=== PATIENT | male | born 1955 | race Hispanic/Latino ===

== ENCOUNTER 2017-04-10 00:25 | Inpatient (IN) | payer OTHER, MEDICARE ==
[2017-04-10 01:57] VITALS: BMI 35.9
[2017-04-10] MEDS ORDERED: Ondansetron ODT 4 MG TAB SL PRN (02:02)
[2017-04-10] MEDS ORDERED: Ondansetron HCl/PF 4 MG/2 ML Vial IVP PRN ×2 (02:02→03:01)
[2017-04-10] MEDS ORDERED: Acetaminophen 325 MG TAB PO PRN ×2 (02:02→03:01)
[2017-04-10] MEDS ORDERED: Labetalol HCl 100 MG/20 ML VIAL SLOW IVP PRN (02:42)
[2017-04-10] MEDS ORDERED: hydrALAZINE 20 MG/ML VIAL SLOW IVP PRN (02:42)
[2017-04-10] MEDS ORDERED: Carvedilol 25 MG TAB PO SCH (02:45)
[2017-04-10] MEDS ORDERED: Nitroglycerin 0.4 MG TAB (25 Tab Bottle) PO PRN (03:00)
[2017-04-10] MEDS ORDERED: Vancomycin HCl 1 GM in Premix Bag 1 BAG IVPB SCH (03:00)
[2017-04-10] MEDS ORDERED: Cefepime 2 GM in Syringe 12.5 ML IVPB SCH (03:00)
[2017-04-10] MEDS: Fentanyl 100 MCG/2 ML VIAL SLOW IVP PRN ×2 (03:01→08:44)
[2017-04-10] MEDS ORDERED: Ondansetron ODT 4 MG TAB PO PRN (03:01)
[2017-04-10] MEDS ORDERED: Calcium Carbonate 500 MG ChewTAB PO PRN (03:01)
[2017-04-10] MEDS ORDERED: Senokot 8.6 MG TAB PO PRN (03:01)
[2017-04-10] MEDS ORDERED: Diabetic Tussin 200 MG/10 ML UDCUP PO PRN (03:05)
[2017-04-10] MEDS ORDERED: Loratadine 10 MG TAB PO PRN (03:05)
[2017-04-10] MEDS ORDERED: cloNIDine 0.1 MG TAB PO PRN (03:05)
[2017-04-10] MEDS ORDERED: Vancomycin HCl 1 GM in Premix Bag 1 BAG IVPB PRN (03:27)
[2017-04-10] MEDS ORDERED: Vancomycin HCl 1.25 GM in Sodium Chloride 0.9% 250 ML 250 ML IVPB PRN (03:27)
[2017-04-10] MEDS ORDERED: Vancomycin HCl 750 MG in Sodium Chloride 0.9% 250 ML 250 ML IVPB PRN (03:28)
[2017-04-10] MEDS ORDERED: HOLD VANCOMYCIN FOR LEVEL >20 FS PRN (03:29)
[2017-04-10] MEDS ORDERED: Vancomycin HCl 500 MG in Sodium Chloride 0.9% 100 ML IVPB PRN (03:29)
[2017-04-10] MEDS ORDERED: Vancomycin Sliding Scale 1 EACH FS PRN (03:31)
--- NOTE | 2017-04-10 04:13 | HP ---
DATE OF ADMISSION: 04/10/2017 PRIMARY CARE PHYSICIAN: Kirt Quiros M.D. PRIMARY PODIATRIC ASSISTANT: Taylor Duron M.D. PRIMARY BEAUTY ADVISOR: Chan Holder M.D. CHIEF COMPLAINT: Left knee pain. HISTORY OF PRESENT ILLNESS: The patient is a 61-year-old male with ankylosing spondylitis on Enbrel, end-stage renal disease on peritoneal dialysis, presented to the emergency room at [facility] with abo ve complaints. Over the last 24 hours, the patient developed gradual worsening pain in the left knee for which he pr esented to the emergency room. His pain was 10/10 in the emergency room. He also had intermittent c hills. His left knee felt warm. He had a steroid injection in his right shoulder by Dr. Holder ye . He denies any recent fall, fever, chills, sick contacts. He has a history of left knee raquel nima in 1970s for ligament repair. He never had left knee replacement. He denies any nausea, vomiti ng, diaphoresis, fevers, chills, or night sweats. In the emergency room, initial vital signs showed temperature 99.5, respirations 22, pulse of 75, blo od pressure 224/96 with O2 saturation 97% on room air. Arthrocentesis was performed in the emergency room that was consistent with WBC of 75,000 with RBC 81,000, neutrophils 89%. His glucose was 98, t otal protein was 3.6 with LDH of 904. His CRP was 25.5 with ESR of 93. WBC count was 17.1 with hemo globin 12.6. He received vancomycin and ceftriaxone in the emergency room with IV fluids. PAST MEDICAL HISTORY: 1. End-stage renal disease on peritoneal dialysis, followed by Dr. Duron. 2. Hypertension. 3. Obstructive sleep apnea. 4. Ankylosing spondylitis, on immunosuppressants. 5. Hypertensive heart disease. PAST SURGICAL HISTORY: 1. Dialysis access. 2. Peritoneal dialysis catheter placement. 3. Total hip replacement. 4. Left knee surgery for ligament repair. ALLERGIES: No known drug allergies. CURRENT HOME MEDICATIONS: Tramadol as needed. Enbrel every 7 days, last dose was a week ago. He wa s due for Enbrel today. Carvedilol 25 mg b.i.d., calcitriol 0.25 mg daily. SOCIAL HISTORY: The patient currently lives at home with his spouse. No smoking, alcohol or drug us e. FAMILY HISTORY: Negative for premature coronary artery disease. REVIEW OF SYSTEMS: The following complete review of systems was negative, unless otherwise mentioned in the HPI or below: Constitutional: Weight loss or gain, ability to conduct usual activities. Skin: Rash, itching. Eyes: Double vision, pain. ENT/Mouth: Nose bleeding, neck stiffness, pain, tenderness. Cardiovascular: Palpitations, dyspnea on exertion, orthopnea. Respiratory: Shortness of breath, wheezing, cough, hemoptysis, fever or night sweats. Gastrointestinal: Poor appetite, abdominal pain, heartburn, nausea, vomiting, constipation, or diarr hea. Genitourinary: Urgency, frequency, dysuria, nocturia. Musculoskeletal: Pain, swelling. Neurologic/Psychiatric: Anxiety, depression. Allergy/Immunologic: Skin rash, bleeding tendency. PHYSICAL EXAMINATION: VITAL SIGNS: In the emergency room showed temperature 99.5, respirations 22, pulse rate of 75, blood pressure of 224/96 with O2 saturation 97% on room air. GENERAL: A 61-year-old male in moderate distress due to left knee pain. HEENT: Head atraumatic, normocephalic. Sclerae anicteric. Moist mucous membranes. No oral lesion. NECK: Supple, no JVD appreciated. No carotid bruit. LUNGS: Clear to auscultation bilaterally. No wheezing or rales. HEART: S1, S2 present. Regular rate and rhythm. No rubs, gallops or heaves appreciated. ABDOMEN: Soft, nontender, bowel sounds present. Peritoneal dialysis catheter present. EXTREMITIES: There is 1 to 2+ edema in the left leg. There is significant swelling of the left knee along with warmth and tenderness. No significant erythema noted. SKIN: As discussed above. LYMPH NODES: No palpable lymph nodes in the neck and groin. PERIPHERAL VASCULAR: Radial pulses palpable bilaterally. MUSCULOSKELETAL: As discussed above. NEUROLOGIC: Grossly nonfocal, moves all four extremities. PSYCHIATRY: Alert, awake, oriented x3. LABORATORY FINDINGS: As discussed above. X-ray of the knee by my review was consistent with large joint effusion with degenerative joint disea se. IMPRESSION: 1. Sepsis secondary to left knee septic arthritis. 2. Elevated inflammatory markers secondary to #1. 3. Ankylosing spondylitis on immunosuppressants. 4. Hypertension with hypertensive heart disease. 5. End-stage renal disease on peritoneal dialysis. 6. Chronic anemia, probably secondary to renal insufficiency. 7. Hyperlipidemia. 8. Obstructive sleep apnea. PLAN: The patient will be monitored on the medical floor. We will continue vancomycin and ceftriaxo ne, pending cultures. We will add crystal identification to the synovial fluid. Infectious Disease, Rheumatology, and Orthopedic will be consulted. The patient will be kept n.p.o. past midnight. Per itoneal dialysis per Nephrology. Resume carvedilol. Add p.r.n. antihypertensives. Pain controlled with IV fentanyl due to CODEINE allergy. Resume tramadol. Plan of care was discussed with the patient and the family at the bedside. They stated understanding . The patient will require 2 to 3 days for stabilization. Blood cultures have been sent.
[2017-04-10 05:21] LABS: Band 7 % (5-11); Hemoglobin 12.5 g/dL (14.0-18.0); Lymphocytes 6 % (21-51); MDiff Complete? YES; Mean Corpuscular HGB CONC 32.4 g/dL (32.0-36.0); Mean Corpuscular Volume 95.7 fl (80.0-94.0); Mean Platelet Volume 7.1 fL (7.4-10.4); Monocytes 11 % (0-10); Neutrophil 75 % (42-75); PLT Morphology Comment Appears Adequate; Platelet Count 225 thou/uL (130-400); RBC Distribution Width 12.2 % (11.5-14.5); RBC Morphology Normal; Reactive Lymphocytes 1 % (0-10); Red Blood Cell (RBC) Count 4.04 mill/uL (4.70-6.10); White Blood Cell (WBC) Count 15.9 thou/uL (4.8-10.8)
[2017-04-10] MEDS: traMADol HCl 50 MG TAB PO PRN ×2 (05:21→16:59)
[2017-04-10 05:22] LABS: ALT (SGPT) Less than 7 U/L (8-55); AST (SGOT) 6 U/L (5-34); Albumin 3.3 g/dL (3.5-5.0); Alkaline Phosphatase 100 U/L (40-150); Anion Gap 17 mmol/L (10-20); BUN (Urea Nitrogen) 67 mg/dL (8.4-25.7); Bilirubin, Total 0.6 mg/dL (0.2-1.2); Calc. Creatinine Clearance 16 mL/min (70-130); Calcium 9.8 mg/dL (7.8-10.44); Carbon Dioxide 20 mmol/L (22-29); Chloride 104 mmol/L (98-107); Estimated GFR-MDRD 8; Globulin 3.7 g/dL (2.4-3.5); Glucose 109 mg/dL (70-105); Potassium 4.7 mmol/L (3.5-5.1); Sodium 136 mmol/L (136-145)
[2017-04-10] MEDS: Folic Acid 1 MG TAB PO SCH (08:35)
[2017-04-10] MEDS: Saccharomyces boulardii 250 MG CAP PO SCH (08:35)
[2017-04-10] MEDS: Calcitriol 0.25 MCG CAP PO SCH (08:36)
[2017-04-10] MEDS: Famotidine 20 MG TAB PO SCH (08:36)
[2017-04-10] MEDS: Carvedilol 25 MG TAB PO SCH ×2 (08:37→20:45)
[2017-04-10] MEDS: Docusate 100 MG CAP PO SCH ×2 (08:38→20:45)
[2017-04-10] MEDS ORDERED: Morphine 4 MG/ML Carpuject SLOW IVP PRN (09:00)
--- NOTE | 2017-04-10 09:26 | CON ---
DATE OF CONSULTATION: 04/10/2017 CONSULTING PHYSICIAN: Dr. Morgan Flores HISTORY OF PRESENT ILLNESS: We were asked to see the patient via our [facility]. The patient pre sented to the emergency room with a complaint of increased left knee pain over the past 24 hours. Hi s is at the bedside. Per the patient and he had done nothing different, twisted or injured his knee. It just started becoming more and more warm to the touch, swollen and very painful to the point where he could not stand anymore and had to come in. He has also had some intermittent chills , but was unsure if this was a recent illness going around or from the knee. He had a steroid inject ion in the right shoulder by Dr. Holder on Wednesday. Denies any numbness and tingling down the legs, but has a lot of pain and pressure in the knee. PAST MEDICAL HISTORY: End-stage renal disease, he is on peritoneal dialysis, hypertension, obstructi ve sleep apnea, ankylosing spondylitis, hypertension/heart disease. PAST SURGICAL HISTORY: Dialysis access with peritoneal catheter placement, total hip, left knee raquel nima years ago. MEDICATIONS: Tramadol, Enbrel, carvedilol, calcitriol. ALLERGIES: None. SOCIAL HISTORY: . No alcohol or nicotine use. FAMILY HISTORY: Noncontributory. LABORATORIES: Labs in the ER, arthrocentesis showed a white blood cell count 75,000, RBC 81,000, yo trophils 89%. C-reactive protein is 25.5. ESR is 93. CBC; 17.1, 12.6, 37.4, platelets 211. X-rays showed some obvious edema effusion. He has some osteophytic formation, spurs, otherwise joint space looks fairly good. PHYSICAL EXAMINATION: GENERAL: Well-nourished male resting in bed, currently n.p.o. Speech clear. Affect pleasant. Answ ers questions appropriately, is alert and oriented x3. HEENT: Normal exam. NECK: Supple, trachea midline. EXTREMITIES: Upper extremities with normal findings. Lower extremities; noted he does have a large scar on his left knee from surgery in the 70s. He also has diminished hair from the mid to upper jose roberto f down to the feet. He has good sensations in his legs. He is able to move both legs okay, right ob viously better than left, due to the swelling and pain. Left knee is definitely much more warm than right knee. Flexing the knee, bending the knee causes traumatic pain. Any palpation to the knee is also very miserable for the patient. ASSESSMENT: Left knee effusion, rule out septic knee. PLAN: I spoke with patient and . We plan to do a washout of the knee arthroscopically. I have explained the procedure to the patient and and they are amenable to go forth with surgery. He i s currently n.p.o. We will keep him this way and add him on to surgery this morning. We will get hi m consented. He does have labs and cultures pending from [facility]. Dr. Gallo has also been co nsulted. The patient and understand the procedure and the plan is set forth currently and both are amenable to go forth with I&D washout of the knee.
[2017-04-10] MEDS ORDERED: Fentanyl 100 MCG/2 ML VIAL ONE (11:32)
[2017-04-10] MEDS ORDERED: Bupivacaine 0.25% HCL 30 ML VIAL ONE (11:43)
[2017-04-10] MEDS ORDERED: methylPREDNISolone Acetate 40 mg/ml Vial ONE (11:44)
[2017-04-10] MEDS ORDERED: Ondansetron HCl/PF 4 MG/2 ML Vial ONE (11:57)
--- NOTE | 2017-04-10 13:15 | OP ---
DATE OF SERVICE: 04/10/2017 PREOPERATIVE DIAGNOSIS: Left knee gout. POSTOPERATIVE DIAGNOSIS: Left knee gout. PROCEDURE PERFORMED: Aspiration and injection, left knee. STAFF: Morgan Flores M.D. MAGAZINE JOURNALIST: None. ANESTHESIA: Patient received 2 mL of lidocaine plain 1% subcutaneously. He also received 8 mL of Ma rcaine 0.25% plain with 80 mg of Depo-Medrol and 2 mL of lidocaine intraarticularly. ESTIMATED BLOOD LOSS: Less than 5 mL TOURNIQUET TIME: None. IMPLANTS: None. ANTIBIOTICS: None. Aspiration fluid 50 mL of murky fluid without any obvious red blood cells noted. COMPLICATIONS: None. HISTORY OF PRESENT ILLNESS: Michael is a 61-year-old male who presented to the ER last night with inc reasing pain of his left knee. The patient had an aspiration in the ER for his left knee pain showed 75,000 white blood cells, 81,000 reds, 89% neutrophils, glucose 98, protein of 3.6. The patient had elevated CRP and ESR. The patient was given vancomycin and ceftriaxone in the emergency room. The patient had cultures taken. The patient has a history of gout in the past, he is on end-stage renal disease, followed by Dr. Duron for peroneal dialysis. The patient has hypertension, sleep apnea, a nkylosing spondylitis, and hypertension. The patient's left knee is swollen and painful. The aspira te was red with positive monosodium urate crystals by Pathology today. He was planned to go to the O [facility] for washout of his knee, but given history of gout on crystal examination, I elected to hold not to take the patient for surgery. I discussed the risks and benefits of an aspiration injection, need t o include infection, pain, scar, need for further surgeries to include aspiration and injection. He understood the risks and benefits and elected to proceed. PROCEDURE NOTE: Time-out performed as the operative left lower extremity as the operative site. Aft er the left lower extremity was cleaned and prepped and draped with chlorhexidine, I injected 2 mL of lidocaine 1% subcutaneous to help with placement of my larger needle, I then placed an 18 gauge need le in the joint aspirated about 50 mL of yellow murky fluid out of the patient's knee. I then inject ed back in 8 mL of Marcaine, almost 2 mL of lidocaine and 80 mg of Depo-Medrol. The patient had been bandaged. Post-procedure, the patient's pain was improved. The patient's cultures followed to ensu re today that they are negative. Given history of gout and improvement in pain, postprocedure no jonas thema, no warmth, I feel this is likely gouty flare, likely need allopurinol and colchicine treatment , followed by Nephrology as well as Internal Medicine.
--- NOTE | 2017-04-10 14:18 | CON ---
DATE OF CONSULTATION: 04/10/2017 NEPHROLOGY CONSULT CONSULTING PHYSICIAN: Marcos Canas M.D. REASON FOR CONSULTATION: End-stage renal disease evaluation. REASON FOR ADMISSION: Left knee pain. HISTORY OF PRESENT ILLNESS: A 61-year-old male with history of end-stage renal disease, hypertension , obstructive sleep apnea and congestive heart failure, came to the hospital with left knee pain and possible septic arthritis. Nephrology was consulted for maintenance dialysis with peritoneal dialysi s at nighttime. He missed dialysis today with no nausea, vomiting, no chest pain, palpitation. No f ever or chills. He is in lot of pain and possibly having surgery later today. PAST MEDICAL HISTORY: Positive for end-stage renal disease on peritoneal dialysis, hypertension, obs tructive sleep apnea, ankylosis, and spondylitis, hypertension. PAST SURGICAL HISTORY: Dialysis access placement including peritoneal dialysis catheter, total hip r eplacement, and left knee surgery. MEDICATIONS: Tramadol, Enbrel, carvedilol, calcitriol. ALLERGIES: No known drug allergies. SOCIAL HISTORY: No smoking, alcohol or drug abuse. FAMILY HISTORY: No history of any kidney disease. REVIEW OF SYSTEMS: The following complete review of systems was negative, unless otherwise mentioned in the HPI or below: Constitutional: Weight loss or gain, ability to conduct usual activities. Sk in: Rash, itching. Eyes: Double vision, pain. ENT/Mouth: Nose bleeding, neck stiffness, pain, te nderness. Cardiovascular: Palpitations, dyspnea on exertion, orthopnea. Respiratory: Shortness of breath, wheezing, cough, hemoptysis, fever or night sweats. Gastrointestinal: Poor appetite, abdom inal pain, heartburn, nausea, vomiting, constipation, or diarrhea. Genitourinary: Urgency, frequenc y, dysuria, nocturia. Musculoskeletal: Pain, swelling. Neurologic/Psychiatric: Anxiety, depressio n. Allergy/Immunologic: Skin rash, bleeding tendency. PHYSICAL EXAMINATION: GENERAL: This is an obese male in no apparent distress. VITAL SIGNS: Temperature 98.3, pulse 86, respiratory 20, blood pressure 159/76. HEENT: Atraumatic, normocephalic. Oral mucosa is moist. NECK: Supple, no masses. CARDIOVASCULAR: S1, S2 heard. Rate and rhythm regular. RESPIRATORY: Clear. MUSCULOSKELETAL: 1+ edema. DERMATOLOGIC: No skin rash. NEUROLOGIC: Alert, awake. PSYCHIATRIC: Mood and affect normal. LABORATORY: Hemoglobin is 12.5. Potassium is 4.7, BUN 67, creatinine 7.3. ASSESSMENT AND PLAN: 1. End-stage renal disease. We will continue on peritoneal dialysis as tolerated. 2. Glaucoma. 3. Hypertension. 4. Anemia. Hemoglobin is stable. 5. Mild acidosis. Plan is to continue on peritoneal dialysis tonight and dialysis orders given to t carlos nurse. We will continue to follow. Thank you for the consultation.
[2017-04-10] MEDS ORDERED: cefTRIAXone\\ROCEPHIN 1 GM in Syringe 10 ML IVPB SCH (23:00)
[2017-04-11 04:27] LABS: ALT (SGPT) Less than 7 U/L (8-55); AST (SGOT) 5 U/L (5-34); Albumin 3.1 g/dL (3.5-5.0); Alkaline Phosphatase 81 U/L (40-150); Anion Gap 17 mmol/L (10-20); BUN (Urea Nitrogen) 78 mg/dL (8.4-25.7); Bilirubin, Total 0.4 mg/dL (0.2-1.2); Calc. Creatinine Clearance 17 mL/min (70-130); Calcium 9.8 mg/dL (7.8-10.44); Carbon Dioxide 22 mmol/L (22-29); Chloride 101 mmol/L (98-107); Estimated GFR-MDRD 8; Globulin 3.5 g/dL (2.4-3.5); Glucose 174 mg/dL (70-105); Potassium 4.8 mmol/L (3.5-5.1); Protein, Total 6.6 g/dL (6.0-8.3); Sodium 135 mmol/L (136-145)
[2017-04-11 04:42] LABS: Band 2 % (5-11); Hemoglobin 11.1 g/dL (14.0-18.0); Lymphocytes 4 % (21-51); MDiff Complete? YES; Macrocytosis SLIGHT = 6-15 cells (100X) (0-5/hpf); Mean Corpuscular HGB CONC 32.4 g/dL (32.0-36.0); Mean Corpuscular Hemoglobin 31.2 pg (27.0-31.0); Mean Corpuscular Volume 96.4 fl (80.0-94.0); Mean Platelet Volume 7.1 fL (7.4-10.4); Metamyelocyte 1 % (0-0); Monocytes 2 % (0-10); Neutrophil 91 % (42-75); PLT Morphology Comment Appears Adequate; Platelet Count 222 thou/uL (130-400); RBC Distribution Width 12.3 % (11.5-14.5); Red Blood Cell (RBC) Count 3.55 mill/uL (4.70-6.10); White Blood Cell (WBC) Count 13.1 thou/uL (4.8-10.8)
[2017-04-11 08:19] LABS: Vancomycin, Random 5.7 ug/mL (See Comment)
[2017-04-11] MEDS: Famotidine 20 MG TAB PO SCH (08:50)
[2017-04-11] MEDS: Carvedilol 25 MG TAB PO SCH (08:51)
[2017-04-11] MEDS ORDERED: Heparin 5,000 UNITS/ML VIAL SC SCH (09:00)
--- NOTE | 2017-04-11 12:15 | PRG ---
DATE OF SERVICE: 04/11/2017 SUBJECTIVE: Patient was seen and examined at bedside and overnight events noted. Patient denies any shortness of breath or chest pain or palpitation. No history of nausea or vomiting or diarrhea or f ever or chills or cramps. OBJECTIVE: GENERAL: This is a well-built male in no apparent distress. VITAL SIGNS: Temperature 97.9, pulse 66, respiratory 18, blood pressure 156/80. HEENT: Atraumatic, normocephalic, Oral mucosa is moist NECK: Supple. CARDIOVASCULAR: S1, S2 heard. Rate and rhythm regular RESPIRATORY: Clear to auscultation. GASTROINTESTINAL: Abdomen is soft. MUSCULOSKELETAL: No tenderness, no edema. DERMATOLOGIC: No skin rash. NEUROLOGIC: Alert and awake and oriented x3. No focal neurologic deficits. Moving all the extremit ies. PSYCHIATRIC: Mood and affect normal. LABORATORY DATA: Potassium is 4.9, BUN is 78, and creatinine 6.9. ASSESSMENT AND PLAN: 1. End-stage renal disease, continue on peritoneal dialysis, tolerating well. 2. Hypertension, stable. 3. Anemia. 4. Edema. 5. Mild acidosis. Overall, tolerating PD well, continue on peritoneal dialysis as tolerated.
--- NOTE | 2017-04-11 12:37 | PDOC.PN ---
- Subjective Encounter Start Date: 04/11/17 Encounter Start Time: 12:30 Subjective: f/u for L knee gouty arthritis s/p aspiration and injection 04/10/17. -: Tx with Rocephin and Vancomycin sliding scale with PD. Feels much -: better and minimal pain in knee. Some swelling but no fever. - Objective Resuscitation Status: Resuscitation Status FULL:Full Resuscitation MAR Reviewed: Yes Vital Signs & Weight: Vital Signs (12 hours) Temp Pulse Resp BP Pulse Ox 04/11/17 08:00 97.9 F 66 18 156/85 H 93 L 04/11/17 05:05 97.7 F 66 18 161/66 H Weight Weight 229 lb 5 oz Result Diagrams: 04/11/17 03:35 04/11/17 03:35 Additional Labs: Microbiology 04/09/17 23:15 Synovial fluid Gram Stain - Final 04/09/17 23:15 Synovial fluid Body Fluid Culture - Preliminary 04/09/17 23:00 Venous blood - Right Hand Blood Culture - Preliminary Specimen has been received and culture in progress. No Growth to date. 04/09/17 22:25 Venous blood - Right Arm Blood Culture - Preliminary Specimen has been received and culture in progress. No Growth to date. Laboratory Tests 04/09/17 04/10/17 23:15 04:20 WBC 15.9 H Hgb 12.5 L Fluid Crystal ID Phys Exam - Physical Examination Constitutional: NAD HEENT: PERRLA, oral pharynx no lesions Neck: no JVD, supple Respiratory: no wheezing, clear to auscultation bilateral Cardiovascular: RRR PD catheter in place Gastrointestinal: soft, non-tender, no distention, positive bowel sounds L knee with edema and effusion, mild TTP along joint line Musculoskeletal: pulses present, edema present Neurological: normal sensation, moves all 4 limbs Psychiatric: A&O x 3 Skin: normal turgor, cap refill <2 seconds Dx/Plan (1) Acute gouty arthritis Code(s): M10.9 - GOUT, UNSPECIFIED Status: Acute (2) ESRD on peritoneal dialysis Code(s): N18.6 - END STAGE RENAL DISEASE; Z99.2 - DEPENDENCE ON RENAL DIALYSIS Status: Acute (3) Anemia due to chronic kidney disease Code(s): N18.9 - CHRONIC KIDNEY DISEASE, UNSPECIFIED; D63.1 - ANEMIA IN CHRONIC KIDNEY DISEASE Status: Acute - Plan * .
[2017-04-11] MEDS ORDERED: Colchicine 0.6 MG TAB PO SCH (13:00)
[2017-04-11] MEDS: Calcitriol 0.25 MCG CAP PO SCH (14:03)
[2017-04-11] MEDS: Folic Acid 1 MG TAB PO SCH (14:03)
[2017-04-11] MEDS: Docusate 100 MG CAP PO SCH (14:04)
[2017-04-11] MEDS: Saccharomyces boulardii 250 MG CAP PO SCH (14:04)
[2017-04-11 14:31] VITALS: BP 183/89; TEMP 97.8
[2017-04-11] MEDS: traMADol HCl 50 MG TAB PO PRN (14:32)
--- NOTE | 2017-04-11 17:30 | CON ---
DATE OF CONSULTATION: 04/11/2017 HISTORY OF PRESENT ILLNESS: Mr. Rodriguez is a 61-year-old male who presented with left knee pain. The patient was diagnosed with gout on aspiration. The patient had currently injection performed yester day, now with improved pain control. The patient was kept n.p.o. waiting for cultures to be reviewed , positive. PHYSICAL EXAMINATION: VITAL SIGNS: 97.9, 66, 18, 156/85. GENERAL: Alert and oriented male in no acute distress. EXTREMITIES: Positive effusion, no erythema, no ecchymosis, no pain with axial load. Sensory intact distally. The patient has some minimal flexion and extension intact. LABORATORY VALUES: Micro, no growth at 24 hours, positive for gout. IMPRESSION: Gouty arthritis, left knee. ASSESSMENT AND PLAN: The patient's steroid injection has improved the pain control, recommend ambula tion activities. I recommend treatment with allopurinol and colchicine by primary team for his gouty arthritis. The patient will follow up with PCP or a residential fee appraiser for continued management. No foll owup required with Orthopedics unless he continues to have problems.
--- NOTE | 2017-04-11 17:43 | CON ---
DATE OF CONSULTATION: 04/11/2017 REASON FOR CONSULTATION: Left inflammatory arthropathy. HISTORY OF PRESENT ILLNESS: A 61-year-old who has a history of ankylosing spondylitis on immunosuppr essive medication and end-stage renal disease of uncertain etiology currently managed with peritoneal dialysis and prior history of gout with mostly foot involvement which had been in remission. The jose owens at this time came into the hospital because of worsening left knee inflammatory process. Arthr ocentesis showed an elevated WBC count of 75,000 with predominance of mature neutrophils. The aldo nickerson has been given ceftriaxone. The patient also was given a sliding scale of vancomycin. Cultures fr om the knee fluid thus far negative and fluid analysis showed positive for uric acid crystals. [place] sharma is currently on Colcrys in addition to the antimicrobials and he is feeling better. No headaches, visual symptoms, sore throat, odynophagia, dysphagia, no cough or sputum production or chest pain, n o abdominal pain, no genitourinary symptoms. No back pain or other joint symptoms. PAST MEDICAL HISTORY: Chronic renal insufficiency of uncertain etiology, on peritoneal dialysis. Jose owens has an AV fistula which is not being used at this time. Hypertension, RG, ankylosing spondyli tis on immunosuppressants, hypertensive heart disease and some ligament repair of left knee, total hi p replacement. ALLERGIES: CODEINE. MEDICATIONS AT HOME: Enbrel, Coreg, and calcitriol. SOCIAL HISTORY: Lives in [place] with spouse. Still working in a [employer] company. Never a smoker. FAMILY HISTORY: Noncontributory. PHYSICAL EXAMINATION: GENERAL: The patient has been afebrile through the hospital stay. Other vital signs are remarkable for slight elevation in systolic blood pressure. Awake, alert, pleasant, no distress. HEENT: Ocular movements are conjugate. LUNGS: With symmetric clear breath sounds. HEART: S1, S2, regular rate. No S3 or S4. ABDOMEN: Soft, nondistended or tender. Moderate pain in left knee on range of motion. Still with q uite a bit of pain on weightbearing. EXTREMITIES: Pulses are 1+ in dorsalis pedis. No edema. Exit site of the peritoneal dialysis vivian ter appears within normal limits. NEUROLOGIC: Examination nonfocal. LABORATORY DATA: White cell count 15.9 and 13,000, hemoglobin 11, platelets 222 with 91% neutrophils . Sodium 135, creatinine 6.97. Lactic acid 1.0, albumin 3.1. Fluid crystal ID positive for monosod ium urate crystals both intra and extracellular. Cultures negative thus far. Gram stain with no org anisms. Blood cultures negative. IMAGING STUDIES: There was a knee x-ray with joint effusion osteophyte. ASSESSMENT: 1. End-stage renal disease. 2. Peritoneal dialysis. 3. Acute gout, left knee. DISCUSSION: The evidence thus far points against an infectious process and we will go ahead and disc ontinue antimicrobial therapy. Continue management for gouty arthritis and patient will likely need to be treated for that in the outpatient setting with uric acid reducing agents and colchicine adjust ed for renal function. Intra-articular corticosteroids might be of help.
--- NOTE | 2017-04-11 18:08 | DIS ---
DATE OF ADMISSION: 04/10/2017. DATE OF DISCHARGE: 04/11/2017 DISCHARGE DIAGNOSES: 1. Acute gouty arthritis, flare of the left knee. 2. Status post aspiration injection of the left knee on 04/10/2017. 3. End-stage renal disease, on peritoneal dialysis. 4. Hypertension, stable. 5. Ankylosing spondylitis, on chronic immunosuppression therapy. 6. Chronic anemia secondary to chronic kidney disease. CONSULTATIONS: Dr. Flores with Orthopedic Surgery Service. Dr. Duron with Nephrology Service. PERTINENT LABORATORY AND X-RAY FINDINGS: Creatinine ranged between 6.97-7.35 with estimated GFR of 8 . Lactic acid level 1.0. CBC showed a white blood cell count ranging 13.1-15.9, hemoglobin ranged b etween 11.1-12.5. Left knee synovial fluid positive for monosodium urate crystals. Blood cultures x 2 from 04/09/2017 showed no growth to date. Synovial fluid evaluation 04/09/2017 showed no organisms , no growth at 12 hours. Four views of the left knee dated 04/09/2017 showed large joint effusion. HOSPITAL COURSE: Patient was admitted to the medical floor after initially presenting with severe le ft knee pain and swelling with initial concern for septic arthritis. Patient is on chronic immunosup pression therapy due to ankylosing spondylitis. The patient received IV vancomycin and Rocephin empi rically and was evaluated by the Orthopedic Surgery Service. The patient underwent general evaluatio n with aspiration of synovial fluid showing evidence of monosodium urate crystals confirming the diag nosis of gout. The patient underwent aspiration and injection of the left knee on 04/10/2017 with ov erall improvement in edema and pain. Current recommendations are for colchicine 0.6 mg x1 dose due t o end-stage renal disease and initiation of prednisone taper. Overall, patient is clinically stable and ready for discharge on 04/11/2017. DISCHARGE MEDICATIONS: 1. Calcitriol 0.25 mg p.o. daily. 2. Carvedilol 25 mg p.o. b.i.d. 3. Inderal 50 mg subcutaneously every 7 days. 4. Prednisone 10 mg 2 tabs p.o. daily x 3 days, followed by 1 tab p.o. daily x 3 days, followed by h hector a tab p.o. daily x3 days. 5. Tramadol/acetaminophen 37.5/325 mg 1-2 tabs p.o. b.i.d. p.r.n. pain. FOLLOWUP: The patient may follow up with his primary care provider, Dr. Brock within 7 days of disch arge. Patient will follow up with Dr. Duron with Nephrology Service. Patient will follow up with Dr. Morgan Flores and to call his office for appointment time and date. CONDITION ON DISCHARGE: Stable. ACTIVITY: Ad shaji. DIET: Renal. CODE STATUS: Full. DISPOSITION: Home on 04/11/2017.
[2017-04-11] MEDS ORDERED: cefTRIAXone\\ROCEPHIN 1 GM in Syringe 10 ML SLOW IVP SCH (23:00)
== END 2017-04-11 15:33 | disposition home or self-care (01) | DRG 553 ==
LOC: ERS 00:25 → T4-B 01:49
PROVIDERS: ADMIT Internal Medicine; ATTEND Internal Medicine
PROC: 0S9D3ZX Drainage of Left Knee Joint, Percutaneous Approach, Diagnostic (ICD-10-PCS; principal; 2017-04-10)
PROC: 3E0U3BZ Introduction of Anesthetic Agent into Joints, Percutaneous Approach (ICD-10-PCS; 2017-04-10)
PROC: 3E0U33Z Introduction of Anti-inflammatory into Joints, Percutaneous Approach (ICD-10-PCS; 2017-04-10)
PROC: 3E1M39Z Irrigation of Peritoneal Cavity using Dialysate, Percutaneous Approach (ICD-10-PCS; 2017-04-10)
DX: M10.062 Idiopathic gout, left knee (principal); N18.6 End stage renal disease; E87.2 Acidosis; I12.0 Hypertensive chronic kidney disease with stage 5 chronic kidney disease or end stage renal disease; Z99.2 Dependence on renal dialysis; M45.9 Ankylosing spondylitis of unspecified sites in spine; D63.1 Anemia in chronic kidney disease; G47.33 Obstructive sleep apnea (adult) (pediatric); H40.9 Unspecified glaucoma; Z79.899 Other long term (current) drug therapy; Z96.649 Presence of unspecified artificial hip joint
CPT/HCPCS: 36415; 80053; 80202; 83605; 85007; 85027; 87070; 87077; 87205; 89060; 90945; 94760; 99285; A4216; G0257; G8978-GP-CM; G8979-GP-CJ; J0360; J0692; J0696; J1030; J2270; J2405; J3010; J3370; S0020

== ENCOUNTER 2017-06-26 11:58 | Inpatient (IN) | payer OTHER, MEDICARE ==
[2017-06-26] MEDS ORDERED: HYDROcodone/Acetaminophen 5/325 mg Tablet ONE (12:44)
[2017-06-26 13:36] LABS: #Eosinphils 0.1 thou/uL (0.0-0.7); #Lymphocytes 1.1 thou/uL (1.20-3.40); #Monocytes 1.4 thou/uL (0.11-0.59); %Basophils 0.2 % (0.0-1.0); %Eosinophils 0.6 % (0.0-10.0); %Lymphocytes 7.9 % (21.0-51.0); %Monocytes 9.9 % (0.0-10.0); %Neutrophils 81.4 % (42.0-75.0); Hemoglobin 12.7 g/dL (14.0-18.0); Mean Corpuscular HGB CONC 32.8 g/dL (32.0-36.0); Mean Corpuscular Hemoglobin 31.8 pg (27.0-31.0); Mean Platelet Volume 6.9 fL (7.4-10.4); Platelet Count 245 thou/uL (130-400); RBC Distribution Width 14.3 % (11.5-14.5); Red Blood Cell (RBC) Count 3.99 mill/uL (4.70-6.10); White Blood Cell (WBC) Count 13.6 thou/uL (4.8-10.8)
[2017-06-26 14:01] LABS: CRP (Inflammatory) 29.99 mg/dL (= or < 0.5); Uric Acid 9.1 mg/dL (3.5-7.2)
[2017-06-26 14:02] LABS: ALT (SGPT) 12 U/L (8-55); AST (SGOT) 21 U/L (5-34); Albumin 3.4 g/dL (3.5-5.0); Alkaline Phosphatase 78 U/L (40-150); Anion Gap 19 mmol/L (10-20); BUN (Urea Nitrogen) 68 mg/dL (8.4-25.7); Bilirubin, Total 0.5 mg/dL (0.2-1.2); Calc. Creatinine Clearance 0 mL/min (70-130); Calcium 10.1 mg/dL (7.8-10.44); Carbon Dioxide 21 mmol/L (22-29); Chloride 102 mmol/L (98-107); Estimated GFR-MDRD 9; Glucose 103 mg/dL (70-105); Potassium 4.7 mmol/L (3.5-5.1); Protein, Total 7.4 g/dL (6.0-8.3); Sodium 137 mmol/L (136-145)
[2017-06-26] MEDS ORDERED: Colchicine 0.6 MG TAB PO SCH (15:15)
[2017-06-26] MEDS ORDERED: Zolpidem Tartrate 5 MG TAB PO PRN (16:36)
[2017-06-26] MEDS ORDERED: Morphine 4 MG/ML VIAL SLOW IVP PRN (16:36)
[2017-06-26] MEDS ORDERED: Ondansetron HCl/PF 4 MG/2 ML Vial IVP PRN (16:36)
[2017-06-26] MEDS ORDERED: Ondansetron HCl/PF 4 MG/2 ML Vial ONE (16:41)
[2017-06-26] MEDS ORDERED: Morphine 4 MG/ML VIAL ONE (16:41)
[2017-06-26] MEDS ORDERED: traMADol HCl 50 MG TAB PO PRN (16:41)
[2017-06-26] MEDS ORDERED: Acetaminophen 325 MG TAB PO PRN (16:42)
--- NOTE | 2017-06-26 17:07 | ULT ---
LEFT LOWER EXTREMITY VENOUS DOPPLER 06/26/17 HISTORY: Pain. Swelling. COMPARISON: None. TECHNIQUE: Real time holden scale, color doppler with spectral analysis of the left upper extremity venous system is performed. The internal jugular, subclavian, axillary vein as well as brachial, basilic, cephalic veins were interrogated. FINDINGS: Normal flow and augmentation and compression. The fistula is patent. IMPRESSION: No deep vein thrombosis. POS: CHARITO
--- NOTE | 2017-06-26 17:12 | RAD ---
LEFT ELBOW TWO VIEW 06/26/17 HISTORY: Pain. FINDINGS: There is erosive changes of the lateral humeral condyle. There is surgical clips along the antecubita l fossa. Osteophyte formation of the sublime tubercle. IMPRESSION: 1. No acute fracture or malalignment. 2. Mild soft tissue swelling. 3. Soft tissue density along the medial and anterior margin of the joint may reflect gout pannus . POS: CHARITO
--- NOTE | 2017-06-26 17:48 | HP ---
DATE OF CONSULTATION: 06/26/2017 CHIEF COMPLAINT: Left elbow pain. HISTORY OF PRESENT ILLNESS: This is a 62-year-old male who is presenting with left elbow pain as wel l as pain on by his thumb on the left side and swelling that occurred about 4-5 days ago and started to get progressively worse. The patient denies any trauma to the area. Denies any nausea, vomiting, diarrhea, fevers, shortness of breath or chest pain. Does admit to some chills. The patient does h ave peritoneal dialysis overnight. Patient currently states that he has not been bitten by anything. It did not hurt his elbow in anyway shape or form. Does admit to episodes of gout in the past and states that he had a similar presentation; however, his prior presentation was on his left knee. The patient otherwise denies any other associated symptoms. 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 Oth erwise, no other alleviating or aggravating factors. The patient was seen and examined in the ER and at bedside. All questions answered. ALLERGIES: CODEINE. PAST MEDICAL HISTORY: ESRD, ankylosing spondylitis, hypertension, secondary hyperparathyroidism due to renal disease, anemia secondary to renal disease, gout. PAST SURGICAL HISTORY: Bilateral titanium hips, AV fistula placement, PD catheter placement. HOME MEDICATIONS: Please see MAR. SOCIAL HISTORY: Denies any drinking or smoking. FAMILY HISTORY: Positive for renal failure in his brother. REVIEW OF SYSTEMS: Twelve point review of systems performed. Pertinent positives in the HPI, otherw ise negative. PHYSICAL EXAMINATION: VITAL SIGNS: Blood pressure 118/58, heart rate of 88, temperature 98, respirations of 12. GENERAL: The patient is sitting in chair in no acute distress. HEENT: Pupils equal, round, react to light and accommodation. Normocephalic, atraumatic. Oral cavi ty is moist and pink. NECK: Supple, mobile, nontender, palpable thyroid. CARDIOVASCULAR: Regular rate and rhythm. S1 and S2. No murmurs, rubs or gallops. PULMONARY: Clear to auscultation bilaterally, aerating well, symmetric expansion. ABDOMEN: Positive bowel sounds, soft, nontender. EXTREMITIES: 2+ peripheral pulses. Trace edema noted in bilateral lower extremities. Left elbow is swollen as well as left forearm, difficulty abducting elbow as well as crusher screen repairer in the left hand. Left distal phalangeal joint and proximal phalangeal joint appears to be swollen as well with tender to pa lpation both in elbow as well as proximal thumb. NEUROLOGIC: Cranial nerves II-XII intact. No loss of motor sensory function. LABORATORY DATA: Laboratory king, CBC; WBC count elevated at 10.6, hemoglobin 12.7, hematocrit 38.7, platelet count 245. BMP reveals normal BMP except for bicarbonate is 21, creatinine 6.32, BUN of 69 , C-reactive protein at 30, albumin 3.4. ASSESSMENT AND PLAN: 1. Left elbow effusion, left proximal interphalangeal joint pain. 2. History of osteoarthritis. 3. History of ankylosing spondylitis. 4. History of end-stage renal disease on peritoneal dialysis. 5. Secondary hyperparathyroidism due to renal disease. 6. History of secondary anemia due to renal disease. PLAN: At this point in time, patient's x-ray of the elbow is pending, we will consult Orthopedic Alonso nima for possible drainage of the effusion if deemed appropriate after evaluation. Nephrology follow ing as well for PD. Patient is given antibiotics in the ER. Follow up with blood cultures as well a s Orthopedic recommendations. Nephrology to resume peritoneal dialysis tonight. If patient's white count is falling, we will discharge the patient likely with antibiotics. If culture is positive, we will tailor therapy accordingly. At this point in time, we will place the patient in tele/ob and swi tch to inpatient if patient's symptoms and clinical status worsens. Case and plan discussed with the patient and at length. They understand and agree with this plan.
[2017-06-26 18:15] VITALS: BMI 33.5
[2017-06-26] MEDS: Carvedilol 25 MG TAB PO SCH (19:02)
[2017-06-26] MEDS ORDERED: Morphine 5 MG/ML SYRINGE SLOW IVP PRN (21:02)
[2017-06-26] MEDS: Clindamycin/D5W 300 MG in Premix Bag 1 BAG IVPB SCH (21:13)
[2017-06-26] MEDS ORDERED: Clindamycin 6 MG/ML (PEDI) IVPB SCH (22:00)
[2017-06-26] MEDS: Acetaminophen 325 MG TAB PO PRN (22:43)
[2017-06-27 05:22] LABS: #Eosinphils 0.1 thou/uL (0.0-0.7); #Lymphocytes 1.3 thou/uL (1.20-3.40); #Monocytes 1.6 thou/uL (0.11-0.59); #Neutrophils 9.5 thou/uL (1.40-6.50); %Basophils 0.1 % (0.0-1.0); %Eosinophils 1.1 % (0.0-10.0); %Monocytes 12.6 % (0.0-10.0); %Neutrophils 76.3 % (42.0-75.0); Hemoglobin 11.6 g/dL (14.0-18.0); Mean Corpuscular Hemoglobin 31.6 pg (27.0-31.0); Mean Corpuscular Volume 95.8 fl (80.0-94.0); Platelet Count 232 thou/uL (130-400); RBC Distribution Width 14.1 % (11.5-14.5); Red Blood Cell (RBC) Count 3.68 mill/uL (4.70-6.10); White Blood Cell (WBC) Count 12.5 thou/uL (4.8-10.8)
[2017-06-27 05:34] LABS: Anion Gap 15 mmol/L (10-20); BUN (Urea Nitrogen) 66 mg/dL (8.4-25.7); Calc. Creatinine Clearance 18 mL/min (70-130); Calcium 9.6 mg/dL (7.8-10.44); Carbon Dioxide 23 mmol/L (22-29); Chloride 101 mmol/L (98-107); Estimated GFR-MDRD 9; Glucose 115 mg/dL (70-105); Potassium 4.1 mmol/L (3.5-5.1); Sodium 135 mmol/L (136-145)
[2017-06-27] MEDS: Clindamycin/D5W 300 MG in Premix Bag 1 BAG IVPB SCH ×3 (06:36→21:35)
[2017-06-27] MEDS: Acetaminophen 325 MG TAB PO PRN (06:38)
[2017-06-27] MEDS: predniSONE 20 MG TAB PO SCH (08:02)
[2017-06-27] MEDS: Calcitriol 0.25 MCG CAP PO SCH (08:03)
[2017-06-27] MEDS: Carvedilol 25 MG TAB PO SCH ×2 (08:03→19:45)
--- NOTE | 2017-06-27 11:19 | PRG ---
DATE OF SERVICE: 06/27/2017 SUBJECTIVE: This is a 62-year-old gentleman being seen for end-stage renal disease. Patient tolerat ed PD well. Denies any nausea, vomiting, or chest pain. PHYSICAL EXAMINATION: GENERAL: Patient is awake, alert. VITAL SIGNS: Afebrile, pulse 66, breathing 16, blood pressure 126/62. GENERAL APPEARANCE AND MENTAL STATUS: Fair. HEAD/NECK: Normocephalic. Atraumatic. EYES: EOMI. No deformity. EARS: Clear. No ulcers. NOSE: Intact. No lesions. MOUTH: Clear. No discharge. THROAT: Clear. No exudate. LUNGS: Clear. No crackles. CARDIAC: S1, S2. No rub. ABDOMEN: Benign. BS+. GENITALIA/RECTUM: Tiwari absent. BACK/EXTREMITIES: Edema 0+ Ulcer- NEUROLOGICAL: Alert and motor intact. SKIN: Rash- Bruise- LYMPHATICS: Edema- Ulcer- LABORATORY DATA: Hemoglobin is 11.5, potassium is 4.0. ASSESSMENT AND RECOMMENDATIONS: 1. Stage 6 chronic kidney disease, stable. 2. Hypertension. 3. Anemia, stable. 4. Secondary hyperparathyroidism. Continue low phosphorus diet and low albumin. Recommend increase d protein intake.
--- NOTE | 2017-06-27 11:36 | CON ---
DATE OF CONSULTATION: 06/27/2017 HISTORY OF PRESENT ILLNESS: Mr. Rodriguez is a 62-year-old right handed male who has end-stage renal di sease. He has a history of gout, ankylosing spondylitis, hypertension and secondary hyperparathyroid ism. The patient states that he does not have any history of trauma or increased activity, but began having pain and swelling to clean the posterior aspect of the left elbow 4-5 days prior to admission . He does not report any fever, but has occasional chills. The patient does have peritoneal dialysi s overnight. He does not remember being bitten by any insect or any problems that he had with the el bow before I started causing the swelling and pain. States he has had one episode of gout in the pas t that affected his left knee. At this time, the patient cannot move the left elbow without signific ant pain in the posterior aspect of the elbow and he has some pain that radiates down to the dorsum o f the left wrist. He was admitted yesterday and was started on IV antibiotics. PHYSICAL EXAMINATION: In left arm, patient has significant swelling around the entire arm. There is erythema on the posterior aspect of the arm. He is tender posteriorly, nontender in the anterior as pect of the arm in the antecubital fossa. Any attempts of movement of the elbow causes pain. He has good range of motion of the left shoulder without pain. He is able to flex and extend his wrist wit h some pain at the elbow. He is able to flex and extend his digits, again with some pain at the elbo w. There are no open wounds. LABORATORY DATA: His admission laboratory shows white count 13.6 yesterday, it was 12.5 today, hemog lobin today 11.6. Chemistries; today sodium is 135, BUN 66, creatinine 6.08. His C-reactive protein was 30. Uric acid 9.1. IMPRESSION: 1. Cellulitis in the posterior aspect of the left elbow. 2. History of gout. This may be potentially affecting the elbow, but it certainly at this point rajan ears to be mainly the cellulitis. PLAN: The patient is receiving IV antibiotics. He should continue with that. We will see how he re sponds with the antibiotics. I will continue to follow him.
--- NOTE | 2017-06-27 12:12 | PDOC.PN ---
- Subjective Encounter Start Date: 06/27/17 Encounter Start Time: 12:11 Patient seen and examined, states his elbow pain is mildly improved, no other new issues, at bedside, all questions answered. - Objective Vital Signs & Weight: Vital Signs (12 hours) Temp Pulse Resp BP BP Pulse Ox 06/27/17 11:35 98.7 F 65 18 146/69 H 96 06/27/17 08:00 98.5 F 66 16 06/27/17 07:25 98.5 F 66 16 126/62 99 06/27/17 04:33 97.7 F 67 20 136/67 98 Weight Weight 214 lb I&O: 06/26/17 06/27/17 06/28/17 06:59 06:59 06:59 Intake Total 460 Balance 460 Result Diagrams: 06/27/17 04:06 06/27/17 04:06 Phys Exam - Physical Examination Constitutional: NAD HEENT: PERRLA, moist MMs, sclera anicteric Neck: no nodes, no JVD, supple Respiratory: no wheezing, no rales, no rhonchi Cardiovascular: RRR, no significant murmur, no rub Gastrointestinal: soft, non-tender, no distention Musculoskeletal: pulses present, edema present (LUE) elbow effusion and pain Neurological: non-focal, normal sensation Psychiatric: normal affect, A&O x 3 Dx/Plan (1) Cellulitis of left elbow Code(s): L03.114 - CELLULITIS OF LEFT UPPER LIMB Status: Acute (2) Acute gouty arthritis Code(s): M10.9 - GOUT, UNSPECIFIED Status: Acute (3) Anemia due to chronic kidney disease Code(s): N18.9 - CHRONIC KIDNEY DISEASE, UNSPECIFIED; D63.1 - ANEMIA IN CHRONIC KIDNEY DISEASE Status: Acute (4) ESRD on peritoneal dialysis Code(s): N18.6 - END STAGE RENAL DISEASE; Z99.2 - DEPENDENCE ON RENAL DIALYSIS Status: Acute - Plan * cont abx * allopurinol started * PD per renal * ortho following * labs in AM * continue current plan of care * DC plans in 24-48hrs if patient doing well and ok with subspecialists
[2017-06-27] MEDS: traMADol HCl 50 MG TAB PO PRN (14:07)
[2017-06-27] MEDS ORDERED: Allopurinol 100 MG TAB PO SCH (21:45)
[2017-06-28 05:02] LABS: #Eosinphils 0.1 thou/uL (0.0-0.7); #Lymphocytes 1.3 thou/uL (1.20-3.40); #Monocytes 1.2 thou/uL (0.11-0.59); #Neutrophils 8.9 thou/uL (1.40-6.50); %Basophils 0.4 % (0.0-1.0); %Eosinophils 0.8 % (0.0-10.0); %Lymphocytes 11.2 % (21.0-51.0); %Monocytes 10.2 % (0.0-10.0); %Neutrophils 77.3 % (42.0-75.0); Hemoglobin 11.6 g/dL (14.0-18.0); Mean Corpuscular HGB CONC 33.2 g/dL (32.0-36.0); Mean Corpuscular Hemoglobin 31.9 pg (27.0-31.0); Mean Corpuscular Volume 96.1 fl (80.0-94.0); Platelet Count 249 thou/uL (130-400); Red Blood Cell (RBC) Count 3.64 mill/uL (4.70-6.10); White Blood Cell (WBC) Count 11.6 thou/uL (4.8-10.8)
[2017-06-28 05:29] LABS: Anion Gap 16 mmol/L (10-20); BUN (Urea Nitrogen) 82 mg/dL (8.4-25.7); Calc. Creatinine Clearance 15 mL/min (70-130); Calcium 9.9 mg/dL (7.8-10.44); Carbon Dioxide 24 mmol/L (22-29); Chloride 100 mmol/L (98-107); Estimated GFR-MDRD 8; Glucose 100 mg/dL (70-105); Sodium 136 mmol/L (136-145)
[2017-06-28] MEDS: Clindamycin/D5W 300 MG in Premix Bag 1 BAG IVPB SCH ×3 (05:36→21:33)
[2017-06-28] MEDS: Carvedilol 25 MG TAB PO SCH ×2 (09:04→21:32)
[2017-06-28] MEDS: Calcitriol 0.25 MCG CAP PO SCH (09:04)
[2017-06-28] MEDS: predniSONE 20 MG TAB PO SCH (09:04)
[2017-06-28] MEDS: Allopurinol 100 MG TAB PO SCH (09:04)
--- NOTE | 2017-06-28 09:09 | CON ---
DATE OF CONSULTATION: 06/26/2017 at 8:00 p.m. NEPHROLOGY CONSULT HISTORY OF PRESENT ILLNESS: This is a very pleasant 62-year-old gentleman who presented to the [facility] with left elbow pain. The patient was admitted for cellulitis. The patient dialyzes every day a t home with peritoneal dialysis for 10 hours at night. The patient denies any fever, chills, nausea, vomiting or chest pain. The patient does dialysis without any problem or any colored fluid. PAST MEDICAL HISTORY: Significant for ESRD, ankylosing spondylitis, hypertension, secondary hyperpar athyroidism, anemia, gout, history of titanium hips, history of AV fistula, history of PD catheter. HOME MEDICATIONS: List reviewed. SOCIAL ECONOMIC HISTORY: No alcohol or drug use. FAMILY HISTORY: Positive for ESRD in brother. REVIEW OF SYSTEMS: A 12 point review of systems was performed and was negative except for positives noted above. GENERAL: Weakness-. HEAD: Headache-. NECK: No swelling or lumps. NOSE: No epistaxis or discharge. EYES: No diplopia or pain. RESPIRATORY: Dyspnea-. CARDIOVASCULAR: Chest pain-. GASTROINTESTINAL: Nausea-. /VALIDATION MANAGER: Hematuria-. MUSCULOSKELETAL: No joint pain. NEUROPSYCHIATIC SYSTEMS: No suicidal ideation. No ideation. SKIN: Denies any rash or ulcer. CONSTITUTIONAL: No fever or chills. PHYSICAL EXAMINATION: GENERAL: Patient was awake, alert, in no acute distress. VITAL SIGNS: Afebrile, pulse 75, breathing at 16, blood pressure 118/58. GENERAL APPEARANCE AND MENTAL STATUS: Fair. HEAD/NECK: Normocephalic. Atraumatic. EYES: EOMI. No deformity. EARS: Clear. No ulcers. NOSE: Intact. No lesions. MOUTH: Clear. No discharge. THROAT: Clear. No exudate. LUNGS: Clear. No crackles. CARDIAC: S1, S2. No rub. ABDOMEN: Benign. BS+. GENITALIA/RECTUM: Tiwari absent. BACK/EXTREMITIES: Edema 0+ Ulcer- NEUROLOGICAL: Alert and motor intact. SKIN: Rash- Bruise- LYMPHATICS: Edema- Ulcer- MUSCULOSKELETAL: Joint changes as noted above. LABORATORY DATA: Show hemoglobin 12.7, creatinine 6.32. ASSESSMENT AND RECOMMENDATIONS: 1. Stage 6 chronic kidney disease. We will plan peritoneal dialysis tonight. The nurse was called. 2. Anemia, stable. 3. Hypertension, stable. 4. Medication based on glomerular filtration rate are appropriate. 5. Secondary hyperparathyroidism. Continue binders. The dialysis nurse pet supplies salesperson was called.
[2017-06-28] MEDS: HYDROcodone/Acetaminophen 5/325 mg Tablet PO PRN ×2 (10:30→21:32)
--- NOTE | 2017-06-28 11:32 | PDOC.PN ---
- Subjective Encounter Start Date: 06/28/17 Encounter Start Time: 11:20 Subjective: f/u for PEDROE gouty arthropathy and cellulitis on Clindamycin, Prednisone -: Allopurinol with mild improvement. Still remains swollen and painful -: with movement. Completed HD last pm. - Objective MAR Reviewed: Yes Vital Signs & Weight: Vital Signs (12 hours) Temp Pulse Resp BP BP Pulse Ox 06/28/17 08:00 98.2 F 66 20 06/28/17 07:18 98.2 F 66 20 180/85 H 98 06/28/17 04:10 98.6 F 69 18 154/67 H 96 Weight Weight 216 lb I&O: 06/27/17 06/28/17 06/29/17 06:59 06:59 06:59 Intake Total 460 330 Balance 460 330 Result Diagrams: 06/28/17 04:04 06/28/17 04:04 Additional Labs: Microbiology 06/26/17 17:05 Venous blood - Right Hand Blood Culture - Preliminary Specimen has been received and culture in progress. No Growth to date. 06/26/17 16:30 Venous blood - Right Arm Blood Culture - Preliminary Specimen has been received and culture in progress. No Growth to date. Laboratory Tests 04/09/17 04/10/17 06/26/17 23:15 04:20 12:50 WBC 15.9 H Hgb 12.5 L ESR Westergren 47 Lactic Acid Uric Acid C-Reactive Protein Fluid Crystal ID 06/26/17 06/26/17 06/26/17 12:50 12:50 12:50 WBC 13.6 H Hgb ESR Westergren Lactic Acid 1.6 Uric Acid 9.1 H C-Reactive Protein 29.99 H Fluid Crystal ID 06/27/17 04:06 WBC 12.5 H Hgb ESR Westergren Lactic Acid Uric Acid C-Reactive Protein Fluid Crystal ID Radiology Reviewed by me: Yes (JUANA sono - no DVT) EKG Reviewed by me: Yes (Tele - SR) Phys Exam - Physical Examination Constitutional: NAD HEENT: PERRLA, oral pharynx no lesions Neck: no JVD, supple Respiratory: no wheezing, clear to auscultation bilateral Cardiovascular: RRR Gastrointestinal: soft, non-tender, no distention, positive bowel sounds LUE with marked edema of elbow, forearm and wrist, + warmth and TTP, N/V intact distally, AV fistula in place Musculoskeletal: pulses present Neurological: normal sensation, moves all 4 limbs Psychiatric: A&O x 3 Skin: normal turgor, cap refill <2 seconds Dx/Plan (1) Acute gouty arthritis Code(s): M10.9 - GOUT, UNSPECIFIED Status: Acute Comment: LUE involvement, continue Allopurinol, Prednisone and Clindamycin, pain control (2) Cellulitis of left elbow Code(s): L03.114 - CELLULITIS OF LEFT UPPER LIMB Status: Acute Comment: LUE involvement, continue Clindamycin 300mg IV q8h (3) Anemia due to chronic kidney disease Code(s): N18.9 - CHRONIC KIDNEY DISEASE, UNSPECIFIED; D63.1 - ANEMIA IN CHRONIC KIDNEY DISEASE Status: Chronic Comment: Stable, no evidence of acute blood loss, serial monitoring (4) ESRD on peritoneal dialysis Code(s): N18.6 - END STAGE RENAL DISEASE; Z99.2 - DEPENDENCE ON RENAL DIALYSIS Status: Chronic Comment: PD per Nephrology recommendations - Plan continue antibiotics, out of bed/ambulate, DVT proph w/SCDs Stable overall -: Continue Clindamycin 300mg IV q8h -: Continue Prednisone -: Continue pain control with Morphine Sulfate and Aurora -: PD per Renal service * Convert to inpt status * AM lab: BMP, CBC
--- NOTE | 2017-06-28 18:59 | PRG ---
DATE OF SERVICE: 06/28/2017 SUBJECTIVE: Patient was seen and examined at bedside and overnight events noted. Patient denies any shortness of breath or chest pain or palpitation. No history of nausea or vomiting or diarrhea or f ever or chills or cramps. OBJECTIVE: GENERAL: This is a well-built male in no apparent distress. VITAL SIGNS: Temperature 98.5, pulse 63, respiratory rate 18 and blood pressure 164/70. HEENT: Atraumatic, normocephalic. Oral mucosa is moist. NECK: Supple. CARDIOVASCULAR: S1, S2 heard. Rate and rhythm regular. RESPIRATORY: Clear to auscultation. GASTROINTESTINAL: Abdomen is soft. MUSCULOSKELETAL: No tenderness. No edema. DERMATOLOGIC: No skin rash. NEUROLOGIC: Alert, awake and oriented x3. No focal neurologic deficits. Moving all the extremities . PSYCHIATRIC: Mood and affect normal. LABORATORY DATA: Potassium is 4.0, BUN is 82 and creatinine 7.03. ASSESSMENT AND PLAN: 1. End-stage renal disease, on peritoneal dialysis. Continue on dialysis as tolerated. 2. Hypertension. 3. Anemia. 4. Secondary hyperparathyroidism. Continue low phosphorus diet. 5. We will continue on peritoneal dialysis as tolerated. 6. Abdominal pain, less likely to be peritonitis. Peritoneal fluid is clear, most likely from const ipation. We will give one dose of lactulose. 7. Chronic pain. We will give one dose of pain medication, Ultram. We will follow.
[2017-06-29 05:34] LABS: #Eosinphils 0.1 thou/uL (0.0-0.7); #Lymphocytes 1.6 thou/uL (1.20-3.40); #Monocytes 1.1 thou/uL (0.11-0.59); #Neutrophils 7.6 thou/uL (1.40-6.50); %Lymphocytes 15.1 % (21.0-51.0); %Monocytes 10.2 % (0.0-10.0); %Neutrophils 73.6 % (42.0-75.0); Mean Corpuscular HGB CONC 33.4 g/dL (32.0-36.0); Mean Corpuscular Hemoglobin 31.8 pg (27.0-31.0); Mean Corpuscular Volume 95.3 fl (80.0-94.0); Mean Platelet Volume 6.7 fL (7.4-10.4); Platelet Count 272 thou/uL (130-400); Red Blood Cell (RBC) Count 3.78 mill/uL (4.70-6.10); White Blood Cell (WBC) Count 10.4 thou/uL (4.8-10.8)
[2017-06-29 06:04] LABS: Anion Gap 17 mmol/L (10-20); BUN (Urea Nitrogen) 88 mg/dL (8.4-25.7); Calc. Creatinine Clearance 13 mL/min (70-130); Calcium 10.1 mg/dL (7.8-10.44); Carbon Dioxide 22 mmol/L (22-29); Chloride 103 mmol/L (98-107); Estimated GFR-MDRD 7; Glucose 86 mg/dL (70-105); Potassium 4.3 mmol/L (3.5-5.1); Sodium 138 mmol/L (136-145)
[2017-06-29] MEDS: Clindamycin/D5W 300 MG in Premix Bag 1 BAG IVPB SCH ×3 (06:32→21:41)
[2017-06-29] MEDS: traMADol HCl 50 MG TAB PO PRN ×2 (06:33→17:08)
[2017-06-29] MEDS: Acetaminophen 325 MG TAB PO PRN (06:33)
[2017-06-29] MEDS: predniSONE 20 MG TAB PO SCH (08:55)
[2017-06-29] MEDS: Allopurinol 100 MG TAB PO SCH (08:55)
[2017-06-29] MEDS: Calcitriol 0.25 MCG CAP PO SCH (08:55)
[2017-06-29] MEDS: Carvedilol 25 MG TAB PO SCH ×2 (08:56→20:12)
[2017-06-29] MEDS: HYDROcodone/Acetaminophen 5/325 mg Tablet PO PRN (09:00)
--- NOTE | 2017-06-29 18:19 | PDOC.PN ---
- Subjective Encounter Start Date: 06/29/17 Encounter Start Time: 18:05 Subjective: f/u acute gouty arthritis, cellulitis LUE on Clindamycin and Prednisone -: with some decrease in pain and swelling. No fever. More movement of -: elbow. - Objective MAR Reviewed: Yes Vital Signs & Weight: Vital Signs (12 hours) Temp Pulse Resp BP Pulse Ox 06/29/17 16:37 98.2 F 60 14 166/70 H 99 06/29/17 11:28 97.8 F 58 L 14 155/71 H 99 06/29/17 08:20 98.5 F 65 18 06/29/17 08:15 98.5 F 65 18 174/78 H 97 Weight Weight 216 lb I&O: 06/28/17 06/29/17 06/30/17 06:59 06:59 06:59 Intake Total 330 Balance 330 Result Diagrams: 06/29/17 05:13 06/29/17 05:13 Additional Labs: Microbiology 04/09/17 23:15 Synovial fluid Gram Stain - Final 06/26/17 17:05 Venous blood - Right Hand Blood Culture - Preliminary Specimen has been received and culture in progress. No Growth to date. 06/26/17 16:30 Venous blood - Right Arm Blood Culture - Preliminary Specimen has been received and culture in progress. No Growth to date. 04/09/17 23:15 Synovial fluid Body Fluid Culture - Preliminary 04/09/17 23:00 Venous blood - Right Hand Blood Culture - Preliminary Specimen has been received and culture in progress. No Growth to date. 04/09/17 22:25 Venous blood - Right Arm Blood Culture - Preliminary Specimen has been received and culture in progress. No Growth to date. Laboratory Tests 04/09/17 04/10/17 06/26/17 23:15 04:20 12:50 WBC 15.9 H Hgb 12.5 L ESR Westergren 47 Lactic Acid Uric Acid C-Reactive Protein Fluid Crystal ID 06/26/17 06/26/17 06/26/17 12:50 12:50 12:50 WBC 13.6 H Hgb ESR Westergren Lactic Acid 1.6 Uric Acid 9.1 H C-Reactive Protein 29.99 H Fluid Crystal ID 06/27/17 04:06 WBC 12.5 H Hgb ESR Westergren Lactic Acid Uric Acid C-Reactive Protein Fluid Crystal ID Phys Exam - Physical Examination Constitutional: NAD HEENT: PERRLA, oral pharynx no lesions Neck: no JVD, supple Respiratory: no wheezing, clear to auscultation bilateral Cardiovascular: RRR Gastrointestinal: soft, non-tender, no distention, positive bowel sounds LUE with edema of elbow, forearm, wrist and hand, mild TTP, minimal erythema, N/V intact distally Musculoskeletal: pulses present Neurological: normal sensation, moves all 4 limbs Psychiatric: A&O x 3 Skin: normal turgor, cap refill <2 seconds Dx/Plan (1) Acute gouty arthritis Code(s): M10.9 - GOUT, UNSPECIFIED Status: Acute Comment: LUE involvement, continue Allopurinol, Prednisone and Clindamycin, pain control (2) Cellulitis of left elbow Code(s): L03.114 - CELLULITIS OF LEFT UPPER LIMB Status: Acute Comment: LUE involvement, continue Clindamycin 300mg IV q8h (3) Anemia due to chronic kidney disease Code(s): N18.9 - CHRONIC KIDNEY DISEASE, UNSPECIFIED; D63.1 - ANEMIA IN CHRONIC KIDNEY DISEASE Status: Chronic Comment: Stable, no evidence of acute blood loss, serial monitoring (4) ESRD on peritoneal dialysis Code(s): N18.6 - END STAGE RENAL DISEASE; Z99.2 - DEPENDENCE ON RENAL DIALYSIS Status: Chronic Comment: PD per Nephrology recommendations - Plan plan discussed w/ family, continue antibiotics, drug abuse social worker, out of bed/ ambulate, DVT proph w/SCDs Stable overall -: Continue Allopurinol -: Continue Prednisone 40mg daily -: Continue Clindamycin 300mg IV q8h -: PD per Nephrology service * .
--- NOTE | 2017-06-29 21:04 | PRG ---
DATE OF SERVICE: 06/29/2017 SUBJECTIVE: Mr. Rodriguez is here for cellulitis in the posterior aspect of the left elbow and forearm. He also has history of gout, which may also be affecting the left elbow. He states that he is feel ing much better than he was a couple of days ago that his pain is decreased as well as his swelling. OBJECTIVE: VITAL SIGNS: Patient has been afebrile, vital signs have been stable. EXTREMITIES: Examination of the left elbow and forearm shows that patient still has swelling in the forearm and elbow, but it is much less than 2 days ago. Erythema appears to be receding as well and still over the posterior aspect of the elbow and into the proximal forearm. He is able to flex and e xtend his wrist and hand better. IMPRESSION: Cellulitis in the posterior aspect of left elbow and proximal forearm. Patient is showi ng good progress with the IV antibiotics. PLAN: Patient should continue with IV antibiotics at some point, it can probably be switched to p.o. antibiotics, but we will leave that up to the medical doctors. In the meantime, he will continue wi th IV antibiotics, which I feel as needed for him because of all of his other secondary medical probl ems such as the end-stage kidney disease and diabetes.
[2017-06-30] MEDS: Clindamycin/D5W 300 MG in Premix Bag 1 BAG IVPB SCH ×3 (06:48→21:05)
[2017-06-30] MEDS: HYDROcodone/Acetaminophen 5/325 mg Tablet PO PRN ×2 (06:48→18:44)
[2017-06-30] MEDS ORDERED: predniSONE 20 MG TAB PO SCH (08:00)
[2017-06-30] MEDS: predniSONE 20 MG TAB PO SCH (08:49)
[2017-06-30] MEDS: Carvedilol 25 MG TAB PO SCH ×2 (08:49→21:04)
[2017-06-30] MEDS: Allopurinol 100 MG TAB PO SCH (08:49)
[2017-06-30] MEDS: Calcitriol 0.25 MCG CAP PO SCH (08:49)
--- NOTE | 2017-06-30 10:13 | PRG ---
DATE OF SERVICE: 06/29/2017 SUBJECTIVE: Patient was seen and examined at bedside and overnight events noted. Patient denies any shortness of breath or chest pain or palpitation. No history of nausea or vomiting or diarrhea or f ever or chills or cramps. OBJECTIVE: GENERAL: This is a well-built male in no apparent distress. VITAL SIGNS: Temperature 97.8, pulse 58, respiratory rate 14, blood pressure 155/71. HEENT: Atraumatic, normocephalic, oral mucosa is moist. NECK: Supple. CARDIOVASCULAR: S1, S2 heard, rate and rhythm regular. RESPIRATORY: Clear to auscultation. GASTROINTESTINAL: Abdomen is soft. MUSCULOSKELETAL: No tenderness, no edema. DERMATOLOGIC: No skin rash. NEUROLOGIC: Alert and awake and oriented x3, no focal neurologic deficits. Moving all the extremiti es. PSYCHIATRIC: Mood and affect normal. LABORATORY DATA: Sodium 138, potassium is 4.3, BUN is 88, and creatinine is 8.09. ASSESSMENT AND PLAN: 1. End-stage renal disease. Continue on peritoneal dialysis as tolerated. 2. Hypertension, remove fluid. 3. Anemia. 4. Secondary hyperparathyroidism. Plan is to continue on dialysis as tolerated. Tolerating PD well. We will follow.
[2017-06-30] MEDS: traMADol HCl 50 MG TAB PO PRN (11:54)
--- NOTE | 2017-06-30 13:03 | PRG ---
DATE OF SERVICE: 06/30/2017 NEPHROLOGY PROGRESS NOTE SUBJECTIVE: Patient was seen and examined at bedside and overnight events noted. Patient denies any shortness of breath or chest pain or palpitation. No history of nausea or vomiting or diarrhea or f ever or chills or cramps. OBJECTIVE: GENERAL: This is a well-built male in no apparent distress. VITAL SIGNS: Temperature 98.2, pulse 60, respiratory rate 20, blood pressure 179/85. HEENT: Atraumatic, normocephalic. Oral mucosa is moist. NECK: Supple. CARDIOVASCULAR: S1, S2 heard. Rate and rhythm regular. RESPIRATORY: Clear to auscultation. GASTROINTESTINAL: Abdomen is soft. MUSCULOSKELETAL: No tenderness. No edema. DERMATOLOGIC: No skin rash. NEUROLOGIC: Alert and awake and oriented x3. No focal neurologic deficits. Moving all the extremiti es. PSYCHIATRIC: Mood and affect normal. LABORATORY DATA: Potassium is 4.3, BUN 88, creatinine 0.09. ASSESSMENT AND PLAN: 1. End-stage renal disease, continue on peritoneal dialysis as tolerated. 2. Hypertension. 3. Anemia. 4. Edema. 5. Overall, tolerating pretty well, will continue.
--- NOTE | 2017-06-30 19:01 | PDOC.PN ---
- Subjective Encounter Start Date: 06/30/17 Encounter Start Time: 18:40 Subjective: f/u LUE gouty arthropathy and cellulitis improving slowly. Less pain -: per pt and more mobility. Swelling decreasing. - Objective MAR Reviewed: Yes Vital Signs & Weight: Vital Signs (12 hours) Temp Pulse Resp BP Pulse Ox 06/30/17 15:39 97.4 F L 62 16 173/77 H 98 06/30/17 11:35 97.5 F L 62 14 168/79 H 98 06/30/17 08:00 97.4 F L 62 16 06/30/17 07:25 98.2 F 63 14 179/85 H 99 Weight Weight 216 lb I&O: 06/29/17 06/30/17 07/01/17 06:59 06:59 06:59 Intake Total 880 Balance 880 Result Diagrams: 06/29/17 05:13 06/29/17 05:13 Phys Exam - Physical Examination Constitutional: NAD HEENT: PERRLA, oral pharynx no lesions Neck: no JVD, supple Respiratory: no wheezing, clear to auscultation bilateral Cardiovascular: RRR PD catheter in place Gastrointestinal: soft, non-tender, no distention, positive bowel sounds LUE with decreased edema of elbow and forearm Musculoskeletal: pulses present Neurological: normal sensation, moves all 4 limbs Psychiatric: A&O x 3 Skin: normal turgor, cap refill <2 seconds Dx/Plan (1) Acute gouty arthritis Code(s): M10.9 - GOUT, UNSPECIFIED Status: Acute Comment: LUE involvement, continue Allopurinol, Prednisone and Clindamycin, pain control (2) Cellulitis of left elbow Code(s): L03.114 - CELLULITIS OF LEFT UPPER LIMB Status: Acute Comment: LUE involvement, continue Clindamycin 300mg IV q8h converting to po in am (3) Anemia due to chronic kidney disease Code(s): N18.9 - CHRONIC KIDNEY DISEASE, UNSPECIFIED; D63.1 - ANEMIA IN CHRONIC KIDNEY DISEASE Status: Chronic Comment: Stable, no evidence of acute blood loss, serial monitoring (4) ESRD on peritoneal dialysis Code(s): N18.6 - END STAGE RENAL DISEASE; Z99.2 - DEPENDENCE ON RENAL DIALYSIS Status: Chronic Comment: PD per Nephrology recommendations - Plan plan discussed w/ family, continue antibiotics, 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
[2017-07-01 05:16] LABS: Anion Gap 10 mmol/L (10-20); BUN (Urea Nitrogen) 89 mg/dL (8.4-25.7); Calc. Creatinine Clearance 15 mL/min (70-130); Calcium 10.5 mg/dL (7.8-10.44); Carbon Dioxide 29 mmol/L (22-29); Chloride 103 mmol/L (98-107); Estimated GFR-MDRD 8; Glucose 151 mg/dL (70-105); Potassium 4.4 mmol/L (3.5-5.1); Sodium 138 mmol/L (136-145)
[2017-07-01] MEDS: Clindamycin/D5W 300 MG in Premix Bag 1 BAG IVPB SCH (05:49)
[2017-07-01] MEDS: Allopurinol 100 MG TAB PO SCH (08:21)
[2017-07-01] MEDS: Calcitriol 0.25 MCG CAP PO SCH (08:21)
[2017-07-01] MEDS: predniSONE 20 MG TAB PO SCH (08:21)
[2017-07-01] MEDS: Carvedilol 25 MG TAB PO SCH (08:21)
[2017-07-01] MEDS: HYDROcodone/Acetaminophen 5/325 mg Tablet PO PRN (08:22)
--- NOTE | 2017-07-01 11:53 | PRG ---
DATE OF SERVICE: 07/01/2017 SUBJECTIVE: Patient was seen and examined at bedside and overnight events noted. Patient denies any shortness of breath or chest pain or palpitation. No history of nausea or vomitin g or diarrhea or fever or chills or cramps. OBJECTIVE: GENERAL: This is a well-built male, in no apparent distress. VITAL SIGNS: Temperature 98.4, pulse 60, respiratory rate 18, blood pressure 169/79. HEENT: Atraumatic, normocephalic. Oral mucosa is moist NECK: Supple. CARDIOVASCULAR: S1 and S2 heard. Rate and rhythm regular. RESPIRATORY: Clear to auscultation. GASTROINTESTINAL: Abdomen is soft. MUSCULOSKELETAL: No tenderness. No edema. DERMATOLOGIC: No skin rash. NEUROLOGIC: Alert and awake and oriented x3. No focal neurologic deficits. Moving all the extremit ies. PSYCHIATRIC: Mood and affect normal. LABORATORY DATA: Potassium 4.4, BUN 39, creatinine 7.1. ASSESSMENT AND PLAN: 1. End-stage renal disease. We will continue on peritoneal dialysis as tolerated. The patient is t olerating well. No complaints of abdominal pain, no nausea and vomiting. 2. Hypertension. Continue home medications. 3. Anemia. Monitor hemoglobin and ASA as tolerated. 4. Edema, controlled. Plan is to continue on dialysis as tolerated.
[2017-07-01 11:56] VITALS: BP 160/69; TEMP 98.9
--- NOTE | 2017-07-01 14:17 | DIS ---
DATE OF ADMISSION: 06/26/2017 DATE OF DISCHARGE: 07/01/2017 DISCHARGE DIAGNOSES: 1. Acute gouty arthritis of the left upper extremity, improved. 2. Cellulitis, left elbow, improved. 3. Anemia secondary to chronic kidney disease, stable. 4. End-stage renal disease, on peritoneal dialysis. CONSULTATIONS: Dr. Duron with Nephrology Service. Dr. Monroy with Orthopedic Surgery Service. PERTINENT LAB AND X-RAY FINDINGS: Creatinine ranged between 6.08-8.09. Estimated GFR ranged between 7-9. Uric acid level of 9.1. Calcium ranged between 9.6-10.5. CRP 30. CBC showed a white blood c ell count ranging between 10.4-13.6 and hemoglobin ranged between 11.6-12.7. Blood cultures x2 from 06/26/2017 showed no growth at 48 hours. Two views of the left elbow dated 06/26/2017 showed no acut e fracture or malalignment. Mild soft tissue swelling noted. Soft tissue density in the medial and anterior margin of the joint may reflect gout pannus. Left upper extremity venous Doppler study date d 06/26/2017 showed no evidence for venous thrombosis. HOSPITAL COURSE: The patient was admitted after initially presenting with left elbow pain, swelling and redness. The patient was initially admitted with a suspected left elbow effusion and cellulitis, placed on IV antibiotic therapy and evaluated by the Orthopedic Surgery Service. Recommendations we re to continue antibiotic coverage and general supportive measures without surgical intervention. Th e patient was evaluated for suspected gouty arthropathy with elevated uric acid level as stated previ ously. The patient was initiated on prednisone 40 mg daily, as well as allopurinol. The patient con tinued on IV clindamycin, prednisone and allopurinol throughout the hospital course with slow clinica l improvement. The patient was noted with decreasing edema of the left upper extremity in the elbow and forearm region and had freer range of motion by the time of discharge. The patient was noted wit h mild leukocytosis, resolving with supportive management and treatment as outlined previously. The patient continued to receive maintenance peritoneal dialysis during the hospital course without compl ication and at the direction of the Nephrology Service. Overall, the patient remained clinically sta ble throughout the hospital course. I have examined the patient at the time of discharge and discuss ed followup instructions and medication side effects. The patient verbalized understanding and agree s for discharge. DISCHARGE MEDICATIONS: 1. Allopurinol 100 mg 1 tab p.o. daily. 2. Calcitriol 0.25 mg p.o. daily. 3. Carvedilol 25 mg p.o. daily. 4. Sensipar 30 mg p.o. daily. 5. Clindamycin 150 mg p.o. q.6 hours x7 days. 6. Folic acid with vitamin B one tablet p.o. daily. 7. Prednisone 20 mg tab to take 2 tabs p.o. daily x3 days, followed by 1 tab p.o. daily x3 days, fol lowed by half a tab p.o. daily x3 days. 8. Renvela 800 mg p.o. t.i.d. 9. Tramadol 37.5/325 mg 1-2 tabs p.o. b.i.d. p.r.n. pain. FOLLOWUP: The patient is to follow up with his primary care provider, Dr. Brock within 7 days of dis charge. The patient may also follow up with his primary barbecue cook, Dr. Duron and to call his george santillan for appointment time and date. CONDITION ON DISCHARGE: Stable. ACTIVITY: Ad shaji. DIET: Heart healthy and renal. CODE STATUS: FULL. SPECIAL INSTRUCTIONS: Recommend return to work on 07/07/2017. DISPOSITION: Home on 07/01/2017. TOTAL TIME PREPARING AND COORDINATING DISCHARGE: 32 minutes.
[2017-07-03] MEDS ORDERED: predniSONE 5 MG TAB PO SCH (08:00)
== END 2017-07-01 12:59 | disposition home or self-care (01) | DRG 602 ==
LOC: ERS 11:58 → OBSVTOIN 18:05 → 2SW 18:05 → SURG A 06-28 13:38
PROVIDERS: ADMIT Internal Medicine; ATTEND Internal Medicine
PROC: 3E1M39Z Irrigation of Peritoneal Cavity using Dialysate, Percutaneous Approach (ICD-10-PCS; principal; 2017-06-26)
DX: I12.0 Hypertensive chronic kidney disease with stage 5 chronic kidney disease or end stage renal disease; M10.9 Gout, unspecified; D63.1 Anemia in chronic kidney disease; M45.9 Ankylosing spondylitis of unspecified sites in spine; N25.81 Secondary hyperparathyroidism of renal origin; L03.114 Cellulitis of left upper limb; Z99.2 Dependence on renal dialysis; N18.6 End stage renal disease
CPT/HCPCS: 36415; 80048; 80053; 83605; 84550; 85025; 85652; 86140; 87040; 90945; 96365; 96375; J2270; A4216; G0257; J2405; J3370; J3490; J7506

== ENCOUNTER 2018-10-03 15:03 | Inpatient (IN) | payer OTHER, MEDICARE ==
--- NOTE | 2018-10-03 15:27 | CT ---
CT BRAIN NONCONTRAST: DATE: 10/03/2018 HISTORY: 63-year-old male with acute stroke symptoms: Left and right lower extremity weakness. This acute level 2 stroke alert protocol report was called by Dr. Pascual to Dr. Collazo of the emergency Department at 3:24 PM on 10/03/2018 FINDINGS: There is no evidence of acute intra-axial or extra-axial hemorrhage. There is no midline shift or any other mass effect. There is no extra-axial fluid collection. There is no evidence of obstructive hydrocephalus. Calvarium is intact. IMPRESSION: No acute intracranial findings.
[2018-10-03 15:53] LABS: #Eosinphils 0.1 thou/uL (0.0-0.7); #Lymphocytes 1.1 thou/uL (1.20-3.40); #Monocytes 1.7 thou/uL (0.11-0.59); #Neutrophils 16.2 thou/uL (1.40-6.50); %Basophils 0.1 % (0.0-1.0); %Eosinophils 0.4 % (0.0-10.0); %Lymphocytes 5.5 % (21.0-51.0); %Monocytes 8.9 % (0.0-10.0); %Neutrophils 85.1 % (42.0-75.0); Hemoglobin 11.8 g/dL (14.0-18.0); Mean Corpuscular HGB CONC 32.5 g/dL (32.0-36.0); Mean Corpuscular Hemoglobin 32.1 pg (27.0-31.0); Mean Corpuscular Volume 98.8 fL (78.0-98.0); Mean Platelet Volume 7.4 fL (7.4-10.4); Platelet Count 193 thou/uL (130-400); RBC Distribution Width 12.7 % (11.5-14.5); Red Blood Cell (RBC) Count 3.67 mill/uL (4.70-6.10); White Blood Cell (WBC) Count 19.1 thou/uL (4.8-10.8)
[2018-10-03 16:01] LABS: INR-International Normal Ratio 1.2; PTT 36.9 SEC (22.9-36.1); Prothrombin Time 14.8 SEC (12.0-14.7)
[2018-10-03 16:07] LABS: ALT (SGPT) 12 U/L (8-55); AST (SGOT) 9 U/L (5-34); Alkaline Phosphatase 117 U/L (40-150); Anion Gap 22 mmol/L (10-20); BUN (Urea Nitrogen) 76 mg/dL (8.4-25.7); Bilirubin, Total 0.8 mg/dL (0.2-1.2); CK (CPK) 72 U/L (30-200); Calc. Creatinine Clearance 0 mL/min (70-130); Calcium 10.2 mg/dL (7.8-10.44); Carbon Dioxide 26 mmol/L (23-31); Chloride 93 mmol/L (98-107); Estimated GFR-MDRD 4; Globulin 3.7 g/dL (2.4-3.5); Glucose 149 mg/dL (80-115); Potassium 4.7 mmol/L (3.5-5.1); Protein, Total 6.7 g/dL (5.8-8.1); Sodium 136 mmol/L (136-145)
--- NOTE | 2018-10-03 16:32 | RAD ---
RADIOGRAPH CHEST 1 VIEW: DATE: 10/03/2018 TIME: 4:26 PM HISTORY: 63-year-old male with chest pain. COMPARISON: 07/29/2016. FINDINGS: Current study was performed with slightly lordotic patient positioning resulting in magnification of cardiac shadow. Mild pulmonary venous engorgement. New finding of diffuse mild haziness of the visualized mid and lower lung zones, new since the prior study. This could be due to the positioning and body habitus. Less likely to represent pulmonary interstitial edema. Retrocardiac portion of left lower lobe poorly visualized. No pneumothorax. No consolidation. Lateral costophrenic angles are sharp. IMPRESSION: 1) suboptimal positioning. 2) no consolidation.
[2018-10-03] MEDS ORDERED: Piperacillin/Tazobactam 4.5 GM VIAL ONE (17:52)
[2018-10-03] MEDS ORDERED: Sodium Chloride 0.9% 100 ML ONE (17:52)
[2018-10-03] MEDS ORDERED: Vancomycin HCl 1.5 GM in Sodium Chloride 0.9% 250 ML 300 ML IVPB SCH (18:15)
[2018-10-03 21:07] LABS: Bilirubin Negative (Negative); Blood, Urine Moderate (Negative); Glucose, Urine (Dipstick) Negative (Negative); Leukocyte Large (Negative); Nitrite Negative (Negative); Protein, Urine (Dipstick) > or equal to 300 mg/dL (Neg-Trace); Urobilinogen 0.2 mg/dL (Less than 2)
[2018-10-03 21:08] LABS: Clarity Hazy (Clear)
[2018-10-03 21:11] LABS: Bacteria/HPF 2+ HPF (None Seen); RBC/HPF 0-3 HPF (0-3); WBC/HPF 21-50 HPF (0-3)
[2018-10-04] MEDS ORDERED: Guaifenesin DM 100-10/5 ML UDCUP PO PRN (02:07)
[2018-10-04] MEDS ORDERED: Bisacodyl 10 MG SUPP PR PRN (02:07)
[2018-10-04] MEDS ORDERED: Dextrose 50% Abboject 50 ML SYRINGE SLOW IVP PRN (02:07)
[2018-10-04] MEDS ORDERED: Dextrose 5% in Water 1,000 ML IV PRN (02:07)
[2018-10-04] MEDS ORDERED: Ondansetron PF 4 MG/2 ML Vial IVP PRN (02:07)
--- NOTE | 2018-10-04 04:33 | HP ---
REASON FOR ADMISSION: Generalized weakness, possible pneumonia. HISTORY OF PRESENT ILLNESS: The patient gives history of developing hip pain and was unable to get up and walk on . He was also shaking his hands and legs. The patient states he developed a fever of 100.3 on Wednesday, Wednesday, and 98 degrees yesterday. There is no cough or expectoration. The patient makes very small amount of urine and does not have any frequent urination or burning sensation. He has had old left shoulder injury and has difficulty moving his left upper extremity from that. He normally walks by himself. No complaints of chest pain or palpitation. Has shortness of breath at present. The patient has history of ankylosing spondylitis and has had prior bilateral hip replacements and rigid neck from that. No neck surgery done in the past. He also has severe gout and takes prednisone for the same. He says he has not had any recent flare up of joints except for chronic left shoulder pain. PAST MEDICAL AND SURGICAL HISTORY: History of severe gout with tophi, end-stage renal disease, on peritoneal dialysis, hypertension, bilateral hip replacement with history of ankylosing spondylitis, chronic left shoulder injury, unclear if it is rotator cuff injury/tear or frozen shoulder, chronic anemia due to renal disease , he has AV fistula placement, PD catheter. PERSONAL HISTORY: Does not abuse alcohol or drugs. No history of smoking. FAMILY HISTORY: Mother at the age of 84 years, she has had history of hypertension. Father of natural causes at the age of 86 years. CODE STATUS: Full. CURRENT MEDICATIONS: The patient is on, 1. Norvasc 5 mg twice daily. 2. Coreg 25 mg twice daily. 3. Calcitriol 0.25 mcg p.o. daily. 4. Sensipar 60 mg daily. 5. Colchicine 0.6 mg p.o. once weekly. 6. Hydralazine 25 mg twice daily. 7. Prednisone 5 mg on alternate days. 8. Sevelamer 2400 mg p.o. three times daily. 9. Demadex 100 mg p.o. daily. 10. Ultram p.r.n. for pain. 11. Allopurinol 100 mg p.o. daily. ALLERGIES: TO CODEINE. REVIEW OF SYSTEMS: CONSTITUTIONAL: Negative for weight loss or gain, ability to conduct usual activities. SKIN: Negative for rash, itching. EYES: Negative for double vision, pain. ENT/MOUTH: Negative for nose bleeding, neck stiffness, pain, tenderness. CARDIOVASCULAR: Negative for palpitations, dyspnea on exertion, orthopnea. RESPIRATORY: Negative for shortness of breath, wheezing, cough, hemoptysis, fever or night sweats. GASTROINTESTINAL: Negative for poor appetite, abdominal pain, heartburn, nausea , vomiting, constipation, or diarrhea. GENITOURINARY: Negative for urgency, frequency, dysuria, nocturia. MUSCULOSKELETAL: Negative for pain, swelling. NEUROLOGIC/PSYCHIATRIC: Negative for anxiety, depression. ALLERGY/IMMUNOLOGIC: Negative for skin rash, bleeding tendency. PHYSICAL EXAMINATION: GENERAL: The patient is a 63-year-old male, who is currently not in any acute distress and is getting his peritoneal dialysis at present in room 4435. VITAL SIGNS: Blood pressure 140/68, pulse 84 per minute, respiratory rate 20 per minute, temperature 98.3 degrees Fahrenheit, saturating 95% on room air. NECK: Supple. No elevated JVD. HEENT: Eyes; extraocular muscles intact. Pupils reacting to light. Oral cavity, mucous membranes are moist. No exudates or congestion. CARDIOVASCULAR: S1 and S2 heard. Regular rhythm. RESPIRATORY: Air entry 1+ bilateral. Scattered rhonchi plus bilateral. ABDOMEN: Soft. Bowel sounds heard. Has a peritoneal dialysis catheter. No rigidity or guarding. EXTREMITIES: No peripheral edema or calf tenderness. VASCULAR: Peripheral pulses 1+ bilateral. No ischemic ulcerations or gangrene. CENTRAL NERVOUS SYSTEM: No gross focal deficits seen. The patient is unable to move his right lower extremity, likely due to issues with his right hip joint and he also has difficulty moving his left upper extremity due to a prior injury in the left shoulder. He moves his right upper extremity and left lower extremity freely. PSYCHIATRIC: No obvious hallucinations or delusions. The patient appears lethargic. LABORATORY DATA: White count of 19, H and H 11 and 36, platelet count 193, MCV is 98 with 85% neutrophils. BUN 76, creatinine 12.6, serum bicarb 26, serum glucose 149. Lactic acid 1.8. Albumin is 3.0. Troponin I less than 0.010. CT brain noncontrast done shows no acute intracranial findings. Chest x-ray shows suboptimal positioning. No consolidation. EKG done shows sinus rhythm at 87 beats per minute with poor R-wave progression. CLINICAL IMPRESSION AND PLAN: The patient will be admitted to medical floor for generalized weakness with left upper extremity and right lower extremity weakness. He also has severe gout and is only on allopurinol and p.r.n. colchicine. He is also taking prednisone. The patient sees Dr. Holder for the same. His elevated white count likely is due to prednisone that he is taking. We will obtain MRI of the left shoulder, cervical spine and brain as well with the patient's crossed findings in the left upper and right lower extremity. We will continue his peritoneal dialysis as of now. PT/OT evaluations will be requested. Blood and urine cultures have been obtained in the ER. He was given an IV antibiotic in the ER. We will hold off on that until cultures are back. We will continue Norvasc, calcitriol, Coreg, Sensipar, hydralazine, and Sevelamer as before. His prednisone will be increased to 20 mg daily. The patient might be a candidate for Rasburicase in view of his severe gout with multiple tophi present. None of them appeared to be infected at present. We will await imaging studies prior to any further workup for his gout at present. We will also obtain echo with 2D Doppler for LV function. His chest x-ray is not very clear for infiltrate and the patient does not have any cough or expectoration at present. He had a fever of 100 at home over the weekend, but none here at present. Code status: full. Please note I have seen and examined patient on 10/03/2018. Job ID: [id number] MTDD
--- NOTE | 2018-10-04 05:05 | CON ---
DATE OF CONSULTATION: 10/03/2018 CONSULTING PHYSICIAN: REASON FOR CONSULT: End-stage renal disease evaluation. REASON FOR ADMISSION: Weakness. HISTORY OF PRESENT ILLNESS: A 63-year-old male with history of end-stage renal disease, on peritoneal dialysis, hypertension, hyperlipidemia, medullary sponge kidney, spondylitis, rheumatoid arthritis, nephrolithiasis, came to the hospital with right hip pain and left shoulder pain. No nausea, vomiting, or chest pain. The patient has been very weak and not able to ambulate and family took him to the hospital. The patient gets peritoneal dialysis every night without any complications. No abdominal pain reported. The patient and family also reports low-grade fever for the last couple of days. PAST MEDICAL HISTORY: Positive for end-stage renal disease, on peritoneal dialysis, hyperlipidemia, obesity, spondylitis, medullary sponge kidney, hyperlipidemia, hypertension, rheumatoid arthritis, nephrolithiasis. PAST SURGICAL HISTORY: Peritoneal dialysis catheter placement, left knee surgery and hip replacement. HOME MEDICATIONS: 1. Tramadol. 2. Prednisone. 3. Renvela. 4. Dialyvite. 5. Sensipar. 6. Carvedilol. 7. Calcitriol. ALLERGIES: TO CODEINE. SOCIAL HISTORY: No smoking, alcohol, or drugs. FAMILY HISTORY: No history of kidney disease. REVIEW OF SYSTEMS: CONSTITUTIONAL: Negative for weight loss or gain, ability to conduct usual activities. SKIN: Negative for rash, itching. EYES: Negative for double vision, pain. ENT/MOUTH: Negative for nose bleeding, neck stiffness, pain, tenderness. CARDIOVASCULAR: Negative for palpitations, dyspnea on exertion, orthopnea. RESPIRATORY: Negative for shortness of breath, wheezing, cough, hemoptysis, fever or night sweats. GASTROINTESTINAL: Negative for poor appetite, abdominal pain, heartburn, nausea, vomiting, constipation, or diarrhea. GENITOURINARY: Negative for urgency, frequency, dysuria, nocturia. MUSCULOSKELETAL: Negative for pain, swelling. NEUROLOGIC/PSYCHIATRIC: Negative for anxiety, depression. ALLERGY/IMMUNOLOGIC: Negative for skin rash, bleeding tendency. PHYSICAL EXAMINATION: GENERAL: This is a well-built male, in no apparent distress. VITAL SIGNS: Temperature 98.3, pulse 84, respiratory rate 23, blood pressure 141/60. HEENT: Atraumatic, normocephalic. Oral mucosa moist. NECK: Supple. CARDIOVASCULAR: S1 and S2 heard. RESPIRATORY: Clear. GI: Abdomen is soft. MUSCULOSKELETAL: No evidence of edema. DERMATOLOGIC: No skin rash. NEUROLOGIC: Alert and awake. PSYCHIATRIC: Normal mood and affect. LABORATORY DATA: Hemoglobin is 11.8, potassium is 4.7, BUN is 76, creatinine is 12.6, albumin is 3.0. ASSESSMENT AND PLAN: 1. End-stage renal disease, on peritoneal dialysis. We will arrange peritoneal dialysis tonight and every night as needed. 2. Edema, controlled. 3. Hypertension, stable. 4. Anemia of chronic disease. PLAN: To continue on peritoneal dialysis as tolerated. We will follow. Thank you for the consult. Job ID: [id number]
[2018-10-04 07:10] LABS: Hemoglobin 10.8 g/dL (14.0-18.0); Mean Corpuscular HGB CONC 32.2 g/dL (32.0-36.0); Mean Corpuscular Hemoglobin 31.8 pg (27.0-31.0); Mean Corpuscular Volume 98.8 fL (78.0-98.0); Mean Platelet Volume 7.3 fL (7.4-10.4); Platelet Count 175 thou/uL (130-400); Red Blood Cell (RBC) Count 3.39 mill/uL (4.70-6.10); White Blood Cell (WBC) Count 16.9 thou/uL (4.8-10.8)
[2018-10-04 07:15] LABS: ALT (SGPT) 10 U/L (8-55); AST (SGOT) 14 U/L (5-34); Albumin 2.6 g/dL (3.4-4.8); Alkaline Phosphatase 112 U/L (40-150); Anion Gap 21 mmol/L (10-20); BUN (Urea Nitrogen) 79 mg/dL (8.4-25.7); Bilirubin, Total 0.7 mg/dL (0.2-1.2); Calc. Creatinine Clearance 9 mL/min (70-130); Calcium 9.2 mg/dL (7.8-10.44); Carbon Dioxide 21 mmol/L (23-31); Chloride 96 mmol/L (98-107); Estimated GFR-MDRD 4; Globulin 2.9 g/dL (2.4-3.5); Glucose 139 mg/dL (80-115); Potassium 4.7 mmol/L (3.5-5.1); Protein, Total 5.5 g/dL (5.8-8.1); Sodium 133 mmol/L (136-145)
[2018-10-04 07:56] LABS: Band 26 % (5-11); Eosinophils 1 % (0-10); Lymphocytes 1 % (21-51); MDiff Complete? YES; Monocytes 14 % (0-10); Neutrophil 58 % (42-75); Polychromasia SLIGHT = 2-3 cells (100X) (0-2/hpf)
[2018-10-04] MEDS: Sevelamer Carbonate 800 MG TAB PO SCH ×3 (08:31→17:33)
[2018-10-04] MEDS: Amlodipine 5 MG TAB PO SCH ×2 (08:31→21:13)
[2018-10-04] MEDS: Allopurinol 100 MG TAB PO SCH (08:31)
[2018-10-04] MEDS: predniSONE 20 MG TAB PO SCH (08:31)
[2018-10-04] MEDS: Enoxaparin Sodium 30 MG/0.3 ML SYRINGE SC SCH (08:32)
[2018-10-04] MEDS: Carvedilol 25 MG TAB PO SCH ×2 (08:32→21:13)
[2018-10-04] MEDS: Senokot S 8.6-50 MG TAB PO SCH ×2 (08:32→21:20)
[2018-10-04] MEDS: hydrALAZINE 25 MG TAB PO SCH ×2 (08:32→21:13)
[2018-10-04] MEDS: Famotidine 20 MG TAB PO SCH (08:32)
[2018-10-04] MEDS: Cinacalcet HCl 30 MG TAB PO SCH (08:32)
[2018-10-04] MEDS: Calcitriol 0.25 MCG CAP PO SCH (08:32)
[2018-10-04 12:13] LABS: BF Color Colorless; Body Fluid Source Peritoneal Fluid; Clarity Clear (Clear); Tube # EDTA
[2018-10-04 13:00] LABS: BF RBC Count - Manual 15 /cumm; BF WBC/Nonhematics Ct. - Manua 40 /cumm
[2018-10-04 13:10] LABS: BF Segmented Neutrophils 90 %; Cell Count Non Hematic 7 %; Lymphocytes 3 %
--- NOTE | 2018-10-04 14:17 | PRG ---
DATE OF SERVICE: 10/04/2018 SUBJECTIVE: Patient was seen and examined at bedside and overnight events noted. Patient denies any shortness of breath or chest pain or palpitation. No history of nausea or vomiting or diarrhea or fever or chills or cramps. OBJECTIVE: GENERAL: This is a well-built male, in no apparent distress. VITAL SIGNS: Temperature 98.2. Heart rate 81. Respiratory rate 21. Blood pressure 122/62. HEENT: Atraumatic, normocephalic. Oral mucosa is moist NECK: Supple. CARDIOVASCULAR: S1, S2 heard. Rate and rhythm regular. RESPIRATORY: Clear to auscultation. GASTROINTESTINAL: Abdomen is soft. MUSCULOSKELETAL: No tenderness. No edema. DERMATOLOGIC: No skin rash. NEUROLOGIC: Alert and awake and oriented X3. No focal neurologic deficits. Moving all the extremities. PSYCHIATRIC: Mood and affect normal. LABORATORY DATA: Potassium 4.7, BUN is 79, and creatinine is 12.02. WBC 16.9. ASSESSMENT AND PLAN: 1. End-stage renal disease. We will continue on peritoneal dialysis as tolerated. 2. Edema, controlled. 3. Hypertension, stable. 4. Anemia of chronic disease. Plan is to continue on peritoneal dialysis as tolerated. Job ID: [id number]
[2018-10-04] MEDS ORDERED: Vancomycin HCl 1.5 GM in Sodium Chloride 0.9% 250 ML 300 ML IVPB SCH (14:45)
[2018-10-04] MEDS ORDERED: Vancomycin HCl 750 MG in Sodium Chloride 0.9% 250 ML 250 ML IVPB SCH (14:45)
[2018-10-04] MEDS ORDERED: Vancomycin HCl 1.25 GM in Sodium Chloride 0.9% 250 ML 250 ML IVPB SCH (14:45)
[2018-10-04] MEDS ORDERED: HOLD VANCOMYCIN FOR LEVEL >20 FS SCH (14:45)
[2018-10-04] MEDS ORDERED: Vancomycin HCl 1 GM in Premix Bag 1 BAG IVPB SCH (14:45)
[2018-10-04] MEDS ORDERED: Vancomycin Sliding Scale 1 EACH FS ONE (14:45)
[2018-10-04] MEDS: cefTRIAXone\\ROCEPHIN 1 GM in Sodium Chloride 0.9% 100 ML IVPB SCH (14:59)
[2018-10-04] MEDS ORDERED: PERITON DIALYSIS FS SCH (15:00)
[2018-10-04] MEDS ORDERED: HEPARIN FS SCH (15:00)
--- NOTE | 2018-10-04 16:01 | PDOC.PN ---
- Subjective Encounter Start Date: 10/04/18 Encounter Start Time: 15:59 Subjective: Left shoulder pain and B/L Hip pain -: no incontinence -: care discussed w at bedside - Objective Resuscitation Status - Order Detail: 10/04/18 01:46 Resuscitation Status Routine Resuscitation Status: FULL: Full Resuscitation MAR Reviewed: Yes Vital Signs & Weight: Vital Signs (12 hours) Temp Pulse Resp BP BP Pulse Ox 10/04/18 12:57 99.1 F 84 20 118/61 94 L 10/04/18 08:33 98.2 F 81 20 132/66 95 10/04/18 08:32 81 132/66 10/04/18 08:31 81 132/66 10/04/18 04:32 98.5 F 76 16 103/62 94 L Weight Weight 223 lb 12.8 oz Result Diagrams: 10/04/18 06:36 10/04/18 06:36 Additional Labs: Microbiology 10/04/18 09:15 Peritoneal effluent Body Fluid Culture - Preliminary 10/03/18 20:52 Urine voided Urine Culture - Preliminary Beta-hemolytic Streptococcus 10/03/18 17:37 Venous blood - Right Hand Blood Culture - Preliminary Gram Positive Cocci 10/03/18 17:06 Venous blood - Right Hand Blood Culture - Preliminary Streptococcus agalactiae Gp. B Phys Exam - Physical Examination Constitutional: NAD HEENT: PERRLA, moist MMs, sclera anicteric, oral pharynx no lesions Neck: no nodes, no JVD, supple, full ROM Respiratory: no wheezing, no rales, no rhonchi, clear to auscultation bilateral Cardiovascular: RRR, no significant murmur, no rub, gallop, irregular Gastrointestinal: soft, non-tender, no distention, positive bowel sounds Musculoskeletal: no edema, pulses present b/l leg weakness and pain w movement Neurological: non-focal, normal sensation, moves all 4 limbs Psychiatric: normal affect, A&O x 3 Skin: no rash Dx/Plan (1) Bacteremia Code(s): R78.81 - BACTEREMIA Status: Acute (2) Sepsis Code(s): A41.9 - SEPSIS, UNSPECIFIED ORGANISM Status: Acute (3) Anemia due to chronic kidney disease Code(s): N18.9 - CHRONIC KIDNEY DISEASE, UNSPECIFIED; D63.1 - ANEMIA IN CHRONIC KIDNEY DISEASE Status: Chronic Comment: Stable, no evidence of acute blood loss, serial monitoring (4) ESRD on peritoneal dialysis Code(s): N18.6 - END STAGE RENAL DISEASE; Z99.2 - DEPENDENCE ON RENAL DIALYSIS Status: Chronic Comment: PD per Nephrology recommendations (5) Gout Code(s): M10.9 - GOUT, UNSPECIFIED Status: Chronic - Plan plan discussed w/ family, respiratory therapy, incentive spirometry, out of bed/ ambulate, DVT proph w/SCDs add broad spectrum IV ABx. Streptococcus in urine & blood -: check ECHO,MRI spine and brain -: Id consult -: supportive care * . Review of Systems - Review of Systems Constitutional: weakness, malaise Musculoskeletal: Leg Pain - Medications/Allergies Allergies/Adverse Reactions: Allergies Allergy/AdvReac Type Severity Reaction Status Date / Time codeine AdvReac Mild CAUSES Verified 10/04/18 00:23 CONFUSION /AMS Medications: Current Medications Acetaminophen (Tylenol) 650 mg PO Q4H PRN PRN Reason: Headache/Fever/Mild Pain (1-3) Allopurinol (Zyloprim) 100 mg PO DAILY [facility] Last Admin: 10/04/18 08:31 Dose: 100 mg Amlodipine Besylate (Norvasc) 5 mg PO BID [facility] Last Admin: 10/04/18 08:31 Dose: 5 mg Bisacodyl (Dulcolax) 10 mg AL DAILYPRN PRN PRN Reason: Constipation Calcitriol (Rocaltrol) 0.25 mcg PO DAILY [facility] Last Admin: 10/04/18 08:32 Dose: 0.25 mcg Carvedilol (Coreg) 12.5 mg PO BID [facility] Last Admin: 10/04/18 08:32 Dose: 12.5 mg Cinacalcet (Sensipar) 60 mg PO DAILY [facility] Last Admin: 10/04/18 08:32 Dose: 60 mg Dextrose/Water (Dextrose 50%) 25 gm SLOW IVP PRN PRN PRN Reason: Hypoglycemia Enoxaparin Sodium (Lovenox) 30 mg SC 0900 [facility] Last Admin: 10/04/18 08:32 Dose: 30 mg Famotidine (Pepcid) 20 mg PO DAILY [facility] Last Admin: 10/04/18 08:32 Dose: 20 mg Glucagon (Glucagon) 1 mg IM PRN PRN PRN Reason: Hypoglycemia Guaifenesin/Dextromethorphan (Robitussin Dm) 15 ml PO Q4H PRN PRN Reason: Cough Hydralazine HCl (Apresoline) 25 mg PO BID [facility] Last Admin: 10/04/18 08:32 Dose: 25 mg Dextrose/Water (D5w) 1,000 mls @ 0 mls/hr IV .Q0M PRN PRN Reason: Hypoglycemia Ceftriaxone Sodium 1 gm/ (Sodium Chloride) 100 mls @ 200 mls/hr IVPB 1500 [facility] Last Admin: 10/04/18 14:59 Dose: 100 mls Vancomycin HCl 1.5 gm/ Sodium (Chloride) 300 mls @ 200 mls/hr IVPB [facility] Vancomycin HCl 1.25 gm/ Sodium (Chloride) 250 mls @ 166.667 mls/hr [facility] Vancom[facility] 1 gm/ Device 200 mls @ 200 mls/hr IVPB [facility] Vancomycin HCl 750 mg/ Sodium (Chloride) 250 mls @ 250 mls/hr [facility] Heparin Sodium (Porcine) 3,000 units/ PERITON.DIALYSIS 7-2.5 % DEXTR 6,000.6 mls @ 0 mls/hr FS [facility] Stop: 10/04/18 23:59 Insulin Human Lispro (Humalog) 0 units SC .MILD SLIDING SCALE PRN PRN Reason: Mild Correctional Scale Miscellaneous Medication (Pharmacy To Dose) 0 each IVPB .VANCOMYCIN/PD PRN PRN Reason: LABS Hold Vancomycin For (Level >20) 0 each FS .AT DIALYSIS [facility] Ondansetron HCl (Zofran) 4 mg IVP Q6H PRN PRN Reason: Nausea/Vomiting Prednisone (Prednisone) 20 mg PO QAM-[facility] Last Admin: 10/04/18 08:31 Dose: 20 mg Senna/Docusate Sodium (Senokot S) 2 tab PO BID [facility] Last Admin: 10/04/18 08:32 Dose: 2 tab Sevelamer Carbonate (Renvela) 2,400 mg PO TID-[facility] Last Admin: 10/04/18 12:03 Dose: 2,400 mg
--- NOTE | 2018-10-04 17:41 | RAD ---
TWO VIEWS OF THE LEFT SHOULDER: 10/04/18 HISTORY: Left shoulder pain. FINDINGS: Two views of the left shoulder shows no evidence of acute fracture or dislocation. Mild degenerative changes are seen in the glenohumeral and acromioclavicular joints. IMPRESSION: Mild left shoulder osteoarthritis without acute osseous abnormality. POS: C
--- NOTE | 2018-10-04 17:43 | RAD ---
SINGLE VIEW OF THE PELVIS AND SINGLE VIEW OF BOTH HIPS: 10/04/18 COMPARISON: None. HISTORY: Hip pain. FINDINGS: Single view of the pelvis and single view of each hip shows the patient to be status post bilateral h ip arthroplasty. No perihardware lucency is seen. No fracture or dislocation are identified. IMPRESSION: Status post bilateral hip arthroplasty without evidence of complication. POS: C
[2018-10-04 19:29] LABS: HBSAg Index 0.36 S/CO (0-0.99); Hep B Surf Ag Non-Reactive S/CO (NonReactive)
--- NOTE | 2018-10-04 21:08 | CON ---
DATE OF CONSULTATION: 10/04/2018 REASON FOR CONSULTATION: Bacteremia and multiple joint areas of involvement. HISTORY OF PRESENT ILLNESS: This 63-year-old whom we had seen beginning of 2018 when he presented with an inflammatory process of left knee, synovial fluid was positive for crystals indicative of uric acid and the patient was released on anti-inflammatories. He did have group B strep retrieved in rare amounts only from broth and he has not had any problems since in the left knee. So my interpretation is that this probably represented contamination of the sample, rather than true left knee infection. This time, he was brought in with chills, fever, bilateral hip pain and limitation in range of motion and left shoulder pain with marked limitation in range of motion. No headaches, visual symptoms, sore throat, odynophagia or dysphagia. No back pain. No dyspnea or cough. No sputum production. No abdominal pain. He voids without any difficulty and no dysuria. No diarrhea. No neurological symptoms. PAST MEDICAL HISTORY: End-stage renal disease. Again, probably from chronic glomerulonephritis diagnosed in the past, currently on peritoneal dialysis. Also with gout, previous left knee involvement, bilateral hip replacements and he has a PD catheter now for dialysis. FAMILY HISTORY: Hypertension. ALLERGIES: CODEINE. CURRENT MEDICATIONS: 1. Tylenol. 2. Zyloprim. 3. Norvasc. 4. Dulcolax. 5. Rocaltrol. 6. Coreg. 7. Ceftriaxone. 8. Sensipar. 9. Heparin. 10. Ondansetron. 11. Vancomycin. PHYSICAL EXAMINATION: VITAL SIGNS: Normal temperature, blood pressure 118/61, pulse 84, respirations 20, O2 saturation 94. SKIN: No areas of skin breakdown. LYMPHATIC: No lymphadenopathy. HEENT: Ocular movements conjugate. Oral cavity moist. Few teeth in place with some decay. NECK: Supple. No jugular venous distention or carotid bruits. LUNGS: Symmetric air entry. No crackles or wheezing. HEART: S1, S2. Regular rate. No S3 or S4. ABDOMEN: Soft, not distended or tender. No bladder distention. Peritoneal dialysis catheter appears okay at the exit site. EXTREMITIES: Marked limitation of range of motion of right and left hips and left shoulder marked limitation of range of motion. The other joints do not appear to be involved. The left knee has no problems right now, no limitation of range of motion, no tenderness. The right knee likewise. Strength in upper and lower extremities is preserved. NEUROLOGIC: His cognitive function is preserved as well. LABORATORY DATA: White cell count is 19,000; hemoglobin 11.8, platelets 175 with 26% bands. INR 1.2. Sodium 136, now 133; creatinine is at 12.01; carbon dioxide is 21. Liver profile normal. Albumin 2.6. Urinalysis with 21 to 50 wbc's and peritoneal fluid with 40 WBCs, 90% neutrophils. Microbiology with beta-hemolytic strep from urine culture and from 2 sets of blood cultures. Urine culture with 50,000 to 75,000 CFUs. ASSESSMENT: 1. End-stage renal disease, probably from chronic glomerulonephritis. 2. Peritoneal dialysis. 3. Previous left knee gouty arthropathy, treated the beginning of 2018 with improvement and resolution of the symptoms. 4. Fever, chills with acute onset of functional impairment right and left hip and left shoulder, likely due to synovitis, probably from group B strep infection. 5. Group B strep bacteremia. 6. Positive urine culture for group B strep. DISCUSSION: Most likely scenario is extension from the urinary tract into the bloodstream with group B strep infection of the hips and left shoulder. We will consult Orthopedic Surgery to consider arthrocentesis and probably will need a washout. May need a removal of the implants, and after that, patient will continue on protracted IV antimicrobial therapy and then further treatment depending on the results of the surgical procedure. The left shoulder is easier to manage since it is a [place] joint. If the implants are removed, he will need a functional spacer. Job ID: [id number] [facility]
[2018-10-05] MEDS ORDERED: Lidocaine 1% (PF) 30 ML VIAL ONE (07:45)
[2018-10-05] MEDS: Carvedilol 25 MG TAB PO SCH ×2 (07:52→20:08)
[2018-10-05] MEDS: Sevelamer Carbonate 800 MG TAB PO SCH ×4 (07:52→16:59)
[2018-10-05] MEDS: predniSONE 20 MG TAB PO SCH (07:52)
[2018-10-05] MEDS: Cinacalcet HCl 30 MG TAB PO SCH (07:53)
[2018-10-05] MEDS: Allopurinol 100 MG TAB PO SCH (07:53)
[2018-10-05] MEDS: Enoxaparin Sodium 30 MG/0.3 ML SYRINGE SC SCH ×2 (07:53→08:45)
[2018-10-05] MEDS: hydrALAZINE 25 MG TAB PO SCH ×2 (07:53→20:08)
[2018-10-05] MEDS: Famotidine 20 MG TAB PO SCH (07:53)
[2018-10-05] MEDS: Calcitriol 0.25 MCG CAP PO SCH (07:53)
[2018-10-05] MEDS: Amlodipine 5 MG TAB PO SCH ×2 (07:54→20:08)
[2018-10-05 08:20] LABS: Vancomycin, Random 16.4 ug/mL (See Comment)
[2018-10-05] MEDS ORDERED: Vancomycin HCl 1 GM in Premix Bag 1 BAG IVPB SCH (09:00)
[2018-10-05] MEDS ORDERED: hydrALAZINE 25 MG TAB PO SCH ×2 (09:20→10:00)
[2018-10-05] MEDS ORDERED: predniSONE 5 MG TAB PO SCH (10:00)
[2018-10-05 10:35] LABS: Hemoglobin 10.4 g/dL (14.0-18.0); Mean Corpuscular Hemoglobin 31.4 pg (27.0-31.0); Mean Corpuscular Volume 98.3 fL (78.0-98.0); Mean Platelet Volume 7.7 fL (7.4-10.4); Platelet Count 210 thou/uL (130-400); RBC Distribution Width 13.1 % (11.5-14.5); Red Blood Cell (RBC) Count 3.32 mill/uL (4.70-6.10); White Blood Cell (WBC) Count 20.3 thou/uL (4.8-10.8)
--- NOTE | 2018-10-05 10:51 | CON ---
DATE OF CONSULTATION: REQUESTING PHYSICIAN: Chan Gallo MD CONSULTING PHYSICIAN: Leonel Wooten MD REASON FOR CONSULTATION: Possible polyarticular septic arthritis. BRIEF CLINICAL HISTORY: Jesus is a 63-year-old male, who was admitted to the Medicine Service yesterday for acute onset bilateral hip pain and left shoulder pain and inability to stand, walk, and maneuver and use the left shoulder without discomfort. Onset was insidious. No history of trauma to preceded the onset. He has had some fevers to accompany this and blood cultures have demonstrated a group B strep as well as urine culture with group B strep. Dr. Gallo consulted us for concerns over pyogenic arthritis. PHYSICAL EXAMINATION: VITAL SIGNS: Temperature of 97, pulse 74, blood pressure is 133/61, respiratory rate is 20 and unlabored, and O2 saturation 96% on room air. GENERAL: The patient appears little clammy. He is alert, oriented, responsive, and appropriate with the examiner. EXTREMITIES: Range of motion of the left shoulder demonstrates him to have stiffness, discomfort, and pain with ranging and he cannot actively move the left shoulder. Otherwise, it is uncomfortable for him to tolerate passive ranging. Active ranging is not possible. Visual inspection of both lower extremities demonstrates him to have normal external rotation. There is no shortening, but he cannot straight leg raise. He cannot actively adduct and abduct secondary to pain. Range of motion is limited and the patient tolerates passive flexion, extension, internal and external rotation, but it is provocative and concord for his pain. He is neurovascularly intact in both lower extremities. 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 PLAN: 1. The risks, benefits, options, alternative, and rationale for proceeding with left shoulder needle arthrocentesis has been explained in great detail with the patient. He is ready to proceed. All questions were answered. No guarantee of outcome stated or implied. 2. The risks, benefits, options, alternative, and rationale for proceeding with a left shoulder arthroscopic examination and washout has been explained in great detail with the patient. The patient is ready to proceed. All questions were answered. No guarantee of outcome stated or implied. 3. Bilateral hip needle arthrocentesis under fluoroscopy will be performed. Results of which will be transmitted to us directly and we may have to proceed with incision, drainage, and washout of both hips as well as bilateral explantation of prior cemented total hip arthroplasties. Job ID: [id number]
[2018-10-05 11:16] LABS: Anion Gap 22 mmol/L (10-20); BUN (Urea Nitrogen) 97 mg/dL (8.4-25.7); Calc. Creatinine Clearance 9 mL/min (70-130); Calcium 9.6 mg/dL (7.8-10.44); Carbon Dioxide 22 mmol/L (23-31); Chloride 97 mmol/L (98-107); Estimated GFR-MDRD 4; Glucose 113 mg/dL (80-115); Potassium 4.9 mmol/L (3.5-5.1); Sodium 136 mmol/L (136-145)
[2018-10-05] MEDS: Senokot S 8.6-50 MG TAB PO SCH ×2 (11:41→20:10)
--- NOTE | 2018-10-05 11:56 | RAD ---
FLUOROSCOPIC GUIDED RIGHT HIP JOINT ASPIRATION: CLINICAL HISTORY: Hematogenous infection with septic joint. PROCEDURE: Informed consent was obtained. Patient was escorted to procedural suite and placed in a edwards pine position. The femoral pulse was palpated and marked. Using standard sterile technique, uneventful access into the right hip joint, overlying the right hip prosthesis was performed with rafa ging stored for documentation. A small volume of purulent, mildly sanguinous fluid was aspirated from the right hip. This was sent to laboratory for further analysis. Needle was removed. There were no procedural complications. Radiation exposure data: 0.1 minutes intermittent fluoroscopy; 12 microgray/M2. IMPRESSION: Technically successful right hip joint aspiration yielding small volume purulent, sanguin ous tinged right hip joint fluid which was sent to laboratory for further analysis. Results are pending. Transcribed Date/Time: 10/05/2018 12:10 PM
--- NOTE | 2018-10-05 11:57 | RAD ---
FLUOROSCOPIC GUIDED LEFT HIP JOINT ASPIRATION: CLINICAL HISTORY: Left hip pain, hematogenous infection with septic joint. PROCEDURE: Informed consent was obtained and the patient was escorted to the procedural suite, and wa s placed in a supine position with left hip placed into internally rotated position. The femoral pulse was palpated and marked. Using standard sterile technique, uneventful access was acquired into the left hip joint with utilization of buffered 1% lidocaine for topical anesthesia. Utilizing 22-gauge needle, after appropriate positioning within the left hip joint atop the left hip prosthesis was completed, aspiration was performed. No significant volume of aspirate was acquired despite repeated aspirations within varying locations of left hip joint. Needle was then removed. Imaging was stored for documentation. Radiation exposure data 0.1 minute intermittent fluoroscopy; 10 microgray/M2. IMPRESSION: Technically successful fluoroscopically guided left hip joint aspiration. No fluid specim en of significance could be acquired from the left hip joint at this time. Transcribed Date/Time: 10/05/2018 12:13 PM
--- NOTE | 2018-10-05 11:57 | PRG ---
DATE OF SERVICE: 10/05/2018 SUBJECTIVE: Patient was seen and examined at bedside and overnight events noted. Patient denies any shortness of breath or chest pain or palpitation. No history of nausea or vomiting or diarrhea or fever or chills or cramps. OBJECTIVE: GENERAL: This is a well-built male, in no apparent distress. VITAL SIGNS: Temperature . Heart rate 74. Respiratory rate 18. Blood pressure 133/61. HEENT: Atraumatic, normocephalic. Oral mucosa is moist NECK: Supple. CARDIOVASCULAR: S1, S2 heard. Rate and rhythm regular. RESPIRATORY: Clear to auscultation. GASTROINTESTINAL: Abdomen is soft. MUSCULOSKELETAL: No tenderness. No edema. DERMATOLOGIC: No skin rash. NEUROLOGIC: Alert and awake and oriented X3. No focal neurologic deficits. Moving all the extremities. PSYCHIATRIC: Mood and affect normal. LABORATORY DATA: Potassium is 4.9, BUN is 97, creatinine is 12.5. ASSESSMENT AND PLAN: 1. End-stage renal disease, on peritoneal dialysis. 2. Edema, controlled. 3. Hypertension. 4. Anemia of chronic disease. PLAN: Plan is to continue on dialysis as tolerated. Job ID: [id number]
[2018-10-05] MEDS ORDERED: Morphine 4 MG/ML VIAL SLOW IVP PRN (12:15)
[2018-10-05] MEDS: traMADol HCl 50 MG TAB PO PRN ×2 (12:24→19:06)
[2018-10-05 12:36] LABS: Band 27 % (5-11); Lymphocytes 7 % (21-51); MDiff Complete? YES; Metamyelocyte 1 % (0-0); Monocytes 4 % (0-10); Neutrophil 61 % (42-75); Platelet Morphology Comment Appears Adequate; Polychromasia SLIGHT = 2-3 cells (100X) (0-2/hpf); Toxic Granulation SLIGHT
--- NOTE | 2018-10-05 13:07 | PDOC.PN ---
- Subjective Encounter Start Date: 10/05/18 Encounter Start Time: 13:05 Subjective: feels about the same - Objective Resuscitation Status - Order Detail: 10/04/18 01:46 Resuscitation Status Routine Resuscitation Status: FULL: Full Resuscitation MAR Reviewed: Yes Vital Signs & Weight: Vital Signs (12 hours) Temp Pulse Resp BP BP Pulse Ox 10/05/18 11:35 97.7 F 69 20 144/65 H 95 10/05/18 10:03 74 10/05/18 08:17 97.0 F L 74 20 133/61 96 10/05/18 07:54 74 133/61 10/05/18 07:53 74 133/61 Weight Weight 223 lb 12.8 oz I&O: 10/04/18 10/05/18 10/06/18 06:59 06:59 06:59 Intake Total 1540 Output Total 1000 Balance 540 Result Diagrams: 10/05/18 07:37 10/05/18 07:37 Additional Labs: Microbiology 10/04/18 09:15 Peritoneal effluent Body Fluid Culture - Preliminary 10/03/18 20:52 Urine voided Urine Culture - Preliminary Beta-hemolytic Streptococcus 10/03/18 17:37 Venous blood - Right Hand Blood Culture - Preliminary Beta-hemolytic Streptococcus 10/03/18 17:06 Venous blood - Right Hand Blood Culture - Preliminary Streptococcus agalactiae Gp. B Laboratory Tests 10/04/18 10/05/18 09:15 07:37 C-Reactive Protein 37.94 H Fluid WBC (Manual) 40 Fluid RBC (Manual) 15 Fluid Seg Neutrophil % 90 Phys Exam - Physical Examination Constitutional: NAD HEENT: PERRLA, moist MMs, sclera anicteric, oral pharynx no lesions Neck: no nodes, no JVD, supple, full ROM Respiratory: no wheezing, no rales, no rhonchi, clear to auscultation bilateral Cardiovascular: RRR, no significant murmur, no rub Gastrointestinal: soft, non-tender, no distention, positive bowel sounds Musculoskeletal: no edema, pulses present Neurological: non-focal, normal sensation, moves all 4 limbs Psychiatric: normal affect, A&O x 3 Skin: no rash Dx/Plan (1) Bacteremia Code(s): R78.81 - BACTEREMIA Status: Acute Comment: Group B Streptococus in urine and blood Cx (2) Sepsis Code(s): A41.9 - SEPSIS, UNSPECIFIED ORGANISM Status: Acute (3) Septic arthritis Status: Acute Qualifiers: Septic arthritis location: shoulder Comment: has Hip hardware. S/P aspiration .follow Cx (4) Anemia due to chronic kidney disease Code(s): N18.9 - CHRONIC KIDNEY DISEASE, UNSPECIFIED; D63.1 - ANEMIA IN CHRONIC KIDNEY DISEASE Status: Chronic Comment: Stable, no evidence of acute blood loss, serial monitoring (5) ESRD on peritoneal dialysis Code(s): N18.6 - END STAGE RENAL DISEASE; Z99.2 - DEPENDENCE ON RENAL DIALYSIS Status: Chronic Comment: PD per Nephrology recommendations. PD fluid sent for Cx. Neutrophil predominant (6) Gout Code(s): M10.9 - GOUT, UNSPECIFIED Status: Chronic Comment: Hold prednisone for now given sepsis - Plan plan discussed w/ family, continue antibiotics, PT/OT, out of bed/ambulate, DVT proph w/SCDs Cont empiric ABx. on Vanco and cefepime.S/P shoulder & hip joint aspiration -: Follow final Cx results -: ECHO does not show any vegetations. -: may need hardware removal from hip.Ortho following.plans for Sx tomorrow. -: am labs.PD per nephrology * . Review of Systems - Review of Systems Constitutional: weakness, malaise. negative: fever, chills, sweats, other Respiratory: negative: Cough, Dry, Shortness of Breath, Hemoptysis, SOB with Excertion, Pleuritic Pain, Sputum, Wheezing Cardiovascular: negative: chest pain, palpitations, orthopnea, paroxysmal nocturnal dyspnea, edema, light headedness, other Gastrointestinal: negative: Nausea, Vomiting, Abdominal Pain, Diarrhea, Constipation, Melena, Hematochezia, Other Genitourinary: negative: Dysuria, Frequency, Incontinence, Hematuria, Retention , Other Musculoskeletal: Shoulder Pain, Leg Pain. negative: Neck Pain, Arm Pain, Back Pain, Hand Pain, Foot Pain, Other Neurological: negative: Weakness, Numbness, Incoordination, Change in Speech, Confusion, Seizures, Other - Medications/Allergies Allergies/Adverse Reactions: Allergies Allergy/AdvReac Type Severity Reaction Status Date / Time codeine AdvReac Mild CAUSES Verified 10/04/18 00:23 CONFUSION /AMS Medications: Current Medications Acetaminophen (Tylenol) 650 mg PO Q4H PRN PRN Reason: Headache/Fever/Mild Pain (1-3) Allopurinol (Zyloprim) 100 mg PO DAILY [facility] Last Admin: 10/05/18 07:53 Dose: 100 mg Amlodipine Besylate (Norvasc) 5 mg PO BID [facility] Last Admin: 10/05/18 07:54 Dose: 5 mg Bisacodyl (Dulcolax) 10 mg NM DAILYPRN PRN PRN Reason: Constipation Calcitriol (Rocaltrol) 0.25 mcg PO DAILY [facility] Last Admin: 10/05/18 07:53 Dose: 0.25 mcg Carvedilol (Coreg) 12.5 mg PO BID [facility] Last Admin: 10/05/18 07:52 Dose: 12.5 mg Cinacalcet (Sensipar) 60 mg PO DAILY [facility] Last Admin: 10/05/18 07:53 Dose: 60 mg Dextrose/Water (Dextrose 50%) 25 gm SLOW IVP PRN PRN PRN Reason: Hypoglycemia Enoxaparin Sodium (Lovenox) 30 mg SC 0900 [facility] Last Admin: 10/05/18 08:45 Dose: Not Given Famotidine (Pepcid) 20 mg PO DAILY [facility] Last Admin: 10/05/18 07:53 Dose: 20 mg Glucagon (Glucagon) 1 mg IM PRN PRN PRN Reason: Hypoglycemia Guaifenesin/Dextromethorphan (Robitussin Dm) 15 ml PO Q4H PRN PRN Reason: Cough Hydralazine HCl (Apresoline) 25 mg PO BID [facility] Dextrose/Water (D5w) 1,000 mls @ 0 mls/hr IV .Q0M PRN PRN Reason: Hypoglycemia Ceftriaxone Sodium 1 gm/ (Sodium Chloride) 100 mls @ 200 mls/hr IVPB 1500 [facility] Last Admin: 10/04/18 14:59 Dose: 100 mls Vancomycin HCl 1.5 gm/ Sodium (Chloride) 300 mls @ 200 mls/hr IVPB [facility] Vancomycin HCl 1.25 gm/ Sodium (Chloride) 250 mls @ 166.667 mls/hr IVPB [facility] Vancomycin HCl 1 gm/ Device 200 mls @ 200 mls/hr IVPB [facility] Vancomycin HCl 750 mg/ Sodium (Chloride) 250 mls @ 250 mls/hr IVPB [facility] Last Admin: 10/05/18 11:41 Dose: 250 mls Insulin Human Lispro (Humalog) 0 units SC .MILD SLIDING SCALE PRN PRN Reason: Mild Correctional Scale Miscellaneous Medication (Pharmacy To Dose) 0 each IVPB .VANCOMYCIN/PD PRN PRN Reason: LABS Morphine Sulfate (Morphine) 2 mg SLOW IVP Q4H PRN PRN Reason: severe pain Hold Vancomycin For (Level >20) 0 each FS .AT DIALYSIS [facility] Ondansetron HCl (Zofran) 4 mg IVP Q6H PRN PRN Reason: Nausea/Vomiting Senna/Docusate Sodium (Senokot S) 2 tab PO BID [facility] Last Admin: 10/05/18 11:41 Dose: 2 tab Sevelamer Carbonate (Renvela) 2,400 mg PO TID-WM [facility] Last Admin: 10/05/18 11:44 Dose: 2,400 mg Sodium Chloride (Flush - Normal Saline) 10 ml IVF Q12HR [facility] Sodium Chloride (Flush - Normal Saline) 10 ml IVF PRN PRN PRN Reason: Saline Flush Torsemide (Demadex) 100 mg PO DAILY [facility] Tramadol HCl (Ultram) 50 mg PO Q4H PRN PRN Reason: Moderate Pain Last Admin: 10/05/18 12:24 Dose: 50 mg
[2018-10-05 13:33] LABS: BF Color Red; Body Fluid Source Synovial Fluid; Clarity Cloudy/Turbid (Clear); RBC Background Count 0.003; RBC Count-Automated 140000 /cumm; Tube # EDTA; WBC/NonHematic-Auto 153000 /cumm
[2018-10-05 14:13] LABS: BF Segmented Neutrophils 88 %; Cell Count Non Hematic 9 %; Lymphocytes 3 %
[2018-10-05] MEDS: cefTRIAXone\\ROCEPHIN 1 GM in Sodium Chloride 0.9% 100 ML IVPB SCH (14:55)
--- NOTE | 2018-10-05 15:29 | PQF ---
CLINICAL DOCUMENTATION IMPROVEMENT CLARIFICATION FORM: ICD-10 Updated PLEASE DO AN ADDENDUM TO THE PROGRESS NOTE WITH ANY DOCUMENTATION UPDATES OR ADDITIONS AND CARRY THROUGH TO DC SUMMARY. THANK YOU. DATE: 10/05/18 ATTN : DR. TELLES Please exercise your independent, professional judgment in responding to the clarification form. Clinical indicators are provided on the bottom of this form for your review Please check appropriate box(s) to clarify if the following diagnosis has been ruled in or ruled out: "PNEUMONIA" [ ] Ruled in diagnosis [ ] Continue to treat [ ] Resolved [ x ] Ruled out diagnosis [ ] Cannot rule out diagnosis [ ] Other diagnosis [ ] Unable to determine In addition, please specify: Present on Admission (POA): [ ] Yes [ X] No [ ] Unable to determine For continuity of documentation, please document condition throughout progress notes and discharge summary. Thank You. CLINICAL INDICATORS - SIGNS / SYMPTOMS / LABS ER NOTE: "PNEUMONIA" H&P: "POSSIBLE PNEUMONIA" CHEST XRAY 10/03: "NEW FINDING OF DIFFUSE MILD HAZINESS OF THE VISUALIZED MID AND LOWER LUNG ZONES..." NURSING NOTE 10/05: " SHORTNESS OF BREATH WITH EXERTION" WBC 20.3 BANDS 27 RISKS: SEPSIS INCREASED WEAKNESS AND LIGHTHEADEDNESS (ER NOTE) TREATMENT: IV LEVAQUIN (ER) IV VANCOMYCIN (ER-PRESENT) IV ZOSYN (ER) IV ROCEPHIN (10-04-PRESENT) BLOOD CULTURES SUPPLEMENTAL OXYGEN CHEST XRAY (This form is maintained as a part of the permanent medical record) 2014 [employer], [address]. All Rights Reserved JAYSHREE [email or web address] Office: [phone] [facility]
--- NOTE | 2018-10-05 18:27 | PRG ---
DATE OF SERVICE: 10/05/2018 SUBJECTIVE: The patient had bilateral hip joint aspirations. The right one was successful. Results are discussed below. The left shoulder aspirate was successful as well. Results that are also discussed below. Still with marked same limitations in range of motion of the joints is yesterday, but feels better. No respiratory symptoms. No abdominal pain. Voiding without difficulty. OBJECTIVE: VITAL SIGNS: Showed normal temperature, blood pressure 126/61, and pulse 71. GENERAL: Awake, alert, and oriented. The areas in the joints with the signs of recent aspiration. LUNGS: Clear to auscultation and percussion. HEART: S1, S2. Regular rate. ABDOMEN: Soft, not distended. No bladder distention. LABORATORY DATA: White cell count is 20.3, hemoglobin 10.4, and platelets 210, with 27% neutrophils. Sodium 136, creatinine 12. Synovial fluid I believe is from the hip with 153,000 WBCs. Protein was 3.1. Microbiology with gram-positive cocci in the hip aspirate right side. The shoulder aspirate did not show any organisms, but he did have many WBCs. ASSESSMENT AND DISCUSSION: 1. End-stage renal disease, secondary to probably chronic glomerulonephritis, on peritoneal dialysis. 2. Gout. 3. Group B strep bacteremia with urinary tract colonization. 4. Likely group B strep right hip infection, probably left hip as well, and probably left shoulder infection. The patient will have I believe a washout of the right hip, probably will have to have the implant removed and revised, the left-sided to be done at a later date. Left shoulder probably will have to have a washout as well. Continue with Jose Luis. Job ID: [id number]
[2018-10-06] MEDS: Carvedilol 25 MG TAB PO SCH ×2 (06:27→23:15)
[2018-10-06 06:33] LABS: Anion Gap 21 mmol/L (10-20); BUN (Urea Nitrogen) 113 mg/dL (8.4-25.7); Calc. Creatinine Clearance 9 mL/min (70-130); Calcium 9.5 mg/dL (7.8-10.44); Carbon Dioxide 25 mmol/L (23-31); Chloride 97 mmol/L (98-107); Estimated GFR-MDRD 4; Glucose 104 mg/dL (80-115); Potassium 5.1 mmol/L (3.5-5.1); Sodium 138 mmol/L (136-145)
[2018-10-06 06:52] LABS: Hemoglobin 10.5 g/dL (14.0-18.0); Mean Corpuscular HGB CONC 32.1 g/dL (32.0-36.0); Mean Corpuscular Hemoglobin 31.5 pg (27.0-31.0); Mean Corpuscular Volume 98.2 fL (78.0-98.0); Mean Platelet Volume 7.1 fL (7.4-10.4); Platelet Count 226 thou/uL (130-400); RBC Distribution Width 13.2 % (11.5-14.5); Red Blood Cell (RBC) Count 3.34 mill/uL (4.70-6.10); White Blood Cell (WBC) Count 16.5 thou/uL (4.8-10.8)
[2018-10-06] MEDS: Sevelamer Carbonate 800 MG TAB PO SCH ×3 (08:18→17:53)
[2018-10-06] MEDS: Allopurinol 100 MG TAB PO SCH (08:19)
[2018-10-06] MEDS: Torsemide 100 MG TAB PO SCH (08:19)
[2018-10-06] MEDS: hydrALAZINE 25 MG TAB PO SCH ×2 (08:20→21:07)
[2018-10-06] MEDS: Enoxaparin Sodium 30 MG/0.3 ML SYRINGE SC SCH (08:20)
[2018-10-06] MEDS: Senokot S 8.6-50 MG TAB PO SCH ×2 (08:20→22:17)
[2018-10-06] MEDS: Calcitriol 0.25 MCG CAP PO SCH (08:21)
[2018-10-06] MEDS: Cinacalcet HCl 30 MG TAB PO SCH (08:21)
[2018-10-06] MEDS: Famotidine 20 MG TAB PO SCH (08:21)
[2018-10-06] MEDS: Amlodipine 5 MG TAB PO SCH ×2 (08:21→23:15)
[2018-10-06] MEDS ORDERED: Fentanyl 250 MCG/5 ML VIAL ONE (08:23)
[2018-10-06] MEDS ORDERED: Tobramycin Sulfate 1.2 GM VIAL ONE (08:28)
[2018-10-06] MEDS ORDERED: Phenylephrine HCL 10 MG/ML VIAL ONE (08:29)
[2018-10-06] MEDS ORDERED: Dexmedetomidine 200 MCG/2 ML VIAL ONE (08:29)
[2018-10-06] MEDS ORDERED: Midazolam HCl 2 mg/2 ml Vial ONE ×2 (08:31→15:02)
[2018-10-06 08:47] LABS: Band 14 % (5-11); Eosinophils 2 % (0-10); Lymphocytes 12 % (21-51); MDiff Complete? YES; Metamyelocyte 1 % (0-0); Monocytes 4 % (0-10); Neutrophil 66 % (42-75); Platelet Morphology Comment Appears Adequate; Polychromasia SLIGHT = 2-3 cells (100X) (0-2/hpf)
[2018-10-06] MEDS ORDERED: Benzocaine 20% Spray 60 ML CAN ONE ×2 (08:51→08:53)
[2018-10-06] MEDS ORDERED: Tranexamic Acid 1,000 MG/10 ML VIAL ONE (09:53)
--- NOTE | 2018-10-06 12:32 | PRG ---
DATE OF SERVICE: 10/06/2018 SUBJECTIVE: Patient was seen and examined at bedside and overnight events noted. Patient denies any shortness of breath or chest pain or palpitation. No history of nausea or vomiting or diarrhea or fever or chills or cramps. OBJECTIVE: GENERAL: This is a well-built male, in no apparent distress. VITAL SIGNS: Temperature 98.1, pulse 83, respiratory rate 18. Blood pressure 126/61. HEENT: Atraumatic, normocephalic. Oral mucosa is moist NECK: Supple. CARDIOVASCULAR: S1, S2 heard. Rate and rhythm regular. RESPIRATORY: Clear to auscultation. GASTROINTESTINAL: Abdomen is soft. MUSCULOSKELETAL: No tenderness. No edema. DERMATOLOGIC: No skin rash. NEUROLOGIC: Alert and awake and oriented X3. No focal neurologic deficits. Moving all the extremities. PSYCHIATRIC: Mood and affect normal. LABORATORY DATA: Potassium is 5.1, BUN is 113, creatinine is 12.4. ASSESSMENT AND PLAN: 1. End-stage renal disease, with worsening BUN numbers. Plan is to increase his dialysis dose. We will increase and exchange. We will monitor. 2. Edema, controlled. 3. Hypertension. 4. Anemia of chronic disease. 5. We will continue on dialysis as tolerated. Job ID: [id number]
[2018-10-06] MEDS ORDERED: Rocuronium Bromide 10 MG/ML (10ML VIAL) ONE (13:05)
[2018-10-06] MEDS ORDERED: Calcium Chloride 1 GM/10 ML Abboject SYRINGE ONE (13:05)
[2018-10-06] MEDS ORDERED: PROPOFOL 200 MG/20 ML VIAL ONE (13:05)
[2018-10-06] MEDS ORDERED: Rocuronium Bromide 50 MG/5 ML VIAL ONE (13:33)
[2018-10-06] MEDS ORDERED: Sodium Bicarb 50 MEQ/50 ML VIAL ONE (14:56)
[2018-10-06 16:06] LABS: Actual Bicarbonate (HCO3a) 22.2 mEq/L (22-28); Base Excess (BEa) -3.5 mEq/L (-2.0 to +3.0); CO2 Tension 42.2 mmHg (35.0-45.0); Calcium, Ionized 1.07 mmol/L (1.12-1.30); Carboxyhemoglobin (COHb) 0.8 gm% (0.0-3.0); Hemoglobin (Hb) 10.9 g/dL (14.0-18.0); Potassium - ABG Lab 5.68 mmol/L (3.70-5.30); pH, Arterial 7.34 (7.35-7.45)
--- NOTE | 2018-10-06 16:18 | OP ---
DATE OF PROCEDURE: 10/06/2018 PREOPERATIVE DIAGNOSIS: Septic arthritis, left hip. POSTOPERATIVE DIAGNOSIS: Septic arthritis, left hip. PROCEDURE PERFORMED: Revision acetabular component, femoral head, left hip. SURGEON: Jaren Bautista MD LABORATORY PHLEBOTOMIST: Luis Patricia PA-C ANESTHESIA: General via endotracheal tube. COMPONENTS USED: [employer] Trident X3 10 degree polyethylene fixed bearing insert with 36 mm inner diameter cup, a ENAMEL SHADER Skirtless femoral head 36 mm outer diameter. As well as antibiotic impregnated cement for the acetabular cup fixation. FINDINGS: Purulent pyogenic arthritis consistent with clinical presentation. ESTIMATED BLOOD LOSS: 150. DRAINS: None. SPECIMENS: None. COMPLICATIONS: None. COUNTS: Correct. INDICATION FOR SURGERY: Jesus is a 63-year-old white male, who was admitted by the Medicine Service for bilateral hip pain. He was found to have a septic arthritis on the right hip and a strongly suspected pyogenic arthritis of the left hip as well. He also by needle arthrocentesis had a septic left shoulder and he is then prepared for all three surgeries today. We have already completed a right total revision hip and attention has now been turned to the left hip. DESCRIPTION OF PROCEDURE: After informed consent was obtained, the patient was taken to the operative suite. General anesthesia was induced. He was prepped and draped in usual sterile fashion. The right hip was revised in total and the patient was repositioned for left hip revision arthroplasty. Incision was made using the patient's old incision. Bovie electrocautery was then used to make an anterolateral approach using the abductors being reflected. Copious capsulotomy was performed and we immediately encountered gross purulence inside the acetabular cup extending also below the cup into the acetabular bone. We were able to remove the femoral head from his existing femoral implant. The herring around this particular implant was excellent, was well-fixed, did not appear loose and did not appear to be grossly infected. Therefore, we elected to leave the left hip femoral prosthesis and attention was then turned to revision of the acetabular cup. The polyethylene was removed. We again encountered pus extravasating through the acetabular cup and into the pelvis. The screws were removed and the acetabular metallic cup was then extracted with the cup removal blade. Circumferential cut was made around it. Once this was completed, we copiously irrigated the acetabulum, preparation with a reamer was carried out, and antibiotic impregnated cement was then packed into the acetabular defect and we placed a roughed up Trident 10 degree 36 mm liner into the cement bed. The cement was allowed to cure. We trialed two 36 mm heads and found that the neutral offset was best fit with good shuck and stable internal-external rotation. Therefore, we then malleted a ENAMEL SHADER 36 mm metallic head neutral offset into place on the Juárez taper. Relocation maneuver was carried out. Copious irrigation was then performed in the depth of the wound to include 3 L pulsatile lavage. Primary closure of the IT band and lateralis was carried out, and then abductors were re-sewn. The subcutaneous layer was then closed using a running 0 Quill stitch and the skin was reapproximated with 2-0 running Prolene stitch. Sterile dressing was applied. Procedure terminated without complication. The patient was then prepped and made ready for the third sequential procedure which was an arthroscopic left shoulder washout. Please see operative note for that. Dictated by Luis Patricia PA-C, for Jaren Bautista MD. Job ID: [id number]
[2018-10-06 16:21] LABS: Puncture Site ALINE
[2018-10-06] MEDS: cefTRIAXone\\ROCEPHIN 1 GM in Sodium Chloride 0.9% 100 ML IVPB SCH (16:23)
[2018-10-06] MEDS ORDERED: Propofol BOLUS 1,000 MG/100 ML VIAL IV PRN (16:40)
[2018-10-06] MEDS ORDERED: Morphine 2 MG/ML SYRINGE SLOW IVP PRN (16:40)
[2018-10-06] MEDS ORDERED: Fentanyl BOLUS 250 ML IVPB PRN (16:40)
[2018-10-06] MEDS ORDERED: Propofol 1,000 MG/100 ML VIAL IV PRN (16:40)
[2018-10-06] MEDS ORDERED: DISCONTINUE PREVIOUS NARCOTIC PAIN MEDICATIONS AND BENZODIAZEPINES FS SCH (16:40)
[2018-10-06] MEDS ORDERED: Lorazepam 2 MG/ML VIAL SLOW IVP PRN (16:40)
[2018-10-06] MEDS ORDERED: fentaNYL Citrate/PF 2,000 MCG in Sodium Chloride 0.9% 60 ML IV SCH (16:40)
--- NOTE | 2018-10-06 17:00 | RAD ---
Left hip 2 views HISTORY: Replacement revision. Arthritis. FINDINGS: Left hip prosthesis is in place. No perihardware lucency. Radiopaque cement at the acetabul um. Soft tissue gas consistent with surgery. IMPRESSION: Left hip prosthesis is in good radiographic position.
--- NOTE | 2018-10-06 17:02 | RAD ---
Right hip 2 views HISTORY: Right hip revision. FINDINGS: Right hip prosthesis in place with 4 cerclage wires. Transverse osteotomy at the proximal f emoral shaft. No perihardware lucency. IMPRESSION: Right hip prosthesis is in good radiographic position
--- NOTE | 2018-10-06 17:19 | RAD ---
PORTABLE CHEST: Date: 10/06/18 HISTORY: Shortness of breath. FINDINGS/IMPRESSION: ET tube and NG tube are in place. The lungs show no infiltrate or significant vascular congestion. Sm all effusions are not excluded. No interval change from 10/03/18. POS: [facility]
--- NOTE | 2018-10-06 17:37 | RAD ---
AP PELVIS: 10/06/18 HISTORY: Status post revision total hip arthroplasty. FINDINGS/IMPRESSION: Bilateral hip prostheses are noted. There has been revision since the exam of 10/04/18. Components appe ar in adequate position and alignment. POS: [facility]
--- NOTE | 2018-10-06 18:24 | PDOC.PN ---
- Subjective Encounter Start Date: 10/06/18 Encounter Start Time: 18:21 Subjective: s/p washout both hips & left shoulder for septic arthritis -: no intubated and in CCU -: not on sedation,opens eyes briefly when called by name - Objective Resuscitation Status - Order Detail: 10/04/18 01:46 Resuscitation Status Routine Resuscitation Status: FULL: Full Resuscitation MAR Reviewed: Yes Vital Signs & Weight: Vital Signs (12 hours) Temp Pulse Resp BP BP Pulse Ox 10/06/18 16:32 100 10/06/18 16:00 14 10/06/18 15:37 70 123/45 L 10/06/18 08:00 95 10/06/18 07:33 98.1 F 83 18 126/61 95 Weight Weight 223 lb 12.8 oz Most Recent Monitor Data Heart Rate from ECG 63 NIBP 126/57 NIBP BP-Mean 80 Respiration from ECG 14 SpO2 99 I&O: 10/05/18 10/06/18 10/07/18 06:59 06:59 06:59 Intake Total 1540 1430 100 Output Total 1000 200 0 Balance 540 1230 100 Result Diagrams: 10/06/18 05:57 10/06/18 05:57 Additional Labs: Accuchecks 10/06/18 10/05/18 06:50 22:10 POC Glucose 104 166 H Microbiology 10/03/18 20:52 Urine voided Urine Culture - Final Beta-hemolytic Streptococcus 10/03/18 17:37 Venous blood - Right Hand Blood Culture - Final Streptococcus agalactiae Gp. B 10/03/18 17:06 Venous blood - Right Hand Blood Culture - Final Streptococcus agalactiae Gp. B 10/05/18 11:09 Hip - Aspirate Bacterial Culture - Preliminary 10/05/18 11:09 Hip - Aspirate Streptococcus pyogenes 10/05/18 08:40 Joint - Left Arm Body Fluid Culture - Preliminary 10/04/18 09:15 Peritoneal effluent Body Fluid Culture - Preliminary Laboratory Tests 10/03/18 10/04/18 10/05/18 15:10 06:36 07:37 WBC 19.1 H 16.9 H 20.3 H 10/06/18 05:57 WBC 16.5 H Phys Exam - Physical Examination Constitutional: NAD intubated HEENT: PERRLA, moist MMs ett Neck: no JVD Respiratory: no wheezing, no rales, no rhonchi Cardiovascular: RRR, no significant murmur Gastrointestinal: soft, no distention Musculoskeletal: no edema, pulses present Skin: no rash Dx/Plan (1) Bacteremia Code(s): R78.81 - BACTEREMIA Status: Acute Comment: Group B Streptococus in urine and blood Cx. continue rocephin and vancomycin. (2) Sepsis Code(s): A41.9 - SEPSIS, UNSPECIFIED ORGANISM Status: Acute (3) Septic arthritis Status: Acute Qualifiers: Septic arthritis location: shoulder Comment: has Hip hardware. S/P aspiration .follow Cx s/p B/L Hip washout and left shoulder washout.cont ABx (4) Anemia due to chronic kidney disease Code(s): N18.9 - CHRONIC KIDNEY DISEASE, UNSPECIFIED; D63.1 - ANEMIA IN CHRONIC KIDNEY DISEASE Status: Chronic Comment: Stable, no evidence of acute blood loss, serial monitoring (5) ESRD on peritoneal dialysis Code(s): N18.6 - END STAGE RENAL DISEASE; Z99.2 - DEPENDENCE ON RENAL DIALYSIS Status: Chronic Comment: PD per Nephrology recommendations. PD fluid sent for Cx. Neutrophil predominant (6) Gout Code(s): M10.9 - GOUT, UNSPECIFIED Status: Chronic Comment: Hold prednisone for now given sepsis - Plan continue antibiotics, DVT proph w/SCDs supportive care -: plans to leave intubated tonight -: follow surgical report.cont ABx -: will increase rocephin to 2 gm/day -: am labs.PD per nephrology * . Review of Systems - Medications/Allergies Allergies/Adverse Reactions: Allergies Allergy/AdvReac Type Severity Reaction Status Date / Time codeine AdvReac Mild CAUSES Verified 10/04/18 00:23 CONFUSION /AMS Medications: Current Medications Acetaminophen (Tylenol) 650 mg PO Q4H PRN PRN Reason: Headache/Fever/Mild Pain (1-3) Allopurinol (Zyloprim) 100 mg PO DAILY [facility] Last Admin: 10/06/18 08:19 Dose: Not Given Amlodipine Besylate (Norvasc) 5 mg PO BID [facility] Last Admin: 10/06/18 08:21 Dose: Not Given Bisacodyl (Dulcolax) 10 mg CA DAILYPRN PRN PRN Reason: Constipation Calcitriol (Rocaltrol) 0.25 mcg PO DAILY [facility] Last Admin: 10/06/18 08:21 Dose: Not Given Carvedilol (Coreg) 12.5 mg PO BID [facility] Last Admin: 10/06/18 06:27 Dose: 12.5 mg Cinacalcet (Sensipar) 60 mg PO DAILY [facility] Last Admin: 10/06/18 08:21 Dose: Not Given Dextrose/Water (Dextrose 50%) 25 gm SLOW IVP PRN PRN PRN Reason: Hypoglycemia Enoxaparin Sodium (Lovenox) 30 mg SC 0900 [facility] Last Admin: 10/06/18 08:20 Dose: Not Given Famotidine (Pepcid) 20 mg PO DAILY [facility] Last Admin: 10/06/18 08:21 Dose: Not Given Glucagon (Glucagon) 1 mg IM PRN PRN PRN Reason: Hypoglycemia Guaifenesin/Dextromethorphan (Robitussin Dm) 15 ml PO Q4H PRN PRN Reason: Cough Hydralazine HCl (Apresoline) 25 mg PO BID [facility] Last Admin: 10/06/18 08:20 Dose: Not Given Dextrose/Water (D5w) 1,000 mls @ 0 mls/hr IV .Q0M PRN PRN Reason: Hypoglycemia Vancomycin HCl 1.5 gm/ Sodium (Chloride) 300 mls @ 200 mls/hr IVPB WILLCALL [facility] Vancomycin HCl 1.25 gm/ Sodium (Chloride) 250 mls @ 166.667 mls/hr IVPB WILLCALL [facility] Vancomycin HCl 1 gm/ Device 200 mls @ 200 mls/hr IVPB WILLCALL [facility] Vancomycin HCl 750 mg/ Sodium (Chloride) 250 mls @ 250 mls/hr IVPB [facility]CALL [facility] Last Admin: 10/05/18 11:41 Dose: 250 mls Fentanyl Citrate 2,000 mcg/ (Sodium Chloride) 100 mls @ 0 mls/hr IV INF [facility]; Protocol Stop: 11/05/18 16:40 Fentanyl Citrate (Fentanyl Bolus) 250 mls @ 0 mls/hr IVPB PRN PRN PRN Reason: Breakthrough pain/agitation Stop: 11/05/18 16:40 Ceftriaxone Sodium 2 gm/ (Sodium Chloride) 100 mls @ 200 mls/hr IVPB 1500 [facility] Insulin Human Lispro (Humalog) 0 units SC .MILD SLIDING SCALE PRN PRN Reason: Mild Correctional Scale Lorazepam (Ativan) 2 mg SLOW IVP Q1H PRN PRN Reason: Breakthrough agitation Stop: 11/05/18 16:40 Miscellaneous Medication (Pharmacy To Dose) 0 each IVPB .VANCOMYCIN/PD PRN PRN Reason: LABS Morphine Sulfate (Morphine) 2 mg SLOW IVP Q1H PRN PRN Reason: BREAKTHROUGH PAIN/Agitation Stop: 11/05/18 16:40 Hold Vancomycin For (Level >20) 0 each FS .AT DIALYSIS [facility] Discontinue Previous Narcotic Pain Medications And Benzodiazepines 1 each FS .ONE [facility] Stop: 11/05/18 16:40 Ondansetron HCl (Zofran) 4 mg IVP Q6H PRN PRN Reason: Nausea/Vomiting Propofol (Diprivan) 1,000 mg IV INF PRN; Protocol PRN Reason: TO ACHIEVE GOAL RASS Stop: 11/05/18 16:40 Propofol (Diprivan Bolus) 20 mg IV Q5MIN PRN PRN Reason: BREAKTHROUGH AGITATION Stop: 11/05/18 16:40 Senna/Docusate Sodium (Senokot S) 2 tab PO BID [facility] Last Admin: 10/06/18 08:20 Dose: Not Given Sevelamer Carbonate (Renvela) 2,400 mg PO TID-WM [facility] Last Admin: 10/06/18 17:53 Dose: Not Given Sodium Chloride (Flush - Normal Saline) 10 ml IVF Q12HR [facility] Last Admin: 10/06/18 08:19 Dose: 10 ml Sodium Chloride (Flush - Normal Saline) 10 ml IVF PRN PRN PRN Reason: Saline Flush Torsemide (Demadex) 100 mg PO DAILY [facility] Last Admin: 10/06/18 08:19 Dose: Not Given
--- NOTE | 2018-10-06 19:01 | OP ---
DATE OF PROCEDURE: 10/06/2018 PREOPERATIVE DIAGNOSIS: Right hip septic periprosthetic arthritis. POSTOPERATIVE DIAGNOSIS: Right hip septic periprosthetic arthritis. OPERATIVE PROCEDURE: Full revision arthroplasty right total hip with cemented long-stem and cemented acetabular cup. SURGEON: Jaren Bautista MD ECHOCARDIOGRAPHY TECHNOLOGIST: Luis Patricia PA-C ANESTHESIA: General via endotracheal tube. COMPONENTS USED: Trident X3 0 degree polyethylene, 40 mm inner diameter insert with an OmniFit size 5 cemented Collared long-stem on the right with four 2 mm Dall-Miles cables and sleeves as well as 40 mm LFIT metallic femoral head with a +2.5 neck length. ESTIMATED BLOOD LOSS: 150. FINDINGS: Gross purulence around the femoral head, acetabular cup and within the pelvis, changes consistent with streptococcal pyogenic arthritis. DRAINS: None. SPECIMENS: None. COMPLICATIONS: None. COUNTS: Correct. INDICATION FOR SURGERY: Jesus is a 63-year-old white male who was admitted by the Medicine Team approximately three days ago, but has had progressive bilateral groin and thigh pain while standing and he has had low-grade fevers and has gotten significantly worse, he was unable to walk in the last 48 hours. We evaluated the patient with arthrotomy under fluoroscopic guidance and his blood cultures demonstrated a beta-hemolytic strep. His needle arthrotomy demonstrated gram-positive cocci in pairs suggestive of strep and urine culture also demonstrated streptococcus. A shoulder needle arthrocentesis on the left side also demonstrated gross pus and cultures have demonstrated streptococcus. The patient has elected to proceed with the revision arthroplasty expiration, incision and drainage washout of both hips and as well as arthroscopic washout of the left shoulder. DESCRIPTION OF PROCEDURE: After informed consent was obtained in the preoperative holding area, the patient received preoperative antibiotics and was brought to the operative suite and general anesthesia was induced and positioned appropriately on the operating table. We elected to proceed with a right hip revision first, and prepped and draped the right lower extremity in usual sterile fashion. Once this was completed, the patient's old healed incision was used. Local bleeding was controlled with Bovie electrocautery. We undermined down to the IT band. This was incised sharply and a Charnley retractor was placed. An anterolateral approach was used with a reflection of the abductor muscles getting down to the capsule where a capsulotomy demonstrated gross pink frothy purulence, which was suctioned out and irrigated copiously. A full capsulectomy was performed and labrectomy and once the old hardware was countered, the leg was rotated and so as to remove the femoral head. We failed to completely remove the femoral head and that also changes within the proximal femur were consistent with osteolysis and osteomyelitis, therefore, we elected to go ahead and explant the existing cemented hardware with a lateral trochanteric osteotomy. The oscillating saw was then used to perform osteotomy. The lateral trochanter and proximal femur then opened in a coffin lid fashion exposing the old hardware, which was then malleted out with a K9 HANDLER punch. We had good preservation of bone and a series of curettes and gouges were then used to break up the old mantle. Once this was completely removed, we then fully lavaged the area. We placed four Dall-Miles cables around the proximal femur above the lesser trochanter and three below. We then turned attention to explantation of the acetabular cup. We removed the polyethylene liner and both screws and then used a cup removal device to break up the bone interface. Cup came out quite easily. We also inspected the acetabulum. We had some lytic changes in the superior aspect of the acetabulum. Gross pus was also encountered. This time it was lavaged out. We then placed antibiotic impregnated cement in the acetabulum and the and cup was then placed and cemented after roughening it up on the backside. The cement was allowed to cure. Attention was then turned to femoral preparation. We closed the coffin lid over the greater trochanteric osteotomy, wired it, closed with good firm fit with our Dall-Miles cables. We then placed an antibiotic impregnated cement down the length of the femoral canal. Long-stem Collared prosthesis was placed and cemented into place. We then placed a V40 metallic femoral head, reduction with a +2.5 neck length and reduction maneuver was performed. Shuck was good. The patient's hip was stable to internal-external rotation in the flexed position. Copious irrigation was carried out with pulsatile lavage to include 3 L. Primary closure of the vastus lateralis and the IT band were then carried out with interrupted Vicryl and running Quill stitch. Subcutaneous layer was closed with running 0 Quill and 2-0 horizontal mattress running stitch was used to reapproximate the skin. Sterile dressing was applied. Procedure terminated without complication and the patient was again flipped to the contralateral side for the left hip explantation. Please see operative note for that procedure. Dictated by Luis Patricia PA-C, for Jaren Bautista MD. Job ID: [id number]
[2018-10-06] MEDS: HumaLOG 300 UNITS/3 ML VIAL SC PRN (22:15)
--- NOTE | 2018-10-06 22:55 | CON ---
DATE OF CONSULTATION: 10/06/2018 HISTORY OF PRESENT ILLNESS: Mr. Rodriguez is an unfortunate 63-year-old male, who has bilateral infected hips and infected shoulder. He spent the whole day basically in the operating room. He was transferred to the critical care unit and ventilated. He has a fiberoptic intubation because of ankylosing spondylitis. I was consulted because of his presence in the ICU. PAST MEDICAL HISTORY: 1. Remarkable for end-stage renal disease, on peritoneal dialysis. 2. History of gout. 3. History of bilateral hip replacements. 4. History of left knee arthritis reportedly. 5. History of hypertension. SOCIAL HISTORY: No smoker or drinker. ALLERGIES: REPORTS AN ALLERGY TO CODEINE. FAMILY HISTORY: Negative for lung disease in early age. REVIEW OF SYSTEMS: Not obtainable. PHYSICAL EXAMINATION: VITAL SIGNS: Per mechanical ventilation, respiratory rate 14, blood pressure 120/62, heart rate 60. He has an A-line in place. He is in sinus rhythm. HEENT: Pupils react. Sclerae anicteric. NECK: Supple. No lymphadenopathy. LUNGS: Clear anteriorly. HEART: Regular rhythm. S1 and S2 are normal. ABDOMEN: Soft and nontender. He has peritoneal dialysis catheter in his lower abdomen. EXTREMITIES: Without clubbing, cyanosis, or edema. Both hips are bandaged and shoulders bandaged. IMPRESSION: Respiratory failure after a long operative case. He has had a significant positive fluid balance in the OR. Will likely benefit from dialysis tonight. Sedation protocol will be started. Antimicrobial therapy will be directed by Dr. Gallo. We will evaluate him for weaning in the morning. Critical care time is 35 minutes. Job ID: [id number] MTDD
[2018-10-07] MEDS ORDERED: Albumin 25% 25 GM/100 ML BOT IVPB PRN (01:44)
[2018-10-07 05:27] LABS: Anion Gap 22 mmol/L (10-20); BUN (Urea Nitrogen) 124 mg/dL (8.4-25.7); Calc. Creatinine Clearance 9 mL/min (70-130); Carbon Dioxide 22 mmol/L (23-31); Chloride 100 mmol/L (98-107); Estimated GFR-MDRD 4; Glucose 152 mg/dL (80-115); Potassium 5.3 mmol/L (3.5-5.1); Sodium 139 mmol/L (136-145)
[2018-10-07 05:37] LABS: Band 7 % (5-11); Hypochromia SLIGHT = 6-15 cells (100X) (0-5/hpf); Lymphocytes 2 % (21-51); MDiff Complete? YES; Mean Corpuscular HGB CONC 32.1 g/dL (32.0-36.0); Mean Corpuscular Hemoglobin 31.6 pg (27.0-31.0); Mean Corpuscular Volume 98.5 fL (78.0-98.0); Mean Platelet Volume 7.6 fL (7.4-10.4); Monocytes 7 % (0-10); Neutrophil 84 % (42-75); Platelet Count 226 thou/uL (130-400); Platelet Morphology Comment Appears Adequate; RBC Distribution Width 13.5 % (11.5-14.5); Red Blood Cell (RBC) Count 3.16 mill/uL (4.70-6.10); White Blood Cell (WBC) Count 15.8 thou/uL (4.8-10.8)
[2018-10-07] MEDS: Sevelamer Carbonate 800 MG TAB PO SCH (07:31)
[2018-10-07 08:07] LABS: Actual Bicarbonate (HCO3a) 21.5 mEq/L (22-28); Base Excess (BEa) -2.3 mEq/L (-2.0 to +3.0); CO2 Tension 33.6 mmHg (35.0-45.0); Calcium, Ionized 1.01 mmol/L (1.12-1.30); Carboxyhemoglobin (COHb) 1.2 gm% (0.0-3.0); Hemoglobin (Hb) 10.5 g/dL (14.0-18.0); O2 Tension (PaO2) 105.7 mmHg (> 80.0); Potassium - ABG Lab 5.23 mmol/L (3.70-5.30); pH, Arterial 7.42 (7.35-7.45)
[2018-10-07 08:09] LABS: Puncture Site LINE
--- NOTE | 2018-10-07 08:23 | RAD ---
XR Chest 1 View Portable HISTORY: Dyspnea. Endstage renal disease. COMPARISON: Prior day study. FINDINGS: Endotracheal and NG tubes remain in satisfactory position. Heart size is enlarged. The lung s are clear of infiltrates. No signs of failure. IMPRESSION: Stable exam.
[2018-10-07] MEDS: Enoxaparin Sodium 30 MG/0.3 ML SYRINGE SC SCH (08:42)
[2018-10-07] MEDS: Carvedilol 25 MG TAB PO SCH ×2 (08:44→20:53)
[2018-10-07] MEDS: Allopurinol 100 MG TAB PO SCH (08:44)
[2018-10-07] MEDS: Calcitriol 0.25 MCG CAP PO SCH (08:44)
[2018-10-07] MEDS: Famotidine 20 MG TAB PO SCH (08:45)
[2018-10-07] MEDS: Cinacalcet HCl 30 MG TAB PO SCH (08:45)
[2018-10-07] MEDS: Senokot S 8.6-50 MG TAB PO SCH ×2 (08:45→20:52)
[2018-10-07] MEDS: hydrALAZINE 25 MG TAB PO SCH ×2 (08:47→21:55)
[2018-10-07] MEDS: Amlodipine 5 MG TAB PO SCH ×2 (09:00→21:55)
[2018-10-07] MEDS: Torsemide 100 MG TAB PO SCH (09:10)
--- NOTE | 2018-10-07 09:20 | OP ---
DATE OF PROCEDURE: 10/06/2018 PREOPERATIVE DIAGNOSIS: Infected left shoulder. POSTOPERATIVE DIAGNOSIS: Infected left shoulder. PROCEDURE: Arthroscopic synovectomy and debridement of the left shoulder. ANESTHESIA: General. BLOOD LOSS: Minimal. SPECIMEN: None. DRAIN: None. COMPLICATION: None. OPERATIVE INDICATIONS: The patient's aspiration shoulders grew strep. Scope was placed through the posterior portal. Shaver was placed through the anterior portal. I did obtain about 20 mL of red viscous purulent material, used an electric blade device for hemostasis and synovectomy of the entire joint and also the subacromial space. Wounds were left open and sterile dressing was applied. Job ID: [id number]
--- NOTE | 2018-10-07 10:01 | PRG ---
DATE OF SERVICE: 10/07/2018 SUBJECTIVE: Jesus Rodriguez is awake and alert. He nods. He moves all extremities to command. He is in no distress. He nods that he is comfortable. OBJECTIVE: VITAL SIGNS: Heart rate 87, blood pressure 107/55, respiratory rates in the teens. Intake and output are -59 mL recorded. His dialysis is not recorded. His weight dropped from 223 on the 9th to 215, but I doubt these weights are accurate. LUNGS: Clear. HEART: Regular rhythm. S1 and S2, normal. ABDOMEN: Soft and nontender. EXTREMITIES: Without asymmetry. LABORATORY DATA: White count 15.8, hemoglobin 10.0, and platelets 226. Sodium 139, potassium 5.3, chloride 100, bicarb 22, BUN 124, creatinine 12, and glucose 152. IMAGING STUDIES: Chest radiograph shows minimal interstitial markings. I felt he is a candidate for extubation. This being done as this is being dictated. IMPRESSION AND PLAN: I have noted by my associates and the nurses that he does have ankylosing spondylitis and rigid cervical spine, so fiberoptic bronchoscope was placed outside of the room in the event that he develops problems, although it is not anticipated that he will. It does not appear that his peritoneal dialysis is effective at this time in this situation and he will probably benefit from ongoing daily dialysis, I would think, at least for a while. CRITICAL CARE TIME: 30 minutes. Job ID: [id number]
--- NOTE | 2018-10-07 10:08 | PRG ---
DATE OF SERVICE: 10/07/2018 SUBJECTIVE: Jesus is a 63-year-old male, who is postop day 1 from a bilateral hip incision and drainage and washout, explantation of total hip arthroplasty on the right with conversion to total hip arthroplasty, and a left hip partial revision to include acetabular cup. He also had arthroscopic washout of the left shoulder at the same time and a needle decompression of the right olecranon bursa under anesthesia. Today, he has been extubated and he can actually talk this morning. He is responsive and appropriate. He does not remember the last 24 hours, but he is in good spirits and appears stable. OBJECTIVE: VITAL SIGNS: Pulse 87 and blood pressure 107/55. GENERAL: He is alert and responsive. LABORATORY DATA: White blood cell count is 15.8, down from 16.5 yesterday; hemoglobin 10; and hematocrit 31.0. His incisions are clean. There is no gross strike through. His shoulder, again no strike through. IMPRESSION: 1. A 63-year-old male postop day 1 bilateral hip revision arthroplasty secondary to septic periprosthetic arthritis. 2. Postoperative day 1 left shoulder arthroscopic washout secondary to pyogenic arthritis. PLAN: 1. Defer to medicine. 2. Follow white count carefully and serial re-examinations to make sure that he has not developed any other infections that are loculated and we will recheck tomorrow. Job ID: [id number]
[2018-10-07] MEDS ORDERED: HEPARIN FS SCH (12:00)
[2018-10-07] MEDS ORDERED: PERITON DIALYSIS FS SCH (12:00)
--- NOTE | 2018-10-07 14:30 | PRG ---
DATE OF SERVICE: 10/07/2018 SUBJECTIVE: Patient was seen and examined at bedside and overnight events noted. Patient denies any shortness of breath or chest pain or palpitation. No history of nausea or vomiting or diarrhea or fever or chills or cramps. OBJECTIVE: GENERAL: This is a well-built male, in no apparent distress. VITAL SIGNS: Temperature 99.1. Heart rate 84. Respiratory rate 14. Blood pressure 120/56. HEENT: Atraumatic, normocephalic. Oral mucosa is moist NECK: Supple. CARDIOVASCULAR: S1, S2 heard. Rate and rhythm regular. RESPIRATORY: Clear to auscultation. GASTROINTESTINAL: Abdomen is soft. MUSCULOSKELETAL: No tenderness. No edema. DERMATOLOGIC: No skin rash. NEUROLOGIC: Alert and awake and oriented X3. No focal neurologic deficits. Moving all the extremities. PSYCHIATRIC: Mood and affect normal. LABORATORY DATA: Potassium is 5.3, BUN is 124, and creatinine is 12.3. ASSESSMENT AND PLAN: 1. End-stage renal disease. We will continue on peritoneal dialysis. It seems like the patient is not getting good clearance. We will increase the dose of dialysis, and we will also use 4.25% dextrose solution today. 2. Edema, remove fluid. 3. Hypertension, stable. 4. Anemia of chronic disease. We will follow. We will continue on peritoneal dialysis. If not getting good clearance by tomorrow, might need 1 or 2 session of hemodialysis. Job ID: [id number]
--- NOTE | 2018-10-07 14:47 | PRG ---
DATE OF SERVICE: 10/07/2018 SUBJECTIVE: The patient had a left shoulder intervention with washout and he is in the ICU, intubated still. Plan is to for weaning and extubation. OBJECTIVE: VITAL SIGNS: His T-max 99.5, blood pressure 125/55, heart rate 84, O2 saturation 95. LUNGS: Clear breath sounds. HEART: S1-S2. Regular rate. ABDOMEN: Not tender, not distended. LABORATORY DATA: His white cell count is down to 15.8, hemoglobin 10, platelets 226. Sodium 139, creatinine 12.3. Cultures showed group B strep in all different samples from blood. The hip aspirate and also the shoulder most likely. ASSESSMENT AND DISCUSSION: End-stage renal disease secondary to chronic glomerulonephritis, on peritoneal dialysis, gout, group B Strep bacteremia with urinary tract colonization, group B Strep right and left hip infection and left shoulder infection status post left shoulder washout. He is going to need a removal of implant at least on the right side, maybe the left. He is currently on Rocephin to be continued and the vancomycin can be discontinued. Job ID: [id number]
[2018-10-07] MEDS: cefTRIAXone\\ROCEPHIN 2 GM in Sodium Chloride 0.9% 100 ML IVPB SCH (15:05)
--- NOTE | 2018-10-07 20:59 | PDOC.PN ---
- Subjective Encounter Start Date: 10/07/18 Encounter Start Time: 19:15 Subjective: f/u for bilat hip and L shoulder septic arthritis with Grp B strep spp -: s/p L shoulder and bilat hip washout with revision. Receiving -: Rocephin IV currently. Extubated on supplemental O2 via NC. - Objective Resuscitation Status - Order Detail: 10/04/18 01:46 Resuscitation Status Routine Resuscitation Status: FULL: Full Resuscitation MAR Reviewed: Yes Vital Signs & Weight: Vital Signs (12 hours) Temp Pulse Pulse Pulse BP BP BP 10/07/18 20:00 98.0 F 10/07/18 16:00 98.9 F 10/07/18 13:38 82 81 109/54 L 117/52 L 10/07/18 12:00 99.1 F 10/07/18 11:44 10/07/18 11:05 86 85 110/56 L 105/53 L 10/07/18 09:15 10/07/18 09:00 87 107/55 L Pulse Ox Pulse Ox Pulse Ox 10/07/18 20:00 10/07/18 16:00 10/07/18 13:38 95 97 10/07/18 12:00 10/07/18 11:44 96 10/07/18 11:05 94 L 94 L 10/07/18 09:15 97 10/07/18 09:00 Weight Weight 215 lb 2.738 oz Most Recent Monitor Data Heart Rate from ECG 77 NIBP 136/58 NIBP BP-Mean 84 Respiration from ECG 25 SpO2 96 I&O: 10/06/18 10/07/18 10/08/18 06:59 06:59 06:59 Intake Total 1430 130 620 Output Total 200 189 355 Balance 1230 -59 265 Result Diagrams: 10/07/18 04:15 10/07/18 04:15 Additional Labs: Accuchecks 10/07/18 10/07/18 10/07/18 17:27 11:53 06:08 POC Glucose 120 H 128 H 129 H 10/06/18 22:03 POC Glucose 228 H Microbiology 10/03/18 20:52 Urine voided Urine Culture - Final Beta-hemolytic Streptococcus 10/03/18 17:37 Venous blood - Right Hand Blood Culture - Final Streptococcus agalactiae Gp. B 10/03/18 17:06 Venous blood - Right Hand Blood Culture - Final Streptococcus agalactiae Gp. B 10/05/18 11:09 Hip - Aspirate Bacterial Culture - Preliminary Streptococcus agalactiae Gp. B 10/05/18 08:40 Joint - Left Arm Body Fluid Culture - Preliminary 10/04/18 09:15 Peritoneal effluent Body Fluid Culture - Preliminary Laboratory Tests 10/03/18 10/04/18 10/04/18 15:10 06:36 06:36 WBC 16.9 H Band Neuts % (Manual) 26 H Potassium Creatinine 12.65 H 12.01 H 10/05/18 10/05/18 10/06/18 07:37 07:37 05:57 WBC 20.3 H Band Neuts % (Manual) 27 H Potassium 4.9 5.1 Creatinine 12.52 H 12.40 H 10/06/18 10/07/18 05:57 04:15 WBC 16.5 H Band Neuts % (Manual) 14 H 7 Potassium Creatinine Radiology Reviewed by me: Yes (PCXR - no acute infiltrates) EKG Reviewed by me: Yes (Tele - SR) Phys Exam - Physical Examination Constitutional: NAD HEENT: PERRLA, sclera anicteric, oral pharynx no lesions Neck: no nodes, no JVD, supple, full ROM Respiratory: no wheezing, no rales, no rhonchi, clear to auscultation bilateral S1, S2 Cardiovascular: RRR, no significant murmur, no rub, gallop Gastrointestinal: soft, non-tender, no distention, positive bowel sounds surgical dressings in place on shoulder and hips Musculoskeletal: pulses present Neurological: moves all 4 limbs Skin: normal turgor, cap refill <2 seconds Dx/Plan (1) Bacteremia Code(s): R78.81 - BACTEREMIA Status: Acute Comment: Group B Streptococus in urine and blood Cx, Rocephin 2mg IV (2) Septic arthritis Status: Acute Qualifiers: Septic arthritis location: shoulder Comment: has Hip hardware. S/P aspiration .follow Cx s/p B/L Hip washout and left shoulder washout POD #1 (3) Anemia due to chronic kidney disease Code(s): N18.9 - CHRONIC KIDNEY DISEASE, UNSPECIFIED; D63.1 - ANEMIA IN CHRONIC KIDNEY DISEASE Status: Chronic Comment: Stable, no evidence of acute blood loss, serial monitoring (4) ESRD on peritoneal dialysis Code(s): N18.6 - END STAGE RENAL DISEASE; Z99.2 - DEPENDENCE ON RENAL DIALYSIS Status: Chronic Comment: PD per Nephrology recommendations. May need HD for volume maintenance - Plan continue antibiotics, PT/OT, psych social worker, DVT proph w/lovenox, DVT proph w/ SCDs Continue supportive mgmt -: Continue Rocephin 2mg IV daily -: Pain control as clinically indicated -: PT for ROM exercises -: AM lab: BMP, CBC * .
[2018-10-07] MEDS: HumaLOG 300 UNITS/3 ML VIAL SC PRN (21:54)
[2018-10-08 05:04] LABS: Band 11 % (5-11); Hemoglobin 10.2 g/dL (14.0-18.0); Lymphocytes 1 % (21-51); MDiff Complete? YES; Mean Corpuscular HGB CONC 32.3 g/dL (32.0-36.0); Metamyelocyte 1 % (0-0); Monocytes 3 % (0-10); Neutrophil 84 % (42-75); Platelet Count 241 thou/uL (130-400); Platelet Morphology Comment Appears Adequate; RBC Distribution Width 13.8 % (11.5-14.5); Red Blood Cell (RBC) Count 3.18 mill/uL (4.70-6.10); Target Cells SLIGHT = 2-5 cells (100X) (0-1/hpf); White Blood Cell (WBC) Count 18.8 thou/uL (4.8-10.8)
[2018-10-08 05:16] LABS: Anion Gap 25 mmol/L (10-20); Calc. Creatinine Clearance 9 mL/min (70-130); Calcium 9.3 mg/dL (7.8-10.44); Carbon Dioxide 20 mmol/L (23-31); Chloride 96 mmol/L (98-107); Estimated GFR-MDRD 4; Glucose 209 mg/dL (80-115); Potassium 5.1 mmol/L (3.5-5.1); Sodium 136 mmol/L (136-145)
[2018-10-08 05:28] LABS: BUN (Urea Nitrogen) 126 mg/dL (8.4-25.7)
[2018-10-08] MEDS: HumaLOG 300 UNITS/3 ML VIAL SC PRN (06:40)
[2018-10-08] MEDS: Senokot S 8.6-50 MG TAB PO SCH ×2 (08:39→20:44)
[2018-10-08] MEDS: Famotidine 20 MG TAB PO SCH (08:39)
[2018-10-08] MEDS: Enoxaparin Sodium 30 MG/0.3 ML SYRINGE SC SCH (08:39)
[2018-10-08] MEDS: hydrALAZINE 25 MG TAB PO SCH ×2 (08:40→20:43)
[2018-10-08] MEDS: Amlodipine 5 MG TAB PO SCH ×2 (08:40→20:43)
[2018-10-08] MEDS: Allopurinol 100 MG TAB PO SCH (08:41)
[2018-10-08] MEDS: Carvedilol 25 MG TAB PO SCH ×2 (08:41→20:44)
--- NOTE | 2018-10-08 10:16 | PRG ---
DATE OF SERVICE: 10/08/2018 SUBJECTIVE: Mr. Rodriguez was extubated yesterday. He is doing well, has no complaints. He got up with Physical Therapy today. OBJECTIVE: VITAL SIGNS: His temperature is 97.9, pulse 75, blood pressure 110/61, saturation 100%. HEENT: Unremarkable. NECK: No adenopathy or JVD. LUNGS: Fairly clear. ABDOMEN: Soft, nontender. PD catheter noted. EXTREMITIES: No clubbing, cyanosis, or edema. LABORATORY DATA: White blood cell count 18, hematocrit 31.5, and platelet count 241. Sodium 135, potassium 5.1, chloride 96, CO2 of 20, BUN 126, creatinine 12.5, glucose 209. ASSESSMENT: 1. Status post endotracheal intubation for orthopedic procedures. 2. History of ankylosing spondylitis. 3. Chronic renal failure requiring peritoneal dialysis. PLAN: The patient can be transferred back to the medical floor. He appears to be doing well with all of his chronic medical problems. Continue IV antibiotics. Job ID: [id number]
--- NOTE | 2018-10-08 10:24 | RAD ---
CHEST 1 VIEW: Date: 10/08/18 INDICATION: Daily CCU examination. COMPARISON: Prior exam dated 10/07/18. FINDINGS: Patient has been extubated with removal of gastric catheter. There is stable cardiomegaly and mild pu lmonary vascular congestion. Extent of pulmonary vascular congestion appears slightly less. Lungs rem ain generally clear. No pleural effusion or pneumothorax evident. IMPRESSION: 1. Interval extubation. 2. Improvement in pulmonary vascular congestion. 3. Persistent cardiomegaly. POS: BH
--- NOTE | 2018-10-08 12:36 | PDOC.PN ---
- Subjective Encounter Start Date: 10/08/18 Encounter Start Time: 12:30 Subjective: f/u for Group B strep bacteremia, septic arthritis s/p bilat hip revision -: and L shoulder washout. Remains on Rocephin. Family noted pt with -: somnolence and dyspnea. - Objective Resuscitation Status - Order Detail: 10/04/18 01:46 Resuscitation Status Routine Resuscitation Status: FULL: Full Resuscitation MAR Reviewed: Yes Vital Signs & Weight: Vital Signs (12 hours) Temp Pulse BP Pulse Ox 10/08/18 10:00 98.5 F 10/08/18 08:40 76 130/57 L 10/08/18 07:42 100 10/08/18 07:00 97.9 F 10/08/18 04:00 98.1 F Weight Weight 214 lb 1.102 oz Most Recent Monitor Data Heart Rate from ECG 76 NIBP 128/55 NIBP BP-Mean 79 Respiration from ECG 25 SpO2 100 I&O: 10/07/18 10/08/18 10/09/18 06:59 06:59 06:59 Intake Total 130 820 480 Output Total 189 630 75 Balance -59 190 405 Result Diagrams: 10/08/18 04:10 10/08/18 04:10 Additional Labs: Accuchecks 10/08/18 10/08/18 10/07/18 10:34 06:29 21:45 POC Glucose 100 171 H 177 H 10/07/18 17:27 POC Glucose 120 H Microbiology 10/03/18 20:52 Urine voided Urine Culture - Final Beta-hemolytic Streptococcus 10/03/18 17:37 Venous blood - Right Hand Blood Culture - Final Streptococcus agalactiae Gp. B 10/03/18 17:06 Venous blood - Right Hand Blood Culture - Final Streptococcus agalactiae Gp. B 10/05/18 11:09 Hip - Aspirate Bacterial Culture - Preliminary Streptococcus agalactiae Gp. B 10/05/18 08:40 Joint - Left Arm Body Fluid Culture - Preliminary 10/04/18 09:15 Peritoneal effluent Body Fluid Culture - Preliminary Laboratory Tests 10/03/18 10/04/18 10/04/18 15:10 06:36 06:36 WBC 16.9 H Band Neuts % (Manual) 26 H Potassium Creatinine 12.65 H 12.01 H 10/05/18 10/05/18 10/06/18 07:37 07:37 05:57 WBC 20.3 H Band Neuts % (Manual) 27 H Potassium 4.9 5.1 Creatinine 12.52 H 12.40 H 10/06/18 10/07/18 05:57 04:15 WBC 16.5 H Band Neuts % (Manual) 14 H 7 Potassium Creatinine Radiology Reviewed by me: Yes (PCXR = no interval change) Phys Exam - Physical Examination opens eyes, responds to direct questions, lethargic/sleepy HEENT: PERRLA, sclera anicteric, oral pharynx no lesions Neck: no nodes, no JVD, supple, full ROM diminished in bases accessory muscle use Respiratory: no wheezing S1, S2 Cardiovascular: RRR, no significant murmur, no rub, gallop obese Gastrointestinal: non-tender, no distention, positive bowel sounds L shoulder dressing in place Musculoskeletal: pulses present, edema present Neurological: normal sensation, moves all 4 limbs alert, smiles, states a few words Skin: normal turgor, cap refill <2 seconds Deviation from normal: Tiwari in place with javier urine Dx/Plan (1) Dyspnea Code(s): R06.00 - DYSPNEA, UNSPECIFIED Status: Acute Comment: Etiology unclear, may need HD for additional volume removal as PD may not be as effective , check ABG/PCXR now (2) Acute metabolic encephalopathy Code(s): G93.41 - METABOLIC ENCEPHALOPATHY Status: Acute Comment: Likely due to uremia, see above (3) Uremia Code(s): N19 - UNSPECIFIED KIDNEY FAILURE Status: Acute Comment: Consider HD as stated in #1 (4) Bacteremia Code(s): R78.81 - BACTEREMIA Status: Acute Comment: Group B Streptococus in urine and blood Cx, Rocephin 2mg IV (5) Septic arthritis Status: Acute Qualifiers: Septic arthritis location: shoulder Comment: has Hip hardware. S/P aspiration .follow Cx s/p B/L Hip washout and left shoulder washout POD #1 (6) Anemia due to chronic kidney disease Code(s): N18.9 - CHRONIC KIDNEY DISEASE, UNSPECIFIED; D63.1 - ANEMIA IN CHRONIC KIDNEY DISEASE Status: Chronic Comment: Stable, no evidence of acute blood loss, serial monitoring (7) ESRD on peritoneal dialysis Code(s): N18.6 - END STAGE RENAL DISEASE; Z99.2 - DEPENDENCE ON RENAL DIALYSIS Status: Chronic Comment: PD per Nephrology recommendations. May need HD for volume maintenance - Plan plan discussed w/ family, continue antibiotics, PT/OT, social media marketing manager, DVT proph w/SCDs Continue supportive mgmt -: Continue Rocephin 2gm IV daily -: Check PCXR/ABG now -: HD per Renal service -: AM lab: BMP, CBC * .
--- NOTE | 2018-10-08 12:46 | EKG ---
Test Reason : Blood Pressure : / mmHG Vent. Rate : 087 BPM Atrial Rate : 087 BPM P-R Int : 156 ms QRS Dur : 094 ms QT Int : 356 ms P-R-T Axes : 009 014 039 degrees QTc Int : 428 ms Normal sinus rhythm Normal ECG Confirmed by RANDEE SCHUSTER DO ([id number]), editor in chief newspaper CECILIA HUI ([id number]) on 10/08/2018 12:46:01 PM Referred By: Confirmed By:RANDEE SCHUSTER DO
--- NOTE | 2018-10-08 12:50 | RAD ---
Portable chest: HISTORY: Dyspnea COMPARISON: 10/08/2018 4:50 AM FINDINGS:Cardiomegaly unchanged. Left effusion and left basilar opacification again noted. Upper lung zones remain clear and unchanged. IMPRESSION:No interval change
[2018-10-08 14:02] LABS: Actual Bicarbonate (HCO3a) 22.1 mEq/L (22-28); Base Excess (BEa) -2.7 mEq/L (-2.0 to +3.0); CO2 Tension 38.1 mmHg (35.0-45.0); Calcium, Ionized 1.03 mmol/L (1.12-1.30); Carboxyhemoglobin (COHb) 0.7 gm% (0.0-3.0); Hemoglobin (Hb) 9.9 g/dL (14.0-18.0); O2 Tension (PaO2) 73.7 mmHg (> 80.0); Potassium - ABG Lab 5.14 mmol/L (3.70-5.30); pH, Arterial 7.38 (7.35-7.45)
[2018-10-08 14:04] LABS: ALV-art Gradient 78.315 (0-20); Puncture Site RBA
--- NOTE | 2018-10-08 14:16 | PRG ---
DATE OF SERVICE: 10/08/2018 SUBJECTIVE: Patient was seen and examined at bedside and overnight events noted. Patient denies any shortness of breath or chest pain or palpitation. No history of nausea or vomiting or diarrhea or fever or chills or cramps. OBJECTIVE: GENERAL: This is a well-built male, in no apparent distress. VITAL SIGNS: Temperature 98.5. Heart rate 72. Respiratory rate 20. Blood pressure 128/55. HEENT: Atraumatic, normocephalic. Oral mucosa is moist NECK: Supple. CARDIOVASCULAR: S1, S2 heard. Rate and rhythm regular. RESPIRATORY: Clear to auscultation. GASTROINTESTINAL: Abdomen is soft. MUSCULOSKELETAL: No tenderness. No edema. DERMATOLOGIC: No skin rash. NEUROLOGIC: Alert and awake and oriented X3. No focal neurologic deficits. Moving all the extremities. PSYCHIATRIC: Mood and affect normal. LABORATORY DATA: Potassium 5.9, BUN is 126, creatinine is 12.5. ASSESSMENT AND PLAN: 1. End-stage renal disease. The patient was somnolent and having tachypnea. Urea remains high, even though he had 2 L of UF yesterday with PD. Plan is to try hemodialysis. The patient does have a fistula. We will have hemodialysis today. 2. Edema, remove fluid. 3. Hypertension. 4. Anemia of chronic disease. 5. Plan to start on hemodialysis for few sessions as tolerated. Job ID: [id number]
[2018-10-08] MEDS: cefTRIAXone\\ROCEPHIN 2 GM in Sodium Chloride 0.9% 100 ML IVPB SCH ×2 (19:19→19:20)
[2018-10-09] MEDS: Acetaminophen 325 MG TAB PO PRN ×2 (05:11→20:14)
[2018-10-09 05:49] LABS: Hep B Core Total Ab Non-Reactive (NonReactive); Hep B Core Total Index 0.03 S/CO (0-0.79); Hep B Surf Ag Non-Reactive S/CO (NonReactive); Hep C IgG Ab Non-Reactive (NonReactive); Hep C Index 0.03 S/CO (0-0.79)
[2018-10-09 05:52] LABS: HBSAB Concentration 42.82 mIU/mL; Hep B Surf AB Reactive (NonReactive)
--- NOTE | 2018-10-09 08:51 | PDOC.PN ---
- Subjective Encounter Start Date: 10/09/18 Encounter Start Time: 08:35 Subjective: f/u for dyspnea and somnolence in context of septic arthritis of L shoulder -: and bilater hips s/p revision and washout. Had first session of HD 10/08/18 -: and tolerated. Feels better overall but still weak. - Objective Resuscitation Status - Order Detail: 10/04/18 01:46 Resuscitation Status Routine Resuscitation Status: FULL: Full Resuscitation MAR Reviewed: Yes Vital Signs & Weight: Vital Signs (12 hours) Temp Pulse Resp BP Pulse Ox 10/09/18 07:43 98.9 F 73 20 153/63 H 94 L 10/09/18 05:05 100 F H 84 18 115/58 L 97 10/09/18 00:41 99.2 F 86 16 150/67 H 96 10/08/18 21:01 94 L Weight Weight 223 lb 12.307 oz Most Recent Monitor Data Heart Rate from ECG 76 NIBP 128/55 NIBP BP-Mean 79 Respiration from ECG 25 SpO2 100 I&O: 10/08/18 10/09/18 10/10/18 06:59 06:59 06:59 Intake Total 820 880 Output Total 630 315 Balance 190 565 Result Diagrams: 10/08/18 04:10 10/08/18 04:10 Additional Labs: Accuchecks 10/09/18 10/08/18 10/08/18 05:43 20:13 10:34 POC Glucose 82 104 100 Microbiology 10/03/18 20:52 Urine voided Urine Culture - Final Beta-hemolytic Streptococcus 10/03/18 17:37 Venous blood - Right Hand Blood Culture - Final Streptococcus agalactiae Gp. B 10/03/18 17:06 Venous blood - Right Hand Blood Culture - Final Streptococcus agalactiae Gp. B 10/05/18 11:09 Hip - Aspirate Bacterial Culture - Preliminary Streptococcus agalactiae Gp. B 10/05/18 08:40 Joint - Left Arm Body Fluid Culture - Preliminary 10/04/18 09:15 Peritoneal effluent Body Fluid Culture - Preliminary Laboratory Tests 10/03/18 10/04/18 10/04/18 15:10 06:36 06:36 WBC 16.9 H Band Neuts % (Manual) 26 H Potassium Creatinine 12.65 H 12.01 H 10/05/18 10/05/1819 07:37 07:37 05:57 WBC 20.3 H Band Neuts % (Manual) 27 H Potassium 4.9 5.1 Creatinine 12.52 H 12.40 H 10/06/18 10/07/18 05:57 04:15 WBC 16.5 H Band Neuts % (Manual) 14 H 7 Potassium Creatinine Radiology Reviewed by me: Yes (PCXR - no interval change) Phys Exam - Physical Examination alert, responds to questions HEENT: PERRLA, sclera anicteric, oral pharynx no lesions Neck: no nodes, no JVD, supple, full ROM diminished in bases o/w clear Respiratory: clear to auscultation bilateral S1, S2 Cardiovascular: RRR, no significant murmur, no rub, gallop Gastrointestinal: soft, non-tender, no distention, positive bowel sounds L shoulder dressing in place Musculoskeletal: pulses present, edema present Neurological: normal sensation, moves all 4 limbs A x O x 2 Skin: normal turgor, cap refill <2 seconds Dx/Plan (1) Dyspnea Code(s): R06.00 - DYSPNEA, UNSPECIFIED Status: Acute Comment: Started HD for additional volume removal as PD may not as effective, improved overall (2) Acute metabolic encephalopathy Code(s): G93.41 - METABOLIC ENCEPHALOPATHY Status: Acute Comment: Likely due to uremia, see above, monitor clinical progress with serial HD (3) Uremia Code(s): N19 - UNSPECIFIED KIDNEY FAILURE Status: Acute Comment: See above (4) Bacteremia Code(s): R78.81 - BACTEREMIA Status: Acute Comment: Group B Streptococus in urine and blood Cx, Rocephin 2mg IV daily (5) Septic arthritis Status: Acute Qualifiers: Septic arthritis location: shoulder Comment: has Hip hardware. S/P aspiration .follow Cx s/p B/L Hip washout and left shoulder washout POD #3 (6) Anemia due to chronic kidney disease Code(s): N18.9 - CHRONIC KIDNEY DISEASE, UNSPECIFIED; D63.1 - ANEMIA IN CHRONIC KIDNEY DISEASE Status: Chronic Comment: Stable, no evidence of acute blood loss, serial monitoring (7) ESRD on peritoneal dialysis Code(s): N18.6 - END STAGE RENAL DISEASE; Z99.2 - DEPENDENCE ON RENAL DIALYSIS Status: Chronic Comment: PD per Nephrology recommendations. HD started for more aggressive volume removal - Plan plan discussed w/ family, continue antibiotics, PT/OT, oncology social work, respiratory therapy, DVT proph w/SCDs Stable currently -: HD per Renal service -: Continue Rocephin 2gm IV daily -: Limit psychotropes and sedating medications -: AM lab: BMP, CBC * .
[2018-10-09] MEDS: Famotidine 20 MG TAB PO SCH (09:14)
[2018-10-09] MEDS: Allopurinol 100 MG TAB PO SCH (09:14)
[2018-10-09] MEDS: Amlodipine 5 MG TAB PO SCH ×2 (09:14→20:12)
[2018-10-09] MEDS: hydrALAZINE 25 MG TAB PO SCH ×2 (09:14→20:14)
[2018-10-09] MEDS: Senokot S 8.6-50 MG TAB PO SCH ×2 (09:14→20:13)
[2018-10-09] MEDS: Carvedilol 25 MG TAB PO SCH ×2 (09:15→20:14)
[2018-10-09] MEDS: Enoxaparin Sodium 30 MG/0.3 ML SYRINGE SC SCH (09:16)
--- NOTE | 2018-10-09 09:53 | PRG ---
DATE OF SERVICE: 10/09/2018 SUBJECTIVE: Jesus is now postop day 4 from bilateral hip excisional arthroplasties and left shoulder arthroscopic washout secondary to streptococcal septic arthritis. He has been transferred from the intensive care unit up to the floor, slowly making progress. He sat up on the bed yesterday evening, but he has not been up ambulatory. Visited with his today, she tells me that he still looks a little apprehensive and his communication is improving and he is little more cogent than he was yesterday. OBJECTIVE: VITAL SIGNS: Temperature 98.9, his max was 100 degrees at 05 this morning. Pulse is 73, blood pressure 153/63, respiratory rate is 20 and nonlabored, and O2 saturations 94% on room air. GENERAL: He wakens and responsive and appropriate with examiner, and his remote and short-term memory are clear. EXTREMITIES: His incisions are clean. I checked the left shoulder, left hip, and right hip. No gross drainage is noted. LABORATORY DATA: Laboratories pending today, but his white count was up a little bit yesterday at 18. IMPRESSION: 1. A 63-year-old male, postop day 4 bilateral excisional arthroplasty secondary to pyogenic periprosthetic arthritis and postop day 4 left shoulder arthroscopic washout secondary to pyogenic arthritis. 2. Septicemia with Streptococcus. 3. Chronic renal failure. 4. The patient requiring hemodialysis acutely. PLAN: From orthopedic standpoint, might see little more improvement. We will wait and see what his white count will yield today, but need to keep a close eye on him. Consider tertiary source of infection. Job ID: [id number]
[2018-10-09 10:00] LABS: Anion Gap 22 mmol/L (10-20); BUN (Urea Nitrogen) 119 mg/dL (8.4-25.7); Calc. Creatinine Clearance 10 mL/min (70-130); Calcium 9.3 mg/dL (7.8-10.44); Carbon Dioxide 22 mmol/L (23-31); Chloride 95 mmol/L (98-107); Estimated GFR-MDRD 5; Glucose 113 mg/dL (80-115); Potassium 5.3 mmol/L (3.5-5.1); Sodium 134 mmol/L (136-145)
--- NOTE | 2018-10-09 10:44 | PRG ---
DATE OF SERVICE: 10/09/2018 SUBJECTIVE: The patient is doing better, had no acute complaints today. OBJECTIVE: VITAL SIGNS: On exam, temperature 98.9 with a T-max of 100.0, pulse 73, blood pressure 153/63, and O2 saturation 94% on 2 L. HEENT: Unremarkable. NECK: No adenopathy, JVD, or bruits. LUNGS: Clear anteriorly. CARDIAC: S1 and S2. Regular. ABDOMEN: Peritoneal dialysis catheter noted. EXTREMITIES: No edema. LABORATORY DATA: Sodium 134, potassium 5.3, BUN 119, creatinine 10.8, and glucose 113. ASSESSMENT: 1. Status post joint replacements for infected hardware. 2. Status post shoulder washout. 3. History of ankylosing spondylitis. 4. Status post respiratory failure requiring mechanical ventilation. 5. Chronic renal failure requiring peritoneal dialysis. PLAN: Continue peritoneal dialysis and IV antibiotics. Little less than average from Pulmonary standpoint at this time. Job ID: [id number]
[2018-10-09 11:15] LABS: Hemoglobin 10.1 g/dL (14.0-18.0); Mean Corpuscular HGB CONC 31.8 g/dL (32.0-36.0); Mean Corpuscular Hemoglobin 31.5 pg (27.0-31.0); Mean Corpuscular Volume 98.9 fL (78.0-98.0); Mean Platelet Volume 7.6 fL (7.4-10.4); Platelet Count 247 thou/uL (130-400); RBC Distribution Width 13.7 % (11.5-14.5); Red Blood Cell (RBC) Count 3.21 mill/uL (4.70-6.10); White Blood Cell (WBC) Count 17.7 thou/uL (4.8-10.8)
[2018-10-09 11:36] LABS: Eosinophils 4 % (0-10); Hypochromia SLIGHT = 6-15 cells (100X) (0-5/hpf); Large Platelets SLIGHT; Lymphocytes 5 % (21-51); MDiff Complete? YES; Monocytes 3 % (0-10); Neutrophil 88 % (42-75); Ovalocytes SLIGHT = 2-5 cells (100X) (0-1/hpf); Platelet Morphology Comment Appears Adequate; Polychromasia SLIGHT = 2-3 cells (100X) (0-2/hpf); Vacuoles SLIGHT
--- NOTE | 2018-10-09 14:37 | PRG ---
DATE OF SERVICE: 10/09/2018 SUBJECTIVE: Patient was seen and examined at bedside and overnight events noted. Patient denies any shortness of breath or chest pain or palpitation. No history of nausea or vomiting or diarrhea or fever or chills or cramps. OBJECTIVE: GENERAL: This is a well-built male, in no apparent distress. VITAL SIGNS: Temperature 99. Heart rate 92. Respiratory rate 18. Blood pressure 115/62. HEENT: Atraumatic, normocephalic. Oral mucosa is moist NECK: Supple. CARDIOVASCULAR: S1, S2 heard. Rate and rhythm regular. RESPIRATORY: Clear to auscultation. GASTROINTESTINAL: Abdomen is soft. MUSCULOSKELETAL: No tenderness. No edema. DERMATOLOGIC: No skin rash. NEUROLOGIC: Alert and awake and oriented X3. No focal neurologic deficits. Moving all the extremities. PSYCHIATRIC: Mood and affect normal. LABORATORY DATA: Potassium is 5.3, BUN is 119, creatinine is 10.8. ASSESSMENT AND PLAN: 1. End-stage renal disease, feeling better today. We will continue on hemodialysis for now for few more sessions and then switch to PD. 2. Edema. Remove fluid. 3. Hypertension. 4. Anemia. Plan is to start another session of hemodialysis today before switching back to PD. Job ID: [id number]
[2018-10-09] MEDS: cefTRIAXone\\ROCEPHIN 2 GM in Sodium Chloride 0.9% 100 ML IVPB SCH (20:15)
[2018-10-09] MEDS: Morphine 2 MG/ML SYRINGE SLOW IVP PRN (22:15)
[2018-10-10 04:47] LABS: Band 5 % (5-11); Eosinophils 2 % (0-10); Hemoglobin 9.2 g/dL (14.0-18.0); Lymphocytes 4 % (21-51); MDiff Complete? YES; Mean Corpuscular HGB CONC 32.1 g/dL (32.0-36.0); Mean Corpuscular Volume 99.7 fL (78.0-98.0); Mean Platelet Volume 7.8 fL (7.4-10.4); Metamyelocyte 2 % (0-0); Monocytes 6 % (0-10); Neutrophil 81 % (42-75); Platelet Count 230 thou/uL (130-400); Platelet Morphology Comment Appears Adequate; RBC Distribution Width 13.8 % (11.5-14.5); Red Blood Cell (RBC) Count 2.86 mill/uL (4.70-6.10); White Blood Cell (WBC) Count 16.3 thou/uL (4.8-10.8)
[2018-10-10 05:01] LABS: Anion Gap 18 mmol/L (10-20); BUN (Urea Nitrogen) 81 mg/dL (8.4-25.7); Calc. Creatinine Clearance 14 mL/min (70-130); Calcium 9.3 mg/dL (7.8-10.44); Carbon Dioxide 26 mmol/L (23-31); Chloride 98 mmol/L (98-107); Estimated GFR-MDRD 7; Glucose 114 mg/dL (80-115); Potassium 4.9 mmol/L (3.5-5.1); Sodium 137 mmol/L (136-145)
[2018-10-10] MEDS: Carvedilol 25 MG TAB PO SCH ×2 (09:09→22:31)
[2018-10-10] MEDS: Allopurinol 100 MG TAB PO SCH (09:09)
[2018-10-10] MEDS: Senokot S 8.6-50 MG TAB PO SCH ×2 (09:10→21:44)
[2018-10-10] MEDS: Amlodipine 5 MG TAB PO SCH ×2 (09:11→22:31)
[2018-10-10] MEDS: hydrALAZINE 25 MG TAB PO SCH ×2 (09:11→22:31)
[2018-10-10] MEDS: Enoxaparin Sodium 30 MG/0.3 ML SYRINGE SC SCH (09:11)
[2018-10-10] MEDS: Famotidine 20 MG TAB PO SCH (09:12)
--- NOTE | 2018-10-10 10:35 | PDOC.PN ---
- Subjective Encounter Start Date: 10/10/18 Encounter Start Time: 10:34 Subjective: remains encephalopathic - Objective Resuscitation Status - Order Detail: 10/04/18 01:46 Resuscitation Status Routine Resuscitation Status: FULL: Full Resuscitation MAR Reviewed: Yes Vital Signs & Weight: Vital Signs (12 hours) Temp Pulse Resp BP Pulse Ox 10/10/18 09:11 77 10/10/18 08:55 90 L 10/10/18 07:43 98.2 F 77 18 135/65 90 L 10/10/18 03:35 99.4 F 77 18 141/61 H 94 L 10/09/18 23:10 99.1 F 77 16 114/61 94 L Weight Weight 223 lb 12.307 oz Most Recent Monitor Data Heart Rate from ECG 76 NIBP 128/55 NIBP BP-Mean 79 Respiration from ECG 25 SpO2 100 I&O: 10/09/18 10/10/18 10/11/18 06:59 06:59 06:59 Intake Total 880 360 Output Total 315 450 Balance 565 -90 Result Diagrams: 10/10/18 04:07 10/10/18 04:07 Additional Labs: Accuchecks 10/10/18 10/09/18 10/09/18 05:42 23:10 11:45 POC Glucose 116 H 122 H 110 Phys Exam - Physical Examination Neck: no JVD Respiratory: clear to auscultation bilateral anterior, some rhonchi post Cardiovascular: RRR, no significant murmur Gastrointestinal: soft, positive bowel sounds Musculoskeletal: no edema Dx/Plan (1) HTN (hypertension) Code(s): I10 - ESSENTIAL (PRIMARY) HYPERTENSION Status: Acute (2) Acute metabolic encephalopathy Code(s): G93.41 - METABOLIC ENCEPHALOPATHY Status: Acute Comment: Likely due to uremia, see above, monitor clinical progress with serial HD (3) Bacteremia Code(s): R78.81 - BACTEREMIA Status: Acute Comment: Group B Streptococus in urine and blood Cx, Rocephin 2mg IV daily (4) Dyspnea Code(s): R06.00 - DYSPNEA, UNSPECIFIED Status: Resolved Comment: Started HD for additional volume removal as PD may not as effective, improved overall (5) Sepsis Code(s): A41.9 - SEPSIS, UNSPECIFIED ORGANISM Status: Acute Qualifiers: Sepsis type: Streptococcus, other Qualified Code(s): A40.8 - Other streptococcal sepsis (6) Septic arthritis Status: Acute Qualifiers: Septic arthritis location: shoulder Septic arthritis organism: streptococcal Laterality: left Qualified Code(s): M00.212 - Other streptococcal arthritis, left shoulder Comment: has Hip hardware. S/P aspiration .follow Cx s/p B/L Hip washout and left shoulder washout POD #3 (7) Uremia Code(s): N19 - UNSPECIFIED KIDNEY FAILURE Status: Chronic Comment: See above (8) Gout Code(s): M10.9 - GOUT, UNSPECIFIED Status: Chronic Qualifiers: Gout site: unspecified site Comment: Hold prednisone for now given sepsis (9) Anemia due to chronic kidney disease Code(s): N18.9 - CHRONIC KIDNEY DISEASE, UNSPECIFIED; D63.1 - ANEMIA IN CHRONIC KIDNEY DISEASE Status: Chronic Qualifiers: Chronic kidney disease stage: on chronic dialysis Qualified Code(s): N18.6 - End stage renal disease; D63.1 - Anemia in chronic kidney disease; Z99.2 - Dependence on renal dialysis Comment: Stable, no evidence of acute blood loss, serial monitoring (10) ESRD on peritoneal dialysis Code(s): N18.6 - END STAGE RENAL DISEASE; Z99.2 - DEPENDENCE ON RENAL DIALYSIS Status: Chronic Comment: PD per Nephrology recommendations. HD started for more aggressive volume removal - Plan DVT proph w/heparin cont HD for now -: cont iv antibx -: discuss with Sabino * .
--- NOTE | 2018-10-10 12:04 | PRG ---
DATE OF SERVICE: 10/10/2018 SUBJECTIVE: This is a 63-year-old gentleman being seen for end-stage renal disease. The patient cannot answer any questions. Remained somnolent. OBJECTIVE: CONSTITUTIONAL: On examination, the patient is resting. Moves extremities. VITAL SIGNS: Afebrile, pulse 77, breathing 16, and blood pressure 135/65. GENERAL APPEARANCE AND MENTAL STATUS: Fair. HEAD/NECK: Normocephalic. Atraumatic. EYES: EOMI. No deformity. EARS: Clear. No ulcers. NOSE: Intact. No lesions. MOUTH: Clear. No discharge. THROAT: Clear. No exudate. LUNGS: Clear. No crackles. CARDIAC: S1, S2. No rub. ABDOMEN: Benign. Bowel sounds positive. GENITALIA/RECTUM: Tiwari absent. BACK/EXTREMITIES: Edema 0+. NEUROLOGICAL: The patient is somnolent. SKIN: LYMPHATICS: LABORATORY DATA: Reviewed. ASSESSMENT AND PLAN: 1. Stage 6 chronic kidney disease. Plan dialysis. 2. Uremia. Plan dialysis. 3. Altered mental status. We would recommend imaging of the head. 4. Elevated white count, management per Primary Team. Job ID: [id number]
--- NOTE | 2018-10-10 15:00 | PRG ---
DATE OF SERVICE: 10/10/2018 Jesus Rodriguez continues to get hemodialysis. He has a pansensitive Strep that was isolated from blood cultures . Hemodynamics have been stable. Temperature 99.9, heart rate 84, respiratory rate 16, oximetry is 99 on room air, blood pressure 178/73. Exam is otherwise unchanged. I would think that it must be assumed worst case scenario as that he has endocarditis. His echocardiogram, transthoracic did not show vegetation, but this does not rule out endocarditis. He continues to be hemodialyzed. Follow with the other physicians caring for him. Job ID: [id number] MTDD
[2018-10-10 16:50] LABS: Actual Bicarbonate (HCO3a) 26.5 mEq/L (22-28); Base Excess (BEa) 3.3 mEq/L (-2.0 to +3.0); Calcium, Ionized 1.13 mmol/L (1.12-1.30); Carboxyhemoglobin (COHb) 1.1 gm% (0.0-3.0); Hemoglobin (Hb) 9.8 g/dL (14.0-18.0); O2 Tension (PaO2) 66.1 mmHg (> 80.0); Puncture Site RRA
--- NOTE | 2018-10-10 16:51 | PRG ---
DATE OF SERVICE: 10/10/2018 SUBJECTIVE: Jesus is a 63-year-old male, who is now approximately postop day 4 from bilateral hip evacuation and washout and arthroscopic shoulder washout. I saw him over the weekend and he was able to converse and visit with me both days. Nurses reports that he is little combative earlier this morning and he had to be restrained. He has been to dialysis and now that he is back. I am able to interview the patient, but he is not able to respond to me in a cogent way. OBJECTIVE: The patient will not wake up despite brisk examination to include chest rub. He only response with what is wrong, what is wrong and will not open his eyes to command. He will not follow commands. IMPRESSION AND PLAN: 1. Mental status changes. 2. The patient has had a precipitous decline since surgery and I am concerned, therefore I went ahead and called Dr. Howard. We are going to transfer him to the intensive care unit for closer observation and stat blood gases will be drawn now. Nursing staff has been notified. Job ID: [id number]
[2018-10-10] MEDS ORDERED: Haloperidol Lactate 5 MG/ML VIAL IM PRN (16:55)
--- NOTE | 2018-10-10 17:17 | PRG ---
DATE OF SERVICE: 10/10/2018 SUBJECTIVE: Mr. Rodriguez has developed delirium. He is confused. According to the nurse, there has been no diarrhea and no seizure activity. T-max 100.4, blood pressure 130/60, pulse 88. They were having difficulty dialyzing him through peritoneal dialysis, and they tried to access his AV fistula and administered hemodialysis, but it has not been very successful, so the dialytic team is planning to extend his peritoneal dialysis schedule for 12 hours today and 12 hours tomorrow and then stop it off with hemodialysis. He is confused. He does not know where he is and sometimes gets somewhat agitated. No diarrhea. No cough. No evidence of aspiration. OBJECTIVE: VITAL SIGNS: With a temperature max of 100.4 just a while ago, BP 130/60, pulse 88, respirations 16 to 20, O2 saturation 99%. SKIN: Shows the surgical areas of bilateral hips and left shoulder with dressing. HEENT: Ocular movements are conjugate. LUNGS: Symmetric. Clear breath sounds. No wheezing. HEART: S1 and S2. Regular rate. ABDOMEN: Soft. EXTREMITIES: Limitation in range of motion of both lower extremities and left upper extremity. LABORATORY DATA: White cell count is at 16.3, hemoglobin 9.2, platelets 230 with 81% neutrophils. Creatinine 7.85, potassium 4.9. The microbiology had beta hemolytic Streptococcus in all samples. There is a chest x-ray, which is the last imaging study with no interval changes. The patient has left effusion and left basilar opacification. ASSESSMENT AND DISCUSSION: End-stage renal disease probably due to chronic glomerulonephritis, on peritoneal dialysis; gout; group B Streptococcus bacteremia with urinary tract colonization; infection of the right and left hip implants, he already had replacement of the right and partial replacement of the left. The left shoulder was washed out. The disposition will include the possibility of vancomycin sliding scale if he continues hemodialysis. Since he is a peritoneal dialysis patient, we may have to place a Mauricio catheter for terminal system operator administration of Rocephin. An alternate approach would be to administer the vancomycin through the peritoneal dialysis catheter, but I think that would be cumbersome and offer a less reliable administration mechanism. The end date of therapy would be November 17. Job ID: [id number]
--- NOTE | 2018-10-10 17:27 | PRG ---
DATE OF SERVICE: 10/10/2018 SUBJECTIVE: This afternoon, he has had a change in mental status. He was, I am told, hard to arouse. He is transferred to critical care unit because of somnolence. He had not received any narcotics prior to that. He had a temp over 101 when he arrived. He did awaken being transferred from bed to bed. He became quite verbal. This is a change compared to this morning. OBJECTIVE: VITAL SIGNS: His respiratory rate is 20, oximetry is 99, and blood pressure 136/68. GENERAL: He is moving all his extremities equally and he is actually quite strong. LUNGS: Clear. HEART: Regular rhythm. ABDOMEN: Soft and suggestive of ascites. EXTREMITIES: Without asymmetry. LABORATORY DATA: White count 16.3, hemoglobin 9.2, platelets 230 this morning. Electrolytes; potassium is normal this morning. Blood gas test now done, pH of 7.5, CO2 of 35, PO2 of 66. Sodium 133, potassium 4.6, chloride 99, . IMPRESSION: Metabolic encephalopathy given his bacteremia with strep. He has a nonfocal exam. I doubt he has an acute subdural or parenchymal brain hemorrhage. If he has a deterioration in the unit, we can consider noncontrast head CT, but I do not think the utility will be great at this point. I suspect when his temperature comes down, his encephalopathy will improve. We will watch him closely in the Critical Care Unit. He does not need airway support or intubation at this time. Job ID: [id number]
[2018-10-10] MEDS ORDERED: Acetaminophen 1,000 MG in Premix Bag 1 BAG IVPB SCH (18:30)
[2018-10-10] MEDS: cefTRIAXone\\ROCEPHIN 2 GM in Sodium Chloride 0.9% 100 ML IVPB SCH (21:29)
[2018-10-11] MEDS: Acetaminophen 325 MG TAB PO PRN (07:43)
[2018-10-11 09:23] LABS: Hemoglobin 9.2 g/dL (14.0-18.0); Mean Corpuscular Hemoglobin 32.9 pg (27.0-31.0); Mean Corpuscular Volume 99.8 fL (78.0-98.0); Mean Platelet Volume 7.4 fL (7.4-10.4); Platelet Count 291 thou/uL (130-400); RBC Distribution Width 13.6 % (11.5-14.5); Red Blood Cell (RBC) Count 2.79 mill/uL (4.70-6.10); White Blood Cell (WBC) Count 15.4 thou/uL (4.8-10.8)
[2018-10-11] MEDS: Carvedilol 25 MG TAB PO SCH ×2 (09:32→21:17)
[2018-10-11] MEDS: Famotidine 20 MG TAB PO SCH (09:32)
[2018-10-11] MEDS: Senokot S 8.6-50 MG TAB PO SCH ×2 (09:32→21:17)
[2018-10-11] MEDS: Enoxaparin Sodium 30 MG/0.3 ML SYRINGE SC SCH (09:32)
[2018-10-11] MEDS: Allopurinol 100 MG TAB PO SCH (09:32)
[2018-10-11] MEDS: Amlodipine 5 MG TAB PO SCH ×2 (09:33→23:03)
[2018-10-11] MEDS: hydrALAZINE 25 MG TAB PO SCH ×2 (09:34→23:03)
[2018-10-11 10:07] LABS: Band 6 % (5-11); Eosinophils 1 % (0-10); Lymphocytes 7 % (21-51); MDiff Complete? YES; Metamyelocyte 3 % (0-0); Monocytes 9 % (0-10); Myelocyte 1 % (0-0); Neutrophil 72 % (42-75); RBC Morphology Normal; Reactive Lymphocytes 1 % (0-10)
[2018-10-11 10:35] LABS: Albumin 2.3 g/dL (3.4-4.8); Anion Gap 18 mmol/L (10-20); BUN (Urea Nitrogen) 73 mg/dL (8.4-25.7); BUN/Creatinine Ratio 9.57; Calc. Creatinine Clearance 15 mL/min (70-130); Calcium 9.6 mg/dL (7.8-10.44); Carbon Dioxide 26 mmol/L (23-31); Chloride 96 mmol/L (98-107); Estimated GFR-MDRD 7; Glucose 122 mg/dL (80-115); Potassium 4.3 mmol/L (3.5-5.1); Sodium 136 mmol/L (136-145)
--- NOTE | 2018-10-11 10:59 | PDOC.PN ---
- Subjective Encounter Start Date: 10/11/18 Encounter Start Time: 10:58 Subjective: alert, oriented, no distress - Objective Resuscitation Status - Order Detail: 10/04/18 01:46 Resuscitation Status Routine Resuscitation Status: FULL: Full Resuscitation MAR Reviewed: Yes Vital Signs & Weight: Vital Signs (12 hours) Temp Pulse BP Pulse Ox 10/11/18 09:34 88 90/50 L 10/11/18 09:33 88 90/50 L 10/11/18 08:00 100 10/11/18 07:00 97.7 F 10/11/18 06:00 98.6 F 10/11/18 03:00 98.1 F 10/11/18 01:18 100 10/10/18 23:00 98.2 F Weight Weight 224 lb 10.417 oz Most Recent Monitor Data Heart Rate from ECG 70 NIBP 97/51 NIBP BP-Mean 66 Respiration from ECG 17 SpO2 100 I&O: 10/10/18 10/11/18 10/12/18 06:59 06:59 06:59 Intake Total 360 312 Output Total 450 400 15 Balance -90 -88 -15 Result Diagrams: 10/11/18 08:57 10/11/18 10:08 Additional Labs: Accuchecks 10/11/18 10/10/18 10/10/18 06:18 21:35 15:43 POC Glucose 160 H 140 H 98 10/10/18 11:53 POC Glucose 94 Phys Exam - Physical Examination Neck: no JVD Respiratory: clear to auscultation bilateral Cardiovascular: RRR, no significant murmur Gastrointestinal: soft, non-tender, positive bowel sounds Musculoskeletal: no edema Dx/Plan (1) HTN (hypertension) Code(s): I10 - ESSENTIAL (PRIMARY) HYPERTENSION Status: Acute Qualifiers: Hypertension type: essential hypertension Qualified Code(s): I10 - Essential (primary) hypertension (2) Acute metabolic encephalopathy Code(s): G93.41 - METABOLIC ENCEPHALOPATHY Status: Resolved Comment: Likely due to uremia, see above, monitor clinical progress with serial HD (3) Bacteremia Code(s): R78.81 - BACTEREMIA Status: Acute Comment: Group B Streptococus in urine and blood Cx, Rocephin 2mg IV daily (4) Dyspnea Code(s): R06.00 - DYSPNEA, UNSPECIFIED Status: Resolved Comment: Started HD for additional volume removal as PD may not as effective, improved overall (5) Sepsis Code(s): A41.9 - SEPSIS, UNSPECIFIED ORGANISM Status: Acute Qualifiers: Sepsis type: Streptococcus, other Qualified Code(s): A40.8 - Other streptococcal sepsis (6) Septic arthritis Status: Acute Qualifiers: Septic arthritis location: shoulder Septic arthritis organism: streptococcal Laterality: left Qualified Code(s): M00.212 - Other streptococcal arthritis, left shoulder Comment: has Hip hardware. S/P aspiration .follow Cx s/p B/L Hip washout and left shoulder washout POD #3 (7) Uremia Code(s): N19 - UNSPECIFIED KIDNEY FAILURE Status: Chronic Comment: See above (8) Gout Code(s): M10.9 - GOUT, UNSPECIFIED Status: Chronic Qualifiers: Gout site: unspecified site Comment: Hold prednisone for now given sepsis (9) Anemia due to chronic kidney disease Code(s): N18.9 - CHRONIC KIDNEY DISEASE, UNSPECIFIED; D63.1 - ANEMIA IN CHRONIC KIDNEY DISEASE Status: Chronic Qualifiers: Chronic kidney disease stage: on chronic dialysis Qualified Code(s): N18.6 - End stage renal disease; D63.1 - Anemia in chronic kidney disease; Z99.2 - Dependence on renal dialysis Comment: Stable, no evidence of acute blood loss, serial monitoring (10) ESRD on peritoneal dialysis Code(s): N18.6 - END STAGE RENAL DISEASE; Z99.2 - DEPENDENCE ON RENAL DIALYSIS Status: Chronic Comment: PD per Nephrology recommendations. HD started for more aggressive volume removal - Plan on HD, eventual resumption of PD -: cont rocephin, vancomycin -: will need iv access for oitpt antibx -: cont amlodipine, coreg, etc * .
[2018-10-11 11:03] LABS: Phosphorus 9.7 mg/dL (2.3-4.7)
--- NOTE | 2018-10-11 13:44 | PRG ---
DATE OF SERVICE: 10/11/2018 SUBJECTIVE: This is a 63-year-old gentleman, being seen for end-stage renal disease. The patient denied nausea, vomiting, or chest pain. OBJECTIVE: GENERAL: The patient is awake, alert. VITAL SIGNS: Pulse 72, breathing 16, blood pressure 109/48. GENERAL APPEARANCE AND MENTAL STATUS: Fair. HEAD/NECK: Normocephalic. Atraumatic. EYES: EOMI. No deformity. EARS: Clear. No ulcers. NOSE: Intact. No lesions. MOUTH: Clear. No discharge. THROAT: Clear. No exudate. LUNGS: Clear. No crackles. CARDIAC: S1, S2. No rub. ABDOMEN: Benign. Bowel sounds positive. GENITALIA/RECTUM: Tiwari absent. BACK/EXTREMITIES: Edema 0+. NEUROLOGICAL: Alert and motor intact. SKIN: LYMPHATICS: LABORATORY DATA: Reviewed. ASSESSMENT AND PLAN: 1. Stage 6 chronic kidney disease. Continue peritoneal dialysis. 2. Hypertension. 3. Anemia, stable. 4. Uremia, BUN is decreasing. Job ID: [id number]
--- NOTE | 2018-10-11 15:46 | PRG ---
DATE OF SERVICE: 10/11/2018 SUBJECTIVE: Jesus Rodriguez is back to his baseline neurological status. I met with his and answered all of her questions. She is happy with how he is acting today compared to yesterday. He was quite combative yesterday evening when I came in the scene. OBJECTIVE: VITAL SIGNS: Stable. 124/55, heart rate 72, and respiratory rate is in the teens to low 20s. LUNGS: Clear. HEART: Regular rhythm. ABDOMEN: Soft and nontender. EXTREMITIES: Without asymmetry or edema. NEUROLOGIC: Grossly nonfocal. DATA: White count 15.4, hemoglobin 9.2, and platelets 291. Sodium 136, potassium 4.3, chloride 96, bicarbonate 26, BUN 73, creatinine 7.63, and glucose 122. IMPRESSION: 1. ? dialysis disequilibrium syndrome yesterday, normal mental status now. 2. Multiple septic joints, presumably secondary to endocarditis. He will continue with broad antimicrobial therapy. 3. Chronic renal failure, now on hemodialysis. Dr. Gallo has recommended antimicrobial therapy through November 17. We will continue to follow. Job ID: [id number]
[2018-10-11] MEDS: Morphine 2 MG/ML SYRINGE SLOW IVP PRN ×2 (17:22→22:12)
[2018-10-11] MEDS: cefTRIAXone\\ROCEPHIN 2 GM in Sodium Chloride 0.9% 100 ML IVPB SCH (21:16)
[2018-10-12 05:30] LABS: Band 10 % (5-11); Eosinophils 1 % (0-10); Hemoglobin 8.6 g/dL (14.0-18.0); Lymphocytes 6 % (21-51); MDiff Complete? YES; Mean Corpuscular HGB CONC 31.3 g/dL (32.0-36.0); Mean Corpuscular Hemoglobin 31.5 pg (27.0-31.0); Mean Platelet Volume 7.7 fL (7.4-10.4); Metamyelocyte 2 % (0-0); Monocytes 8 % (0-10); Neutrophil 73 % (42-75); Platelet Count 330 thou/uL (130-400); Platelet Morphology Comment Appears Adequate; RBC Distribution Width 13.7 % (11.5-14.5); Red Blood Cell (RBC) Count 2.74 mill/uL (4.70-6.10); White Blood Cell (WBC) Count 16.1 thou/uL (4.8-10.8)
[2018-10-12 05:37] LABS: Anion Gap 19 mmol/L (10-20); BUN (Urea Nitrogen) 80 mg/dL (8.4-25.7); Calc. Creatinine Clearance 14 mL/min (70-130); Calcium 9.5 mg/dL (7.8-10.44); Carbon Dioxide 27 mmol/L (23-31); Chloride 96 mmol/L (98-107); Estimated GFR-MDRD 7; Glucose 112 mg/dL (80-115); Potassium 4.6 mmol/L (3.5-5.1); Sodium 137 mmol/L (136-145)
[2018-10-12] MEDS: Senokot S 8.6-50 MG TAB PO SCH ×2 (08:11→21:35)
[2018-10-12] MEDS: Famotidine 20 MG TAB PO SCH (08:12)
[2018-10-12] MEDS: Allopurinol 100 MG TAB PO SCH (08:12)
[2018-10-12] MEDS: Carvedilol 25 MG TAB PO SCH ×2 (08:12→22:09)
[2018-10-12] MEDS: hydrALAZINE 25 MG TAB PO SCH ×2 (08:16→22:09)
[2018-10-12] MEDS: Amlodipine 5 MG TAB PO SCH ×2 (09:35→22:09)
[2018-10-12] MEDS: Enoxaparin Sodium 30 MG/0.3 ML SYRINGE SC SCH (10:41)
--- NOTE | 2018-10-12 10:52 | PDOC.PN ---
- Subjective Encounter Start Date: 10/12/18 Encounter Start Time: 10:51 Subjective: alert,eating, doing well - Objective Resuscitation Status - Order Detail: 10/04/18 01:46 Resuscitation Status Routine Resuscitation Status: FULL: Full Resuscitation MAR Reviewed: Yes Vital Signs & Weight: Vital Signs (12 hours) Temp Pulse BP Pulse Ox 10/12/18 09:35 88 113/49 L 10/12/18 08:16 88 113/49 L 10/12/18 07:46 99 10/12/18 07:00 98.2 F 10/12/18 03:00 98.5 F 10/11/18 23:03 88 10/11/18 23:00 98.3 F Weight Weight 224 lb 13.944 oz Most Recent Monitor Data Heart Rate from ECG 70 NIBP 101/46 NIBP BP-Mean 64 Respiration from ECG 12 SpO2 98 I&O: 10/11/18 10/12/18 10/13/18 06:59 06:59 06:59 Intake Total 312 440 Output Total 400 140 61 Balance -88 300 -61 Result Diagrams: 10/12/18 04:53 10/12/18 04:53 Additional Labs: Accuchecks 10/11/18 10/11/18 10/11/18 21:17 18:16 11:19 POC Glucose 134 H 114 H 115 H Phys Exam - Physical Examination Neck: no JVD Respiratory: clear to auscultation bilateral Cardiovascular: RRR, no significant murmur Gastrointestinal: soft, non-tender Musculoskeletal: no edema Dx/Plan (1) HTN (hypertension) Code(s): I10 - ESSENTIAL (PRIMARY) HYPERTENSION Status: Acute Qualifiers: Hypertension type: essential hypertension Qualified Code(s): I10 - Essential (primary) hypertension (2) Acute metabolic encephalopathy Code(s): G93.41 - METABOLIC ENCEPHALOPATHY Status: Resolved Comment: Likely due to uremia, see above, monitor clinical progress with serial HD (3) Bacteremia Code(s): R78.81 - BACTEREMIA Status: Acute Comment: Group B Streptococus in urine and blood Cx, Rocephin 2mg IV daily (4) Dyspnea Code(s): R06.00 - DYSPNEA, UNSPECIFIED Status: Resolved Comment: Started HD for additional volume removal as PD may not as effective, improved overall (5) Sepsis Code(s): A41.9 - SEPSIS, UNSPECIFIED ORGANISM Status: Acute Qualifiers: Sepsis type: Streptococcus, other Qualified Code(s): A40.8 - Other streptococcal sepsis (6) Septic arthritis Status: Acute Qualifiers: Septic arthritis location: shoulder Septic arthritis organism: streptococcal Laterality: left Qualified Code(s): M00.212 - Other streptococcal arthritis, left shoulder Comment: has Hip hardware. S/P aspiration .follow Cx s/p B/L Hip washout and left shoulder washout POD #3 (7) Uremia Code(s): N19 - UNSPECIFIED KIDNEY FAILURE Status: Chronic Comment: See above (8) Gout Code(s): M10.9 - GOUT, UNSPECIFIED Status: Chronic Qualifiers: Gout site: unspecified site Comment: Hold prednisone for now given sepsis (9) Anemia due to chronic kidney disease Code(s): N18.9 - CHRONIC KIDNEY DISEASE, UNSPECIFIED; D63.1 - ANEMIA IN CHRONIC KIDNEY DISEASE Status: Chronic Qualifiers: Chronic kidney disease stage: on chronic dialysis Qualified Code(s): N18.6 - End stage renal disease; D63.1 - Anemia in chronic kidney disease; Z99.2 - Dependence on renal dialysis Comment: Stable, no evidence of acute blood loss, serial monitoring (10) ESRD on peritoneal dialysis Code(s): N18.6 - END STAGE RENAL DISEASE; Z99.2 - DEPENDENCE ON RENAL DIALYSIS Status: Chronic Comment: PD per Nephrology recommendations. HD started for more aggressive volume removal - Plan cont iv antibx thru 11/17 -: cont HD -: cont amlodipine, coreg, hydralazine -: discuss with ortho * .
[2018-10-12] MEDS: Morphine 2 MG/ML SYRINGE SLOW IVP PRN ×2 (10:58→21:36)
--- NOTE | 2018-10-12 11:31 | PRG ---
DATE OF SERVICE: 10/12/2018 SUBJECTIVE: A 63-year-old gentleman being seen for end-stage kidney disease. The patient denied nausea, vomiting, or chest pain. OBJECTIVE: CONSTITUTIONAL: The patient is awake and alert. VITAL SIGNS: Afebrile. Pulse 58, breathing 16, blood pressure 113/49. GENERAL APPEARANCE AND MENTAL STATUS: Fair. HEAD/NECK: Normocephalic. Atraumatic. EYES: EOMI. No deformity. EARS: Clear. No ulcers. NOSE: Intact. No lesions. MOUTH: Clear. No discharge. THROAT: Clear. No exudate. LUNGS: Clear. No crackles. CARDIAC: S1, S2. No rub. ABDOMEN: Benign. Bowel sounds positive. GENITALIA/RECTUM: Tiwari absent. BACK/EXTREMITIES: Edema 0+. NEUROLOGICAL: Alert and motor intact. SKIN: LYMPHATICS: LABORATORY DATA: Labs reviewed. ASSESSMENT AND PLAN: 1. Stage 6 chronic kidney disease, plan dialysis. 2. Uremia, stable. 3. Hypertension, stable. 4. Medication based on GFR appropriate. Job ID: [id number]
[2018-10-12 12:21] LABS: Analyzer IN Cardio OR; Base Excess (BEa) -4.1 mEq/L (-2.0 to +3.0); CO2 Tension 38.7 mmHg (35.0-45.0); Calcium, Ionized 1.01 mmol/L (1.12-1.30); Hemoglobin (Hb) 10.2 g/dL (14.0-18.0); O2 Tension (PaO2) 160.3 mmHg (> 80.0); pH, Arterial 7.35 (7.35-7.45)
[2018-10-12 12:22] LABS: Actual Bicarbonate (HCO3a) 19.4 mEq/L (22-28); Analyzer IN Cardio OR; Base Excess (BEa) -6.1 mEq/L (-2.0 to +3.0); CO2 Tension 38.1 mmHg (35.0-45.0); Calcium, Ionized 1.09 mmol/L (1.12-1.30); Carboxyhemoglobin (COHb) 0.3 gm% (0.0-3.0); Hemoglobin (Hb) 10.5 g/dL (14.0-18.0); O2 Tension (PaO2) 76.4 mmHg (> 80.0); Potassium - ABG Lab 5.56 mmol/L (3.70-5.30); pH, Arterial 7.32 (7.35-7.45)
[2018-10-12 12:22] LABS: Actual Bicarbonate (HCO3a) 21.8 mEq/L (22-28); Analyzer IN Cardio OR; Base Excess (BEa) -3.8 mEq/L (-2.0 to +3.0); Calcium, Ionized 1.04 mmol/L (1.12-1.30); Hemoglobin (Hb) 11.2 g/dL (14.0-18.0); O2 Tension (PaO2) 146.5 mmHg (> 80.0); Potassium - ABG Lab 5.67 mmol/L (3.70-5.30); pH, Arterial 7.33 (7.35-7.45)
[2018-10-12 12:28] LABS: Puncture Site ALINE
[2018-10-12 12:28] LABS: Puncture Site ALINE
[2018-10-12 12:29] LABS: Puncture Site ALINE
--- NOTE | 2018-10-12 16:30 | PRG ---
DATE OF SERVICE: 10/12/2018 SUBJECTIVE: Jesus is a 63-year-old white male who is postop day #7 from bilateral hip revision arthroplasties, secondary to bilateral septic arthritis, periprosthetic in nature with a left shoulder septic arthritis. He is doing better today than compared to yesterday evening. He was readmitted to the intensive care unit yesterday evening and has slowly but surely cleared from his obtunded state. OBJECTIVE: GENERAL: He is alert, oriented, responsive, and appropriate with examiner. His color is better. VITAL SIGNS: Overall, his vital signs are stable. MUSCULOSKELETAL: His incisions are inspected, and they have a little scant drainage, but the wound VAC is in place on the left. The right appears dry. Shoulder appears better. No erythema is noted. IMPRESSION: A 63-year-old male, postop day #7, bilateral hip revision arthroplasties and left shoulder arthroscopy for septic arthritis. PLAN: Continue current care. Defer to Medicine. Recheck tomorrow. Job ID: [id number]
[2018-10-12] MEDS: Acetaminophen 325 MG TAB PO PRN (17:38)
--- NOTE | 2018-10-12 21:09 | PRG ---
DATE OF SERVICE: 10/12/2018 SUBJECTIVE: Michael has no new problems. The orthopedic surgeon requested that he remain in the critical care unit. I would be in favor this given his encephalopathy that occurred after dialysis. He is clinically in no distress. He is interactive. OBJECTIVE: VITAL SIGNS: Stable. LUNGS: Clear. HEART: Regular rhythm. ABDOMEN: Soft. EXTREMITIES: Unchanged. NEUROLOGICAL: Nonfocal at this time. IMPRESSION: 1. End-stage renal disease, on dialysis. 2. Multiple septic joints, presumed to be secondary to endocarditis. 3. Hypertension. 4. Long-term IV access is needed. General Surgery, I am told was consulted for a Mauricio placement since he needs IV access for dialysis in his upper extremities, a PICC line is not appropriate. We are awaiting Surgery consultation. Job ID: [id number]
[2018-10-12] MEDS: cefTRIAXone\\ROCEPHIN 2 GM in Sodium Chloride 0.9% 100 ML IVPB SCH (21:34)
[2018-10-13 05:20] LABS: Anion Gap 20 mmol/L (10-20); BUN (Urea Nitrogen) 89 mg/dL (8.4-25.7); Calc. Creatinine Clearance 13 mL/min (70-130); Calcium 9.7 mg/dL (7.8-10.44); Carbon Dioxide 27 mmol/L (23-31); Chloride 95 mmol/L (98-107); Estimated GFR-MDRD 6; Glucose 109 mg/dL (80-115); Potassium 4.5 mmol/L (3.5-5.1); Sodium 137 mmol/L (136-145)
[2018-10-13 05:30] LABS: Hemoglobin 8.9 g/dL (14.0-18.0); Hypochromia SLIGHT = 6-15 cells (100X) (0-5/hpf); Lymphocytes 4 % (21-51); MDiff Complete? YES; Mean Corpuscular HGB CONC 31.7 g/dL (32.0-36.0); Mean Corpuscular Hemoglobin 32.1 pg (27.0-31.0); Mean Platelet Volume 7.8 fL (7.4-10.4); Monocytes 3 % (0-10); Neutrophil 93 % (42-75); Platelet Count 376 thou/uL (130-400); Platelet Morphology Comment Appears Adequate; RBC Distribution Width 13.6 % (11.5-14.5); Red Blood Cell (RBC) Count 2.76 mill/uL (4.70-6.10); White Blood Cell (WBC) Count 12.4 thou/uL (4.8-10.8)
[2018-10-13] MEDS: Morphine 2 MG/ML SYRINGE SLOW IVP PRN ×2 (07:02→11:21)
[2018-10-13] MEDS: Enoxaparin Sodium 30 MG/0.3 ML SYRINGE SC SCH (08:40)
[2018-10-13] MEDS: Carvedilol 25 MG TAB PO SCH ×2 (08:40→20:45)
[2018-10-13] MEDS: Famotidine 20 MG TAB PO SCH (08:41)
[2018-10-13] MEDS: Allopurinol 100 MG TAB PO SCH (08:41)
[2018-10-13] MEDS: Senokot S 8.6-50 MG TAB PO SCH ×2 (08:41→20:45)
[2018-10-13] MEDS: hydrALAZINE 25 MG TAB PO SCH (08:44)
[2018-10-13] MEDS: Amlodipine 5 MG TAB PO SCH (08:44)
[2018-10-13] MEDS: Acetaminophen 325 MG TAB PO PRN (09:30)
--- NOTE | 2018-10-13 09:34 | PRG ---
DATE OF SERVICE: 10/13/2018 SUBJECTIVE: Jesus is a 63-year-old male, postop day 7 from bilateral hip incision and drainage, washout, and revisions and left shoulder arthroscopic washout. He is slowly but surely improving today. Mentation is better, and his is at the bedside. OBJECTIVE: VITAL SIGNS: Temperature 98.4, pulse 88, blood pressure is 99/42. GENERAL: He is alert, oriented, responsive, and appropriate. His short-term memory is intact and he looks better today overall, he is in a humorous mood. His incisions are clean. There is no gross strikethrough on the right. Left has a scant drainage with the wound VAC. Left shoulder looks good. IMPRESSION: Postop day 8 bilateral revision hip arthroplasty secondary to Streptococcus pyogenic periprosthetic arthritis and left shoulder pyogenic arthritis. PLAN: From an Orthopedic standpoint, he is stabilizing. No further interventions recommended, but we will follow closely along, and I think he is going to be in the unit for another day or 2. Job ID: [id number]
--- NOTE | 2018-10-13 09:43 | PDOC.PN ---
- Subjective Encounter Start Date: 10/13/18 Encounter Start Time: 09:40 Subjective: has some leg pain today, vague - Objective Resuscitation Status - Order Detail: 10/04/18 01:46 Resuscitation Status Routine Resuscitation Status: FULL: Full Resuscitation MAR Reviewed: Yes Vital Signs & Weight: Vital Signs (12 hours) Temp Pulse BP Pulse Ox 10/13/18 08:44 88 99/42 L 10/13/18 08:00 98.4 F 10/13/18 07:45 95 10/13/18 07:00 98.4 F 10/13/18 04:00 98.2 F 10/13/18 00:00 98.5 F 10/12/18 22:09 88 111/52 L Weight Admit Weight 223 lb Weight 225 lb 4.999 oz Most Recent Monitor Data Heart Rate from ECG 68 NIBP 119/61 NIBP BP-Mean 80 Respiration from ECG 14 SpO2 98 I&O: 10/12/18 10/13/18 10/14/18 06:59 06:59 06:59 Intake Total 440 820 320 Output Total 140 366 45 Balance 300 454 275 Result Diagrams: 10/13/18 04:47 10/13/18 04:47 Phys Exam - Physical Examination Neck: no JVD Respiratory: clear to auscultation bilateral Cardiovascular: RRR, no significant murmur Gastrointestinal: soft, non-tender, positive bowel sounds Musculoskeletal: no edema no calf tenderness, joints not inflamed or tender Dx/Plan (1) HTN (hypertension) Code(s): I10 - ESSENTIAL (PRIMARY) HYPERTENSION Status: Acute Qualifiers: Hypertension type: essential hypertension Qualified Code(s): I10 - Essential (primary) hypertension (2) Acute metabolic encephalopathy Code(s): G93.41 - METABOLIC ENCEPHALOPATHY Status: Resolved Comment: Likely due to uremia, see above, monitor clinical progress with serial HD (3) Bacteremia Code(s): R78.81 - BACTEREMIA Status: Acute Comment: Group B Streptococus in urine and blood Cx, Rocephin 2mg IV daily (4) Dyspnea Code(s): R06.00 - DYSPNEA, UNSPECIFIED Status: Resolved Comment: Started HD for additional volume removal as PD may not as effective, improved overall (5) Sepsis Code(s): A41.9 - SEPSIS, UNSPECIFIED ORGANISM Status: Acute Qualifiers: Sepsis type: Streptococcus, other Qualified Code(s): A40.8 - Other streptococcal sepsis (6) Septic arthritis Status: Acute Qualifiers: Septic arthritis location: shoulder Septic arthritis organism: streptococcal Laterality: left Qualified Code(s): M00.212 - Other streptococcal arthritis, left shoulder Comment: has Hip hardware. S/P aspiration .follow Cx s/p B/L Hip washout and left shoulder washout POD #3 (7) Uremia Code(s): N19 - UNSPECIFIED KIDNEY FAILURE Status: Chronic Comment: See above (8) Gout Code(s): M10.9 - GOUT, UNSPECIFIED Status: Chronic Qualifiers: Gout site: unspecified site Comment: Hold prednisone for now given sepsis (9) Anemia due to chronic kidney disease Code(s): N18.9 - CHRONIC KIDNEY DISEASE, UNSPECIFIED; D63.1 - ANEMIA IN CHRONIC KIDNEY DISEASE Status: Chronic Qualifiers: Chronic kidney disease stage: on chronic dialysis Qualified Code(s): N18.6 - End stage renal disease; D63.1 - Anemia in chronic kidney disease; Z99.2 - Dependence on renal dialysis Comment: Stable, no evidence of acute blood loss, serial monitoring (10) ESRD on peritoneal dialysis Code(s): N18.6 - END STAGE RENAL DISEASE; Z99.2 - DEPENDENCE ON RENAL DIALYSIS Status: Chronic Comment: PD per Nephrology recommendations. HD started for more aggressive volume removal - Plan cont iv antibx -: cont allopurinol, coreg -: Ck, bilat LE venous doppler * .
--- NOTE | 2018-10-13 10:37 | ULT ---
ULTRASOUND WITH DOPPLER DUPLEX VENOUS LOWER EXTREMITY BILATERAL: CPT: 46701 ICD-10-PCS: B54D HISTORY: Pain/edema. TECHNIQUE: Color flow Doppler, spectral waveform analysis of pulsed Doppler, and holden-scale imaging with justo jaxson and augmentation, were used to evaluate the bilateral common femoral, femoral, popliteal, race engine builder ior tibial, and superficial femoral, veins; and the proximal portions of the profunda femoral and gre ater saphenous, veins. FINDINGS: Appropriate compressibility and flow within the imaged deep vein systems of the bilateral lower extre mities where visualized. The left popliteal vein is limited in visualization due to patient inabilit y to tolerate positioning of the exam. Otherwise, no evidence of DVT. IMPRESSION: No deep vein thrombosis identified within the bilateral lower extremities. Note is made that there i s limited visualization of the left popliteal vein. POS: [facility]
--- NOTE | 2018-10-13 16:42 | PRG ---
DATE OF SERVICE: 10/13/2018 SUBJECTIVE: Mr. Rodriguez has no complaints. He denies joint discomfort. OBJECTIVE: VITAL SIGNS: He is afebrile. Heart rate 67, blood pressure 117/54, respiratory rate 24. LUNGS: Clear. HEART: Regular rhythm. ABDOMEN: Soft. EXTREMITIES: Without edema. None of his nonoperative joints feel warm or appear to have fluid in them. LABORATORY DATA: White count 12.4, hemoglobin 8.9, platelets 376. Sodium 137, potassium 4.5, chloride 95, bicarb 27, BUN 89, creatinine 8.87. IMPRESSION AND PLAN: End-stage renal disease with multiple septic joints with Streptococcus agalactiae, isolated from blood cultures and a hip aspirate. He has been seen by Dr. Gallo for antimicrobial recommendations. Mauricio catheter will be needed for long-term IV antibiotics. General surgery is being consulted for Mauricio. Dopplers were ordered today. He has no evidence of DVT. We will continue to follow. Job ID: [id number]
[2018-10-13] MEDS: Sevelamer Carbonate 800 MG TAB PO SCH (17:20)
[2018-10-13] MEDS: cefTRIAXone\\ROCEPHIN 2 GM in Sodium Chloride 0.9% 100 ML IVPB SCH (20:44)
[2018-10-14] MEDS: Acetaminophen 325 MG TAB PO PRN (02:07)
[2018-10-14] MEDS: Amlodipine 5 MG TAB PO SCH ×3 (02:10→20:48)
[2018-10-14] MEDS: hydrALAZINE 25 MG TAB PO SCH ×3 (02:10→20:48)
[2018-10-14 04:56] LABS: Band 1 % (5-11); Eosinophils 4 % (0-10); Hemoglobin 8.6 g/dL (14.0-18.0); Lymphocytes 9 % (21-51); MDiff Complete? YES; Mean Corpuscular HGB CONC 31.1 g/dL (32.0-36.0); Mean Corpuscular Hemoglobin 30.9 pg (27.0-31.0); Mean Corpuscular Volume 99.6 fL (78.0-98.0); Mean Platelet Volume 7.5 fL (7.4-10.4); Metamyelocyte 1 % (0-0); Monocytes 7 % (0-10); Myelocyte 1 % (0-0); Neutrophil 77 % (42-75); Platelet Count 380 thou/uL (130-400); RBC Distribution Width 13.5 % (11.5-14.5); Red Blood Cell (RBC) Count 2.78 mill/uL (4.70-6.10)
[2018-10-14 05:22] LABS: Anion Gap 24 mmol/L (10-20); BUN (Urea Nitrogen) 96 mg/dL (8.4-25.7); CK (CPK) 127 U/L (30-200); Calc. Creatinine Clearance 12 mL/min (70-130); Calcium 9.5 mg/dL (7.8-10.44); Carbon Dioxide 23 mmol/L (23-31); Chloride 94 mmol/L (98-107); Estimated GFR-MDRD 6; Glucose 106 mg/dL (80-115); Potassium 4.6 mmol/L (3.5-5.1); Sodium 136 mmol/L (136-145)
--- NOTE | 2018-10-14 07:27 | CON ---
DATE OF CONSULTATION: CHIEF COMPLAINT: Septic periprosthetic arthritis. HISTORY OF PRESENT ILLNESS: This is a 63-year-old male, who presents with a history of recent washout of bilateral hip incisions and left shoulder. He had previous arthroplasty performed. He has been found to have streptococcal infection of these joints. There is a question of endocarditis. I have been consulted for long-term IV access. He has a history of end-stage renal disease. He sees Dr. Otoole for that. He does mostly peritoneal dialysis. He has maturing left arm AV fistula. He states that he has never had a tunneled dialysis catheter placed in his neck or chest. PAST MEDICAL HISTORY: Includes end-stage renal disease, gout, hip, hypertension. PAST SURGICAL HISTORY: Includes bilateral hip replacement. SOCIAL HISTORY: No smoking, alcohol, or other drugs. ALLERGIES: CODEINE. REVIEW OF SYSTEMS: A 10-system review of systems is otherwise negative unless described above. MEDICINES: See list in chart. PHYSICAL EXAMINATION: VITAL SIGNS: His blood pressure is 105/47. His pulse is 68. He is afebrile now. HEENT: Sclerae anicteric, oropharynx clear. NECK: No lymphadenopathy. No scars. CHEST: No scars. Clear. HEART: Regular rate. ABDOMEN: Soft, nontender. EXTREMITIES: No significant ischemia to extremities. He has a good thrill in his left arm AV fistula. ASSESSMENT: Streptococcal pyogenic periprosthetic arthritis, in need for long-term IV access for outpatient IV antibiotics. PLAN: I had a discussion with the patient and his . They had previously been told that Dr. Otoole does not place Mauricio's . I would probably defer to Dr. Otoole early next week prior to Mr. Rodriguez's discharge on long-term IV access options. I certainly think Dr. Otoole would place a Mauricio. I think they are confused about the difference between a Mauricio and a PICC line; PIC lines of which are not indicated in a chronic end-stage renal disease due to the potential interference with future dialysis access. We will discuss with Dr. Otoole. I suspect I will put him on Wednesday for a Mauricio catheter by him. Job ID: [id number]
[2018-10-14] MEDS: Enoxaparin Sodium 30 MG/0.3 ML SYRINGE SC SCH (08:28)
[2018-10-14] MEDS: Sevelamer Carbonate 800 MG TAB PO SCH ×3 (08:29→17:16)
[2018-10-14] MEDS: Famotidine 20 MG TAB PO SCH (08:30)
[2018-10-14] MEDS: Allopurinol 100 MG TAB PO SCH (08:30)
[2018-10-14] MEDS: Senokot S 8.6-50 MG TAB PO SCH ×2 (08:30→20:47)
[2018-10-14] MEDS: Carvedilol 25 MG TAB PO SCH ×2 (08:30→20:47)
[2018-10-14] MEDS: Morphine 2 MG/ML SYRINGE SLOW IVP PRN (09:14)
--- NOTE | 2018-10-14 10:51 | PRG ---
DATE OF SERVICE: 10/13/2018 SUBJECTIVE: This is a 63-year-old gentleman, being seen for end-stage kidney disease. The patient denies any nausea, vomiting, or chest pain. OBJECTIVE: GENERAL: The patient is awake and alert. VITAL SIGNS: Pulse 75, breathing 16, and blood pressure 126/47. GENERAL APPEARANCE AND MENTAL STATUS: Fair. HEAD/NECK: Normocephalic. Atraumatic. EYES: EOMI. No deformity. EARS: Clear. No ulcers. NOSE: Intact. No lesions. MOUTH: Clear. No discharge. THROAT: Clear. No exudate. LUNGS: Clear. No crackles. CARDIAC: S1, S2. No rub. ABDOMEN: Benign. Bowel sounds positive. GENITALIA/RECTUM: Tiwari absent. BACK/EXTREMITIES: Edema 0+. NEUROLOGICAL: Alert and motor intact. SKIN: LYMPHATICS: LABORATORY DATA: Labs reviewed. ASSESSMENT AND PLAN: 1. Stage 6 chronic kidney disease. Continue PD. 2. Hypertension. 3. Anemia, stable. Medication based on GFR appropriate. Job ID: [id number]
--- NOTE | 2018-10-14 11:01 | PRG ---
DATE OF SERVICE: 10/14/2018 SUBJECTIVE: A 63-year-old gentleman, being seen for end-stage renal disease. The patient denied nausea, vomiting, or chest pain. OBJECTIVE: CONSTITUTIONAL: The patient is awake and alert. VITAL SIGNS: Pulse 75, breathing 16, blood pressure 114/48. GENERAL APPEARANCE AND MENTAL STATUS: Fair. HEAD/NECK: Normocephalic. Atraumatic. EYES: EOMI. No deformity. EARS: Clear. No ulcers. NOSE: Intact. No lesions. MOUTH: Clear. No discharge. THROAT: Clear. No exudate. LUNGS: Clear. No crackles. CARDIAC: S1, S2. No rub. ABDOMEN: Benign. Bowel sounds positive. GENITALIA/RECTUM: Tiwari absent. BACK/EXTREMITIES: Edema 0+. NEUROLOGICAL: Alert and motor intact. SKIN: LYMPHATICS: LABORATORY DATA: Labs reviewed. ASSESSMENT AND PLAN: 1. Stage 6 chronic kidney disease. Continue PD. 2. Hypertension, stable. 3. Anemia, stable. 4. Medication based on GFR appropriate. Job ID: [id number]
--- NOTE | 2018-10-14 12:57 | PRG ---
DATE OF SERVICE: 10/14/2018 SUBJECTIVE: Jesus Rodriguez has no complaints. None of his joints are bothering him today. He is not requiring much in the way of pain meds. OBJECTIVE: VITAL SIGNS: His heart rate in the 60s, blood pressure is 147/57, and respiratory rate is 19. LUNGS: Clear. HEART: Regular rate and rhythm. ABDOMEN: Soft and nontender. I plan to redo blood cultures with next dialysis, so we can document that he is no longer bacteremic. LABORATORY DATA: White count is 11.0, hemoglobin is 8.6 platelets are 380. Electrolytes; sodium 136, potassium 4.6, chloride 94, bicarb 23, BUN 96, and creatinine 9.65. IMPRESSION: 1. Respiratory failure. 2. 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 We are awaiting Mauricio catheter placement, which I believe will be done next week. 3. End-stage renal disease, previously on peritoneal dialysis, now on hemodialysis. His peritoneal fluid was culture negative. 4. Deconditioning and weakness. We need to get him up in chair and get him moving a little more. We will continue to follow while he is in the Critical Care Unit. Job ID: [id number]
--- NOTE | 2018-10-14 13:35 | PQF ---
CLINICAL DOCUMENTATION IMPROVEMENT CLARIFICATION FORM: ICD-10 Updated PLEASE DO AN ADDENDUM TO THE PROGRESS NOTE WITH ANY DOCUMENTATION UPDATES OR ADDITIONS AND CARRY THROUGH TO DC SUMMARY. THANK YOU. DATE: 10/14/18 ATTN: DR. TELLES Please exercise your independent, professional judgment in responding to the clarification form. Clinical indicators are provided on the bottom of this form for your review Please check appropriate box(s) to clarify if the following diagnosis has been ruled in or ruled out: "ENDOCARDITIS" [ ] Ruled in diagnosis [ ] Continue to treat [ ] Resolved [ X ] Ruled out diagnosis [ ] Cannot rule out diagnosis [ ] Other diagnosis [ ] Unable to determine In addition, please specify: Present on Admission (POA): [ ] Yes [ X ] No [ ] Unable to determine For continuity of documentation, please document condition throughout progress notes and discharge summary. Thank You. CLINICAL INDICATORS - SIGNS / SYMPTOMS / LABS PROGRESS NOTE (PARKER) 10/10: "I WOULD THINK IT MUST BE ASSUMED WORST CASE SCENARIO IS THAT HE HAS ENDOCARDITIS. REY DID NOTE SHOW VEGETATION BUT THIS DOES NOTE RULE OUT ENDOCARDITIS." PROGRESS NOTE (PARKER) 10/11: "MULTIPLE SEPTIC JOINT, PRESUMABLY 2/2 ENDOCARDITIS. " RISKS: SEPTIC JOINT GROUP B BACTEREMIA TREATMENT: REY ECHOCARDIOGRAM IV LEVAQUIN (ER) IV VANCOMYCIN (ER-10/05) IV ZOSYN (ER) IV ROCEPHIN (10-04-PRESENT) BLOOD CULTURES SAP Supervisor Cartography [employer] Winform Viewer (This form is maintained as a part of the permanent medical record) 2014 [employer]. All Rights Reserved JAYSHREE [email or web address] Office: [phone] [facility]
--- NOTE | 2018-10-14 13:57 | PQF ---
CLINICAL DOCUMENTATION IMPROVEMENT CLARIFICATION FORM: ICD-10 Updated PLEASE DO AN ADDENDUM TO THE PROGRESS NOTE WITH ANY DOCUMENTATION UPDATES OR ADDITIONS AND CARRY THROUGH TO DC SUMMARY. THANK YOU. DATE: 10/14/18 ATTN: DR. TELLES Please exercise your independent, professional judgment in responding to the clarification form. Clinical indicators are provided on the bottom of this form for your review Please check appropriate box(es): [ X] Sepsis due to B HIP PROSTHESES [ ] Sepsis NOT due to B HIP PROSTHESES [ ] Other diagnosis In addition, please specify: Present on Admission (POA): [X ] Yes [ ] No [ ] Unable to determine For continuity of documentation, please document condition throughout progress notes and discharge summary. Thank You. CLINICAL INDICATORS - SIGNS / SYMPTOMS / LABS ORTHO CONSULT: "SUSPECT POLYARTICULAR SYMMETRIC PYOGENIC ARTHRITIS" JODEE H&P: "MOST LIKELY SCENARIO IS EXTENSION FROM URINARY TRACT INTO BLOODSTREAM WITH GRP B INFECTION OF HIPS & L SHOULDER" JODEE PROGRESS NOTE 10/05: "GROUP B BACTEREMIA WITH URINARY TRACT COLONIZATION" RISKS: OSTEOMYELITIS BACTEREMIA TREATMENT: IV LEVAQUIN (ER) IV VANCOMYCIN (ER-10/05) IV ZOSYN (ER) IV ROCEPHIN (10-04-PRESENT) BLOOD CULTURES (This form is maintained as a part of the permanent medical record) 2014 [employer]. All Rights Reserved JAYSHREE [email or web address] Office: [phone] [facility]
--- NOTE | 2018-10-14 14:51 | PRG ---
DATE OF SERVICE: 10/14/2018 SUBJECTIVE: Mr. Rodriguez is in the ICU. He was brought back there because of delirium. OBJECTIVE: VITAL SIGNS: Temperature has been normal through the hospital stay except for the beginning. Other vital signs are normal. O2 saturation 94. GENERAL: Currently, he is sitting up by the bedside, appears in no distress. Awake, alert, and oriented. HEENT: Ocular movements conjugate. LUNGS: Symmetric air entry. Clear to auscultation and percussion. HEART: S1 and S2, regular rate. ABDOMEN: Soft, not distended. Peritoneal dialysis catheter. EXTREMITIES: Left shoulder is less swollen, less tender. Hips are still significant limitation in range of motion. The left knee is a little bit tender. NEUROLOGIC: He is oriented. LABORATORY DATA: Microbiology was reviewed. White cell count is down to 11,000, hemoglobin 8.6, platelets 380, and 77% neutrophils. Creatinine 9.65. 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 The patient will need a Mauricio catheter and then will continue Rocephin for protracted period of time. End date is at the end of October. After that, he will need to continue on Keflex and rifampin for 3 months and then switch to Keflex suppressive therapy indefinitely. Job ID: [id number]
--- NOTE | 2018-10-14 15:08 | PDOC.PN ---
- Subjective Encounter Start Date: 10/14/18 Encounter Start Time: 15:06 Subjective: feels a little better. not much pain in hips .sholder pain resolved -: care discussedw w in detail - Objective Resuscitation Status - Order Detail: 10/04/18 01:46 Resuscitation Status Routine Resuscitation Status: FULL: Full Resuscitation MAR Reviewed: Yes Vital Signs & Weight: Vital Signs (12 hours) Temp Pulse Pulse Pulse BP BP BP 10/14/18 13:00 98.1 F 10/14/18 12:00 98.5 F 10/14/18 09:10 87 79 129/67 133/52 L 10/14/18 08:36 88 99/42 L 10/14/18 08:35 88 99/42 L 10/14/18 08:00 98.5 F 10/14/18 07:00 98.5 F 10/14/18 04:00 98.1 F Pulse Ox 10/14/18 13:00 10/14/18 12:00 10/14/18 09:10 10/14/18 08:36 10/14/18 08:35 10/14/18 08:00 96 10/14/18 07:00 10/14/18 04:00 Weight Admit Weight 223 lb Weight 225 lb 12.054 oz Most Recent Monitor Data Heart Rate from ECG 71 NIBP 126/64 NIBP BP-Mean 84 Respiration from ECG 12 SpO2 94 I&O: 10/13/18 10/14/18 10/15/18 06:59 06:59 06:59 Intake Total 820 880 720 Output Total 366 462 160 Balance 454 418 560 Result Diagrams: 10/14/18 04:24 10/14/18 04:24 Additional Labs: Microbiology 10/05/18 11:09 Hip - Aspirate Bacterial Culture - Final 10/05/18 11:09 Hip - Aspirate Anaerobic Culture - Final Streptococcus agalactiae Gp. B 10/05/18 08:40 Joint - Left Arm Body Fluid Culture - Final 10/04/18 09:15 Peritoneal effluent Body Fluid Culture - Final 10/03/18 20:52 Urine voided Urine Culture - Final Beta-hemolytic Streptococcus 10/03/18 17:37 Venous blood - Right Hand Blood Culture - Final Streptococcus agalactiae Gp. B 10/03/18 17:06 Venous blood - Right Hand Blood Culture - Final Streptococcus agalactiae Gp. B Laboratory Tests 10/09/18 10/10/18 10/11/18 10:44 04:07 08:57 WBC 17.7 H 16.3 H 15.4 H 10/12/18 10/13/18 10/14/18 04:53 04:47 04:24 WBC 16.1 H 12.4 H 11.0 H Phys Exam - Physical Examination Constitutional: NAD HEENT: PERRLA, moist MMs, sclera anicteric, oral pharynx no lesions Neck: no nodes, no JVD, supple, full ROM Respiratory: no wheezing, no rales, no rhonchi, clear to auscultation bilateral Cardiovascular: RRR, no significant murmur, no rub Gastrointestinal: soft, non-tender, no distention, positive bowel sounds Musculoskeletal: no edema, pulses present R hip incision healthy Neurological: non-focal, normal sensation, moves all 4 limbs Dx/Plan (1) Bacteremia Code(s): R78.81 - BACTEREMIA Status: Acute Comment: Group B Streptococus in urine and blood Cx, Rocephin 2mg IV daily (2) Sepsis Code(s): A41.9 - SEPSIS, UNSPECIFIED ORGANISM Status: Acute Qualifiers: Sepsis type: Streptococcus, other Qualified Code(s): A40.8 - Other streptococcal sepsis (3) Septic arthritis Status: Acute Qualifiers: Septic arthritis location: shoulder Septic arthritis organism: streptococcal Laterality: left Qualified Code(s): M00.212 - Other streptococcal arthritis, left shoulder Comment: has Hip hardware. S/P aspiration .follow Cx s/p B/L Hip washout and left shoulder washout POD #3 (4) Anemia due to chronic kidney disease Code(s): N18.9 - CHRONIC KIDNEY DISEASE, UNSPECIFIED; D63.1 - ANEMIA IN CHRONIC KIDNEY DISEASE Status: Chronic Qualifiers: Chronic kidney disease stage: on chronic dialysis Qualified Code(s): N18.6 - End stage renal disease; D63.1 - Anemia in chronic kidney disease; Z99.2 - Dependence on renal dialysis Comment: Stable, no evidence of acute blood loss, serial monitoring (5) ESRD on peritoneal dialysis Code(s): N18.6 - END STAGE RENAL DISEASE; Z99.2 - DEPENDENCE ON RENAL DIALYSIS Status: Chronic Comment: PD per Nephrology recommendations. HD started 7/13/ 19 for more aggressive volume removal (6) Gout Code(s): M10.9 - GOUT, UNSPECIFIED Status: Chronic Qualifiers: Gout site: unspecified site Comment: Hold prednisone for now given sepsis - Plan plan discussed w/ family, continue antibiotics, PT/OT, incentive spirometry, out of bed/ambulate, DVT proph w/SCDs Mauricio on Wednesday for senior living IV ABx -: supportive care -: clinically much better -: cont PD and monitoring of renal Fx -: add Nepro as poor Po intake. * . Review of Systems - Review of Systems Constitutional: weakness, malaise. negative: fever, chills, sweats, other Respiratory: negative: Cough, Dry, Shortness of Breath, Hemoptysis, SOB with Excertion, Pleuritic Pain, Sputum, Wheezing Cardiovascular: negative: chest pain, palpitations, orthopnea, paroxysmal nocturnal dyspnea, edema, light headedness, other Gastrointestinal: Constipation. negative: Nausea, Vomiting, Abdominal Pain, Diarrhea, Melena, Hematochezia, Other Genitourinary: negative: Dysuria, Frequency, Incontinence, Hematuria, Retention , Other Musculoskeletal: negative: Neck Pain, Shoulder Pain, Arm Pain, Back Pain, Hand Pain, Leg Pain, Foot Pain, Other Neurological: negative: Weakness, Numbness, Incoordination, Change in Speech, Confusion, Seizures, Other - Medications/Allergies Allergies/Adverse Reactions: Allergies Allergy/AdvReac Type Severity Reaction Status Date / Time codeine AdvReac Mild CAUSES Verified 10/04/18 00:23 CONFUSION /AMS Medications: Current Medications Acetaminophen (Tylenol) 650 mg PO Q4H PRN PRN Reason: Headache/Fever/Mild Pain (1-3) Last Admin: 10/14/18 02:07 Dose: 650 mg Allopurinol (Zyloprim) 100 mg PO DAILY [facility] Last Admin: 10/14/18 08:30 Dose: 100 mg Amlodipine Besylate (Norvasc) 5 mg PO BID [facility] Last Admin: 10/14/18 08:36 Dose: Not Given Bisacodyl (Dulcolax) 10 mg LA DAILYPRN PRN PRN Reason: Constipation Carvedilol (Coreg) 12.5 mg PO BID [facility] Last Admin: 10/14/18 08:30 Dose: 12.5 mg Dextrose/Water (Dextrose 50%) 25 gm SLOW IVP PRN PRN PRN Reason: Hypoglycemia Enoxaparin Sodium (Lovenox) 30 mg SC 0900 [facility] Last Admin: 10/14/18 08:28 Dose: 30 mg Famotidine (Pepcid) 20 mg PO DAILY [facility] Last Admin: 10/14/18 08:30 Dose: 20 mg Glucagon (Glucagon) 1 mg IM PRN PRN PRN Reason: Hypoglycemia Guaifenesin/Dextromethorphan (Robitussin Dm) 15 ml PO Q4H PRN PRN Reason: Cough Haloperidol Lactate (Haldol) 5 mg IM Q2H PRN PRN Reason: Agitation Hydralazine HCl (Apresoline) 25 mg PO BID [facility] Last Admin: 10/14/18 08:35 Dose: Not Given Dextrose/Water (D5w) 1,000 mls @ 0 mls/hr IV .Q0M PRN PRN Reason: Hypoglycemia Heparin Sodium (Porcine) 3,000 units/ PERITON.DIALYSIS 7-2.5 % DEXTR 6,000.6 mls @ 0 mls/hr FS WILLCALL [facility] Ceftriaxone Sodium 2 gm/ (Sodium Chloride) 100 mls @ 200 mls/hr IVPB 2100 [facility] Last Admin: 10/13/18 20:44 Dose: 100 mls Insulin Human Lispro (Humalog) 0 units SC .MILD SLIDING SCALE PRN PRN Reason: Mild Correctional Scale Last Admin: 10/08/18 06:40 Dose: 2 unit Morphine Sulfate (Morphine) 2 mg SLOW IVP Q4H PRN PRN Reason: Pain Last Admin: 10/14/18 09:14 Dose: 2 mg Ondansetron HCl (Zofran) 4 mg IVP Q6H PRN PRN Reason: Nausea/Vomiting Senna/Docusate Sodium (Senokot S) 2 tab PO BID [facility] Last Admin: 10/14/18 08:30 Dose: 2 tab Sevelamer Carbonate (Renvela) 2,400 mg PO AC [facility] Last Admin: 10/14/18 11:27 Dose: 2,400 mg Sodium Chloride (Flush - Normal Saline) 10 ml IVF Q12HR [facility] Last Admin: 10/14/18 08:36 Dose: 10 ml Sodium Chloride (Flush - Normal Saline) 10 ml IVF PRN PRN PRN Reason: Saline Flush
[2018-10-14] MEDS: cefTRIAXone\\ROCEPHIN 2 GM in Sodium Chloride 0.9% 100 ML IVPB SCH (20:47)
[2018-10-15] MEDS: Morphine 2 MG/ML SYRINGE SLOW IVP PRN (06:32)
[2018-10-15 06:50] LABS: Anion Gap 21 mmol/L (10-20); BUN (Urea Nitrogen) 94 mg/dL (8.4-25.7); Calc. Creatinine Clearance 0 mL/min (70-130); Calcium 9.7 mg/dL (7.8-10.44); Carbon Dioxide 28 mmol/L (23-31); Chloride 94 mmol/L (98-107); Estimated GFR-MDRD 5; Glucose 128 mg/dL (80-115); Potassium 4.7 mmol/L (3.5-5.1); Sodium 138 mmol/L (136-145)
[2018-10-15] MEDS: Sevelamer Carbonate 800 MG TAB PO SCH ×3 (08:23→18:12)
[2018-10-15] MEDS: Allopurinol 100 MG TAB PO SCH (08:24)
[2018-10-15] MEDS: Senokot S 8.6-50 MG TAB PO SCH (08:25)
[2018-10-15] MEDS: Carvedilol 25 MG TAB PO SCH (08:25)
[2018-10-15] MEDS: Amlodipine 5 MG TAB PO SCH (08:25)
[2018-10-15 08:26] LABS: Band 2 % (5-11); Eosinophils 3 % (0-10); Lymphocytes 12 % (21-51); MDiff Complete? YES; Mean Corpuscular HGB CONC 30.5 g/dL (32.0-36.0); Mean Corpuscular Hemoglobin 30.4 pg (27.0-31.0); Mean Corpuscular Volume 99.6 fL (78.0-98.0); Mean Platelet Volume 7.5 fL (7.4-10.4); Monocytes 3 % (0-10); Neutrophil 80 % (42-75); Platelet Count 426 thou/uL (130-400); RBC Distribution Width 13.6 % (11.5-14.5); Red Blood Cell (RBC) Count 2.63 mill/uL (4.70-6.10)
[2018-10-15] MEDS: hydrALAZINE 25 MG TAB PO SCH (08:26)
[2018-10-15] MEDS: Famotidine 20 MG TAB PO SCH (08:26)
[2018-10-15] MEDS: Enoxaparin Sodium 30 MG/0.3 ML SYRINGE SC SCH (08:26)
--- NOTE | 2018-10-15 11:08 | PRG ---
DATE OF SERVICE: 10/15/2018 SUBJECTIVE: A 63-year-old gentleman being seen for end-stage renal disease. The patient denied nausea, vomiting, or chest pain. OBJECTIVE: GENERAL: The patient is awake and alert. VITAL SIGNS: Pulse 68, breathing 16, and blood pressure 108/46. GENERAL APPEARANCE AND MENTAL STATUS: Fair. HEAD/NECK: Normocephalic. Atraumatic. EYES: EOMI. No deformity. EARS: Clear. No ulcers. NOSE: Intact. No lesions. MOUTH: Clear. No discharge. THROAT: Clear. No exudate. LUNGS: Clear. No crackles. CARDIAC: S1, S2. No rub. ABDOMEN: Benign. Bowel sounds positive. GENITALIA/RECTUM: Tiwari absent. BACK/EXTREMITIES: Edema 0+. NEUROLOGICAL: Alert and motor intact. SKIN: LYMPHATICS: General: Physical examination. LABORATORY DATA: Reviewed. ASSESSMENT AND PLAN: 1. Stage 6 chronic kidney disease. Continue PD. 2. Hypertension, stable. 3. Anemia. Continue Epogen. 4. Medication based on GFR appropriate. Job ID: [id number]
--- NOTE | 2018-10-15 11:47 | PRG ---
DATE OF SERVICE: 10/15/2018 SERVICE: Pulmonary Medicine. INTERVAL HISTORY: The patient is doing fine from respiratory standpoint. Breathing comfortably. Denies any chest pain, fevers, cough, nausea, or vomiting. Recently, there were no overnight events. Otherwise, he is returning to his usual state of health. PHYSICAL EXAMINATION: VITAL SIGNS: Afebrile, pulse 68, blood pressure 108/46, respirations 25, and saturation 95% on room air currently. HEENT: Normocephalic and atraumatic. Sclerae white. Conjunctivae pink. Oral mucosa is moist without lesions. LUNGS: Decent air entry. There are no crackles or rhonchi present. HEART: Normal rate and regular. ABDOMEN: Soft, nontender, and nondistended. Bowel sounds are positive. MUSCULOSKELETAL: No cyanosis or clubbing. There is trace pitting in bilateral lower extremities. NEUROLOGIC: Grossly nonfocal. LABORATORY DATA: WBC 14.0, hemoglobin 8.0, platelets 426,000. Neutrophil count is slightly up trending to an 80, but his band count remains low. Creatinine 10.47 , BUN 94. Basic metabolic profile is otherwise unremarkable. Urinalysis is positive for pyuria, though he makes very little urine. Hip aspirate is growing strep B. Urine culture is growing Streptococcus, blood cultures x2 originally growing Streptococcus, but most recent cultures collected on the are sterile. ASSESSMENT: 1. Respiratory failure, resolved. 2. Septic arthritis with multiple joint involvement. 3. Bacteremia secondary to Streptococcus. 4. Deconditioning. DISCUSSION AND PLAN: The patient is stable for transition out of the ICU to the surgical unit. Pulmonary/Critical Care will continue to follow along for the time being. I will give the patient a laboratory holiday tomorrow morning as his appetite is improved. Job ID: [id number] MTDD
[2018-10-15] MEDS: EPOETIN ALFA-EPBX (ESRD) 10,000 UNIT/ML VIAL SC SCH (13:36)
--- NOTE | 2018-10-15 14:12 | PDOC.PN ---
- Subjective Encounter Start Date: 10/15/18 Encounter Start Time: 14:11 Subjective: feels a little better.able to eat more and drinking nepro now -: no new complaints.still very weak in legs - Objective Resuscitation Status - Order Detail: 10/04/18 01:46 Resuscitation Status Routine Resuscitation Status: FULL: Full Resuscitation MAR Reviewed: Yes Vital Signs & Weight: Vital Signs (12 hours) Temp Pulse Pulse Pulse Resp BP BP 10/15/18 13:46 98.4 F 76 16 10/15/18 12:00 98.4 F 10/15/18 09:48 73 66 112/53 L 10/15/18 08:26 68 108/46 L 10/15/18 08:25 67 108/46 L 10/15/18 08:00 98.7 F BP BP Pulse Ox 10/15/18 13:46 133/63 97 10/15/18 12:00 10/15/18 09:48 107/47 L 10/15/18 08:26 10/15/18 08:25 10/15/18 08:00 Weight Admit Weight 223 lb Weight 3.7 oz Most Recent Monitor Data Heart Rate from ECG 73 NIBP 104/54 NIBP BP-Mean 70 Respiration from ECG 18 SpO2 95 I&O: 10/14/18 10/15/18 10/16/18 06:59 06:59 06:59 Intake Total 880 1260 420 Output Total 462 425 66 Balance 418 835 354 Result Diagrams: 10/15/18 06:16 10/15/18 06:16 Additional Labs: Microbiology 10/05/18 11:09 Hip - Aspirate Bacterial Culture - Final 10/05/18 11:09 Hip - Aspirate Anaerobic Culture - Final Streptococcus agalactiae Gp. B 10/05/18 08:40 Joint - Left Arm Body Fluid Culture - Final 10/04/18 09:15 Peritoneal effluent Body Fluid Culture - Final 10/03/18 20:52 Urine voided Urine Culture - Final Beta-hemolytic Streptococcus 10/03/18 17:37 Venous blood - Right Hand Blood Culture - Final Streptococcus agalactiae Gp. B 10/03/18 17:06 Venous blood - Right Hand Blood Culture - Final Streptococcus agalactiae Gp. B 10/14/18 18:00 Venous blood - Right Arm Blood Culture - Preliminary Specimen has been received and culture in progress. No Growth to date. 10/14/18 17:25 Venous blood - Right Arm Blood Culture - Preliminary Specimen has been received and culture in progress. No Growth to date. Phys Exam - Physical Examination Constitutional: NAD HEENT: PERRLA, moist MMs, sclera anicteric, oral pharynx no lesions Neck: no nodes, no JVD, supple, full ROM Respiratory: no wheezing, no rales, no rhonchi, clear to auscultation bilateral Cardiovascular: RRR, no significant murmur, no rub Gastrointestinal: soft, non-tender, no distention, positive bowel sounds Musculoskeletal: no edema, pulses present R hip incison clean and w/o erythema/warmth.Left hip incison bandaged Neurological: non-focal, normal sensation, moves all 4 limbs Psychiatric: normal affect, A&O x 3 Dx/Plan (1) Bacteremia Code(s): R78.81 - BACTEREMIA Status: Acute Comment: Group B Streptococus in urine and blood Cx, Rocephin 2mg IV daily (2) Sepsis Code(s): A41.9 - SEPSIS, UNSPECIFIED ORGANISM Status: Acute Qualifiers: Sepsis type: Streptococcus, other Qualified Code(s): A40.8 - Other streptococcal sepsis (3) Septic arthritis Status: Acute Qualifiers: Septic arthritis location: shoulder Septic arthritis organism: streptococcal Laterality: left Qualified Code(s): M00.212 - Other streptococcal arthritis, left shoulder Comment: has Hip hardware. S/P aspiration .follow Cx s/p B/L Hip washout and left shoulder washout (4) Anemia due to chronic kidney disease Code(s): N18.9 - CHRONIC KIDNEY DISEASE, UNSPECIFIED; D63.1 - ANEMIA IN CHRONIC KIDNEY DISEASE Status: Chronic Qualifiers: Chronic kidney disease stage: on chronic dialysis Qualified Code(s): N18.6 - End stage renal disease; D63.1 - Anemia in chronic kidney disease; Z99.2 - Dependence on renal dialysis Comment: Stable, no evidence of acute blood loss, serial monitoring (5) ESRD on peritoneal dialysis Code(s): N18.6 - END STAGE RENAL DISEASE; Z99.2 - DEPENDENCE ON RENAL DIALYSIS Status: Chronic Comment: PD per Nephrology recommendations. HD started for more aggressive volume removal (6) Gout Code(s): M10.9 - GOUT, UNSPECIFIED Status: Chronic Qualifiers: Gout site: unspecified site Comment: Hold prednisone for now given sepsis - Plan continue antibiotics, PT/OT, out of bed/ambulate, DVT proph w/SCDs Abx per ID.supportive care w rehab -: [facility]. -: am labs.HD stable -: Mauricio to be done on Wednesday for Protracted IV Abx course -: cont current care * . Review of Systems - Review of Systems Constitutional: weakness, malaise. negative: fever, chills, sweats, other Respiratory: negative: Cough, Dry, Shortness of Breath, Hemoptysis, SOB with Excertion, Pleuritic Pain, Sputum, Wheezing Cardiovascular: negative: chest pain, palpitations, orthopnea, paroxysmal nocturnal dyspnea, edema, light headedness, other Gastrointestinal: negative: Nausea, Vomiting, Abdominal Pain, Diarrhea, Constipation, Melena, Hematochezia, Other Genitourinary: negative: Dysuria, Frequency, Incontinence, Hematuria, Retention , Other Musculoskeletal: Shoulder Pain, Leg Pain Skin: negative: Rash, Lesions, Nestor, Bruising, Other Neurological: negative: Weakness, Numbness, Incoordination, Change in Speech, Confusion, Seizures, Other - Medications/Allergies Allergies/Adverse Reactions: Allergies Allergy/AdvReac Type Severity Reaction Status Date / Time codeine AdvReac Mild CAUSES Verified 10/04/18 00:23 CONFUSION /AMS Medications: Current Medications Acetaminophen (Tylenol) 650 mg PO Q4H PRN PRN Reason: Headache/Fever/Mild Pain (1-3) Last Admin: 10/14/18 02:07 Dose: 650 mg Allopurinol (Zyloprim) 100 mg PO DAILY [facility] Last Admin: 10/15/18 08:24 Dose: 100 mg Amlodipine Besylate (Norvasc) 5 mg PO BID [facility] Bisacodyl (Dulcolax) 10 mg [place] DAILYPRN PRN PRN Reason: Constipation Carvedilol (Coreg) 12.5 mg PO BID [facility] Dextrose/Water (Dextrose 50%) 25 gm SLOW IVP PRN PRN PRN Reason: Hypoglycemia Enoxaparin Sodium (Lovenox) 30 mg SC 0900 [facility] Last Admin: 10/15/18 08:26 Dose: 30 mg Epoetin Carlitos-epbx (Retacrit) 10,000 unit SC Q7D [facility] Last Admin: 10/15/18 13:36 Dose: 10,000 unit Famotidine (Pepcid) 20 mg PO DAILY [facility] Last Admin: 10/15/18 08:26 Dose: 20 mg Glucagon (Glucagon) 1 mg IM PRN PRN PRN Reason: Hypoglycemia Guaifenesin/Dextromethorphan (Robitussin Dm) 15 ml PO Q4H PRN PRN Reason: Cough Dextrose/Water (D5w) 1,000 mls @ 0 mls/hr IV .Q0M PRN PRN Reason: Hypoglycemia Ceftriaxone Sodium 2 gm/ (Sodium Chloride) 100 mls @ 200 mls/hr IVPB 2100 [facility] Last Admin: 10/14/18 20:47 Dose: 100 mls Heparin Sodium (Porcine) 3,000 units/ Peritoneal Dialysis Solution 6,003 mls @ 0 mls/hr FS ASDIR [facility] Insulin Human Lispro (Humalog) 0 units SC .MILD SLIDING SCALE PRN PRN Reason: Mild Correctional Scale Last Admin: 10/08/18 06:40 Dose: 2 unit Morphine Sulfate (Morphine) 2 mg SLOW IVP Q4H PRN PRN Reason: Pain Last Admin: 10/15/18 06:32 Dose: 2 mg Ondansetron HCl (Zofran) 4 mg IVP Q6H PRN PRN Reason: Nausea/Vomiting Senna/Docusate Sodium (Senokot S) 2 tab PO BID [facility] Last Admin: 10/15/18 08:25 Dose: 2 tab Sevelamer Carbonate (Renvela) 2,400 mg PO AC [facility] Last Admin: 10/15/18 12:19 Dose: 2,400 mg Sodium Chloride (Flush - Normal Saline) 10 ml IVF Q12HR [facility] Last Admin: 10/15/18 08:27 Dose: 10 ml Sodium Chloride (Flush - Normal Saline) 10 ml IVF PRN PRN PRN Reason: Saline Flush
--- NOTE | 2018-10-15 21:34 | RAD ---
Portable frontal chest radiograph: 10/15/2018 COMPARISON: 10/08/2018 HISTORY: Altered mental status FINDINGS: Lungs are clear. Heart and mediastinal contours appear within normal limits. Mild elevation of right hemidiaphragm. IMPRESSION: No acute findings.
[2018-10-15] MEDS: cefTRIAXone\\ROCEPHIN 2 GM in Sodium Chloride 0.9% 100 ML IVPB SCH (21:59)
[2018-10-15] MEDS ORDERED: Sodium Chloride 0.9% 250 ML IV SCH (22:15)
[2018-10-15 22:29] LABS: Bilirubin Negative (Negative); Blood, Urine 1+ (Negative); Clarity Turbid (Clear); Glucose, Urine (Dipstick) 30 mg/dL (Negative); Leukocyte 500 Leu/uL (Negative); Nitrite Negative (Negative); Protein, Urine (Dipstick) 100 mg/dL (Neg-Trace); Urobilinogen Normal mg/dL (Less than 2)
[2018-10-15 22:36] LABS: Bacteria/HPF 1+ HPF (None Seen); Unclassified Crystals 2+ HPF (None Seen)
[2018-10-15 22:37] LABS: WBC/HPF 21-50 HPF (0-3)
[2018-10-15 22:38] LABS: Yeast-Budding None Seen HPF (None Seen)
[2018-10-15 22:39] LABS: Urine Culture Reflex No No
--- NOTE | 2018-10-15 23:45 | PDOC.EVN ---
Event Note - Event Note Event Note: Nurse called as concerned that patient was not oriented/mildly confused. On my interview, patient is conversive and answering questions appropriately. Pt hypotensive in 90s. Per review of dialysis records, has had around 700-800 cc drawn off daily with PD; gave 250 cc bolus which he responded well to, and will give one more. CXR clear; will culture urine.
[2018-10-16] MEDS: Amlodipine 5 MG TAB PO SCH ×3 (01:42→20:39)
[2018-10-16] MEDS: Carvedilol 25 MG TAB PO SCH ×3 (01:43→20:39)
[2018-10-16] MEDS: Senokot S 8.6-50 MG TAB PO SCH ×3 (01:43→20:40)
[2018-10-16] MEDS: Sevelamer Carbonate 800 MG TAB PO SCH ×3 (07:28→16:07)
[2018-10-16] MEDS: Enoxaparin Sodium 30 MG/0.3 ML SYRINGE SC SCH (09:53)
[2018-10-16] MEDS: Famotidine 20 MG TAB PO SCH (09:53)
[2018-10-16] MEDS: Allopurinol 100 MG TAB PO SCH (09:53)
[2018-10-16] MEDS: Sodium Chloride 0.9% 1,000 ML IV SCH (09:54)
--- NOTE | 2018-10-16 13:26 | PRG ---
DATE OF SERVICE: 10/16/2018 SUBJECTIVE: This is a 63-year-old gentleman being seen for end-stage renal disease. The patient denies any nausea, vomiting, or chest pain. OBJECTIVE: GENERAL: The patient is awake and alert. VITAL SIGNS: Afebrile, pulse 77, breathing 16, blood pressure 116/59. GENERAL APPEARANCE AND MENTAL STATUS: Fair. HEAD/NECK: Normocephalic. Atraumatic. EYES: EOMI. No deformity. EARS: Clear. No ulcers. NOSE: Intact. No lesions. MOUTH: Clear. No discharge. THROAT: Clear. No exudate. LUNGS: Clear. No crackles. CARDIAC: S1, S2. No rub. ABDOMEN: Benign. Bowel sounds positive. GENITALIA/RECTUM: Tiwari absent. BACK/EXTREMITIES: Edema 0+. NEUROLOGICAL: Alert and motor intact. SKIN: LYMPHATICS: LABORATORY DATA: Labs show BUN 94, creatinine 10.4. ASSESSMENT AND PLAN: 1. End-stage renal disease with rising BUN. I have changed the patient's prescription , but his BUN has not improved. We will consider modifying PD therapy for longer duration. If it does not improve, we will consider hemodialysis. 2. Anemia, stable. 3. Medication based on GFR appropriate. Job ID: [id number]
--- NOTE | 2018-10-16 14:35 | PRG ---
DATE OF SERVICE: 10/16/2018 SERVICE: Pulmonary Medicine. INTERVAL HISTORY: The patient is doing really well from a respiratory standpoint. Last night, however, he had some marginal low blood pressures. He was asymptomatic to these events. He ate a good breakfast this morning, but has been napping for the rest of the morning. He woke up comfortably. He appears to be in no distress. PHYSICAL EXAMINATION: VITAL SIGNS: Afebrile currently with a T-max of 99.8, pulse 77, blood pressure 116/59, respirations 18, saturation 94% on room air. GENERAL: The patient is awake and alert, in no apparent distress. LUNGS: Decent air entry. Rhonchi are present, but cleared with cough. No prolonged expiratory phase or wheezing is appreciated. HEART: Normal rate. Regular. ABDOMEN: Soft, nontender, and nondistended. Bowel sounds are positive. MUSCULOSKELETAL: No cyanosis or clubbing. There is 1+ pitting in the bilateral lower extremities. NEUROLOGIC: Grossly nonfocal. LABORATORY DATA: WBC 14.0, hemoglobin 8.0, platelets 426,000. Creatinine 10.47. Basic metabolic profile is otherwise unremarkable. Urinalysis is positive for white blood cells. Nitrites are negative. Leukocyte esterase seems to be improving. Hip aspirate is growing Strep. Blood cultures were previously growing Strep as well. IMAGING DATA: Chest x-ray demonstrates no acute cardiopulmonary abnormality. ASSESSMENT: 1. Respiratory failure, resolved. 2. Septic arthritis with multiple joint involvement. 3. Bacteremia secondary to Streptococcus. 4. Deconditioning. 5. End-stage renal disease. DISCUSSION AND PLAN: Supportive measures will be continued including antibiotics. We will continue making efforts at mobilizing the patient through time. If the white blood cell count continues trending upward, we will need to do a survey to see whether or not there is a nidus of infection that we are not currently addressing. Pulmonary/Critical Care will continue to follow for the time being. Job ID: [id number]
--- NOTE | 2018-10-16 15:28 | PDOC.PN ---
- Subjective Encounter Start Date: 10/16/18 Encounter Start Time: 15:24 Subjective: feels OK. report not much appetite -: RN reported low BP -: pt denies nay fever.no new pain in operated site or elsewhere - Objective Resuscitation Status - Order Detail: 10/04/18 01:46 Resuscitation Status Routine Resuscitation Status: FULL: Full Resuscitation MAR Reviewed: Yes Vital Signs & Weight: Vital Signs (12 hours) Temp Pulse Resp BP BP Pulse Ox 10/16/18 12:08 99.4 F 77 18 116/59 L 94 L 10/16/18 08:36 70 107/53 L 10/16/18 08:14 98.9 F 70 18 107/53 L 96 10/16/18 03:41 99.1 F 71 16 112/64 97 Weight Admit Weight 223 lb Weight 3.7 oz Most Recent Monitor Data Heart Rate from ECG 73 NIBP 104/54 NIBP BP-Mean 70 Respiration from ECG 18 SpO2 95 I&O: 10/15/18 10/16/18 10/17/18 06:59 06:59 06:59 Intake Total 1260 570 670 Output Total 425 241 Balance 835 329 670 Result Diagrams: 10/15/18 06:16 10/15/18 06:16 Additional Labs: Accuchecks 10/16/18 10/16/18 10/15/18 12:41 06:17 20:58 POC Glucose 116 H 128 H 156 H Microbiology 10/05/18 11:09 Hip - Aspirate Bacterial Culture - Final 10/05/18 11:09 Hip - Aspirate Anaerobic Culture - Final Streptococcus agalactiae Gp. B 10/05/18 08:40 Joint - Left Arm Body Fluid Culture - Final 10/04/18 09:15 Peritoneal effluent Body Fluid Culture - Final 10/03/18 20:52 Urine voided Urine Culture - Final Beta-hemolytic Streptococcus 10/03/18 17:37 Venous blood - Right Hand Blood Culture - Final Streptococcus agalactiae Gp. B 10/03/18 17:06 Venous blood - Right Hand Blood Culture - Final Streptococcus agalactiae Gp. B 10/14/18 18:00 Venous blood - Right Arm Blood Culture - Preliminary NO GROWTH AT 48 HOURS 10/14/18 17:25 Venous blood - Right Arm Blood Culture - Preliminary NO GROWTH AT 48 HOURS Phys Exam - Physical Examination Constitutional: NAD HEENT: PERRLA, moist MMs, sclera anicteric, oral pharynx no lesions Neck: no nodes, no JVD, supple, full ROM Respiratory: no wheezing, no rales, no rhonchi, clear to auscultation bilateral Cardiovascular: RRR, no significant murmur, no rub Gastrointestinal: soft, non-tender, no distention, positive bowel sounds Musculoskeletal: no edema, pulses present Neurological: non-focal, normal sensation, moves all 4 limbs Psychiatric: normal affect, A&O x 3 Skin: no rash Dx/Plan (1) Bacteremia Code(s): R78.81 - BACTEREMIA Status: Acute Comment: Group B Streptococus in urine and blood Cx, Rocephin 2mg IV daily . Repeat Blood Cx remains negative. (2) Sepsis Code(s): A41.9 - SEPSIS, UNSPECIFIED ORGANISM Status: Acute Qualifiers: Sepsis type: Streptococcus, other Qualified Code(s): A40.8 - Other streptococcal sepsis Comment: on rocephin (3) Septic arthritis Status: Acute Qualifiers: Septic arthritis location: shoulder Septic arthritis organism: streptococcal Laterality: left Qualified Code(s): M00.212 - Other streptococcal arthritis, left shoulder Comment: has Hip hardware. S/P aspiration .follow Cx s/p B/L Hip washout and left shoulder washout (4) Anemia due to chronic kidney disease Code(s): N18.9 - CHRONIC KIDNEY DISEASE, UNSPECIFIED; D63.1 - ANEMIA IN CHRONIC KIDNEY DISEASE Status: Chronic Qualifiers: Chronic kidney disease stage: on chronic dialysis Qualified Code(s): N18.6 - End stage renal disease; D63.1 - Anemia in chronic kidney disease; Z99.2 - Dependence on renal dialysis Comment: Stable, no evidence of acute blood loss, serial monitoring (5) ESRD on peritoneal dialysis Code(s): N18.6 - END STAGE RENAL DISEASE; Z99.2 - DEPENDENCE ON RENAL DIALYSIS Status: Chronic Comment: PD per Nephrology recommendations. HD started for more aggressive volume removal (6) Gout Code(s): M10.9 - GOUT, UNSPECIFIED Status: Chronic Qualifiers: Gout site: unspecified site Comment: Hold prednisone for now given sepsis - Plan plan discussed w/ family, continue antibiotics, PT/OT, respiratory therapy, incentive spirometry, out of bed/ambulate, DVT proph w/SCDs WBC treneding up and with Low BP-will be careful for worsening infection -: Hold BP meds and cont gentle IVF.monitor -: may need to start him back on steroids as he is chronically on it -: reassurance provided to family members -: am labs and monitor closely * .
[2018-10-16] MEDS: Acetaminophen 325 MG TAB PO PRN (16:07)
[2018-10-16] MEDS ORDERED: Colchicine 0.3 MG TAB PO SCH (17:30)
--- NOTE | 2018-10-16 18:57 | PRG ---
DATE OF SERVICE: 10/16/2018 SUBJECTIVE: Mr. Rodriguez is having some low-grade temp elevation as noted below. He continues to have pain in certain joints including knees, ankles, feet, and small joints. That is why he feels the most when he is being mobilized. Still has a Tiwari catheter in place. He denies any respiratory symptoms. No diarrhea. No abdominal pain. OBJECTIVE: VITAL SIGNS: T-max 100.1 just recently and his blood pressure is 115/52, pulse 79, respirations 18, O2 saturation 93 to 96. SKIN: His incisions appear clean. Peripheral IV access. : He has a Tiwari catheter in. LABORATORY DATA: White cell count is at 14,000, hemoglobin 8, MCV 99, platelets 426, 80% neutrophils. Creatinine 10.47, sodium 138. Microbiology with repeat 2 sets of blood culture negative at 48 hours. The previous isolate with group B Streptococcus. Chest x-ray from yesterday with clear lungs. 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 DISCUSSION: Differential diagnosis includes a superimposed nosocomial complication. In this case, the concerns would be mainly with urinary tract infection since he still has a Tiwari catheter in place. I would recommend removal of the Tiwari catheter since there is not much output. Also, the second concern would be reactivation of his gouty arthropathy since the corticosteroids that he usually takes have been discontinued. At this point, I would consider restarting colchicine first, remove the Tiwari catheter, continue Rocephin as previously noted. The patient, I think, is waiting on Mauricio catheter placement for disposition. The other concern would be with thromboembolism, but he has been on adequate prophylaxis with enoxaparin, so I think that is less of a concern. Job ID: [id number]
[2018-10-16] MEDS: cefTRIAXone\\ROCEPHIN 2 GM in Sodium Chloride 0.9% 100 ML IVPB SCH (20:42)
[2018-10-16 21:35] LABS: Anion Gap 22 mmol/L (10-20); BUN (Urea Nitrogen) 100 mg/dL (8.4-25.7); Calc. Creatinine Clearance 0 mL/min (70-130); Calcium 9.5 mg/dL (7.8-10.44); Carbon Dioxide 21 mmol/L (23-31); Chloride 95 mmol/L (98-107); Estimated GFR-MDRD 5; Glucose 128 mg/dL (80-115); Potassium 4.1 mmol/L (3.5-5.1); Sodium 134 mmol/L (136-145)
[2018-10-17] MEDS: Sodium Chloride 0.9% 1,000 ML IV SCH (03:14)
[2018-10-17 05:23] LABS: #Eosinphils 0.3 thou/uL (0.0-0.7); #Monocytes 1.3 thou/uL (0.11-0.59); #Neutrophils 12.2 thou/uL (1.40-6.50); %Basophils 0.3 % (0.0-1.0); %Eosinophils 2.3 % (0.0-10.0); %Lymphocytes 6.6 % (21.0-51.0); %Monocytes 8.9 % (0.0-10.0); %Neutrophils 81.9 % (42.0-75.0); Hemoglobin 7.6 g/dL (14.0-18.0); Mean Corpuscular HGB CONC 31.5 g/dL (32.0-36.0); Mean Corpuscular Hemoglobin 31.6 pg (27.0-31.0); Mean Platelet Volume 7.7 fL (7.4-10.4); Platelet Count 405 thou/uL (130-400); RBC Distribution Width 13.5 % (11.5-14.5); Red Blood Cell (RBC) Count 2.39 mill/uL (4.70-6.10); White Blood Cell (WBC) Count 14.9 thou/uL (4.8-10.8)
[2018-10-17 05:41] LABS: Anion Gap 24 mmol/L (10-20); BUN (Urea Nitrogen) 91 mg/dL (8.4-25.7); Calc. Creatinine Clearance 0 mL/min (70-130); Carbon Dioxide 22 mmol/L (23-31); Chloride 97 mmol/L (98-107); Estimated GFR-MDRD 5; Glucose 126 mg/dL (80-115); Potassium 4.1 mmol/L (3.5-5.1); Sodium 139 mmol/L (136-145)
[2018-10-17] MEDS: Sevelamer Carbonate 800 MG TAB PO SCH ×4 (07:38→16:46)
[2018-10-17] MEDS: Allopurinol 100 MG TAB PO SCH ×2 (07:38→08:10)
[2018-10-17] MEDS: Senokot S 8.6-50 MG TAB PO SCH ×2 (07:58→20:58)
[2018-10-17] MEDS: Enoxaparin Sodium 30 MG/0.3 ML SYRINGE SC SCH (07:58)
[2018-10-17] MEDS: Amlodipine 5 MG TAB PO SCH ×2 (08:10→21:00)
[2018-10-17] MEDS: Colchicine 0.3 MG TAB PO SCH ×2 (08:10→20:58)
[2018-10-17] MEDS: Famotidine 20 MG TAB PO SCH (08:10)
[2018-10-17] MEDS: Carvedilol 25 MG TAB PO SCH ×2 (08:10→21:00)
--- NOTE | 2018-10-17 08:42 | PRG ---
DATE OF SERVICE: 10/17/2018 SUBJECTIVE: This morning, he is awake and responsive. Denies any pain or discomfort. No further fever or chills. His hypotension is resolved. OBJECTIVE: VITAL SIGNS: Blood pressure 126/55, saturations are 98% on room air, respiratory rate 20, temperature 98, and pulse 73. CHEST: No wheezing or crackles. CARDIAC: Normal S1 and S2. No gallops. ABDOMEN: No masses. LABORATORY DATA: Creatinine is low. Last white count 14,000 and platelet count is normal. ASSESSMENT: 1. Sepsis endocarditis. 2. Renal failure. 3. Urinary tract infection. PLAN: Continue antibiotics as per Infectious Disease. Job ID: [id number]
[2018-10-17] MEDS ORDERED: Lidocaine 2% PF 5 ML VIAL ONE (08:53)
[2018-10-17] MEDS ORDERED: Bupivacaine HCl 0.5%/Epinephrine 1:200,000/PF 30 ml Vial ONE (08:53)
[2018-10-17] MEDS ORDERED: Midazolam HCl 2 mg/2 ml Vial ONE (09:30)
[2018-10-17] MEDS ORDERED: Famotidine/PF 20 mg/2ml Vial ONE (09:30)
[2018-10-17] MEDS ORDERED: Fentanyl 100 MCG/2 ML VIAL ONE (09:30)
[2018-10-17] MEDS ORDERED: PROPOFOL 60 ML ONE (09:31)
[2018-10-17] MEDS ORDERED: Sodium Chloride 0.9% 20 ML ONE (10:29)
[2018-10-17] MEDS ORDERED: Ondansetron HCl/PF 4 MG/2 ML Vial IVP PRN (10:31)
--- NOTE | 2018-10-17 10:54 | PRG ---
DATE OF SERVICE: 10/17/2018 SUBJECTIVE: Patient was seen and examined at bedside and overnight events noted. Patient denies any shortness of breath or chest pain or palpitation. No history of nausea or vomiting or diarrhea or fever or chills or cramps. OBJECTIVE: GENERAL: This is a well-built male, in no apparent distress. VITAL SIGNS: Temperature 98. Heart rate 72. Respiratory rate . Blood pressure 126/55. HEENT: Atraumatic, normocephalic. Oral mucosa is moist NECK: Supple. CARDIOVASCULAR: S1, S2 heard. Rate and rhythm regular. RESPIRATORY: Clear to auscultation. GASTROINTESTINAL: Abdomen is soft. MUSCULOSKELETAL: No tenderness. No edema. DERMATOLOGIC: No skin rash. NEUROLOGIC: Alert and awake and oriented X3. No focal neurologic deficits. Moving all the extremities. PSYCHIATRIC: Mood and affect normal. LABORATORY DATA: Potassium 4.1, BUN is 91, creatinine is 11.1. ASSESSMENT AND PLAN: 1. End-stage renal disease. We will continue on peritoneal dialysis. BUN seems to be better. 2. Anemia. 3. Hypertension. 4. Edema . 5. The patient had better UF yesterday. We will continue on PD as tolerated. Job ID: [id number]
--- NOTE | 2018-10-17 10:58 | CON ---
DATE OF CONSULTATION: HISTORY OF PRESENT ILLNESS: Jesus Rodriguez is a 63-year-old male patient, well known to me. In 2016, placed a laparoscopic peritoneal dialysis catheter in the left arm primary fistula, perforating branch of antecubital vein, proximal radial artery outflow basilic and cephalic vein, cephalic vein outflow interrogated coronary dilators to 3.5 mm. The patient has had prior bilateral total hip replacements. He presents now with positive blood cultures, Streptococcus; urine culture, Streptococcus; hip aspirate, Streptococcus; recent blood culture 10/14/2018 negative; last blood culture positive 10/03/2018; hip aspirate, 10/05/2018, positive Streptococcus. Peritoneal fluid effluent 10/04/2018, no growth. He is followed by Dr. Jaren Bautista. He has had right elbow cellulitis, thought maybe to be gout. He has been seen by Dr. Gallo. He is on Rocephin. I have been asked to see him regarding placement of a Mauricio catheter. We will plan on placement of the double-lumen Mauricio catheter IJ to avoid subclavian access in this dialysis patient. In this hospitalization, they successfully dialyzed him using his left arm fistula, but on subsequent attempts, had problems accessing it. He has been on peritoneal dialysis and not used his fistula in the past. As stated above, he does have outflow through his basilic and cephalic vein. He may have competing outflows. In this hospitalization, we will obtain a fistulogram to look at the outflow. The patient is followed by Dr. Duron, his ladler. He is planning on going to rehab. It is unclear to me at this time whether plans are to continue peritoneal dialysis or whether he will require hemodialysis in the future. There are no mechanical problems with his PD catheter. HOME MEDICATIONS: 1. Amlodipine 5 mg b.i.d. 2. Torsemide 100 mg daily. 3. Lactulose daily. 4. Sensipar daily. 5. Carvedilol 25 mg b.i.d. 6. Hydralazine 25 b.i.d. 7. Colchicine 0.6 mg every 7 days. 8. Calcitriol 0.25 mcg daily. 9. Allopurinol 100 mg daily. 10. Renvela 800 mg p.o. with meals, 3 tablets three times a day. 11. Tramadol as needed for pain. 12. Prednisone 5 mg every other day. 13. Naprosyn as needed. PAST SURGICAL HISTORY: 2017, left arm primary fistula and hemodialysis catheter as described above. Bilateral hip replacement remotely. Knee surgery in the past. April 10, 2017, Dr. Flores performed gout aspiration injection, left knee. 10/06/2018, Dr. Jaren Bautista performed right hip septic periprosthetic arthritis, full revision arthroplasty, total hip, with cemented long-standing, cemented acetabular cup. 10/06/2018, same anesthesia, revision acetabular femoral head, left hip. 10/06/2018, infected left shoulder arthroscopy, synovectomy, and debridement of left shoulder. PAST MEDICAL HISTORY: 1. End-stage renal disease, on peritoneal dialysis, infected hip prosthetic as described above. 2. Hypertension. 3. Gout. 4. End-stage renal disease, on PD. SOCIAL HISTORY: Tobacco, none. Alcohol, none. CARDIAC HISTORY: Noncontributory. PHYSICAL EXAMINATION: VITAL SIGNS: Height 5 feet 6, 33 BMI, temperature 98 degrees, heart rate 73, and blood pressure 108/50. HEAD, EARS, EYES, NOSE AND THROAT: Unremarkable. LUNGS: Clear to auscultation. CARDIAC: Regular rate and rhythm without murmur or gallop. ABDOMEN: Soft. PD catheter in place. Umbilical hernia repair intact. Left arm fistula, good thrill and bruit. Left upper arm fistula. EXTREMITIES: Unremarkable. Bandages in both hips per recent hip surgery. Incisional VAC left. LABORATORY DATA: White count 14 and hemoglobin 7.9 this morning. Sodium 139 and potassium 4.1. BUN, creatinine, GFR changes consistent with end-stage renal disease. ASSESSMENT/PLAN: In need of IV access in an end-stage renal disease. We will plan placement of a Mauricio catheter. He understands risks, benefits, and consents. Job ID: [id number]
--- NOTE | 2018-10-17 11:09 | RAD ---
RADIOGRAPH CHEST 1 VIEW: DATE: 10/17/2018 HISTORY: Central line placement in 63-year-old male. FINDINGS: The thoracic aorta is tortuous and ectatic. There is no evidence of airspace density, pulmonary edema , or pneumothorax. The lateral costophrenic angles are not effaced. Compared to 10/15/2018, there is a new right IJ central venous catheter with distal tip overlying SVC/right atrial junction. IMPRESSION: 1) No acute pulmonary findings. 2) ectasia of thoracic aorta. 3) right-sided central vascular catheter placement without pneumothorax.
--- NOTE | 2018-10-17 13:27 | OP ---
DATE OF PROCEDURE: 10/17/2018 PREOPERATIVE DIAGNOSES: End-stage renal disease in need of IV access for outpatient antibiotic administration with Rocephin, status post bilateral hip revisions and bacteremia, Streptococcus. ANESTHESIA: IV sedation, local 0.5% Marcaine with epinephrine 30 mL mixed to 2% Xylocaine 10 mL, ultrasound fluoroscopy used. PROCEDURE PERFORMED: Right IJ cuffed tunneled with Mauricio catheter dual-lumen. DESCRIPTION OF PROCEDURE: The patient was taken to the operating room under intravenous sedation. Neck and chest clipped of hair, prepared with ChloraPrep and draped in routine fashion. Local anesthetic mixture 0.5% Marcaine with epinephrine 30 mL mixed to 2% Xylocaine 10 mL, infiltrated in the skin and subcutaneous tissue about the operative site. Using ultrasound guidance, the right internal jugular vein was cannulated with a trocar catheter, J-wire threaded, trocar catheter removed. Skin was incised and enlarged sharply. Stab incision was made over the right chest. Using the tunneling device, the dual-lumen Mauricio catheter tunneled between the 2 incisions, placed the fabric cuff beneath the skin exit site over the right chest incision. Catheter tailored to length, placed through the dilator and pull away sheath which had been placed with J-wire into the superior vena cava and after the J-wire and dilator were removed. Once the catheter was in good position, pull away sheath was removed. Fluoroscopically, catheter noted to be in good position. Platysma was approximated with 4-0 Monocryl, skin with subdermal 4-0 Monocryl, and [place] glue applied. Sterile dressings applied. Final fluoroscopic images revealed good line placement. The patient tolerated the procedure well. Each port had been aspirated of blood, flushed with saline solution and heparinized saline solution with 100 units per mL, 5 mL for each port. Job ID: [id number]
[2018-10-17] MEDS ORDERED: Ondansetron PF 4 MG/2 ML Vial ONE (14:46)
[2018-10-17] MEDS ORDERED: PROPOFOL 200 MG/20 ML VIAL ONE (14:46)
[2018-10-17] MEDS ORDERED: Lidocaine 1% PF 5 ML VIAL ONE (14:46)
--- NOTE | 2018-10-17 18:33 | PDOC.PN ---
- Subjective Encounter Start Date: 10/17/18 Encounter Start Time: 18:31 Subjective: tired today but doing a little better.no more fever but still ppor appetite - Objective Resuscitation Status - Order Detail: 10/04/18 01:46 Resuscitation Status Routine Resuscitation Status: FULL: Full Resuscitation MAR Reviewed: Yes Vital Signs & Weight: Vital Signs (12 hours) Temp Pulse Resp BP BP Pulse Ox 10/17/18 16:49 98.9 F 77 18 116/52 L 95 10/17/18 11:25 98.2 F 70 20 126/58 L 96 10/17/18 08:10 73 108/50 L 10/17/18 08:05 95 10/17/18 07:38 98.8 F 73 20 126/55 L 95 Weight Admit Weight 223 lb Weight 210 lb 1.6 oz Most Recent Monitor Data Heart Rate from ECG 73 NIBP 104/54 NIBP BP-Mean 70 Respiration from ECG 18 SpO2 95 I&O: 10/16/18 10/17/18 10/18/18 06:59 06:59 06:59 Intake Total 570 1520 600 Output Total 241 125 Balance 329 1395 600 Result Diagrams: 10/17/18 04:31 10/17/18 04:31 Additional Labs: Accuchecks 10/17/18 10/17/18 10/17/18 15:29 11:52 05:53 POC Glucose 118 H 106 126 H 10/16/18 21:56 POC Glucose 124 H Microbiology 10/05/18 11:09 Hip - Aspirate Bacterial Culture - Final 10/05/18 11:09 Hip - Aspirate Anaerobic Culture - Final Streptococcus agalactiae Gp. B 10/05/18 08:40 Joint - Left Arm Body Fluid Culture - Final 10/04/18 09:15 Peritoneal effluent Body Fluid Culture - Final 10/03/18 20:52 Urine voided Urine Culture - Final Beta-hemolytic Streptococcus 10/03/18 17:37 Venous blood - Right Hand Blood Culture - Final Streptococcus agalactiae Gp. B 10/03/18 17:06 Venous blood - Right Hand Blood Culture - Final Streptococcus agalactiae Gp. B 10/14/18 18:00 Venous blood - Right Arm Blood Culture - Preliminary NO GROWTH AT 48 HOURS 10/14/18 17:25 Venous blood - Right Arm Blood Culture - Preliminary NO GROWTH AT 48 HOURS Laboratory Tests 10/12/18 10/13/18 10/14/18 04:53 04:47 04:24 WBC 16.1 H 12.4 H 11.0 H 10/15/18 10/17/18 06:16 04:31 WBC 14.0 H 14.9 H Phys Exam - Physical Examination Constitutional: NAD sleeping HEENT: PERRLA, moist MMs, sclera anicteric, oral pharynx no lesions Neck: no nodes, no JVD, supple, full ROM Respiratory: no wheezing, no rales, no rhonchi, clear to auscultation bilateral Cardiovascular: RRR, no significant murmur Gastrointestinal: soft, non-tender, no distention, positive bowel sounds PD cathter in place Musculoskeletal: no edema, pulses present R elbow erythema but better than before Neurological: non-focal, normal sensation, moves all 4 limbs Psychiatric: normal affect, A&O x 3 Skin: no rash Dx/Plan (1) Bacteremia Code(s): R78.81 - BACTEREMIA Status: Acute Comment: Group B Streptococus in urine and blood Cx, Rocephin 2mg IV daily . Repeat Blood Cx remains negative. (2) Sepsis Code(s): A41.9 - SEPSIS, UNSPECIFIED ORGANISM Status: Acute Qualifiers: Sepsis type: Streptococcus, other Qualified Code(s): A40.8 - Other streptococcal sepsis Comment: on rocephin (3) Septic arthritis Status: Acute Qualifiers: Septic arthritis location: shoulder Septic arthritis organism: streptococcal Laterality: left Qualified Code(s): M00.212 - Other streptococcal arthritis, left shoulder Comment: has Hip hardware. S/P aspiration .follow Cx s/p B/L Hip washout and left shoulder washout (4) Anemia due to chronic kidney disease Code(s): N18.9 - CHRONIC KIDNEY DISEASE, UNSPECIFIED; D63.1 - ANEMIA IN CHRONIC KIDNEY DISEASE Status: Chronic Qualifiers: Chronic kidney disease stage: on chronic dialysis Qualified Code(s): N18.6 - End stage renal disease; D63.1 - Anemia in chronic kidney disease; Z99.2 - Dependence on renal dialysis Comment: Stable, no evidence of acute blood loss, serial monitoring (5) ESRD on peritoneal dialysis Code(s): N18.6 - END STAGE RENAL DISEASE; Z99.2 - DEPENDENCE ON RENAL DIALYSIS Status: Chronic Comment: PD per Nephrology recommendations. HD started for more aggressive volume removal (6) Gout Code(s): M10.9 - GOUT, UNSPECIFIED Status: Chronic Qualifiers: Gout site: unspecified site Comment: Hold prednisone for now given sepsis - Plan plan discussed w/ family, continue antibiotics, PT/OT, respiratory therapy, incentive spirometry, DVT proph w/SCDs S/P Mauricio today for IV access for protracted IV ABx -: no more fever for last 24 hrs but WBC high.? Acute Gout -: started on colchcine yesterday.monitor -: will send PD fluid for Cx again though no abdominal symptoms -: am labs.guarded prognsosi.watch for re-infection/worsening/new infection * . Review of Systems - Review of Systems Constitutional: weakness, malaise. negative: fever, chills, sweats, other Cardiovascular: negative: chest pain, palpitations, orthopnea, paroxysmal nocturnal dyspnea, edema, light headedness, other Gastrointestinal: negative: Nausea, Vomiting, Abdominal Pain, Diarrhea, Constipation, Melena, Hematochezia, Other Genitourinary: negative: Dysuria, Frequency, Incontinence, Hematuria, Retention , Other Musculoskeletal: negative: Neck Pain, Shoulder Pain, Arm Pain, Back Pain, Hand Pain, Leg Pain, Foot Pain, Other Neurological: negative: Weakness, Numbness, Incoordination, Change in Speech, Confusion, Seizures, Other - Medications/Allergies Allergies/Adverse Reactions: Allergies Allergy/AdvReac Type Severity Reaction Status Date / Time codeine AdvReac Mild CAUSES Verified 10/04/18 00:23 CONFUSION /AMS Medications: Current Medications Acetaminophen (Tylenol) 650 mg PO Q4H PRN PRN Reason: Headache/Fever/Mild Pain (1-3) Last Admin: 10/16/18 16:07 Dose: 650 mg Allopurinol (Zyloprim) 100 mg PO DAILY [facility] Last Admin: 10/17/18 08:10 Dose: 100 mg Amlodipine Besylate (Norvasc) 5 mg PO BID [facility] Last Admin: 10/17/18 08:10 Dose: Not Given Bisacodyl (Dulcolax) 10 mg SC DAILYPRN PRN PRN Reason: Constipation Carvedilol (Coreg) 12.5 mg PO BID [facility] Last Admin: 10/17/18 08:10 Dose: Not Given Colchicine (Colcrys) 0.3 mg PO BID [facility] Last Admin: 10/17/18 08:10 Dose: 0.3 mg Dextrose/Water (Dextrose 50%) 25 gm SLOW IVP PRN PRN PRN Reason: Hypoglycemia Enoxaparin Sodium (Lovenox) 30 mg SC 0900 [facility] Last Admin: 10/17/18 07:58 Dose: Not Given Epoetin Carlitos-epbx (Retacrit) 10,000 unit SC Q7D [facility] Last Admin: 10/15/18 13:36 Dose: 10,000 unit Famotidine (Pepcid) 20 mg PO DAILY [facility] Last Admin: 10/17/18 08:10 Dose: 20 mg Glucagon (Glucagon) 1 mg IM PRN PRN PRN Reason: Hypoglycemia Guaifenesin/Dextromethorphan (Robitussin Dm) 15 ml PO Q4H PRN PRN Reason: Cough Dextrose/Water (D5w) 1,000 mls @ 0 mls/hr IV .Q0M PRN PRN Reason: Hypoglycemia Ceftriaxone Sodium 2 gm/ (Sodium Chloride) 100 mls @ 200 mls/hr IVPB 2100 [facility] Last Admin: 10/16/18 20:42 Dose: 100 mls Heparin Sodium (Porcine) 3,000 units/ Peritoneal Dialysis Solution 6,003 mls @ 0 mls/hr FS ASDIR ROD Sodium Chloride (Normal Saline 0.9%) 1,000 mls @ 50 mls/hr IV .Q20H [facility] Last Admin: 10/17/18 03:14 Dose: 1,000 mls Heparin Sodium (Porcine) 250 (units/ Sodium Chloride) 252.5 mls @ 0 mls/hr IV .Q0M [facility] Insulin Human Lispro (Humalog) 0 units SC .MILD SLIDING SCALE PRN PRN Reason: Mild Correctional Scale Last Admin: 10/08/18 06:40 Dose: 2 unit Morphine Sulfate (Morphine) 2 mg SLOW IVP Q4H PRN PRN Reason: Pain Last Admin: 10/15/18 06:32 Dose: 2 mg Ondansetron HCl (Zofran) 4 mg IVP Q6H PRN PRN Reason: Nausea/Vomiting Senna/Docusate Sodium (Senokot S) 2 tab PO BID [facility] Last Admin: 10/17/18 07:58 Dose: Not Given Sevelamer Carbonate (Renvela) 2,400 mg PO AC ROD Last Admin: 10/17/18 16:46 Dose: 2,400 mg Sodium Chloride (Flush - Normal Saline) 10 ml IVF Q12HR ROD Last Admin: 10/17/18 08:11 Dose: Not Given Sodium Chloride (Flush - Normal Saline) 10 ml IVF PRN PRN PRN Reason: Saline Flush
[2018-10-17] MEDS: cefTRIAXone\\ROCEPHIN 2 GM in Sodium Chloride 0.9% 100 ML IVPB SCH (20:58)
[2018-10-17] MEDS: Acetaminophen 325 MG TAB PO PRN (21:05)
[2018-10-18] MEDS: Sevelamer Carbonate 800 MG TAB PO SCH ×3 (06:23→17:33)
[2018-10-18] MEDS: Sodium Chloride 0.9% 1,000 ML IV SCH ×2 (06:23→20:37)
[2018-10-18 06:46] LABS: #Eosinphils 0.3 thou/uL (0.0-0.7); #Lymphocytes 0.7 thou/uL (1.20-3.40); #Monocytes 0.8 thou/uL (0.11-0.59); #Neutrophils 7.2 thou/uL (1.40-6.50); %Basophils 0.1 % (0.0-1.0); %Eosinophils 3.6 % (0.0-10.0); %Lymphocytes 7.2 % (21.0-51.0); %Monocytes 9.1 % (0.0-10.0); %Neutrophils 80.1 % (42.0-75.0); Hemoglobin 10.6 g/dL (14.0-18.0); Mean Corpuscular HGB CONC 31.4 g/dL (32.0-36.0); Mean Corpuscular Hemoglobin 31.4 pg (27.0-31.0); Mean Platelet Volume 7.4 fL (7.4-10.4); Platelet Count 310 thou/uL (130-400); RBC Distribution Width 13.6 % (11.5-14.5); Red Blood Cell (RBC) Count 3.37 mill/uL (4.70-6.10)
[2018-10-18 07:06] LABS: Anion Gap 22 mmol/L (10-20); BUN (Urea Nitrogen) 92 mg/dL (8.4-25.7); Calc. Creatinine Clearance 10 mL/min (70-130); Calcium 9.5 mg/dL (7.8-10.44); Carbon Dioxide 23 mmol/L (23-31); Chloride 95 mmol/L (98-107); Estimated GFR-MDRD 5; Glucose 138 mg/dL (80-115); Sodium 136 mmol/L (136-145)
--- NOTE | 2018-10-18 09:00 | PRG ---
DATE OF SERVICE: 10/18/2018 SUBJECTIVE: Patient was seen and examined at bedside and overnight events noted. Patient denies any shortness of breath or chest pain or palpitation. No history of nausea or vomiting or diarrhea or fever or chills or cramps. OBJECTIVE: GENERAL: This is a well-built male in no acute distress. VITAL SIGNS: Temperature 98.4. Heart rate 71. Respiratory rate 16. Blood pressure 119/59. HEENT: Atraumatic, normocephalic. Oral mucosa is moist NECK: Supple. CARDIOVASCULAR: S1, S2 heard. Rate and rhythm regular. RESPIRATORY: Clear to auscultation. GASTROINTESTINAL: Abdomen is soft. MUSCULOSKELETAL: No tenderness. No edema. DERMATOLOGIC: No skin rash. NEUROLOGIC: Alert and awake and oriented X3. No focal neurologic deficits. Moving all the extremities. PSYCHIATRIC: Mood and affect normal. LABORATORY DATA: BUN 92, creatinine 10.9. ASSESSMENT AND PLAN: 1. End-stage renal disease elevated BUN. Plan is to have an HD treatment today if physical exam is successful for declotting. 2. Anemia. We will monitor hemoglobin. 3. Hypertension. 4. Edema. 5. Plan to have dialysis as tolerated. We will continue PD nightly, and we will have an HD if fistula is accessible. Job ID: [id number]
[2018-10-18] MEDS: Senokot S 8.6-50 MG TAB PO SCH ×3 (09:06→20:38)
[2018-10-18] MEDS: Allopurinol 100 MG TAB PO SCH (09:06)
[2018-10-18] MEDS: Enoxaparin Sodium 30 MG/0.3 ML SYRINGE SC SCH (09:06)
[2018-10-18] MEDS: Famotidine 20 MG TAB PO SCH (09:06)
[2018-10-18] MEDS: Amlodipine 5 MG TAB PO SCH ×2 (09:09→20:35)
[2018-10-18] MEDS: Carvedilol 25 MG TAB PO SCH ×2 (09:09→20:35)
--- NOTE | 2018-10-18 09:14 | PRG ---
DATE OF SERVICE: 10/18/2018 SUBJECTIVE: This morning, he is awake, alert, responsive, in no distress. He has a new access placed for dialysis in his right IJ. OBJECTIVE: VITAL SIGNS: Temperature 98, pulse 72, respiratory rate 18, saturations 98%, blood pressure 100/50. CHEST: Decreased breath sounds. No wheezing. CARDIAC: Normal S1 and S2. No gallops. ABDOMEN: Soft. IMAGING STUDIES: His chest x-ray post access shows no acute infiltrates. LABORATORY DATA: Creatinine is 10.9. ASSESSMENT: 1. Sepsis with Streptococcus. 2. Urinary tract infection. 3. Chronic renal failure. 4. Endocarditis. Pulmonary king, he looks stable. Nothing additional to offer. We will follow at a distance. Please call as needed. Job ID: [id number]
[2018-10-18] MEDS: Morphine 2 MG/ML SYRINGE SLOW IVP PRN ×2 (11:18→21:56)
--- NOTE | 2018-10-18 11:35 | SPC ---
DIALYSIS FISTULOGRAM LEFT UPPER EXTREMITY SONOGRAPHIC VASCULAR ACCESS: HISTORY: Renal failure. Difficulty in access left upper extremity dialysis fistula. Fluoroscopy time: 0.6 minutes. FINDINGS: After explaining the procedure and answering all questions, the left upper extremity was prepped and draped in usual sterile fashion. Sterile technique, buffered local anesthesia, sonographic guidance, and a 22-gauge needle were used to carefully access the left upper arm cephalic fistula jus t above the level of the antecubital fossa. A 4 Chinese micropuncture sheath was placed for imaging. The left upper arm cephalic dialysis fistula is widely patent with vigorous arterial flow. Two small branches project laterally from the fistula at the level of the mid and distal humeral shaft. Central venous outflow and superior vena cava are patent. Reflux angiography faintly opacifies the patent arteriovenous fistula. The crossing antecubital fossa vein is very large, at least as large as the cephalic fistula. It opacifies a large, patent brachial vein. The basilic vein is not well opacified. Sonographic evaluation of the inner arm after the procedure showed a very small basilic vein. It was not well opacified at the fistulogram. Catheter was removed and hemostasis obtained using direct pressure. Patient tolerated the procedure w ell and was returned in unchanged condition. IMPRESSION: Good arterial inflow and patency of the left upper arm cephalic dialysis fistula. A large antecubital fossa crossing vein steals much of the arterial flow to the large brachial vein. Basilic vein is very small and not opacified with reflux angiography. If surgical intervention is needed, perhaps rev ision of the arterial anastomosis to an isolated cephalic vein would be appropriate. Transcribed Date/Time: 10/18/2018 11:43 AM
[2018-10-18] MEDS ORDERED: Iopamidol 300 61% 50 ML VIAL FS ONE (13:39)
[2018-10-18] MEDS ORDERED: CEFAZOLIN 2 GM in Premix Bag 1 BAG IVPB SCH (16:45)
--- NOTE | 2018-10-18 16:59 | PRG ---
DATE OF SERVICE: 10/18/2018 SUBJECTIVE: Mr. Rodriguez today had a fistulogram. The fistula that I established in 2017, inflow proximal radial artery, outflow basilic and cephalic vein, has not been accessed. He has been doing peritoneal dialysis. He is now probably going to need to do hemodialysis. Attempts to access his fistula revealed low flow. Fistulogram today revealed outflow basilic and cephalic vein. PLAN: My plan would be to recommend revision of his left arm fistula with ligation of his basilic vein to direct all arterial inflow and the cephalic vein outflow. This would enhance dialysis efforts. This fistula could be accessed the same day or next day. He could continue to do PD, and we would leave his PD catheter in for now, in case he is able to return to PD in the future. I have discussed with Dr. Duron and the dialysis team, and we will plan that for tomorrow. Job ID: [id number]
--- NOTE | 2018-10-18 17:19 | PRG ---
DATE OF SERVICE: 10/18/2018 SUBJECTIVE: Less pain, still cannot bear weight on the right lower extremity. Following Dr. Bautitsa's recommendations. OBJECTIVE: VITAL SIGNS: T-Max of 100.1. He is now 98.6. BP 120/57 and pulse 71. GENERAL: Awake, alert, and oriented, in no distress. LUNGS: Clear. HEART: S1 and S2. Regular rate. ABDOMEN: Soft, not distended. EXTREMITIES: The areas of joint replacement are dressed. Dressing not removed at this time. LABORATORY DATA: White cell count is down to 9000, hemoglobin 10.6, and platelets are down to 310. No new microbiology information. Repeat blood cultures, negative. He had an AV shunt angiogram done because of issues with the dialysis access. There was evidence of good arterial inflow and patency of the cephalic dialysis fistula. There is a large antecubital fossa crossing vein that was feeling much of the arterial flow to the large brachial vein and perhaps revision of the arterial anastomosis to the cephalic vein would be appropriate. 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 The patient will need a transfer to either rehab or to the [facility] and the decision will depend on the ability of the patient to bear weight. I think if he cannot bear weight in the right lower extremity, he would be better off at the [facility]. In that case, he would have to have hemodialysis and the nurses at the [facility] would not be able to perform the peritoneal dialysis and the peritoneal dialysis nurses do not go to the [facility]. He should continue with Rocephin. A Mauricio catheter has been inserted and the end date of therapy for Rocephin is the end of October. After that, should be on Keflex and rifampin for 3 months and then switch to Keflex suppressive therapy indefinitely. Job ID: [id number]
--- NOTE | 2018-10-18 18:24 | PDOC.HOSPP ---
- Subjective Subjective: f/u for septic arthritis/joints with Group B strep spp s/p washout and hip revisions on current Rocephin. Feels better overall but still weak. Plan for rehab/SNF but likely needs HD instead of PD to qualify. - Objective Vital Signs & Weight: Vital Signs (12 hours) Temp Pulse Resp BP BP Pulse Ox 10/18/18 11:14 98.6 F 71 18 127/57 L 94 L 10/18/18 09:09 72 100/50 L 10/18/18 07:12 98.8 F 72 18 100/50 L 94 L Weight Admit Weight 223 lb Weight 210 lb 1.6 oz Most Recent Monitor Data Heart Rate from ECG 73 NIBP 104/54 NIBP BP-Mean 70 Respiration from ECG 18 SpO2 95 I&O: 10/17/18 10/18/18 10/19/18 06:59 06:59 06:59 Intake Total 1520 1700 Output Total 125 0 Balance 1395 1700 Result Diagrams: 10/18/18 06:30 10/18/18 06:30 Additional Labs: Accuchecks 10/18/18 10/18/18 10/17/18 11:19 05:21 21:01 POC Glucose 101 136 H 140 H Microbiology 10/03/18 20:52 Urine voided Urine Culture - Final Beta-hemolytic Streptococcus 10/03/18 17:37 Venous blood - Right Hand Blood Culture - Final Streptococcus agalactiae Gp. B 10/03/18 17:06 Venous blood - Right Hand Blood Culture - Final Streptococcus agalactiae Gp. B 10/05/18 11:09 Hip - Aspirate Bacterial Culture - Preliminary Streptococcus agalactiae Gp. B 10/05/18 08:40 Joint - Left Arm Body Fluid Culture - Preliminary 10/04/18 09:15 Peritoneal effluent Body Fluid Culture - Preliminary Laboratory Tests 10/03/18 10/04/18 10/04/18 15:10 06:36 06:36 WBC 16.9 H Band Neuts % (Manual) 26 H Potassium Creatinine 12.65 H 12.01 H 10/05/18 10/05/18 10/06/18 07:37 07:37 05:57 WBC 20.3 H Band Neuts % (Manual) 27 H Potassium 4.9 5.1 Creatinine 12.52 H 12.40 H 10/06/18 10/07/18 05:57 04:15 WBC 16.5 H Band Neuts % (Manual) 14 H 7 Potassium Creatinine ROS - Review of Systems All systems: All other ROS were reviewed and found negative. - Medication Medications: Active Medications Generic Name Dose Route Start Last Admin Trade Name Freq PRN Reason Stop Dose Admin Acetaminophen 650 mg 10/04/18 02:07 10/17/18 21:05 Tylenol PO 650 mg Q4H PRN Administration Headache/Fever/Mild Pain (1-3) Allopurinol 100 mg 10/04/18 09:00 10/18/18 09:06 Zyloprim PO 100 mg DAILY ROD Administration Amlodipine Besylate 5 mg 10/15/18 21:00 10/18/18 09:09 Norvasc PO Not Given BID ROD Carvedilol 12.5 mg 10/15/18 21:00 10/18/18 09:09 Coreg PO Not Given BID ROD Colchicine 0.3 mg 10/17/18 09:00 10/17/18 20:58 Colcrys PO 0.3 mg BID ROD Administration Enoxaparin Sodium 30 mg 10/04/18 09:00 10/18/18 09:06 Lovenox SC 30 mg 0900 ROD Administration Epoetin Carlitos-epbx 10,000 unit 10/15/18 11:00 10/15/18 13:36 Retacrit SC 10,000 unit Q7D ROD Administration Famotidine 20 mg 10/04/18 09:00 10/18/18 09:06 Pepcid PO 20 mg DAILY ROD Administration Heparin Sodium (Porcine) 500 units 10/18/18 05:13 10/18/18 06:29 Heparin Lock Flush 100 Units/Ml IVF 500 unit PRN PRN Administration Heparin Flush Ceftriaxone Sodium 2 gm/ 100 mls @ 200 mls/hr 10/08/18 21:00 10/17/18 20:58 Sodium Chloride IVPB 100 mls 2100 ROD Administration Sodium Chloride 1,000 mls @ 50 mls/hr 10/16/18 08:45 10/18/18 06:23 Normal Saline 0.9% IV 1,000 mls .Q20H ROD Administration Insulin Human Lispro 0 units 10/04/18 02:07 10/08/18 06:40 Humalog SC 2 unit .MILD SLIDING SCALE PRN Administration Mild Correctional Scale Morphine Sulfate 2 mg 10/09/18 22:03 10/18/18 11:18 Morphine SLOW IVP 2 mg Q4H PRN Administration Pain Senna/Docusate Sodium 2 tab 10/04/18 09:00 10/18/18 09:06 Senokot S PO 2 tab BID ROD Administration Sevelamer Carbonate 2,400 mg 10/13/18 17:00 10/18/18 17:33 Renvela PO 2,400 mg AC ROD Administration Sodium Chloride 10 ml 10/05/18 21:00 10/18/18 09:11 Flush - Normal Saline IVF Not Given Q12HR ROD - Exam NAD, awake alert Eye: PERRL, anicteric sclera ENT: normocephalic atraumatic, no oropharyngeal lesions Neck: supple, symmetric, no JVD Heart: RRR, no murmur, no gallops, no rubs Respiratory: CTAB, no wheezes, rhonchi (bibasilar rhonchi upper keen clear) Gastrointestinal: soft, non-tender, non-distended, normal bowel sounds Extremities: 1+ LE edema Skin: normal turgor Neurological: CN's grossly intact Psychiatric: normal behavior, A&O x 3 Hosp A/P (1) Septic arthritis Status: Acute Qualifiers: Septic arthritis location: shoulder Septic arthritis organism: streptococcal Laterality: left Qualified Code(s): M00.212 - Other streptococcal arthritis, left shoulder Plan: Continue Rocephin until 11/25/18 (2) Bacteremia Code(s): R78.81 - BACTEREMIA Status: Acute Plan: See above (3) Dyspnea Code(s): R06.00 - DYSPNEA, UNSPECIFIED Status: Acute Plan: Improved, continue volume mgmt, O2 prn (4) Uremia Code(s): N19 - UNSPECIFIED KIDNEY FAILURE Status: Chronic (5) Acute metabolic encephalopathy Code(s): G93.41 - METABOLIC ENCEPHALOPATHY Status: Acute Plan: Improving with uremia mgmt (6) Anemia due to chronic kidney disease Code(s): N18.9 - CHRONIC KIDNEY DISEASE, UNSPECIFIED; D63.1 - ANEMIA IN CHRONIC KIDNEY DISEASE Status: Chronic Qualifiers: Chronic kidney disease stage: on chronic dialysis Qualified Code(s): N18.6 - End stage renal disease; D63.1 - Anemia in chronic kidney disease; Z99.2 - Dependence on renal dialysis Plan: Plan for HD chronically (7) ESRD on peritoneal dialysis Code(s): N18.6 - END STAGE RENAL DISEASE; Z99.2 - DEPENDENCE ON RENAL DIALYSIS Status: Chronic Plan: AV fistula revision 10/19 pending, outpt coordination for HD pending - Plan plan discussed w/ family, continue antibiotics, PT/OT, 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
[2018-10-18] MEDS: cefTRIAXone\\ROCEPHIN 2 GM in Sodium Chloride 0.9% 100 ML IVPB SCH (20:34)
[2018-10-18] MEDS: Colchicine 0.3 MG TAB PO SCH (20:42)
[2018-10-19] MEDS: Sevelamer Carbonate 800 MG TAB PO SCH ×3 (06:24→17:44)
[2018-10-19 06:49] LABS: #Eosinphils 0.4 thou/uL (0.0-0.7); #Lymphocytes 0.6 thou/uL (1.20-3.40); #Monocytes 0.8 thou/uL (0.11-0.59); #Neutrophils 4.6 thou/uL (1.40-6.50); %Eosinophils 5.9 % (0.0-10.0); %Lymphocytes 9.5 % (21.0-51.0); %Monocytes 12.5 % (0.0-10.0); %Neutrophils 72.1 % (42.0-75.0); Hemoglobin 11.6 g/dL (14.0-18.0); Mean Corpuscular HGB CONC 30.7 g/dL (32.0-36.0); Mean Corpuscular Hemoglobin 31.2 pg (27.0-31.0); Mean Platelet Volume 7.4 fL (7.4-10.4); Platelet Count 306 thou/uL (130-400); RBC Distribution Width 13.6 % (11.5-14.5); Red Blood Cell (RBC) Count 3.72 mill/uL (4.70-6.10); White Blood Cell (WBC) Count 6.3 thou/uL (4.8-10.8)
[2018-10-19 07:09] LABS: Anion Gap 17 mmol/L (10-20); BUN (Urea Nitrogen) 65 mg/dL (8.4-25.7); Calc. Creatinine Clearance 12 mL/min (70-130); Calcium 9.7 mg/dL (7.8-10.44); Carbon Dioxide 26 mmol/L (23-31); Chloride 97 mmol/L (98-107); Estimated GFR-MDRD 6; Glucose 103 mg/dL (80-115); Potassium 3.8 mmol/L (3.5-5.1); Sodium 136 mmol/L (136-145)
[2018-10-19] MEDS: Allopurinol 100 MG TAB PO SCH (09:10)
[2018-10-19] MEDS: Amlodipine 5 MG TAB PO SCH ×2 (09:10→20:59)
[2018-10-19] MEDS: Famotidine 20 MG TAB PO SCH (09:10)
[2018-10-19] MEDS: Carvedilol 25 MG TAB PO SCH ×2 (09:11→20:58)
[2018-10-19] MEDS: Colchicine 0.3 MG TAB PO SCH ×2 (09:11→22:21)
[2018-10-19] MEDS: Senokot S 8.6-50 MG TAB PO SCH ×2 (09:11→20:59)
[2018-10-19] MEDS: Enoxaparin Sodium 30 MG/0.3 ML SYRINGE SC SCH (09:16)
[2018-10-19] MEDS: Sodium Chloride 0.9% 1,000 ML IV SCH (09:17)
[2018-10-19] MEDS: Morphine 2 MG/ML SYRINGE SLOW IVP PRN (10:38)
--- NOTE | 2018-10-19 12:26 | PRG ---
DATE OF SERVICE: 10/19/2018 SUBJECTIVE: Patient was seen and examined at bedside and overnight events noted. Patient denies any shortness of breath or chest pain or palpitation. No history of nausea or vomiting or diarrhea or fever or chills or cramps. OBJECTIVE: GENERAL: This is a well-built male, in no apparent distress. VITAL SIGNS: Temperature 99, pulse 68, respiratory rate 20, blood pressure 114/54. HEENT: Atraumatic, normocephalic. Oral mucosa is moist NECK: Supple. CARDIOVASCULAR: S1, S2 heard. Rate and rhythm regular. RESPIRATORY: Clear to auscultation. GASTROINTESTINAL: Abdomen is soft. MUSCULOSKELETAL: No tenderness. No edema. DERMATOLOGIC: No skin rash. NEUROLOGIC: Alert and awake and oriented X3. No focal neurologic deficits. Moving all the extremities. PSYCHIATRIC: Mood and affect normal. LABORATORY DATA: Potassium 3.8, BUN 65, and creatinine 8.7. ASSESSMENT AND PLAN: 1. End-stage renal disease. BUN is better, but the patient is going to skilled nursing, where PD cannot be done, so plan is to switch him to hemodialysis. I did talk with Dr. Otoole and he is going to have fistula evaluation and possible ligation, able to be used immediately, so plan is to have a shorter session of PD tonight and then hemodialysis tomorrow morning to try out the fistula. 2. Anemia. Monitor hemoglobin. Continue Epogen. 3. Hypertension, stable. 4. Edema . PLAN: Plan is to continue on dialysis as tolerated. We will switch to hemodialysis as needed. We will monitor closely. Job ID: [id number]
[2018-10-19] MEDS: Acetaminophen 325 MG TAB PO PRN (12:32)
--- NOTE | 2018-10-19 12:50 | RAD ---
TWO VIEWS RIGHT HIP: 10/19/18 HISTORY: Right hip pain. COMPARISON: 10/06/18. FINDINGS: There is a right hip prosthesis in place. Cerclage wires also transfix the proximal right femur. Yang sverse lucency proximal femoral diaphysis is again seen which may represent either no new fracture or dislocation is appreciated. Alignment of the prosthesis is overall similar to the prior exam. No oth er interval change. IMPRESSION: Right total hip prosthesis with appearance similar to the prior exam on 10/06/2018. Transverse lucency involving the proximal right femoral diaphysis is again seen. POS: [facility]
--- NOTE | 2018-10-19 12:55 | RAD ---
AP VIEW PELVIS: 10/19/18 HISTORY: Right hip pain. COMPARISON: 10/06/18. FINDINGS: Bilateral total hip prostheses are again noted and unchanged in position. Cerclage wires transfix the proximal right femur. There is transverse lucencies again seen in the proximal right femoral diaphys is, but this is a stable finding compared to study on 10/06/18 and may represent fracture although thi s is transfixed by the cerclage wires and the femoral component of the right hip prosthesis. No additional fracture is seen, and there is no dislocation seen. Radiopaque density medial to the le ft acetabulum is again seen likely related to methyl methacrylate (cement). Peritoneal dialysis vivian ter overlies the left hemipelvis. No other interval change. IMPRESSION: Bilateral total hip prostheses unchanged in position with stable transverse lucency in the proximal r ight femoral diaphysis unchanged since study on 10/06/18. POS: [facility]
[2018-10-19] MEDS ORDERED: Protamine Sulfate 50 MG/5 ML VIAL ONE (13:43)
[2018-10-19] MEDS ORDERED: Heparin 5,000 UNITS/ML VIAL ONE (13:43)
[2018-10-19] MEDS ORDERED: Bupivacaine HCl 0.5%/Epinephrine 1:200,000/PF 30 ml Vial ONE (13:43)
[2018-10-19] MEDS ORDERED: Lidocaine 2% PF 5 ML VIAL ONE (13:43)
[2018-10-19] MEDS ORDERED: Ioversol 68 % 50 ML VIAL ONE (13:43)
[2018-10-19] MEDS ORDERED: Midazolam HCl 2 mg/2 ml Vial ONE (13:44)
[2018-10-19] MEDS ORDERED: Fentanyl 100 MCG/2 ML VIAL ONE ×2 (13:45)
[2018-10-19] MEDS ORDERED: ceFAZolin Sodium (SDC) 2 GM/100 ML BAG ONE (14:09)
[2018-10-19] MEDS ORDERED: Promethazine HCl 25 MG/ML VIAL IM PRN (15:23)
[2018-10-19] MEDS ORDERED: Morphine Sulfate 2 MG/ML SYRINGE SLOW IVP PRN (15:23)
[2018-10-19] MEDS ORDERED: Promethazine HCl 25 MG/ML VIAL SLOW IVP PRN (15:23)
[2018-10-19] MEDS ORDERED: PACU-Morphine 4MG/ML VIAL SLOW IVP PRN (15:23)
[2018-10-19] MEDS ORDERED: Ondansetron HCl/PF 4 MG/2 ML Vial IVP PRN (15:23)
[2018-10-19] MEDS ORDERED: HYDROmorphone 2 MG/ML VIAL SLOW IVP PRN (15:23)
--- NOTE | 2018-10-19 18:16 | PDOC.HOSPP ---
- Subjective Subjective: f/u for Group B strep bacteremia with septic arthritis s/p hip revisions and L shoulder washout. Remains on Rocephin IV. Revision of AV fistula today. - Objective Vital Signs & Weight: Vital Signs (12 hours) Temp Pulse Resp BP BP Pulse Ox 10/19/18 10:50 99 F 68 20 114/54 L 94 L 10/19/18 09:10 71 118/57 L 10/19/18 07:36 98.5 F 71 18 118/57 L 94 L Weight Admit Weight 223 lb Weight 210 lb 1.6 oz Most Recent Monitor Data Heart Rate from ECG 73 NIBP 104/54 NIBP BP-Mean 70 Respiration from ECG 18 SpO2 95 I&O: 10/18/18 10/19/18 10/20/18 06:59 06:59 06:59 Intake Total 1700 1000 Output Total 0 0 Balance 1700 1000 Result Diagrams: 10/19/18 06:20 10/19/18 06:20 Additional Labs: Accuchecks 10/19/18 10/19/18 10/19/18 17:17 10:55 06:16 POC Glucose 95 93 105 10/19/18 00:43 POC Glucose 121 H Microbiology 10/03/18 20:52 Urine voided Urine Culture - Final Beta-hemolytic Streptococcus 10/03/18 17:37 Venous blood - Right Hand Blood Culture - Final Streptococcus agalactiae Gp. B 10/03/18 17:06 Venous blood - Right Hand Blood Culture - Final Streptococcus agalactiae Gp. B 10/05/18 11:09 Hip - Aspirate Bacterial Culture - Preliminary Streptococcus agalactiae Gp. B 10/05/18 08:40 Joint - Left Arm Body Fluid Culture - Preliminary 10/04/18 09:15 Peritoneal effluent Body Fluid Culture - Preliminary Laboratory Tests 10/03/18 10/04/18 10/04/18 15:10 06:36 06:36 WBC 16.9 H Band Neuts % (Manual) 26 H Potassium Creatinine 12.65 H 12.01 H 10/05/18 10/05/18 10/06/18 07:37 07:37 05:57 WBC 20.3 H Band Neuts % (Manual) 27 H Potassium 4.9 5.1 Creatinine 12.52 H 12.40 H 10/06/18 10/07/18 05:57 04:15 WBC 16.5 H Band Neuts % (Manual) 14 H 7 Potassium Creatinine ROS - Review of Systems All systems: All other ROS were reviewed and found negative. - Medication Medications: Active Medications Generic Name Dose Route Start Last Admin Trade Name Freq PRN Reason Stop Dose Admin Allopurinol 100 mg 10/04/18 09:00 10/19/18 09:10 Zyloprim PO 100 mg DAILY ROD Administration Amlodipine Besylate 5 mg 10/15/18 21:00 10/19/18 09:10 Norvasc PO 5 mg BID ROD Administration Carvedilol 12.5 mg 10/15/18 21:00 10/19/18 09:11 Coreg PO 12.5 mg BID ROD Administration Colchicine 0.3 mg 10/17/18 09:00 10/19/18 09:11 Colcrys PO 0.3 mg BID ROD Administration Enoxaparin Sodium 30 mg 10/04/18 09:00 10/19/18 09:16 Lovenox SC Not Given 0900 [facility] Epoetin Carlitos-epbx 10,000 unit 10/15/18 11:00 10/15/18 13:36 Retacrit SC 10,000 unit Q7D ROD Administration Famotidine 20 mg 10/04/18 09:00 10/19/18 09:10 Pepcid PO 20 mg DAILY ROD Administration Heparin Sodium (Porcine) 500 units 10/18/18 05:13 10/19/18 06:24 Heparin Lock Flush 100 Units/Ml IVF 500 unit PRN PRN Administration Heparin Flush Sodium Chloride 1,000 mls @ 50 mls/hr 10/16/18 08:45 10/19/18 09:17 Normal Saline 0.9% IV 1,000 mls .Q20H ROD Administration Insulin Human Lispro 0 units 10/04/18 02:07 10/08/18 06:40 Humalog SC 2 unit .MILD SLIDING SCALE PRN Administration Mild Correctional Scale Morphine Sulfate 2 mg 10/09/18 22:03 10/19/18 10:38 Morphine SLOW IVP 2 mg Q4H PRN Administration Pain Senna/Docusate Sodium 2 tab 10/04/18 09:00 10/19/18 09:11 Senokot S PO 2 tab BID ROD Administration Sevelamer Carbonate 2,400 mg 10/13/18 17:00 10/19/18 17:44 Renvela PO 2,400 mg AC ROD Administration Sodium Chloride 10 ml 10/05/18 21:00 10/19/18 10:03 Flush - Normal Saline IVF Not Given Q12HR ROD - Exam NAD, awake alert Eye: PERRL, anicteric sclera ENT: normocephalic atraumatic, no oropharyngeal lesions Neck: supple, symmetric, no JVD, no Thyromegaly Heart: RRR, no murmur, no gallops, no rubs Respiratory: no wheezes, normal chest expansion (bibasilar rhochi), no tachypnea Gastrointestinal: soft, non-tender, non-distended, normal bowel sounds (PD catheter in place) Extremities: no cyanosis, no clubbing, no edema, 1+ LE edema Neurological: CN's grossly intact, no new deficit Psychiatric: normal behavior, A&O x 3 Hosp A/P (1) Septic arthritis Status: Acute Qualifiers: Septic arthritis location: shoulder Septic arthritis organism: streptococcal Laterality: left Qualified Code(s): M00.212 - Other streptococcal arthritis, left shoulder Plan: s/p washout with hip revisions, continue Rocephin 2gm IV daily (2) Bacteremia Code(s): R78.81 - BACTEREMIA Status: Acute Plan: Group B strep spp, continue Rocephin (3) Dyspnea Code(s): R06.00 - DYSPNEA, UNSPECIFIED Status: Acute Plan: Improved, supportive mgmt (4) Uremia Code(s): N19 - UNSPECIFIED KIDNEY FAILURE Status: Chronic Plan: Improved with dialysis, transition to HD (5) Acute metabolic encephalopathy Code(s): G93.41 - METABOLIC ENCEPHALOPATHY Status: Acute (6) Anemia due to chronic kidney disease Code(s): N18.9 - CHRONIC KIDNEY DISEASE, UNSPECIFIED; D63.1 - ANEMIA IN CHRONIC KIDNEY DISEASE Status: Chronic Qualifiers: Chronic kidney disease stage: on chronic dialysis Qualified Code(s): N18.6 - End stage renal disease; D63.1 - Anemia in chronic kidney disease; Z99.2 - Dependence on renal dialysis (7) ESRD on peritoneal dialysis Code(s): N18.6 - END STAGE RENAL DISEASE; Z99.2 - DEPENDENCE ON RENAL DIALYSIS Status: Chronic Plan: Plan to transition to HD from PD - Plan plan discussed w/ family, continue antibiotics, PT/OT, hospital social worker, DVT proph w/SCDs Stable currently HD initiated with AV fistula revision PT/OT for mobilization Continue Colchicine CM for SNF options
[2018-10-19] MEDS: cefTRIAXone\\ROCEPHIN 2 GM in Sodium Chloride 0.9% 100 ML IVPB SCH (20:58)
[2018-10-19] MEDS ORDERED: cefTRIAXone\\ROCEPHIN 1 GM in Sodium Chloride 0.9% 100 ML IVPB SCH (21:00)
--- NOTE | 2018-10-19 21:02 | OP ---
DATE OF PROCEDURE: 10/19/2018 PREOPERATIVE DIAGNOSES: End-stage renal disease, inadequate peritoneal dialysis, left arm fistula malfunction with outflow, basilic and cephalic veins, upper arm, in need of revision, status post fistulogram yesterday. PROCEDURE PERFORMED: Revision of left arm fistula without thrombectomy. Ligation of basilic vein outflow directly and all arterial inflow through the cephalic vein, upper arm, to facilitate dialysis. ANESTHESIA: Regional, intravenous sedation. DESCRIPTION OF PROCEDURE: The patient was taken to the operating room where under left upper extremity regional anesthesia, left upper extremity was prepared with ChloraPrep and draped in routine fashion. Incision was made over the distal upper arm just above the antecubital fossa, anterior medial and carried down to the skin and subcutaneous tissue. Basilic vein was dissected free and ligated with 2-0 silk ties. Doppler signal revealed excellent flow in the cephalic vein. The patient tolerated the procedure well. Good hemostasis was obtained with cautery and the subcutaneous tissue was approximated with 3-0 Monocryl, skin with subdermal 4-0 Monocryl and Luxora glue applied. Note, the patient has been on peritoneal dialysis, but may need to go to rehab or assisted care facility and may need to be on hemodialysis for a period of time or permanently. Job ID: [id number]
[2018-10-20 05:51] LABS: Anion Gap 15 mmol/L (10-20); BUN (Urea Nitrogen) 67 mg/dL (8.4-25.7); Calc. Creatinine Clearance 12 mL/min (70-130); Calcium 9.6 mg/dL (7.8-10.44); Carbon Dioxide 26 mmol/L (23-31); Chloride 104 mmol/L (98-107); Estimated GFR-MDRD 6; Glucose 128 mg/dL (80-115); Potassium 3.3 mmol/L (3.5-5.1); Sodium 142 mmol/L (136-145)
[2018-10-20] MEDS: Sevelamer Carbonate 800 MG TAB PO SCH ×3 (06:35→16:43)
[2018-10-20 08:00] LABS: #Eosinphils 0.7 thou/uL (0.0-0.7); #Lymphocytes 0.8 thou/uL (1.20-3.40); #Monocytes 1.1 thou/uL (0.11-0.59); #Neutrophils 5.7 thou/uL (1.40-6.50); %Basophils 0.4 % (0.0-1.0); %Eosinophils 8.1 % (0.0-10.0); %Lymphocytes 9.6 % (21.0-51.0); %Monocytes 12.7 % (0.0-10.0); %Neutrophils 69.3 % (42.0-75.0); Hemoglobin 6.9 g/dL (14.0-18.0); Mean Corpuscular HGB CONC 32.5 g/dL (32.0-36.0); Mean Corpuscular Hemoglobin 32.3 pg (27.0-31.0); Mean Corpuscular Volume 99.4 fL (78.0-98.0); Mean Platelet Volume 7.2 fL (7.4-10.4); Platelet Count 365 thou/uL (130-400); RBC Distribution Width 13.2 % (11.5-14.5); Red Blood Cell (RBC) Count 2.13 mill/uL (4.70-6.10); White Blood Cell (WBC) Count 8.3 thou/uL (4.8-10.8)
[2018-10-20] MEDS: Carvedilol 25 MG TAB PO SCH ×2 (09:28→20:28)
[2018-10-20] MEDS: Allopurinol 100 MG TAB PO SCH (09:28)
[2018-10-20] MEDS: Famotidine 20 MG TAB PO SCH (09:28)
[2018-10-20] MEDS: Amlodipine 5 MG TAB PO SCH ×2 (09:28→20:29)
[2018-10-20] MEDS: Senokot S 8.6-50 MG TAB PO SCH ×2 (09:28→20:28)
[2018-10-20] MEDS: Enoxaparin Sodium 30 MG/0.3 ML SYRINGE SC SCH (09:29)
--- NOTE | 2018-10-20 09:29 | PRG ---
DATE OF SERVICE: 10/19/2018 SUBJECTIVE: Jesus is a 63-year-old white male, who is postop day 13 from an excisional revision bilateral hip arthroplasty secondary to septic arthritis. He is doing relatively well at this point. He has improved. He is now convalescing on the floor. OBJECTIVE: VITAL SIGNS: Temperature 98.5, pulse 71, respiratory rate 18, O2 saturation 94% on room air, and blood pressure 118/57. GENERAL: He is alert, oriented, responsive, and appropriate. He has not walked yet, but he has been sitting up, which is a bit of a challenge for him. He admits to discomfort in the right hip. Concern with his is over the external rotation, little bit shortening noted. IMAGING STUDIES: Plain AP pelvis and 2-view right hip was obtained, which demonstrated his acetabulum to be intact and his femoral trochanteric osteotomy to be intact and no noted. IMPRESSION: Postoperative day 13, bilateral septic arthroplasty for the hips with a left shoulder arthroscopy. PLAN: 1. AP pelvis appears normal. No dislocation, shortening, or failure of hardware is noted. 2. Recheck the patient tomorrow. Continue current care. Job ID: [id number]
[2018-10-20] MEDS: Colchicine 0.3 MG TAB PO SCH ×3 (09:36→23:44)
--- NOTE | 2018-10-20 09:37 | PRG ---
DATE OF SERVICE: 10/20/2018 SUBJECTIVE: Jesus Rodriguez is doing well today. He underwent a revision of left arm fistula. He had ligation of basilic vein outflow to direct all arterial inflow to cephalic vein. The cephalic vein fistula can be used for hemodialysis today. He has a Mauricio catheter in place right IJ. Plan at this time would be for him to follow up in my office in the future to remove his Mauricio catheter whenever use is necessary. He can use his left arm fistula for dialysis. His hemoglobin is 6.9. We will leave transfusion decisions to Medical Service. OBJECTIVE: LUNGS: Clear to auscultation. CARDIAC: Regular rate and rhythm without murmur or gallop. ABDOMEN: Soft. PLAN: Doing well at this point. I will see him from a surgical standpoint as needed. Use his left arm fistula as necessary. Continue peritoneal dialysis per Nephrology. I will see him in office in the future when Mauricio catheter is necessary to be removed. Please call if there are dialysis problems or issues. Job ID: [id number]
[2018-10-20] MEDS ORDERED: Ketorolac Tromethamine 30 MG/ML VIAL IVP PRN (10:00)
--- NOTE | 2018-10-20 11:15 | PRG ---
DATE OF SERVICE: 10/20/2018 SUBJECTIVE: Patient was seen and examined at bedside and overnight events noted. Patient denies any shortness of breath or chest pain or palpitation. No history of nausea or vomiting or diarrhea or fever or chills or cramps. OBJECTIVE: GENERAL: This is a well-built male, in no apparent distress. Vital signs: Temperature 98.3, pulse 62, respiratory rate 20, and blood pressure 109/52. HEENT: Atraumatic, normocephalic. Oral mucosa is moist NECK: Supple. CARDIOVASCULAR: S1, S2 heard. Rate and rhythm regular. RESPIRATORY: Clear to auscultation. GASTROINTESTINAL: Abdomen is soft. MUSCULOSKELETAL: No tenderness. No edema. DERMATOLOGIC: No skin rash. NEUROLOGIC: Alert and awake and oriented X3. No focal neurologic deficits. Moving all the extremities. PSYCHIATRIC: Mood and affect normal. LABORATORY DATA: Potassium 3.3, BUN is 67, creatinine is 9.1. ASSESSMENT AND PLAN: 1. End-stage renal disease. We will try dialysis today. Hemodialysis to try fistula. 2. We will hold PD for now. 3. Anemia. Monitor hemoglobin. Plan is to repeat hemoglobin. If it is low, we will transfuse. 4. Hypertension. 5. Edema, controlled. 6. The patient is feeling better. Uremia is better. We will continue on dialysis as tolerated. Plan is to have hemodialysis today. Job ID: [id number]
[2018-10-20 12:27] LABS: Hemoglobin 6.8 g/dL (14.0-18.0)
--- NOTE | 2018-10-20 20:09 | PDOC.HOSPP ---
- Subjective Subjective: f/u for ESRD initiating HD today. Tolerated session and feels ok. Received 2u PRBC's. - Objective Vital Signs & Weight: Vital Signs (12 hours) Temp Pulse Pulse Resp BP BP Pulse Ox 10/20/18 19:35 98.9 F 72 16 134/67 97 10/20/18 19:33 98.9 F 72 16 134/67 97 10/20/18 17:52 98.8 F 65 18 148/64 H 97 10/20/18 15:33 99.2 F 66 16 124/62 98 10/20/18 11:13 98.5 F 67 20 130/60 95 10/20/18 09:28 63 Weight Admit Weight 223 lb Weight 219 lb 9.286 oz Most Recent Monitor Data Heart Rate from ECG 73 NIBP 104/54 NIBP BP-Mean 70 Respiration from ECG 18 SpO2 95 I&O: 10/19/18 10/20/18 10/21/18 06:59 06:59 06:59 Intake Total 1000 1990 350 Output Total 0 830 Balance 1000 1160 350 Result Diagrams: 10/20/18 12:00 10/20/18 05:23 Additional Labs: Accuchecks 10/20/18 10/20/18 10/20/18 16:10 10:54 05:15 POC Glucose 91 114 H 131 H 10/19/18 21:18 POC Glucose 133 H Microbiology 10/03/18 20:52 Urine voided Urine Culture - Final Beta-hemolytic Streptococcus 10/03/18 17:37 Venous blood - Right Hand Blood Culture - Final Streptococcus agalactiae Gp. B 10/03/18 17:06 Venous blood - Right Hand Blood Culture - Final Streptococcus agalactiae Gp. B 10/05/18 11:09 Hip - Aspirate Bacterial Culture - Preliminary Streptococcus agalactiae Gp. B 10/05/18 08:40 Joint - Left Arm Body Fluid Culture - Preliminary 10/04/18 09:15 Peritoneal effluent Body Fluid Culture - Preliminary Laboratory Tests 10/03/18 10/04/18 10/04/18 15:10 06:36 06:36 WBC 16.9 H Band Neuts % (Manual) 26 H Potassium Creatinine 12.65 H 12.01 H 10/05/18 10/05/18 10/06/18 07:37 07:37 05:57 WBC 20.3 H Band Neuts % (Manual) 27 H Potassium 4.9 5.1 Creatinine 12.52 H 12.40 H 10/06/18 10/07/18 05:57 04:15 WBC 16.5 H Band Neuts % (Manual) 14 H 7 Potassium Creatinine ROS - Review of Systems All systems: All other ROS were reviewed and found negative. - Medication Medications: Active Medications Generic Name Dose Route Start Last Admin Trade Name Freq PRN Reason Stop Dose Admin Allopurinol 100 mg 10/04/18 09:00 10/20/18 09:28 Zyloprim PO 100 mg DAILY ROD Administration Amlodipine Besylate 5 mg 10/15/18 21:00 10/20/18 09:28 Norvasc PO 5 mg BID ROD Administration Carvedilol 12.5 mg 10/15/18 21:00 10/20/18 09:28 Coreg PO 12.5 mg BID ROD Administration Colchicine 0.3 mg 10/20/18 09:00 10/20/18 10:33 Colcrys PO 0.3 mg BID ROD Administration Enoxaparin Sodium 30 mg 10/04/18 09:00 10/20/18 09:29 Lovenox SC 30 mg 0900 ROD Administration Epoetin Carlitos-epbx 10,000 unit 10/15/18 11:00 10/15/18 13:36 Retacrit SC 10,000 unit Q7D ROD Administration Famotidine 20 mg 10/04/18 09:00 10/20/18 09:28 Pepcid PO 20 mg DAILY ROD Administration Heparin Sodium (Porcine) 500 units 10/18/18 05:13 10/20/18 05:14 Heparin Lock Flush 100 Units/Ml IVF 500 unit PRN PRN Administration Heparin Flush Ceftriaxone Sodium 2 gm/ 100 mls @ 200 mls/hr 10/19/18 21:00 10/19/18 20:58 Sodium Chloride IVPB 100 mls Q24HR ROD Administration Insulin Human Lispro 0 units 10/04/18 02:07 10/08/18 06:40 Humalog SC 2 unit .MILD SLIDING SCALE PRN Administration Mild Correctional Scale Senna/Docusate Sodium 2 tab 10/04/18 09:00 10/20/18 09:28 Senokot S PO 2 tab BID ROD Administration Sevelamer Carbonate 2,400 mg 10/13/18 17:00 10/20/18 16:43 Renvela PO 2,400 mg AC ROD Administration Sodium Chloride 10 ml 10/05/18 21:00 10/20/18 09:29 Flush - Normal Saline IVF Not Given Q12HR ROD - Exam NAD, awake alert Eye: PERRL, anicteric sclera ENT: normocephalic atraumatic, no oropharyngeal lesions Neck: supple, symmetric, no JVD, no Thyromegaly Heart: RRR, no murmur, no gallops, no rubs Respiratory: CTAB, no wheezes, no rales, no ronchi, no tachypnea Gastrointestinal: soft, non-tender, non-distended, normal bowel sounds (PD catheter in place) Extremities: 1+ LE edema (R elbow edema) Neurological: CN's grossly intact, no focal deficits Psychiatric: normal behavior, A&O x 3 Hosp A/P (1) Septic arthritis Status: Acute Qualifiers: Septic arthritis location: shoulder Septic arthritis organism: streptococcal Laterality: left Qualified Code(s): M00.212 - Other streptococcal arthritis, left shoulder Plan: continue Rocephin IV (2) Bacteremia Code(s): R78.81 - BACTEREMIA Status: Acute Plan: See above #1 (3) Dyspnea Code(s): R06.00 - DYSPNEA, UNSPECIFIED Status: Acute Plan: Improved with HD (4) Uremia Code(s): N19 - UNSPECIFIED KIDNEY FAILURE Status: Chronic Plan: Improved with HD (5) Acute metabolic encephalopathy Code(s): G93.41 - METABOLIC ENCEPHALOPATHY Status: Acute (6) Anemia due to chronic kidney disease Code(s): N18.9 - CHRONIC KIDNEY DISEASE, UNSPECIFIED; D63.1 - ANEMIA IN CHRONIC KIDNEY DISEASE Status: Chronic Qualifiers: Chronic kidney disease stage: on chronic dialysis Qualified Code(s): N18.6 - End stage renal disease; D63.1 - Anemia in chronic kidney disease; Z99.2 - Dependence on renal dialysis Plan: 2u PRBC's today, serial H/H monitoring (7) ESRD on peritoneal dialysis Code(s): N18.6 - END STAGE RENAL DISEASE; Z99.2 - DEPENDENCE ON RENAL DIALYSIS Status: Chronic Plan: Converting to HD - Plan plan discussed w/ family, continue antibiotics, PT/OT, pediatric social worker Stable currently Continue Rocephin IV HD per Renal service PT/OT for mobilization Toradol/Colchicine for gouty arthropathy AM lab: BMP, CBC
[2018-10-20] MEDS: cefTRIAXone\\ROCEPHIN 2 GM in Sodium Chloride 0.9% 100 ML IVPB SCH (20:29)
[2018-10-21 03:28] LABS: #Eosinphils 0.6 thou/uL (0.0-0.7); #Lymphocytes 1.1 thou/uL (1.20-3.40); #Monocytes 1.2 thou/uL (0.11-0.59); %Basophils 0.2 % (0.0-1.0); %Eosinophils 6.8 % (0.0-10.0); %Lymphocytes 12.1 % (21.0-51.0); %Monocytes 13.5 % (0.0-10.0); %Neutrophils 67.5 % (42.0-75.0); Mean Corpuscular HGB CONC 33.8 g/dL (32.0-36.0); Mean Corpuscular Hemoglobin 32.1 pg (27.0-31.0); Mean Corpuscular Volume 94.9 fL (78.0-98.0); Mean Platelet Volume 6.8 fL (7.4-10.4); Platelet Count 384 thou/uL (130-400); RBC Distribution Width 14.6 % (11.5-14.5); White Blood Cell (WBC) Count 8.8 thou/uL (4.8-10.8)
[2018-10-21 03:44] LABS: Anion Gap 14 mmol/L (10-20); BUN (Urea Nitrogen) 50 mg/dL (8.4-25.7); Calc. Creatinine Clearance 16 mL/min (70-130); Calcium 9.8 mg/dL (7.8-10.44); Carbon Dioxide 28 mmol/L (23-31); Chloride 101 mmol/L (98-107); Estimated GFR-MDRD 8; Glucose 85 mg/dL (80-115); Potassium 3.9 mmol/L (3.5-5.1); Sodium 139 mmol/L (136-145)
[2018-10-21] MEDS: Sevelamer Carbonate 800 MG TAB PO SCH ×3 (06:45→17:19)
[2018-10-21] MEDS: Allopurinol 100 MG TAB PO SCH (09:19)
[2018-10-21] MEDS: Senokot S 8.6-50 MG TAB PO SCH ×2 (09:20→21:25)
[2018-10-21] MEDS: Carvedilol 25 MG TAB PO SCH ×2 (09:20→21:27)
[2018-10-21] MEDS: Famotidine 20 MG TAB PO SCH (09:21)
[2018-10-21] MEDS: Amlodipine 5 MG TAB PO SCH ×2 (09:21→21:26)
[2018-10-21] MEDS: Enoxaparin Sodium 30 MG/0.3 ML SYRINGE SC SCH (09:21)
[2018-10-21] MEDS: Colchicine 0.3 MG TAB PO SCH ×2 (09:22→21:29)
--- NOTE | 2018-10-21 17:01 | PRG ---
DATE OF SERVICE: 10/21/2018 SUBJECTIVE: Patient was seen and examined at bedside and overnight events noted. Patient denies any shortness of breath or chest pain or palpitation. No history of nausea or vomiting or diarrhea or fever or chills or cramps. OBJECTIVE: GENERAL: This is a well-built male, in no apparent distress. VITAL SIGNS: Temperature 98.6. Heart rate 60. Respiratory rate 16. Blood pressure /65. HEENT: Atraumatic, normocephalic. Oral mucosa is moist NECK: Supple. CARDIOVASCULAR: S1, S2 heard. Rate and rhythm regular. RESPIRATORY: Clear to auscultation. GASTROINTESTINAL: Abdomen is soft. MUSCULOSKELETAL: No tenderness. No edema. DERMATOLOGIC: No skin rash. NEUROLOGIC: Alert and awake and oriented X3. No focal neurologic deficits. Moving all the extremities. PSYCHIATRIC: Mood and affect normal. LABORATORY DATA: Potassium is 3.9, BUN is 50, creatinine is 6.7. ASSESSMENT AND PLAN: 1. End-stage renal disease. We will continue on hemodialysis as tolerated. We will most likely plan for tomorrow. We will hold PD for now, need PD catheter flush every week. 2. Anemia. Monitor hemoglobin, status post transfusion. 3. Hypertension. 4. Edema. Plan to continue on hemodialysis as tolerated. Job ID: [id number]
--- NOTE | 2018-10-21 18:16 | PDOC.HOSPP ---
- Subjective Subjective: f/u for ESRD initiated on HD and tolerating currently. Continues on Rocephin for Grp B strep septic arthritis/bacteremia. - Objective Vital Signs & Weight: Vital Signs (12 hours) Temp Pulse Resp BP Pulse Ox 10/21/18 15:25 98.8 F 64 20 141/65 H 98 10/21/18 12:08 98.6 F 60 16 132/65 97 10/21/18 07:50 98.6 F 67 20 145/67 H 96 Weight Admit Weight 223 lb Weight 210 lb Most Recent Monitor Data Heart Rate from ECG 73 NIBP 104/54 NIBP BP-Mean 70 Respiration from ECG 18 SpO2 95 I&O: 10/20/18 10/21/18 10/22/18 06:59 06:59 06:59 Intake Total 1990 1230 Output Total 830 Balance 1160 1230 Result Diagrams: 10/21/18 03:14 10/21/18 03:14 Additional Labs: Accuchecks 10/21/18 10/21/18 10/21/18 15:34 10:56 06:09 POC Glucose 91 93 84 10/20/18 20:37 POC Glucose 116 H Microbiology 10/03/18 20:52 Urine voided Urine Culture - Final Beta-hemolytic Streptococcus 10/03/18 17:37 Venous blood - Right Hand Blood Culture - Final Streptococcus agalactiae Gp. B 10/03/18 17:06 Venous blood - Right Hand Blood Culture - Final Streptococcus agalactiae Gp. B 10/05/18 11:09 Hip - Aspirate Bacterial Culture - Preliminary Streptococcus agalactiae Gp. B 10/05/18 08:40 Joint - Left Arm Body Fluid Culture - Preliminary 10/04/18 09:15 Peritoneal effluent Body Fluid Culture - Preliminary Laboratory Tests 10/03/18 10/04/18 10/04/18 15:10 06:36 06:36 WBC 16.9 H Band Neuts % (Manual) 26 H Potassium Creatinine 12.65 H 12.01 H 10/05/18 10/05/18 10/06/18 07:37 07:37 05:57 WBC 20.3 H Band Neuts % (Manual) 27 H Potassium 4.9 5.1 Creatinine 12.52 H 12.40 H 10/06/18 10/07/18 05:57 04:15 WBC 16.5 H Band Neuts % (Manual) 14 H 7 Potassium Creatinine ROS - Review of Systems All systems: All other ROS were reviewed and found negative. - Medication Medications: Active Medications Generic Name Dose Route Start Last Admin Trade Name Roney PRN Reason Stop Dose Admin Allopurinol 100 mg 10/04/18 09:00 10/21/18 09:19 Zyloprim PO 100 mg DAILY ROD Administration Amlodipine Besylate 5 mg 10/15/18 21:00 10/21/18 09:21 Norvasc PO 5 mg BID ROD Administration Carvedilol 12.5 mg 10/15/18 21:00 10/21/18 09:20 Coreg PO 12.5 mg BID ROD Administration Colchicine 0.3 mg 10/20/18 09:00 10/21/18 09:22 Colcrys PO Not Given BID [facility] Enoxaparin Sodium 30 mg 10/04/18 09:00 10/21/18 09:21 Lovenox SC 30 mg 0900 ROD Administration Epoetin Carlitos-epbx 10,000 unit 10/15/18 11:00 10/15/18 13:36 Retacrit SC 10,000 unit Q7D ROD Administration Famotidine 20 mg 10/04/18 09:00 10/21/18 09:21 Pepcid PO 20 mg DAILY [facility] Administration Heparin Sodium (Porcine) 500 units 10/18/18 05:13 10/21/18 03:20 Heparin Lock Flush 100 Units/Ml IVF 500 unit PRN PRN Administration Heparin Flush Ceftriaxone Sodium 2 gm/ 100 mls @ 200 mls/hr 10/19/18 21:00 10/20/18 20:29 Sodium Chloride IVPB 100 mls Q24HR ROD Administration Insulin Human Lispro 0 units 10/04/18 02:07 10/08/18 06:40 Humalog SC 2 unit .MILD SLIDING SCALE PRN Administration Mild Correctional Scale Senna/Docusate Sodium 2 tab 10/04/18 09:00 10/21/18 09:20 Senokot S PO 2 tab BID [facility] Administration Sevelamer Carbonate 2,400 mg 10/13/18 17:00 10/21/18 17:19 Renvela PO 2,400 mg AC ROD Administration Sodium Chloride 10 ml 10/05/18 21:00 10/20/18 23:45 Flush - Normal Saline IVF Not Given Q12HR ROD - Exam NAD, awake alert Eye: PERRL, anicteric sclera ENT: normocephalic atraumatic, no oropharyngeal lesions Neck: supple, symmetric, no JVD, no Thyromegaly Heart: RRR, no murmur, no gallops, no rubs Respiratory: CTAB, no wheezes, no rales, no ronchi Gastrointestinal: soft, non-tender, non-distended, normal bowel sounds (PD catheter in place) Extremities: no cyanosis, no edema Skin: normal turgor Neurological: CN's grossly intact, no new deficit Musculoskeletal: generalized weakness Psychiatric: normal behavior, A&O x 3 Hosp A/P (1) Septic arthritis Status: Acute Qualifiers: Septic arthritis location: shoulder Septic arthritis organism: streptococcal Laterality: left Qualified Code(s): M00.212 - Other streptococcal arthritis, left shoulder Plan: Continue Rocephin, ROM exercises, pain control (2) Bacteremia Code(s): R78.81 - BACTEREMIA Status: Acute Plan: Resolving with IV Rocephin (3) Dyspnea Code(s): R06.00 - DYSPNEA, UNSPECIFIED Status: Acute Plan: Improved with volume removal, O2 PRN (4) Uremia Code(s): N19 - UNSPECIFIED KIDNEY FAILURE Status: Chronic Plan: Improving with HD (5) Acute metabolic encephalopathy Code(s): G93.41 - METABOLIC ENCEPHALOPATHY Status: Acute Plan: Improving with HD (6) Anemia due to chronic kidney disease Code(s): N18.9 - CHRONIC KIDNEY DISEASE, UNSPECIFIED; D63.1 - ANEMIA IN CHRONIC KIDNEY DISEASE Status: Chronic Qualifiers: Chronic kidney disease stage: on chronic dialysis Qualified Code(s): N18.6 - End stage renal disease; D63.1 - Anemia in chronic kidney disease; Z99.2 - Dependence on renal dialysis Plan: s/p 3u total PRBC's, H/H currently stable (7) ESRD on peritoneal dialysis Code(s): N18.6 - END STAGE RENAL DISEASE; Z99.2 - DEPENDENCE ON RENAL DIALYSIS Status: Chronic Plan: Converting to HD for senior care outpt mgmt - Plan plan discussed w/ family, continue antibiotics, PT/OT, drug abuse social worker, DVT proph w/SCDs Stable currently Continue Rocephin IV PT for ROM exercises CM for SNF options HD per Renal service AM lab: BMP, CBC
[2018-10-21] MEDS: cefTRIAXone\\ROCEPHIN 2 GM in Sodium Chloride 0.9% 100 ML IVPB SCH (21:25)
[2018-10-22 04:55] LABS: #Eosinphils 0.7 thou/uL (0.0-0.7); #Lymphocytes 1.1 thou/uL (1.20-3.40); #Monocytes 1.1 thou/uL (0.11-0.59); #Neutrophils 5.9 thou/uL (1.40-6.50); %Basophils 0.3 % (0.0-1.0); %Eosinophils 8.4 % (0.0-10.0); %Lymphocytes 12.2 % (21.0-51.0); %Monocytes 11.9 % (0.0-10.0); %Neutrophils 67.2 % (42.0-75.0); Hemoglobin 8.6 g/dL (14.0-18.0); Mean Corpuscular HGB CONC 34.1 g/dL (32.0-36.0); Mean Corpuscular Hemoglobin 32.3 pg (27.0-31.0); Mean Corpuscular Volume 94.6 fL (78.0-98.0); Mean Platelet Volume 6.8 fL (7.4-10.4); Platelet Count 349 thou/uL (130-400); RBC Distribution Width 14.1 % (11.5-14.5); Red Blood Cell (RBC) Count 2.67 mill/uL (4.70-6.10); White Blood Cell (WBC) Count 8.8 thou/uL (4.8-10.8)
[2018-10-22 05:22] LABS: Anion Gap 16 mmol/L (10-20); BUN (Urea Nitrogen) 66 mg/dL (8.4-25.7); Calc. Creatinine Clearance 12 mL/min (70-130); Calcium 9.9 mg/dL (7.8-10.44); Carbon Dioxide 27 mmol/L (23-31); Chloride 100 mmol/L (98-107); Estimated GFR-MDRD 6; Glucose 83 mg/dL (80-115); Potassium 3.8 mmol/L (3.5-5.1); Sodium 139 mmol/L (136-145)
[2018-10-22] MEDS: Sevelamer Carbonate 800 MG TAB PO SCH ×3 (06:31→18:34)
[2018-10-22] MEDS: Allopurinol 100 MG TAB PO SCH (08:05)
[2018-10-22] MEDS: Senokot S 8.6-50 MG TAB PO SCH ×2 (08:05→20:56)
[2018-10-22] MEDS: Famotidine 20 MG TAB PO SCH (08:05)
[2018-10-22] MEDS: Amlodipine 5 MG TAB PO SCH ×2 (08:05→20:57)
[2018-10-22] MEDS: Carvedilol 25 MG TAB PO SCH ×2 (08:06→20:57)
[2018-10-22] MEDS: Enoxaparin Sodium 30 MG/0.3 ML SYRINGE SC SCH (08:06)
--- NOTE | 2018-10-22 10:01 | PRG ---
DATE OF SERVICE: 10/22/2018 SUBJECTIVE: Patient was seen and examined at bedside and overnight events noted. Patient denies any shortness of breath or chest pain or palpitation. No history of nausea or vomiting or diarrhea or fever or chills or cramps. OBJECTIVE: GENERAL: This is a well-built male, in no apparent distress. VITAL SIGNS: Temperature 98.5. Heart rate 65. Respiratory rate 19. Blood pressure 127/65. HEENT: Atraumatic, normocephalic. Oral mucosa is moist NECK: Supple. CARDIOVASCULAR: S1, S2 heard. Rate and rhythm regular. RESPIRATORY: Clear to auscultation. GASTROINTESTINAL: Abdomen is soft. MUSCULOSKELETAL: No tenderness. No edema. DERMATOLOGIC: No skin rash. NEUROLOGIC: Alert and awake and oriented X3. No focal neurologic deficits. Moving all the extremities. PSYCHIATRIC: Mood and affect normal. LABORATORY DATA: Potassium 3.8, BUN is 66, and creatinine is 8.9. ASSESSMENT AND PLAN: 1. End-stage renal disease. We will continue on dialysis as tolerated. Plan to have hemodialysis. We will also have PD catheter flushed. 2. Anemia. 3. Hypertension. 4. Edema. We will continue on hemodialysis as tolerated. Monitor hemoglobin. Job ID: [id number]
[2018-10-22] MEDS: EPOETIN ALFA-EPBX (ESRD) 10,000 UNIT/ML VIAL SC SCH (15:51)
[2018-10-22] MEDS: Colchicine 0.3 MG TAB PO SCH ×2 (15:51→20:56)
--- NOTE | 2018-10-22 16:11 | PDOC.HOSPP ---
- Subjective Subjective: Doing ok. Tired after HD. No other complaints. - Objective Vital Signs & Weight: Vital Signs (12 hours) Temp Pulse Resp BP Pulse Ox 10/22/18 15:15 98.6 F 65 16 133/58 L 96 10/22/18 14:01 98.7 F 64 16 131/54 L 96 10/22/18 07:25 98.4 F 67 16 143/72 H 97 Weight Admit Weight 223 lb Weight 215 lb 4.8 oz Most Recent Monitor Data Heart Rate from ECG 73 NIBP 104/54 NIBP BP-Mean 70 Respiration from ECG 18 SpO2 95 I&O: 10/21/18 10/22/18 10/23/18 06:59 06:59 06:59 Intake Total 1230 800 Balance 1230 800 Result Diagrams: 10/22/18 04:41 10/22/18 04:41 Additional Labs: Accuchecks 10/21/18 10/21/18 20:30 15:34 POC Glucose 140 H 91 ROS - Review of Systems All systems: All other ROS were reviewed and found negative. - Medication Medications: Active Medications Generic Name Dose Route Start Last Admin Trade Name Freq PRN Reason Stop Dose Admin Allopurinol 100 mg 10/04/18 09:00 10/22/18 08:05 Zyloprim PO 100 mg DAILY ROD Administration Amlodipine Besylate 5 mg 10/15/18 21:00 10/22/18 08:05 Norvasc PO 5 mg BID ROD Administration Carvedilol 12.5 mg 10/15/18 21:00 10/22/18 08:06 Coreg PO 12.5 mg BID ROD Administration Colchicine 0.3 mg 10/20/18 09:00 10/22/18 15:51 Colcrys PO Not Given BID [facility] Enoxaparin Sodium 30 mg 10/04/18 09:00 10/22/18 08:06 Lovenox SC 30 mg 0900 ROD Administration Epoetin Carlitos-epbx 10,000 unit 10/15/18 11:00 10/22/18 15:51 Retacrit SC 10,000 unit Q7D ROD Administration Famotidine 20 mg 10/04/18 09:00 10/22/18 08:05 Pepcid PO 20 mg DAILY [facility] Administration Heparin Sodium (Porcine) 500 units 10/18/18 05:13 10/21/18 21:27 Heparin Lock Flush 100 Units/Ml IVF 500 unit PRN PRN Administration Heparin Flush Ceftriaxone Sodium 2 gm/ 100 mls @ 200 mls/hr 10/19/18 21:00 10/21/18 21:25 Sodium Chloride IVPB 100 mls Q24HR ROD Administration Insulin Human Lispro 0 units 10/04/18 02:07 10/08/18 06:40 Humalog SC 2 unit .MILD SLIDING SCALE PRN Administration Mild Correctional Scale Senna/Docusate Sodium 2 tab 10/04/18 09:00 10/22/18 08:05 Senokot S PO 2 tab BID ROD Administration Sevelamer Carbonate 2,400 mg 10/13/18 17:00 10/22/18 14:03 Renvela PO 2,400 mg AC ROD Administration Sodium Chloride 10 ml 10/05/18 21:00 10/21/18 21:27 Flush - Normal Saline IVF 10 ml Q12HR ROD Administration Sodium Chloride 10 ml 10/05/18 10:01 10/21/18 21:27 Flush - Normal Saline IVF 10 ml PRN PRN Administration Saline Flush - Exam NAD Heart: RRR, no murmur, no gallops, no rubs, normal peripheral pulses Respiratory: CTAB, no wheezes, no rales, no ronchi, normal chest expansion, no tachypnea, normal percussion Gastrointestinal: soft, non-tender, non-distended, normal bowel sounds, no palpable masses, no hepatomegaly, no splenomegaly, no bruit Extremities: no edema Musculoskeletal: normal tone Psychiatric: normal affect, normal behavior, A&O x 3 Hosp A/P (1) Bacteremia Code(s): R78.81 - BACTEREMIA Status: Acute (2) HTN (hypertension) Code(s): I10 - ESSENTIAL (PRIMARY) HYPERTENSION Status: Acute Qualifiers: Hypertension type: essential hypertension Qualified Code(s): I10 - Essential (primary) hypertension (3) Septic arthritis Status: Acute Qualifiers: Septic arthritis location: shoulder Septic arthritis organism: streptococcal Laterality: left Qualified Code(s): M00.212 - Other streptococcal arthritis, left shoulder (4) Gout Code(s): M10.9 - GOUT, UNSPECIFIED Status: Chronic Qualifiers: Gout site: unspecified site (5) Acute gouty arthritis Code(s): M10.9 - GOUT, UNSPECIFIED Status: Acute (6) Cellulitis of left elbow Code(s): L03.114 - CELLULITIS OF LEFT UPPER LIMB Status: Acute (7) Anemia due to chronic kidney disease Code(s): N18.9 - CHRONIC KIDNEY DISEASE, UNSPECIFIED; D63.1 - ANEMIA IN CHRONIC KIDNEY DISEASE Status: Chronic Qualifiers: Chronic kidney disease stage: on chronic dialysis Qualified Code(s): N18.6 - End stage renal disease; D63.1 - Anemia in chronic kidney disease; Z99.2 - Dependence on renal dialysis (8) ESRD on peritoneal dialysis Code(s): N18.6 - END STAGE RENAL DISEASE; Z99.2 - DEPENDENCE ON RENAL DIALYSIS Status: Chronic - Plan ESRD on chronic PD. Strep bacteremia. Seeded joints. On IV Rocephin til the end of October, the po's per Dr. Gallo. Converted to HD to accommodate placement. Adjusting. Stop FSBG's as they are routinely normal.
[2018-10-22] MEDS ORDERED: Calcium Carbonate 500 MG ChewTAB PO PRN (18:24)
[2018-10-22] MEDS: cefTRIAXone\\ROCEPHIN 2 GM in Sodium Chloride 0.9% 100 ML IVPB SCH (20:56)
[2018-10-23 03:59] LABS: #Basophils 0.1 thou/uL (0.0-0.2); #Eosinphils 0.7 thou/uL (0.0-0.7); #Lymphocytes 1.2 thou/uL (1.20-3.40); #Monocytes 1.3 thou/uL (0.11-0.59); #Neutrophils 6.7 thou/uL (1.40-6.50); %Basophils 0.6 % (0.0-1.0); %Eosinophils 7.4 % (0.0-10.0); %Lymphocytes 11.7 % (21.0-51.0); %Monocytes 13.1 % (0.0-10.0); %Neutrophils 67.2 % (42.0-75.0); Hemoglobin 8.8 g/dL (14.0-18.0); Mean Corpuscular HGB CONC 33.5 g/dL (32.0-36.0); Mean Corpuscular Hemoglobin 31.8 pg (27.0-31.0); Mean Corpuscular Volume 94.8 fL (78.0-98.0); Mean Platelet Volume 6.8 fL (7.4-10.4); Platelet Count 355 thou/uL (130-400); RBC Distribution Width 13.8 % (11.5-14.5); Red Blood Cell (RBC) Count 2.78 mill/uL (4.70-6.10)
[2018-10-23 04:16] LABS: Anion Gap 13 mmol/L (10-20); BUN (Urea Nitrogen) 42 mg/dL (8.4-25.7); Calc. Creatinine Clearance 16 mL/min (70-130); Calcium 9.7 mg/dL (7.8-10.44); Carbon Dioxide 29 mmol/L (23-31); Chloride 101 mmol/L (98-107); Estimated GFR-MDRD 9; Glucose 82 mg/dL (80-115); Potassium 3.8 mmol/L (3.5-5.1); Sodium 139 mmol/L (136-145)
[2018-10-23] MEDS: Sevelamer Carbonate 800 MG TAB PO SCH ×3 (07:48→17:30)
[2018-10-23] MEDS: Carvedilol 25 MG TAB PO SCH ×2 (09:30→22:02)
[2018-10-23] MEDS: Allopurinol 100 MG TAB PO SCH (09:30)
[2018-10-23] MEDS: Senokot S 8.6-50 MG TAB PO SCH ×2 (09:31→22:04)
[2018-10-23] MEDS: Famotidine 20 MG TAB PO SCH (09:31)
[2018-10-23] MEDS: Amlodipine 5 MG TAB PO SCH ×2 (09:31→22:03)
[2018-10-23] MEDS: Enoxaparin Sodium 30 MG/0.3 ML SYRINGE SC SCH (09:32)
[2018-10-23] MEDS: Colchicine 0.3 MG TAB PO SCH ×2 (10:10→22:04)
--- NOTE | 2018-10-23 12:09 | PDOC.HOSPP ---
- Subjective Subjective: Reports some right knee pain. He believes it is likely related to his gout. Started yesterday, but a little better today. Took colchicine yesterday. Had not been on it. - Objective Vital Signs & Weight: Vital Signs (12 hours) Temp Pulse Resp BP BP BP Pulse Ox 10/23/18 11:48 99.3 F 70 16 137/57 L 95 10/23/18 09:31 71 150/61 H 10/23/18 08:00 97 10/23/18 07:29 98.5 F 71 16 150/61 H 97 10/23/18 03:58 99 F 68 16 153/65 H 96 Weight Admit Weight 223 lb Weight 217 lb 11.2 oz Most Recent Monitor Data Heart Rate from ECG 73 NIBP 104/54 NIBP BP-Mean 70 Respiration from ECG 18 SpO2 95 I&O: 10/22/18 10/23/18 10/24/18 06:59 06:59 06:59 Intake Total 800 100 Output Total 75 Balance 800 25 Result Diagrams: 10/23/18 03:48 10/23/18 03:48 Additional Labs: Accuchecks 10/22/18 15:16 POC Glucose 86 ROS - Review of Systems All systems: All other ROS were reviewed and found negative. - Medication Medications: Active Medications Generic Name Dose Route Start Last Admin Trade Name Roney PRN Reason Stop Dose Admin Allopurinol 100 mg 10/04/18 09:00 10/23/18 09:30 Zyloprim PO 100 mg DAILY ROD Administration Amlodipine Besylate 5 mg 10/15/18 21:00 10/23/18 09:31 Norvasc PO 5 mg BID ROD Administration Calcium Carbonate 1,000 mg 10/22/18 18:24 10/22/18 18:32 Tums PO 1,000 mg Q4H PRN Administration Indigestion Carvedilol 12.5 mg 10/15/18 21:00 10/23/18 09:30 Coreg PO 12.5 mg BID ROD Administration Colchicine 0.3 mg 10/20/18 09:00 10/23/18 10:10 Colcrys PO 0.3 mg BID ROD Administration Enoxaparin Sodium 30 mg 10/04/18 09:00 10/23/18 09:32 Lovenox SC 30 mg 0900 ROD Administration Epoetin Carlitos-epbx 10,000 unit 10/15/18 11:00 10/22/18 15:51 Retacrit SC 10,000 unit Q7D ROD Administration Famotidine 20 mg 10/04/18 09:00 10/23/18 09:31 Pepcid PO 20 mg DAILY ROD Administration Heparin Sodium (Porcine) 500 units 10/18/18 05:13 10/22/18 21:17 Heparin Lock Flush 100 Units/Ml IVF 500 unit PRN PRN Administration Heparin Flush Ceftriaxone Sodium 2 gm/ 100 mls @ 200 mls/hr 10/19/18 21:00 10/22/18 20:56 Sodium Chloride IVPB 100 mls Q24HR ROD Administration Insulin Human Lispro 0 units 10/04/18 02:07 10/08/18 06:40 Humalog SC 2 unit .MILD SLIDING SCALE PRN Administration Mild Correctional Scale Senna/Docusate Sodium 2 tab 10/04/18 09:00 10/23/18 09:31 Senokot S PO 2 tab BID ROD Administration Sevelamer Carbonate 2,400 mg 10/13/18 17:00 10/23/18 11:53 Renvela PO 2,400 mg AC ROD Administration Sodium Chloride 10 ml 10/05/18 21:00 10/23/18 09:32 Flush - Normal Saline IVF 10 ml Q12HR ROD Administration Sodium Chloride 10 ml 10/05/18 10:01 10/22/18 21:22 Flush - Normal Saline IVF 10 ml PRN PRN Administration Saline Flush - Exam NAD Neck: supple, symmetric, no JVD, no Thyromegaly, no lymphadenopathy, no carotid bruit Heart: RRR, no murmur, no gallops, no rubs, normal peripheral pulses Respiratory: CTAB, no wheezes, no rales, no ronchi, normal chest expansion, no tachypnea, normal percussion Gastrointestinal: soft, non-tender, non-distended, normal bowel sounds, no palpable masses, no hepatomegaly, no splenomegaly, no bruit Extremities: no edema (Right knee with no edema, erythema or effusion. No TTP. Right olecrenon bursal effusion.) Neurological: CN's grossly intact, normal sensation to touch, no weakness, no focal deficits, no new deficit Musculoskeletal: normal tone Psychiatric: normal affect, normal behavior, A&O x 3 Hosp A/P (1) Bacteremia Code(s): R78.81 - BACTEREMIA Status: Acute (2) HTN (hypertension) Code(s): I10 - ESSENTIAL (PRIMARY) HYPERTENSION Status: Acute Qualifiers: Hypertension type: essential hypertension Qualified Code(s): I10 - Essential (primary) hypertension (3) Septic arthritis Status: Acute Qualifiers: Septic arthritis location: shoulder Septic arthritis organism: streptococcal Laterality: left Qualified Code(s): M00.212 - Other streptococcal arthritis, left shoulder (4) Gout Code(s): M10.9 - GOUT, UNSPECIFIED Status: Chronic Qualifiers: Gout site: unspecified site (5) Acute gouty arthritis Code(s): M10.9 - GOUT, UNSPECIFIED Status: Acute (6) Cellulitis of left elbow Code(s): L03.114 - CELLULITIS OF LEFT UPPER LIMB Status: Acute (7) Anemia due to chronic kidney disease Code(s): N18.9 - CHRONIC KIDNEY DISEASE, UNSPECIFIED; D63.1 - ANEMIA IN CHRONIC KIDNEY DISEASE Status: Chronic Qualifiers: Chronic kidney disease stage: on chronic dialysis Qualified Code(s): N18.6 - End stage renal disease; D63.1 - Anemia in chronic kidney disease; Z99.2 - Dependence on renal dialysis (8) ESRD on peritoneal dialysis Code(s): N18.6 - END STAGE RENAL DISEASE; Z99.2 - DEPENDENCE ON RENAL DIALYSIS Status: Chronic - Plan Strep bacteremia with seeding to multiple joints. Had surgical debridement/revision of left shoulder and B hips. Needs IV Rocephin through October. Now has had tunneled catheter placed for conversion of PD to HD. That change made to accommodate placement for continuation of IV abx and PT. Had AV shunt revised. Knee appears benign, but given his history, will need to monitor closely. On colchicine for gout.
--- NOTE | 2018-10-23 12:46 | PRG ---
DATE OF SERVICE: 10/23/2018 SUBJECTIVE: Patient was seen and examined at bedside and overnight events noted. Patient denies any shortness of breath or chest pain or palpitation. No history of nausea or vomiting or diarrhea or fever or chills or cramps. OBJECTIVE: GENERAL: This is a well-built male, in no apparent distress. VITAL SIGNS: Temperature 98.5, pulse 72, respirations 16, blood pressure 150/61. HEENT: Atraumatic, normocephalic. Oral mucosa is moist NECK: Supple. CARDIOVASCULAR: S1, S2 heard. Rate and rhythm regular. RESPIRATORY: Clear to auscultation. GASTROINTESTINAL: Abdomen is soft. MUSCULOSKELETAL: No tenderness. No edema. DERMATOLOGIC: No skin rash. NEUROLOGIC: Alert and awake and oriented X3. No focal neurologic deficits. Moving all the extremities. PSYCHIATRIC: Mood and affect normal. LABORATORY DATA: Potassium is 3.8, BUN is 42, creatinine is 6.1. ASSESSMENT AND PLAN: 1. End-stage renal disease. Continue on hemodialysis as tolerated. PD is on hold with advised to have PD catheter flushed once a week. Follow up with Case Management for outpatient, so that dialysis center is aware of his switching to hemodialysis temporarily. 2. Anemia. Monitor hemoglobin. 3. Hypertension. 4. Edema. I will remove fluid. Overall stable. The patient is feeling better. Continue on hemodialysis as tolerated. Job ID: [id number]
--- NOTE | 2018-10-23 17:43 | PRG ---
DATE OF SERVICE: 10/23/2018 SUBJECTIVE: A little bit of pain in the right knee, but not much, subsided with colchicine. No respiratory symptoms or abdominal pain. Gets tired after dialysis, but tolerating pretty well otherwise. OBJECTIVE: VITAL SIGNS: Low-grade temperature elevation of 99.3, otherwise normal. LUNGS: Clear. HEART: S1, S2. Regular rate. EXTREMITIES: Left and right knee without any evidence of inflammatory change. LABORATORY DATA: White cell count 10,000, hemoglobin 8.8, platelets 355. 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 The patient will be ready for transfer to [facility], continue hemodialysis there. He will continue on Rocephin and date of therapy is November 25. After that, Keflex and rifampin 3 months, and then Keflex suppressive therapy indefinitely. Job ID: [id number]
[2018-10-23] MEDS: cefTRIAXone\\ROCEPHIN 2 GM in Sodium Chloride 0.9% 100 ML IVPB SCH (22:18)
[2018-10-24 05:09] LABS: #Basophils 0.1 thou/uL (0.0-0.2); #Eosinphils 0.7 thou/uL (0.0-0.7); #Lymphocytes 1.2 thou/uL (1.20-3.40); #Monocytes 1.6 thou/uL (0.11-0.59); #Neutrophils 8.8 thou/uL (1.40-6.50); %Basophils 0.5 % (0.0-1.0); %Eosinophils 5.7 % (0.0-10.0); %Lymphocytes 9.8 % (21.0-51.0); %Monocytes 12.7 % (0.0-10.0); %Neutrophils 71.3 % (42.0-75.0); Hemoglobin 8.8 g/dL (14.0-18.0); Mean Corpuscular HGB CONC 34.3 g/dL (32.0-36.0); Mean Corpuscular Hemoglobin 32.5 pg (27.0-31.0); Mean Corpuscular Volume 94.7 fL (78.0-98.0); Mean Platelet Volume 6.9 fL (7.4-10.4); Platelet Count 353 thou/uL (130-400); RBC Distribution Width 13.8 % (11.5-14.5); White Blood Cell (WBC) Count 12.3 thou/uL (4.8-10.8)
[2018-10-24 05:31] LABS: Anion Gap 14 mmol/L (10-20); BUN (Urea Nitrogen) 55 mg/dL (8.4-25.7); Calc. Creatinine Clearance 13 mL/min (70-130); Calcium 9.5 mg/dL (7.8-10.44); Carbon Dioxide 27 mmol/L (23-31); Chloride 100 mmol/L (98-107); Estimated GFR-MDRD 6; Glucose 85 mg/dL (80-115); Potassium 4.1 mmol/L (3.5-5.1); Sodium 137 mmol/L (136-145)
[2018-10-24] MEDS: Famotidine 20 MG TAB PO SCH (08:22)
[2018-10-24] MEDS: Amlodipine 5 MG TAB PO SCH ×2 (08:23→20:01)
[2018-10-24] MEDS: Sevelamer Carbonate 800 MG TAB PO SCH ×3 (08:23→18:05)
[2018-10-24] MEDS: Senokot S 8.6-50 MG TAB PO SCH ×2 (08:24→20:00)
[2018-10-24] MEDS: Carvedilol 25 MG TAB PO SCH ×2 (08:24→20:01)
[2018-10-24] MEDS: Allopurinol 100 MG TAB PO SCH (08:24)
[2018-10-24] MEDS: Enoxaparin Sodium 30 MG/0.3 ML SYRINGE SC SCH (08:25)
[2018-10-24] MEDS: Colchicine 0.3 MG TAB PO SCH ×2 (09:53→20:00)
--- NOTE | 2018-10-24 10:49 | PDOC.HOSPP ---
- Subjective Subjective: Feels ok. Knee pain is improved. No other complaints. - Objective Vital Signs & Weight: Vital Signs (12 hours) Temp Pulse Resp BP BP Pulse Ox 10/24/18 08:23 70 137/54 L 10/24/18 07:28 98.8 F 70 14 137/54 L 96 10/24/18 03:00 99.1 F 73 20 142/56 H 97 10/24/18 00:00 98.5 F 73 20 150/66 H 96 Weight Admit Weight 223 lb Weight 213 lb 8 oz Most Recent Monitor Data Heart Rate from ECG 73 NIBP 104/54 NIBP BP-Mean 70 Respiration from ECG 18 SpO2 95 I&O: 10/23/18 10/24/18 10/25/18 06:59 06:59 06:59 Intake Total 100 220 Output Total 75 100 Balance 25 120 Result Diagrams: 10/24/18 05:00 10/24/18 05:00 ROS - Review of Systems All systems: All other ROS were reviewed and found negative. - Medication Medications: Active Medications Generic Name Dose Route Start Last Admin Trade Name Freq PRN Reason Stop Dose Admin Allopurinol 100 mg 10/04/18 09:00 10/24/18 08:24 Zyloprim PO 100 mg DAILY ROD Administration Amlodipine Besylate 5 mg 10/15/18 21:00 10/24/18 08:23 Norvasc PO 5 mg BID ROD Administration Calcium Carbonate 1,000 mg 10/22/18 18:24 10/22/18 18:32 Tums PO 1,000 mg Q4H PRN Administration Indigestion Carvedilol 12.5 mg 10/15/18 21:00 10/24/18 08:24 Coreg PO 12.5 mg BID ROD Administration Colchicine 0.3 mg 10/20/18 09:00 10/24/18 09:53 Colcrys PO 0.3 mg BID ROD Administration Enoxaparin Sodium 30 mg 10/04/18 09:00 10/24/18 08:25 Lovenox SC 30 mg 0900 ROD Administration Epoetin Carlitos-epbx 10,000 unit 10/15/18 11:00 10/22/18 15:51 Retacrit SC 10,000 unit Q7D ROD Administration Famotidine 20 mg 10/04/18 09:00 10/24/18 08:22 Pepcid PO 20 mg DAILY ROD Administration Heparin Sodium (Porcine) 500 units 10/18/18 05:13 10/24/18 08:25 Heparin Lock Flush 100 Units/Ml IVF 500 unit PRN PRN Administration Heparin Flush Ceftriaxone Sodium 2 gm/ 100 mls @ 200 mls/hr 10/19/18 21:00 10/23/18 22:18 Sodium Chloride IVPB 100 mls Q24HR ROD Administration Insulin Human Lispro 0 units 10/04/18 02:07 10/08/18 06:40 Humalog SC 2 unit .MILD SLIDING SCALE PRN Administration Mild Correctional Scale Senna/Docusate Sodium 2 tab 10/04/18 09:00 10/24/18 08:24 Senokot S PO 2 tab BID ROD Administration Sevelamer Carbonate 2,400 mg 10/13/18 17:00 10/24/18 08:23 Renvela PO 2,400 mg AC ROD Administration Sodium Chloride 10 ml 10/05/18 21:00 10/24/18 08:25 Flush - Normal Saline IVF 10 ml Q12HR ROD Administration Sodium Chloride 10 ml 10/05/18 10:01 10/22/18 21:22 Flush - Normal Saline IVF 10 ml PRN PRN Administration Saline Flush - Exam NAD, awake alert Heart: RRR, no murmur, no gallops, no rubs, normal peripheral pulses Respiratory: CTAB, no wheezes, no rales, no ronchi, normal chest expansion, no tachypnea, normal percussion Gastrointestinal: soft (PD catheter site looks good.), non-tender, non-distended , normal bowel sounds, no palpable masses, no hepatomegaly, no splenomegaly, no bruit Extremities: no cyanosis, no clubbing, no edema (Knees have no erythema, edema, effusion.) Hosp A/P (1) Bacteremia Code(s): R78.81 - BACTEREMIA Status: Acute (2) HTN (hypertension) Code(s): I10 - ESSENTIAL (PRIMARY) HYPERTENSION Status: Acute Qualifiers: Hypertension type: essential hypertension Qualified Code(s): I10 - Essential (primary) hypertension (3) Septic arthritis Status: Acute Qualifiers: Septic arthritis location: shoulder Septic arthritis organism: streptococcal Laterality: left Qualified Code(s): M00.212 - Other streptococcal arthritis, left shoulder (4) Gout Code(s): M10.9 - GOUT, UNSPECIFIED Status: Chronic Qualifiers: Gout site: unspecified site (5) Acute gouty arthritis Code(s): M10.9 - GOUT, UNSPECIFIED Status: Acute (6) Cellulitis of left elbow Code(s): L03.114 - CELLULITIS OF LEFT UPPER LIMB Status: Acute (7) Anemia due to chronic kidney disease Code(s): N18.9 - CHRONIC KIDNEY DISEASE, UNSPECIFIED; D63.1 - ANEMIA IN CHRONIC KIDNEY DISEASE Status: Chronic Qualifiers: Chronic kidney disease stage: on chronic dialysis Qualified Code(s): N18.6 - End stage renal disease; D63.1 - Anemia in chronic kidney disease; Z99.2 - Dependence on renal dialysis (8) ESRD on peritoneal dialysis Code(s): N18.6 - END STAGE RENAL DISEASE; Z99.2 - DEPENDENCE ON RENAL DIALYSIS Status: Chronic - Plan Doing well overall. Feels well. His knees are improved. Has some leukocytosis today. Afebrile. No evidence of new sites of infection. Will continue to monitor. Waiting on Lampstand for placement.
--- NOTE | 2018-10-24 12:25 | PRG ---
DATE OF SERVICE: 10/24/2018 SUBJECTIVE: This is a 63-year-old gentleman being seen for end-stage renal disease. The patient denied nausea, vomiting, or chest pain. OBJECTIVE: See above. CONSTITUTIONAL: The patient is awake and alert. VITAL SIGNS: Afebrile, pulse 75, breathing 16, blood pressure 132/58. GENERAL APPEARANCE AND MENTAL STATUS: Fair. HEAD/NECK: Normocephalic. Atraumatic. EYES: EOMI. No deformity. EARS: Clear. No ulcers. NOSE: Intact. No lesions. MOUTH: Clear. No discharge. THROAT: Clear. No exudate. LUNGS: Clear. No crackles. CARDIAC: S1, S2. No rub. ABDOMEN: Benign. Bowel sounds positive. GENITALIA/RECTUM: Tiwari absent. BACK/EXTREMITIES: Edema 0+. NEUROLOGICAL: Alert and motor intact. SKIN: LYMPHATICS: LABORATORY DATA: Reviewed. ASSESSMENT: 1. Stage 6 chronic kidney disease. Plan dialysis. 2. Hypertension, stable. 3. Anemia, stable. 4. Medication based on GFR appropriate. Job ID: [id number]
--- NOTE | 2018-10-24 15:44 | PRG ---
DATE OF SERVICE: 10/24/2018 SUBJECTIVE: Jesus is now from bilateral hip revision arthroplasty and his left shoulder arthroscopic washout. He is slowly getting better. More recently, he has had a downturn of his white blood cell count, but oddly enough today, it went up to about 12 after being 8 to 10 for the last 5 or 6 days. OBJECTIVE: VITAL SIGNS: Temperature 98.8, pulse 70, blood pressure is 137/54, respiratory rate is 14, and O2 saturation 96% on room air. GENERAL: He is alert and oriented to person, place, time, and situation. Good color. He is responsive and appropriate with examiner. EXTREMITIES: Incisions are clean. No strike through is noted. No gross drainage. Incision on his left shoulder clean. No strike through. There is no effusions palpable over the knees and there is no effusion palpable over the shoulders. IMPRESSION: 1. A 63-year-old male, for bilateral hip revision arthroplasty secondary to strep infection as well as incision, drainage, and washout arthroscopically of the left [place] shoulder. 2. Chronic renal insufficiency. PLAN: Getting close to the time to pull out the patient's jose antonio and/or sutures. We will check those today. Consider removal. Job ID: [id number]
[2018-10-24] MEDS: cefTRIAXone\\ROCEPHIN 2 GM in Sodium Chloride 0.9% 100 ML IVPB SCH (20:03)
[2018-10-24] MEDS: traMADol HCl 50 MG TAB PO PRN (22:16)
[2018-10-25] MEDS: Sevelamer Carbonate 800 MG TAB PO SCH ×3 (06:23→17:45)
[2018-10-25 06:37] LABS: #Eosinphils 0.9 thou/uL (0.0-0.7); #Lymphocytes 1.2 thou/uL (1.20-3.40); #Monocytes 1.3 thou/uL (0.11-0.59); %Basophils 0.4 % (0.0-1.0); %Eosinophils 7.6 % (0.0-10.0); %Lymphocytes 10.5 % (21.0-51.0); %Monocytes 11.6 % (0.0-10.0); %Neutrophils 69.9 % (42.0-75.0); Hemoglobin 8.6 g/dL (14.0-18.0); Mean Corpuscular HGB CONC 32.8 g/dL (32.0-36.0); Mean Corpuscular Hemoglobin 31.7 pg (27.0-31.0); Mean Corpuscular Volume 96.5 fL (78.0-98.0); Mean Platelet Volume 6.9 fL (7.4-10.4); Platelet Count 345 thou/uL (130-400); RBC Distribution Width 13.6 % (11.5-14.5); Red Blood Cell (RBC) Count 2.71 mill/uL (4.70-6.10); White Blood Cell (WBC) Count 11.4 thou/uL (4.8-10.8)
[2018-10-25 06:55] LABS: Anion Gap 16 mmol/L (10-20); BUN (Urea Nitrogen) 66 mg/dL (8.4-25.7); Calc. Creatinine Clearance 10 mL/min (70-130); Calcium 9.7 mg/dL (7.8-10.44); Carbon Dioxide 25 mmol/L (23-31); Chloride 100 mmol/L (98-107); Estimated GFR-MDRD 5; Glucose 77 mg/dL (80-115); Potassium 4.3 mmol/L (3.5-5.1); Sodium 137 mmol/L (136-145)
--- NOTE | 2018-10-25 12:00 | PRG ---
DATE OF SERVICE: 10/25/2018 SUBJECTIVE: A 63-year-old male, being seen for end-stage renal disease. The patient denies any nausea, vomiting, or chest pain. OBJECTIVE: CONSTITUTIONAL: The patient is awake and alert. VITAL SIGNS: Afebrile, pulse 93, breathing 16, and blood pressure 120/58. GENERAL APPEARANCE AND MENTAL STATUS: Fair. HEAD/NECK: Normocephalic. Atraumatic. EYES: EOMI. No deformity. EARS: Clear. No ulcers. NOSE: Intact. No lesions. MOUTH: Clear. No discharge. THROAT: Clear. No exudate. LUNGS: Clear. No crackles. CARDIAC: S1, S2. No rub. ABDOMEN: Benign. Bowel sounds positive. GENITALIA/RECTUM: Tiwari absent. BACK/EXTREMITIES: Edema 0+. NEUROLOGICAL: Alert and motor intact. SKIN: LYMPHATICS: LABORATORY DATA: Reviewed. ASSESSMENT AND PLAN: 1. Stage 6 chronic kidney disease. Continue dialysis. 2. Hypertension, stable. 3. Anemia, stable. 4. Medication based on GFR appropriate. Job ID: [id number]
[2018-10-25] MEDS: Amlodipine 5 MG TAB PO SCH ×2 (12:45→21:18)
[2018-10-25] MEDS: Carvedilol 25 MG TAB PO SCH ×2 (12:45→21:16)
[2018-10-25] MEDS: Senokot S 8.6-50 MG TAB PO SCH ×2 (12:49→21:18)
[2018-10-25] MEDS: Famotidine 20 MG TAB PO SCH (13:03)
[2018-10-25] MEDS: Allopurinol 100 MG TAB PO SCH (13:04)
[2018-10-25] MEDS: Colchicine 0.3 MG TAB PO SCH ×2 (13:04→21:16)
[2018-10-25] MEDS: Enoxaparin Sodium 30 MG/0.3 ML SYRINGE SC SCH (13:05)
--- NOTE | 2018-10-25 18:28 | PDOC.HOSPP ---
- Subjective Subjective: Feels ok. Knees continue to feel good. As always, tired after hemodialysis. - Objective Vital Signs & Weight: Vital Signs (12 hours) Temp Pulse Resp BP BP Pulse Ox 10/25/18 16:38 98.3 F 79 16 133/83 96 10/25/18 12:45 64 10/25/18 12:40 98.2 F 72 16 119/62 96 10/25/18 08:00 96 10/25/18 07:36 98.3 F 64 16 120/58 L 96 Weight Admit Weight 223 lb Weight 212 lb Most Recent Monitor Data Heart Rate from ECG 73 NIBP 104/54 NIBP BP-Mean 70 Respiration from ECG 18 SpO2 95 I&O: 10/24/18 10/25/18 10/26/18 06:59 06:59 06:59 Intake Total 220 850 750 Output Total 100 325 225 Balance 120 525 525 Result Diagrams: 10/25/18 06:25 10/25/18 06:25 ROS - Review of Systems All systems: All other ROS were reviewed and found negative. - Medication Medications: Active Medications Generic Name Dose Route Start Last Admin Trade Name Freq PRN Reason Stop Dose Admin Allopurinol 100 mg 10/04/18 09:00 10/25/18 13:04 Zyloprim PO 100 mg DAILY ROD Administration Amlodipine Besylate 5 mg 10/15/18 21:00 10/25/18 12:45 Norvasc PO Not Given BID ROD Calcium Carbonate 1,000 mg 10/22/18 18:24 10/22/18 18:32 Tums PO 1,000 mg Q4H PRN Administration Indigestion Carvedilol 12.5 mg 10/15/18 21:00 10/25/18 12:45 Coreg PO Not Given BID ROD Colchicine 0.3 mg 10/20/18 09:00 10/25/18 13:04 Colcrys PO 0.3 mg BID ROD Administration Enoxaparin Sodium 30 mg 10/04/18 09:00 10/25/18 13:05 Lovenox SC 30 mg 0900 ROD Administration Epoetin Carlitos-epbx 10,000 unit 10/15/18 11:00 10/22/18 15:51 Retacrit SC 10,000 unit Q7D ROD Administration Famotidine 20 mg 10/04/18 09:00 10/25/18 13:03 Pepcid PO 20 mg DAILY ROD Administration Heparin Sodium (Porcine) 500 units 10/18/18 05:13 10/24/18 08:25 Heparin Lock Flush 100 Units/Ml IVF 500 unit PRN PRN Administration Heparin Flush Ceftriaxone Sodium 2 gm/ 100 mls @ 200 mls/hr 10/19/18 21:00 10/24/18 20:03 Sodium Chloride IVPB 100 mls Q24HR ROD Administration Insulin Human Lispro 0 units 10/04/18 02:07 10/08/18 06:40 Humalog SC 2 unit .MILD SLIDING SCALE PRN Administration Mild Correctional Scale Senna/Docusate Sodium 2 tab 10/04/18 09:00 10/25/18 12:49 Senokot S PO Not Given BID ROD Sevelamer Carbonate 2,400 mg 10/13/18 17:00 10/25/18 17:45 Renvela PO 2,400 mg AC ROD Administration Sodium Chloride 10 ml 10/05/18 21:00 10/25/18 13:05 Flush - Normal Saline IVF 10 ml Q12HR ROD Administration Sodium Chloride 10 ml 10/05/18 10:01 10/22/18 21:22 Flush - Normal Saline IVF 10 ml PRN PRN Administration Saline Flush Tramadol HCl 50 mg 10/19/18 14:51 10/24/18 22:16 Ultram PO 50 mg Q4H PRN Administration Pain 1-5 - Exam NAD, awake alert Heart: RRR, no murmur, no gallops, no rubs, normal peripheral pulses Respiratory: CTAB, no wheezes, no rales, no ronchi, normal chest expansion, no tachypnea, normal percussion Gastrointestinal: soft, non-tender, non-distended, normal bowel sounds, no palpable masses, no hepatomegaly, no splenomegaly, no bruit Extremities: no cyanosis, no clubbing, no edema Skin: normal turgor Psychiatric: normal affect, normal behavior, A&O x 3 Hosp A/P (1) Bacteremia Code(s): R78.81 - BACTEREMIA Status: Acute (2) HTN (hypertension) Code(s): I10 - ESSENTIAL (PRIMARY) HYPERTENSION Status: Acute Qualifiers: Hypertension type: essential hypertension Qualified Code(s): I10 - Essential (primary) hypertension (3) Septic arthritis Status: Acute Qualifiers: Septic arthritis location: shoulder Septic arthritis organism: streptococcal Laterality: left Qualified Code(s): M00.212 - Other streptococcal arthritis, left shoulder (4) Gout Code(s): M10.9 - GOUT, UNSPECIFIED Status: Chronic Qualifiers: Gout site: unspecified site (5) Acute gouty arthritis Code(s): M10.9 - GOUT, UNSPECIFIED Status: Acute (6) Cellulitis of left elbow Code(s): L03.114 - CELLULITIS OF LEFT UPPER LIMB Status: Acute (7) Anemia due to chronic kidney disease Code(s): N18.9 - CHRONIC KIDNEY DISEASE, UNSPECIFIED; D63.1 - ANEMIA IN CHRONIC KIDNEY DISEASE Status: Chronic Qualifiers: Chronic kidney disease stage: on chronic dialysis Qualified Code(s): N18.6 - End stage renal disease; D63.1 - Anemia in chronic kidney disease; Z99.2 - Dependence on renal dialysis (8) ESRD on peritoneal dialysis Code(s): N18.6 - END STAGE RENAL DISEASE; Z99.2 - DEPENDENCE ON RENAL DIALYSIS Status: Chronic - Plan Continue the IV abx. Continue HD. Continue PT. Continuing to work on placement.
[2018-10-25] MEDS: cefTRIAXone\\ROCEPHIN 2 GM in Sodium Chloride 0.9% 100 ML IVPB SCH (21:15)
[2018-10-25] MEDS: Acetaminophen 500 MG TAB PO PRN (21:16)
[2018-10-25] MEDS: traMADol HCl 50 MG TAB PO PRN (21:17)
[2018-10-26 04:44] LABS: #Eosinphils 0.6 thou/uL (0.0-0.7); #Lymphocytes 1.2 thou/uL (1.20-3.40); #Monocytes 1.6 thou/uL (0.11-0.59); #Neutrophils 8.2 thou/uL (1.40-6.50); %Basophils 0.4 % (0.0-1.0); %Lymphocytes 10.1 % (21.0-51.0); %Monocytes 14.1 % (0.0-10.0); %Neutrophils 70.5 % (42.0-75.0); Hemoglobin 8.5 g/dL (14.0-18.0); Mean Corpuscular HGB CONC 32.5 g/dL (32.0-36.0); Mean Corpuscular Hemoglobin 31.1 pg (27.0-31.0); Mean Platelet Volume 6.9 fL (7.4-10.4); Platelet Count 374 thou/uL (130-400); RBC Distribution Width 13.6 % (11.5-14.5); Red Blood Cell (RBC) Count 2.71 mill/uL (4.70-6.10); White Blood Cell (WBC) Count 11.6 thou/uL (4.8-10.8)
[2018-10-26 05:08] LABS: Anion Gap 14 mmol/L (10-20); BUN (Urea Nitrogen) 36 mg/dL (8.4-25.7); Calc. Creatinine Clearance 15 mL/min (70-130); Calcium 9.5 mg/dL (7.8-10.44); Carbon Dioxide 28 mmol/L (23-31); Chloride 100 mmol/L (98-107); Estimated GFR-MDRD 8; Glucose 78 mg/dL (80-115); Sodium 138 mmol/L (136-145)
[2018-10-26] MEDS: Sevelamer Carbonate 800 MG TAB PO SCH ×3 (06:31→17:18)
[2018-10-26] MEDS: Amlodipine 5 MG TAB PO SCH ×2 (09:21→20:56)
[2018-10-26] MEDS: Allopurinol 100 MG TAB PO SCH (09:21)
[2018-10-26] MEDS: Enoxaparin Sodium 30 MG/0.3 ML SYRINGE SC SCH (09:22)
[2018-10-26] MEDS: Colchicine 0.3 MG TAB PO SCH ×2 (09:22→20:55)
[2018-10-26] MEDS: Famotidine 20 MG TAB PO SCH (09:22)
[2018-10-26] MEDS: Carvedilol 25 MG TAB PO SCH ×2 (09:22→20:55)
[2018-10-26] MEDS: Senokot S 8.6-50 MG TAB PO SCH ×2 (09:23→23:30)
--- NOTE | 2018-10-26 09:46 | PRG ---
DATE OF SERVICE: 10/26/2018 SUBJECTIVE: A 63-year-old gentleman, being seen for end-stage renal disease. The patient denies nausea, vomiting or chest pain. OBJECTIVE: CONSTITUTIONAL: The patient is awake and alert. VITAL SIGNS: Afebrile, pulse 73, breathing 16, blood pressure 133/56. GENERAL APPEARANCE AND MENTAL STATUS: Fair. HEAD/NECK: Normocephalic. Atraumatic. EYES: EOMI. No deformity. EARS: Clear. No ulcers. NOSE: Intact. No lesions. MOUTH: Clear. No discharge. THROAT: Clear. No exudate. LUNGS: Clear. No crackles. CARDIAC: S1, S2. No rub. ABDOMEN: Benign. Bowel sounds positive. GENITALIA/RECTUM: Tiwari absent. BACK/EXTREMITIES: Edema 0+. NEUROLOGICAL: Alert and motor intact. SKIN: LYMPHATICS: LABORATORY DATA: Reviewed. ASSESSMENT AND PLAN: 1. Stage 6 chronic kidney disease. Continue hemodialysis. 2. Hypertension, stable. 3. Anemia, stable. 4. Medication based on GFR appropriate. Job ID: [id number]
--- NOTE | 2018-10-26 14:37 | PDOC.HOSPP ---
- Subjective Subjective: Doing ok today. No complaints. - Objective Vital Signs & Weight: Vital Signs (12 hours) Temp Pulse Resp BP BP Pulse Ox 10/26/18 09:22 95 10/26/18 09:21 73 133/56 L 10/26/18 07:25 99.3 F 73 18 133/56 L 95 10/26/18 04:15 98.9 F 70 18 122/59 L 96 Weight Admit Weight 223 lb Weight 211 lb 14.4 oz Most Recent Monitor Data Heart Rate from ECG 73 NIBP 104/54 NIBP BP-Mean 70 Respiration from ECG 18 SpO2 95 I&O: 10/25/18 10/26/18 10/27/18 06:59 06:59 06:59 Intake Total 850 950 Output Total 325 375 Balance 525 575 Result Diagrams: 10/26/18 04:23 10/26/18 04:23 ROS - Review of Systems All systems: All other ROS were reviewed and found negative. - Medication Medications: Active Medications Generic Name Dose Route Start Last Admin Trade Name Freq PRN Reason Stop Dose Admin Acetaminophen 1,000 mg 10/19/18 14:51 10/25/18 21:16 Tylenol PO 1,000 mg Q6H PRN Administration Moderate to Severe Pain (6-10) Allopurinol 100 mg 10/04/18 09:00 10/26/18 09:21 Zyloprim PO 100 mg DAILY ROD Administration Amlodipine Besylate 5 mg 10/15/18 21:00 10/26/18 09:21 Norvasc PO 5 mg BID ROD Administration Calcium Carbonate 1,000 mg 10/22/18 18:24 10/22/18 18:32 Tums PO 1,000 mg Q4H PRN Administration Indigestion Carvedilol 12.5 mg 10/15/18 21:00 10/26/18 09:22 Coreg PO 12.5 mg BID ROD Administration Colchicine 0.3 mg 10/20/18 09:00 10/26/18 09:22 Colcrys PO 0.3 mg BID ROD Administration Enoxaparin Sodium 30 mg 10/04/18 09:00 10/26/18 09:22 Lovenox SC 30 mg 0900 [facility] Administration Epoetin Carlitos-epbx 10,000 unit 10/15/18 11:00 10/22/18 15:51 Retacrit SC 10,000 unit Q7D ROD Administration Famotidine 20 mg 10/04/18 09:00 10/26/18 09:22 Pepcid PO 20 mg DAILY ROD Administration Heparin Sodium (Porcine) 500 units 10/18/18 05:13 10/26/18 09:22 Heparin Lock Flush 100 Units/Ml IVF 500 unit PRN PRN Administration Heparin Flush Ceftriaxone Sodium 2 gm/ 100 mls @ 200 mls/hr 10/19/18 21:00 10/25/18 21:15 Sodium Chloride IVPB 100 mls Q24HR ROD Administration Insulin Human Lispro 0 units 10/04/18 02:07 10/08/18 06:40 Humalog SC 2 unit .MILD SLIDING SCALE PRN Administration Mild Correctional Scale Senna/Docusate Sodium 2 tab 10/04/18 09:00 10/26/18 09:23 Senokot S PO Not Given BID ROD Sevelamer Carbonate 2,400 mg 10/13/18 17:00 10/26/18 11:34 Renvela PO 2,400 mg AC ROD Administration Sodium Chloride 10 ml 10/05/18 21:00 10/26/18 09:22 Flush - Normal Saline IVF 10 ml Q12HR ROD Administration Sodium Chloride 10 ml 10/05/18 10:01 10/22/18 21:22 Flush - Normal Saline IVF 10 ml PRN PRN Administration Saline Flush Tramadol HCl 50 mg 10/19/18 14:51 10/25/18 21:17 Ultram PO 50 mg Q4H PRN Administration Pain 1-5 - Exam NAD, awake alert Neck: supple, symmetric, no JVD, no Thyromegaly, no lymphadenopathy, no carotid bruit Heart: RRR, no murmur, no gallops, no rubs, normal peripheral pulses Respiratory: CTAB, no wheezes, no rales, no ronchi, normal chest expansion, no tachypnea, normal percussion Gastrointestinal: soft, non-tender, non-distended, normal bowel sounds, no palpable masses, no hepatomegaly, no splenomegaly, no bruit Neurological: no focal deficits Musculoskeletal: normal tone Psychiatric: normal affect, normal behavior, A&O x 3 Hosp A/P (1) Bacteremia Code(s): R78.81 - BACTEREMIA Status: Acute (2) HTN (hypertension) Code(s): I10 - ESSENTIAL (PRIMARY) HYPERTENSION Status: Acute Qualifiers: Hypertension type: essential hypertension Qualified Code(s): I10 - Essential (primary) hypertension (3) Septic arthritis Status: Acute Qualifiers: Septic arthritis location: shoulder Septic arthritis organism: streptococcal Laterality: left Qualified Code(s): M00.212 - Other streptococcal arthritis, left shoulder (4) Gout Code(s): M10.9 - GOUT, UNSPECIFIED Status: Chronic Qualifiers: Gout site: unspecified site (5) Acute gouty arthritis Code(s): M10.9 - GOUT, UNSPECIFIED Status: Acute (6) Cellulitis of left elbow Code(s): L03.114 - CELLULITIS OF LEFT UPPER LIMB Status: Acute (7) Anemia due to chronic kidney disease Code(s): N18.9 - CHRONIC KIDNEY DISEASE, UNSPECIFIED; D63.1 - ANEMIA IN CHRONIC KIDNEY DISEASE Status: Chronic Qualifiers: Chronic kidney disease stage: on chronic dialysis Qualified Code(s): N18.6 - End stage renal disease; D63.1 - Anemia in chronic kidney disease; Z99.2 - Dependence on renal dialysis (8) ESRD on peritoneal dialysis Code(s): N18.6 - END STAGE RENAL DISEASE; Z99.2 - DEPENDENCE ON RENAL DIALYSIS Status: Chronic - Plan PD patient with strep bacteremia. Seeded both hips and left shoulder. Had total right hip arthroplasty and partial left, and left should washout/ debridement. NWB on right. Converted to HD for better rehab options. Continue IV abx. Denied SNF by [employer]. Appeal and request for peer to peer initiated yesterday. No call back yet.
--- NOTE | 2018-10-26 17:33 | PRG ---
DATE OF SERVICE: 10/26/2018 SUBJECTIVE: Mr. Rodriguez has had a low-grade temperature elevation. He actually felt hot and had sweats, but did have chills. He has been more ambulatory. He is able to bear some weight. He does not have diarrhea, and no genitourinary symptoms. The hips are not bothering him. The knees and shoulder does not bother him either. OBJECTIVE: VITAL SIGNS: Temperature; he is now 98.4, he was 100.3 at 8 p.m. yesterday. BP 130/64, pulse 73, respirations 18. GENERAL: Awake, alert, and oriented, in no distress. HEENT: Ocular movements conjugate. Mauricio catheter in place. LUNGS: Symmetric, clear breath sounds. HEART: S1 and S2, regular rate. No S3 or S4. ABDOMEN: Soft. Not distended or tender. MUSCULOSKELETAL: All the hip surgical sites appear well. The left shoulder is not bothering him anymore. The knees are okay. LABORATORY DATA: White cell count 11.6, hemoglobin 8.5, platelets 374. Chemistries, not remarkable. Two sets of blood cultures from 10/14, were the last ones, and we will repeat blood cultures and otherwise continue Rocephin. 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 Group B Strep bacteremia with infection of multiple joints, status post washout of both hips and revision and then just washout of the left shoulder, now those are doing quite well. Recrudescence of gout in the knees, mostly with improvement after colchicine; and low-grade temperature elevation to 100.3. Repeat blood cultures on next dialysis. Otherwise, no changes in management at this time. Job ID: [id number]
[2018-10-26] MEDS: Acetaminophen 500 MG TAB PO PRN (20:55)
[2018-10-26] MEDS: traMADol HCl 50 MG TAB PO PRN (20:56)
[2018-10-26] MEDS: cefTRIAXone\\ROCEPHIN 2 GM in Sodium Chloride 0.9% 100 ML IVPB SCH (21:02)
[2018-10-27 03:58] LABS: #Eosinphils 0.6 thou/uL (0.0-0.7); #Lymphocytes 1.4 thou/uL (1.20-3.40); #Monocytes 1.7 thou/uL (0.11-0.59); #Neutrophils 8.8 thou/uL (1.40-6.50); %Basophils 0.3 % (0.0-1.0); %Eosinophils 4.9 % (0.0-10.0); %Monocytes 13.4 % (0.0-10.0); %Neutrophils 70.4 % (42.0-75.0); Hemoglobin 8.4 g/dL (14.0-18.0); Mean Corpuscular HGB CONC 32.8 g/dL (32.0-36.0); Mean Corpuscular Hemoglobin 31.5 pg (27.0-31.0); Mean Platelet Volume 6.7 fL (7.4-10.4); Platelet Count 359 thou/uL (130-400); RBC Distribution Width 13.4 % (11.5-14.5); Red Blood Cell (RBC) Count 2.68 mill/uL (4.70-6.10); White Blood Cell (WBC) Count 12.5 thou/uL (4.8-10.8)
[2018-10-27 04:10] LABS: Anion Gap 14 mmol/L (10-20); BUN (Urea Nitrogen) 47 mg/dL (8.4-25.7); Calc. Creatinine Clearance 12 mL/min (70-130); Calcium 9.6 mg/dL (7.8-10.44); Carbon Dioxide 28 mmol/L (23-31); Chloride 100 mmol/L (98-107); Estimated GFR-MDRD 6; Glucose 78 mg/dL (80-115); Potassium 4.1 mmol/L (3.5-5.1); Sodium 138 mmol/L (136-145)
[2018-10-27] MEDS: Sevelamer Carbonate 800 MG TAB PO SCH ×3 (06:34→17:17)
[2018-10-27] MEDS: Colchicine 0.3 MG TAB PO SCH ×2 (08:19→21:09)
[2018-10-27] MEDS: Allopurinol 100 MG TAB PO SCH (08:20)
[2018-10-27] MEDS: Amlodipine 5 MG TAB PO SCH ×2 (08:20→21:09)
[2018-10-27] MEDS: Carvedilol 25 MG TAB PO SCH ×2 (08:20→21:09)
[2018-10-27] MEDS: Famotidine 20 MG TAB PO SCH (08:20)
[2018-10-27] MEDS: Enoxaparin Sodium 30 MG/0.3 ML SYRINGE SC SCH (08:23)
[2018-10-27] MEDS: Senokot S 8.6-50 MG TAB PO SCH ×2 (08:23→22:57)
--- NOTE | 2018-10-27 11:08 | PDOC.HOSPP ---
- Subjective Subjective: 63 y/o male with gout, ESRD on PD, osteoartgitis s/p bilateral hip replacement admitted with bilateral hip and left shoulder pain associated with generalized weakness. Found to have group B strep bacteremia and septic arthritis of multiple joints s/p bilateral hip wash out and revision as well as left shoulder woasout. Feeling better. Transitioned to HD to facilitate placement for rehabilitation. No new problem denied fever, chills, and chest pain. - Objective Vital Signs & Weight: Vital Signs (12 hours) Temp Pulse Resp BP BP Pulse Ox 10/27/18 08:20 66 155/68 H 10/27/18 07:25 98.2 F 66 20 155/68 H 96 10/27/18 04:37 97.8 F 65 18 122/64 97 10/27/18 00:32 98.2 F 66 18 126/56 L 96 Weight Admit Weight 223 lb Weight 205 lb Most Recent Monitor Data Heart Rate from ECG 73 NIBP 104/54 NIBP BP-Mean 70 Respiration from ECG 18 SpO2 95 I&O: 10/26/18 10/27/18 10/28/18 06:59 06:59 06:59 Intake Total 950 1090 Output Total 375 300 Balance 575 790 Result Diagrams: 10/27/18 03:33 10/27/18 03:33 ROS - Review of Systems All systems: All other ROS were reviewed and found negative. - Medication Medications: Active Medications Generic Name Dose Route Start Last Admin Trade Name Freq PRN Reason Stop Dose Admin Acetaminophen 1,000 mg 10/19/18 14:51 10/26/18 20:55 Tylenol PO 1,000 mg Q6H PRN Administration Moderate to Severe Pain (6-10) Allopurinol 100 mg 10/04/18 09:00 10/27/18 08:20 Zyloprim PO 100 mg DAILY ROD Administration Amlodipine Besylate 5 mg 10/15/18 21:00 10/27/18 08:20 Norvasc PO 5 mg BID ROD Administration Calcium Carbonate 1,000 mg 10/22/18 18:24 10/22/18 18:32 Tums PO 1,000 mg Q4H PRN Administration Indigestion Carvedilol 12.5 mg 10/15/18 21:00 10/27/18 08:20 Coreg PO 12.5 mg BID ROD Administration Colchicine 0.3 mg 10/20/18 09:00 10/27/18 08:19 Colcrys PO 0.3 mg BID ROD Administration Enoxaparin Sodium 30 mg 10/04/18 09:00 10/27/18 08:23 Lovenox SC 30 mg 0900 ROD Administration Epoetin Carlitos-epbx 10,000 unit 10/15/18 11:00 10/22/18 15:51 Retacrit SC 10,000 unit Q7D ROD Administration Famotidine 20 mg 10/04/18 09:00 10/27/18 08:20 Pepcid PO 20 mg DAILY ROD Administration Heparin Sodium (Porcine) 500 units 10/18/18 05:13 10/26/18 20:58 Heparin Lock Flush 100 Units/Ml IVF 500 unit PRN PRN Administration Heparin Flush Ceftriaxone Sodium 2 gm/ 100 mls @ 200 mls/hr 10/19/18 21:00 10/26/18 21:02 Sodium Chloride IVPB 100 mls Q24HR ROD Administration Insulin Human Lispro 0 units 10/04/18 02:07 10/08/18 06:40 Humalog SC 2 unit .MILD SLIDING SCALE PRN Administration Mild Correctional Scale Senna/Docusate Sodium 2 tab 10/04/18 09:00 10/27/18 08:23 Senokot S PO Not Given BID [facility] Sevelamer Carbonate 2,400 mg 10/13/18 17:00 10/27/18 06:34 Renvela PO 2,400 mg AC ROD Administration Sodium Chloride 10 ml 10/05/18 21:00 10/27/18 08:28 Flush - Normal Saline IVF 10 ml Q12HR ROD Administration Sodium Chloride 10 ml 10/05/18 10:01 10/26/18 20:58 Flush - Normal Saline IVF 10 ml PRN PRN Administration Saline Flush Tramadol HCl 50 mg 10/19/18 14:51 10/26/18 20:56 Ultram PO 50 mg Q4H PRN Administration Pain 1-5 - Exam awake alert Eye: anicteric sclera ENT: normocephalic atraumatic Neck: supple, no JVD Heart: RRR, murmur present (soft systolic murmur noted) Respiratory: no wheezes, no ronchi Gastrointestinal: soft, non-tender, non-distended, normal bowel sounds Extremities: no cyanosis, no edema Neurological: CN's grossly intact, no focal deficits Hosp A/P (1) Group B streptococcal infection Code(s): A49.1 - STREPTOCOCCAL INFECTION, UNSPECIFIED SITE Status: Acute (2) Physical deconditioning Code(s): R53.81 - OTHER MALAISE Status: Acute (3) Bacteremia Code(s): R78.81 - BACTEREMIA Status: Acute (4) HTN (hypertension) Code(s): I10 - ESSENTIAL (PRIMARY) HYPERTENSION Status: Acute Qualifiers: Hypertension type: essential hypertension Qualified Code(s): I10 - Essential (primary) hypertension (5) Sepsis Code(s): A41.9 - SEPSIS, UNSPECIFIED ORGANISM Status: Acute Qualifiers: Sepsis type: Streptococcus, other Qualified Code(s): A40.8 - Other streptococcal sepsis (6) Septic arthritis Status: Acute Qualifiers: Septic arthritis location: shoulder Septic arthritis organism: streptococcal Laterality: left Qualified Code(s): M00.212 - Other streptococcal arthritis, left shoulder (7) Gout Code(s): M10.9 - GOUT, UNSPECIFIED Status: Chronic Qualifiers: Gout site: unspecified site (8) Acute gouty arthritis Code(s): M10.9 - GOUT, UNSPECIFIED Status: Acute (9) Cellulitis of left elbow Code(s): L03.114 - CELLULITIS OF LEFT UPPER LIMB Status: Acute (10) Anemia due to chronic kidney disease Code(s): N18.9 - CHRONIC KIDNEY DISEASE, UNSPECIFIED; D63.1 - ANEMIA IN CHRONIC KIDNEY DISEASE Status: Chronic Qualifiers: Chronic kidney disease stage: on chronic dialysis Qualified Code(s): N18.6 - End stage renal disease; D63.1 - Anemia in chronic kidney disease; Z99.2 - Dependence on renal dialysis (11) ESRD on peritoneal dialysis Code(s): N18.6 - END STAGE RENAL DISEASE; Z99.2 - DEPENDENCE ON RENAL DIALYSIS Status: Chronic - Plan Continue IV antibiotics as per ID. Continue colchicine. PT/OT to continue. HD as per [facility].
--- NOTE | 2018-10-27 12:05 | PRG ---
DATE OF SERVICE: 10/27/2018 SUBJECTIVE: A 63-year-old gentleman, being seen for end-stage renal disease. The patient denies any nausea, vomiting, or chest pain. OBJECTIVE: CONSTITUTIONAL: The patient is awake and alert. VITAL SIGNS: Afebrile, pulse 65, breathing 16, and blood pressure 122/64. GENERAL APPEARANCE AND MENTAL STATUS: Fair. HEAD/NECK: Normocephalic. Atraumatic. EYES: EOMI. No deformity. EARS: Clear. No ulcers. NOSE: Intact. No lesions. MOUTH: Clear. No discharge. THROAT: Clear. No exudate. LUNGS: Clear. No crackles. CARDIAC: S1, S2. No rub. ABDOMEN: Benign. Bowel sounds positive. GENITALIA/RECTUM: Tiwari absent. BACK/EXTREMITIES: Edema 0+. NEUROLOGICAL: Alert and motor intact. SKIN: LYMPHATICS: LABORATORY DATA: Reviewed. ASSESSMENT AND PLAN: 1. Stage 6 chronic kidney disease. Continue hemodialysis. 2. Hypertension, stable. 3. Anemia, stable. 4. Medication based on GFR appropriate. Job ID: [id number]
[2018-10-27 15:26] VITALS: BMI 32.1
[2018-10-27] MEDS: traMADol HCl 50 MG TAB PO PRN (21:08)
[2018-10-27] MEDS: cefTRIAXone\\ROCEPHIN 2 GM in Sodium Chloride 0.9% 100 ML IVPB SCH (21:09)
[2018-10-28 04:24] LABS: #Basophils 0.1 thou/uL (0.0-0.2); #Eosinphils 0.5 thou/uL (0.0-0.7); #Lymphocytes 1.1 thou/uL (1.20-3.40); #Monocytes 1.6 thou/uL (0.11-0.59); #Neutrophils 10.9 thou/uL (1.40-6.50); %Basophils 0.4 % (0.0-1.0); %Eosinophils 3.5 % (0.0-10.0); %Lymphocytes 7.6 % (21.0-51.0); %Neutrophils 77.6 % (42.0-75.0); Hemoglobin 8.6 g/dL (14.0-18.0); Mean Corpuscular HGB CONC 32.9 g/dL (32.0-36.0); Mean Corpuscular Hemoglobin 31.4 pg (27.0-31.0); Mean Corpuscular Volume 95.2 fL (78.0-98.0); Mean Platelet Volume 6.8 fL (7.4-10.4); Platelet Count 385 thou/uL (130-400); RBC Distribution Width 13.4 % (11.5-14.5); Red Blood Cell (RBC) Count 2.74 mill/uL (4.70-6.10); White Blood Cell (WBC) Count 14.1 thou/uL (4.8-10.8)
[2018-10-28 04:43] LABS: Anion Gap 13 mmol/L (10-20); BUN (Urea Nitrogen) 30 mg/dL (8.4-25.7); Calc. Creatinine Clearance 16 mL/min (70-130); Calcium 10.1 mg/dL (7.8-10.44); Carbon Dioxide 30 mmol/L (23-31); Chloride 100 mmol/L (98-107); Estimated GFR-MDRD 9; Glucose 91 mg/dL (80-115); Sodium 139 mmol/L (136-145)
[2018-10-28] MEDS: Sevelamer Carbonate 800 MG TAB PO SCH ×3 (06:22→18:28)
[2018-10-28] MEDS: Colchicine 0.3 MG TAB PO SCH ×2 (08:37→20:59)
[2018-10-28] MEDS: Famotidine 20 MG TAB PO SCH (08:37)
[2018-10-28] MEDS: Amlodipine 5 MG TAB PO SCH ×2 (08:38→20:59)
[2018-10-28] MEDS: Enoxaparin Sodium 30 MG/0.3 ML SYRINGE SC SCH (08:38)
[2018-10-28] MEDS: Senokot S 8.6-50 MG TAB PO SCH ×2 (08:38→21:00)
[2018-10-28] MEDS: Carvedilol 25 MG TAB PO SCH ×2 (08:38→21:00)
[2018-10-28] MEDS: Allopurinol 100 MG TAB PO SCH (08:38)
--- NOTE | 2018-10-28 09:52 | PRG ---
DATE OF SERVICE: 10/28/2018 SUBJECTIVE: A 63-year-old gentleman being seen for end-stage renal disease. The patient denies any nausea, vomiting, or chest pain. OBJECTIVE: CONSTITUTIONAL: The patient is awake and alert. VITAL SIGNS: Afebrile. Pulse 75, breathing 16, blood pressure 139/61. GENERAL APPEARANCE AND MENTAL STATUS: Fair. HEAD/NECK: Normocephalic. Atraumatic. EYES: EOMI. No deformity. EARS: Clear. No ulcers. NOSE: Intact. No lesions. MOUTH: Clear. No discharge. THROAT: Clear. No exudate. LUNGS: Clear. No crackles. CARDIAC: S1, S2. No rub. ABDOMEN: Benign. Bowel sounds positive. GENITALIA/RECTUM: Tiwari absent. BACK/EXTREMITIES: Edema 0+. NEUROLOGICAL: Alert and motor intact. SKIN: LYMPHATICS: LABORATORY DATA: Reviewed. ASSESSMENT AND PLAN: 1. Stage 6 chronic kidney disease. Plan dialysis. 2. Hypertension, stable. 3. Anemia, stable. 4. Medication based on GFR appropriate. Job ID: [id number]
--- NOTE | 2018-10-28 10:31 | PDOC.HOSPP ---
- Subjective Subjective: 63 y/o male with gout, ESRD on PD, osteoartgitis s/p bilateral hip replacement admitted with bilateral hip and left shoulder pain associated with generalized weakness. Found to have group B strep bacteremia and septic arthritis of multiple joints s/p bilateral hip wash out and revision as well as left shoulder washout. Feeling better. Transitioned to HD to facilitate placement for rehabilitation. No new problem denied fever, chills, and chest pain. Last HD was yesterday - Objective Vital Signs & Weight: Vital Signs (12 hours) Temp Pulse Resp BP BP Pulse Ox 10/28/18 08:38 78 137/67 10/28/18 07:49 99.4 F 78 12 137/67 97 10/27/18 23:04 98.6 F 77 16 139/61 95 Weight Admit Weight 223 lb Weight 205 lb 8 oz Most Recent Monitor Data Heart Rate from ECG 73 NIBP 104/54 NIBP BP-Mean 70 Respiration from ECG 18 SpO2 95 I&O: 10/27/18 10/28/18 10/29/18 06:59 06:59 06:59 Intake Total 1090 Output Total 300 Balance 790 Result Diagrams: 10/28/18 04:05 10/28/18 04:05 ROS - Review of Systems All systems: All other ROS were reviewed and found negative. - Medication Medications: Active Medications Generic Name Dose Route Start Last Admin Trade Name Freq PRN Reason Stop Dose Admin Acetaminophen 1,000 mg 10/19/18 14:51 10/26/18 20:55 Tylenol PO 1,000 mg Q6H PRN Administration Moderate to Severe Pain (6-10) Allopurinol 100 mg 10/04/18 09:00 10/28/18 08:38 Zyloprim PO 100 mg DAILY ROD Administration Amlodipine Besylate 5 mg 10/15/18 21:00 10/28/18 08:38 Norvasc PO 5 mg BID ROD Administration Calcium Carbonate 1,000 mg 10/22/18 18:24 10/22/18 18:32 Tums PO 1,000 mg Q4H PRN Administration Indigestion Carvedilol 12.5 mg 10/15/18 21:00 10/28/18 08:38 Coreg PO 12.5 mg BID ROD Administration Colchicine 0.3 mg 10/20/18 09:00 10/28/18 08:37 Colcrys PO 0.3 mg BID ROD Administration Enoxaparin Sodium 30 mg 10/04/18 09:00 10/28/18 08:38 Lovenox SC 30 mg 0900 ROD Administration Epoetin Carlitos-epbx 10,000 unit 10/15/18 11:00 10/22/18 15:51 Retacrit SC 10,000 unit Q7D ROD Administration Famotidine 20 mg 10/04/18 09:00 10/28/18 08:37 Pepcid PO 20 mg DAILY ROD Administration Heparin Sodium (Porcine) 500 units 10/18/18 05:13 10/27/18 21:09 Heparin Lock Flush 100 Units/Ml IVF 500 unit PRN PRN Administration Heparin Flush Ceftriaxone Sodium 2 gm/ 100 mls @ 200 mls/hr 10/19/18 21:00 10/27/18 21:09 Sodium Chloride IVPB 100 mls Q24HR ROD Administration Insulin Human Lispro 0 units 10/04/18 02:07 10/08/18 06:40 Humalog SC 2 unit .MILD SLIDING SCALE PRN Administration Mild Correctional Scale Senna/Docusate Sodium 2 tab 10/04/18 09:00 10/28/18 08:38 Senokot S PO Not Given BID ROD Sevelamer Carbonate 2,400 mg 10/13/18 17:00 10/28/18 06:22 Renvela PO 2,400 mg AC ROD Administration Sodium Chloride 10 ml 10/05/18 21:00 10/28/18 08:43 Flush - Normal Saline IVF 10 ml Q12HR ROD Administration Sodium Chloride 10 ml 10/05/18 10:01 10/26/18 20:58 Flush - Normal Saline IVF 10 ml PRN PRN Administration Saline Flush Tramadol HCl 50 mg 10/19/18 14:51 10/27/18 21:08 Ultram PO 50 mg Q4H PRN Administration Pain 1-5 - Exam awake alert Eye: anicteric sclera ENT: normocephalic atraumatic Neck: supple, symmetric, no JVD Heart: RRR Respiratory: CTAB, no wheezes, no rales, no ronchi Gastrointestinal: soft, non-tender, non-distended, normal bowel sounds Extremities: no cyanosis (Bilateral lateral hip surgical wounds with sutures noted), no edema Neurological: CN's grossly intact, no focal deficits Psychiatric: normal affect Hosp A/P (1) Group B streptococcal infection Code(s): A49.1 - STREPTOCOCCAL INFECTION, UNSPECIFIED SITE Status: Acute (2) Physical deconditioning Code(s): R53.81 - OTHER MALAISE Status: Acute (3) Bacteremia Code(s): R78.81 - BACTEREMIA Status: Acute (4) HTN (hypertension) Code(s): I10 - ESSENTIAL (PRIMARY) HYPERTENSION Status: Acute Qualifiers: Hypertension type: essential hypertension Qualified Code(s): I10 - Essential (primary) hypertension (5) Sepsis Code(s): A41.9 - SEPSIS, UNSPECIFIED ORGANISM Status: Acute Qualifiers: Sepsis type: Streptococcus, other Qualified Code(s): A40.8 - Other streptococcal sepsis (6) Septic arthritis Status: Acute Qualifiers: Septic arthritis location: shoulder Septic arthritis organism: streptococcal Laterality: left Qualified Code(s): M00.212 - Other streptococcal arthritis, left shoulder (7) Gout Code(s): M10.9 - GOUT, UNSPECIFIED Status: Chronic Qualifiers: Gout site: unspecified site (8) Acute gouty arthritis Code(s): M10.9 - GOUT, UNSPECIFIED Status: Acute (9) Cellulitis of left elbow Code(s): L03.114 - CELLULITIS OF LEFT UPPER LIMB Status: Acute (10) Anemia due to chronic kidney disease Code(s): N18.9 - CHRONIC KIDNEY DISEASE, UNSPECIFIED; D63.1 - ANEMIA IN CHRONIC KIDNEY DISEASE Status: Chronic Qualifiers: Chronic kidney disease stage: on chronic dialysis Qualified Code(s): N18.6 - End stage renal disease; D63.1 - Anemia in chronic kidney disease; Z99.2 - Dependence on renal dialysis (11) ESRD on peritoneal dialysis Code(s): N18.6 - END STAGE RENAL DISEASE; Z99.2 - DEPENDENCE ON RENAL DIALYSIS Status: Chronic - Plan COntinue current treatments. Await placement.
[2018-10-28] MEDS: cefTRIAXone\\ROCEPHIN 2 GM in Sodium Chloride 0.9% 100 ML IVPB SCH (21:00)
[2018-10-29 04:19] VITALS: TEMP 98.7
[2018-10-29] MEDS: Sevelamer Carbonate 800 MG TAB PO SCH (06:31)
[2018-10-29 07:12] LABS: #Basophils 0.1 thou/uL (0.0-0.2); #Eosinphils 0.4 thou/uL (0.0-0.7); #Lymphocytes 1.2 thou/uL (1.20-3.40); #Monocytes 1.4 thou/uL (0.11-0.59); #Neutrophils 11.8 thou/uL (1.40-6.50); %Basophils 0.5 % (0.0-1.0); %Eosinophils 2.5 % (0.0-10.0); %Lymphocytes 8.1 % (21.0-51.0); %Monocytes 9.4 % (0.0-10.0); %Neutrophils 79.5 % (42.0-75.0); Hemoglobin 8.7 g/dL (14.0-18.0); Mean Corpuscular HGB CONC 32.6 g/dL (32.0-36.0); Mean Corpuscular Volume 94.9 fL (78.0-98.0); Platelet Count 383 thou/uL (130-400); RBC Distribution Width 13.2 % (11.5-14.5); White Blood Cell (WBC) Count 14.8 thou/uL (4.8-10.8)
[2018-10-29 07:35] LABS: Anion Gap 16 mmol/L (10-20); BUN (Urea Nitrogen) 43 mg/dL (8.4-25.7); Calc. Creatinine Clearance 13 mL/min (70-130); Calcium 9.8 mg/dL (7.8-10.44); Carbon Dioxide 27 mmol/L (23-31); Chloride 100 mmol/L (98-107); Estimated GFR-MDRD 7; Glucose 72 mg/dL (80-115); Potassium 4.3 mmol/L (3.5-5.1); Sodium 139 mmol/L (136-145)
[2018-10-29 07:45] VITALS: BP 144/62
[2018-10-29] MEDS: Colchicine 0.3 MG TAB PO SCH (08:28)
[2018-10-29] MEDS: Enoxaparin Sodium 30 MG/0.3 ML SYRINGE SC SCH (08:28)
[2018-10-29] MEDS: Famotidine 20 MG TAB PO SCH (08:29)
[2018-10-29] MEDS: Allopurinol 100 MG TAB PO SCH (08:29)
[2018-10-29] MEDS: Carvedilol 25 MG TAB PO SCH (08:29)
[2018-10-29] MEDS: Senokot S 8.6-50 MG TAB PO SCH (08:30)
[2018-10-29] MEDS: Amlodipine 5 MG TAB PO SCH (08:30)
[2018-10-29] MEDS: EPOETIN ALFA-EPBX (ESRD) 10,000 UNIT/ML VIAL SC SCH (09:28)
--- NOTE | 2018-10-29 10:26 | PRG ---
DATE OF SERVICE: 10/29/2018 SUBJECTIVE: A 63-year-old gentleman, being seen for end-stage renal disease. The patient denied any nausea, vomiting, or chest pain. OBJECTIVE: GENERAL: The patient is awake and alert. VITAL SIGNS: Afebrile, pulse 80, breathing 16, and blood pressure 144/62. GENERAL APPEARANCE AND MENTAL STATUS: Fair. HEAD/NECK: Normocephalic. Atraumatic. EYES: EOMI. No deformity. EARS: Clear. No ulcers. NOSE: Intact. No lesions. MOUTH: Clear. No discharge. THROAT: Clear. No exudate. LUNGS: Clear. No crackles. CARDIAC: S1, S2. No rub. ABDOMEN: Benign. Bowel sounds positive. GENITALIA/RECTUM: Tiwari absent. BACK/EXTREMITIES: Edema 0+. NEUROLOGICAL: Alert and motor intact. SKIN: LYMPHATICS: LABORATORY DATA: Hemoglobin 8.7. Creatinine 8.4. ASSESSMENT AND PLAN: 1. Stage 6 chronic kidney disease, stable. 2. Hypertension, stable. 3. Anemia, stable. 4. Medications based on GFR appropriate. Job ID: [id number]
--- NOTE | 2018-10-29 12:38 | PDOC.EVN ---
Event Note - Event Note Event Note: DC SUMMARY #[id number]
--- NOTE | 2018-10-29 22:29 | DIS ---
DATE OF ADMISSION: 10/03/2018 DATE OF DISCHARGE: 10/29/2018 ADMITTING DIAGNOSES: Generalized weakness, possible pneumonia, hypertension, hyperlipidemia, arthritis. DISCHARGE DIAGNOSES: Generalized weakness, possible pneumonia, hypertension, hyperlipidemia, arthritis. End-stage renal disease, on peritoneal dialysis. HOSPITAL COURSE: This is a 63-year-old gentleman who was admitted to the Internal Medicine Team coming in with fever 100.3. He was admitted to the Medicine Team. Started on antibiotics. Also followed very closely by General Surgery, Infectious Disease, Orthopedics, and Pulmonary. The patient was found to have Strep agalactiae in the blood as well as urine and hip joint on the and 05 of October respectively. The patient was given antibiotics with significant improvement, was put on peritoneal dialysis with improvement in his condition. At point in time of discharge, the patient was stable, pending placement to a half-way facility. The patient did have antibiotics given to him at point in time of discharge. The patient was to follow up with the rehab physician for further management and care. The patient's condition at point in time of discharge was stable. Case and plan discussed with the patient and family at length, they understood and agreed with this plan. DISPOSITION: Rehab. MEDICATIONS: See MAY. ACTIVITY: As tolerated with assistance as needed. DIET: Low-fat, low-calorie, high-fiber renal diet. CONDITION: Stable. PROGNOSIS: Guarded. Once again, case and plan discussed with the patient and at length, they understood and agreed with this plan. Job ID: [id number]
== END 2018-10-29 11:07 | DRG 461 ==
LOC: ERS 15:03 → T4-B 17:24 → CCU 10-06 15:18 → SURG A 10-08 10:58 → CCU 10-10 17:10 → SURG A 10-15 11:23
PROVIDERS: ADMIT Internal Medicine; ATTEND Internal Medicine
PROC: 0RBK4ZZ Excision of Left Shoulder Joint, Percutaneous Endoscopic Approach (ICD-10-PCS; 2018-10-05)
PROC: 0S993ZX Drainage of Right Hip Joint, Percutaneous Approach, Diagnostic (ICD-10-PCS; principal; 2018-10-06)
PROC: 0SR9019 Replacement of Right Hip Joint with Metal Synthetic Substitute, Cemented, Open Approach (ICD-10-PCS; 2018-10-06)
PROC: 0SR Lower Joints, Replacement (ICD-10-PCS; 2018-10-06)
PROC: 0SP90JZ Removal of Synthetic Substitute from Right Hip Joint, Open Approach (ICD-10-PCS; 2018-10-06)
PROC: 0SPE0JZ Removal of Synthetic Substitute from Left Hip Joint, Acetabular Surface, Open Approach (ICD-10-PCS; 2018-10-06)
PROC: 05LC0ZZ Occlusion of Left Basilic Vein, Open Approach (ICD-10-PCS; 2018-10-06)
PROC: 05LF0ZZ Occlusion of Left Cephalic Vein, Open Approach (ICD-10-PCS; 2018-10-06)
PROC: 30233N1 Transfusion of Nonautologous Red Blood Cells into Peripheral Vein, Percutaneous Approach (ICD-10-PCS; 2018-10-06)
PROC: 0JH63XZ Insertion of Tunneled Vascular Access Device into Chest Subcutaneous Tissue and Fascia, Percutaneous Approach (ICD-10-PCS; 2018-10-17)
PROC: 02HV33Z Insertion of Infusion Device into Superior Vena Cava, Percutaneous Approach (ICD-10-PCS; 2018-10-17)
PROC: B548ZZA Ultrasonography of Superior Vena Cava, Guidance (ICD-10-PCS; 2018-10-17)
PROC: 05WY07Z Revision of Autologous Tissue Substitute in Upper Vein, Open Approach (ICD-10-PCS; 2018-10-21)
PROC: 5A1D70Z Performance of Urinary Filtration, Intermittent, Less than 6 Hours Per Day (ICD-10-PCS; 2018-10-27)
DX: T84.51XA Infection and inflammatory reaction due to internal right hip prosthesis, initial encounter (principal); N18.6 End stage renal disease; G93.41 Metabolic encephalopathy; J95.821 Acute postprocedural respiratory failure; A40.8 Other streptococcal sepsis; I12.0 Hypertensive chronic kidney disease with stage 5 chronic kidney disease or end stage renal disease; N39.0 Urinary tract infection, site not specified; M00.212 Other streptococcal arthritis, left shoulder; L03.114 Cellulitis of left upper limb; T84.52XA Infection and inflammatory reaction due to internal left hip prosthesis, initial encounter; D63.1 Anemia in chronic kidney disease; E87.8 Other disorders of electrolyte and fluid balance, not elsewhere classified; E78.5 Hyperlipidemia, unspecified; M10.9 Gout, unspecified; M06.9 Rheumatoid arthritis, unspecified
CPT/HCPCS: 20610; 36415; 36416; 36430; 36901; 70450; 71045; 72170; 77002; 80048; 80053; 80069; 80202; 81001; 81003; 81015; 82550; 82805; 82945; 83605; 83880; 84157; 84484; 85007; 85025; 85027; 85060; 85610; 85652; 85730; 86140; 86704; 86706; 86803; 86850; 86900; 86901; 87040; 87070; 87077; 87086; 87149; 87186; 87205; 87340; 89051; 89060; 90935; 90945; 93005; 93306; 93970; 94002; 94003; 94760; 96365; 96366; 96367; 96368; C1713; C1751; C1769; C1776; G0257; J0131; J0670; J0690; J0696; J1642; J1644; J1650; J1885; J1956; J2001; J2250; J2270; J2370; J2405; J2543; J2704; J2720; J3010; J3260; J3370; J3490; J7050; J7512; P9016; Q5105; Q9967; S0028

== ENCOUNTER 2018-12-13 09:57 | Emergency (ER) | payer OTHER, MEDICARE ==
[2018-12-13 10:44] LABS: #Lymphocytes 1.5 thou/uL (1.20-3.40); #Monocytes 0.7 thou/uL (0.11-0.59); #Neutrophils 6.1 thou/uL (1.40-6.50); %Basophils 0.4 % (0.0-1.0); %Eosinophils 0.3 % (0.0-10.0); %Monocytes 8.2 % (0.0-10.0); %Neutrophils 73.1 % (42.0-75.0); Hemoglobin 8.2 g/dL (14.0-18.0); Mean Corpuscular HGB CONC 33.8 g/dL (32.0-36.0); Mean Corpuscular Hemoglobin 30.4 pg (27.0-31.0); Mean Corpuscular Volume 90.2 fL (78.0-98.0); Mean Platelet Volume 6.3 fL (7.4-10.4); Platelet Count 408 thou/uL (130-400); RBC Distribution Width 15.2 % (11.5-14.5); White Blood Cell (WBC) Count 8.3 thou/uL (4.8-10.8)
[2018-12-13 11:01] LABS: ALT (SGPT) 7 U/L (8-55); AST (SGOT) 11 U/L (5-34); Albumin 2.5 g/dL (3.4-4.8); Alkaline Phosphatase 95 U/L (40-150); Anion Gap 13 mmol/L (10-20); BUN (Urea Nitrogen) 25 mg/dL (8.4-25.7); Bilirubin, Total 0.5 mg/dL (0.2-1.2); Calc. Creatinine Clearance 0 mL/min (70-130); Calcium 11.5 mg/dL (7.8-10.44); Carbon Dioxide 31 mmol/L (23-31); Chloride 95 mmol/L (98-107); Estimated GFR-MDRD 6; Globulin 3.5 g/dL (2.4-3.5); Glucose 96 mg/dL (80-115); Sodium 136 mmol/L (136-145)
[2018-12-13 11:07] LABS: Potassium 2.7 mmol/L (3.5-5.1)
[2018-12-13] MEDS ORDERED: Potassium Chloride 20 MEQ TAB ONE (12:13)
--- NOTE | 2018-12-17 13:28 | EKG ---
Test Reason : WELLCHECK Blood Pressure : / mmHG Vent. Rate : 063 BPM Atrial Rate : 063 BPM P-R Int : 158 ms QRS Dur : 110 ms QT Int : 440 ms P-R-T Axes : 018 004 016 degrees QTc Int : 450 ms Normal sinus rhythm Normal ECG Confirmed by RENATA YAP, TATE ([id number]), copy editor CECILIA HUI ([id number]) on 12/17/2018 1:28:33 PM Referred By: Confirmed By:TATE YANEZ MD
== END 2018-12-13 12:24 | disposition home or self-care (01) ==
LOC: ERS 09:57
DX: E87.6 Hypokalemia (principal); I12.0 Hypertensive chronic kidney disease with stage 5 chronic kidney disease or end stage renal disease; N18.6 End stage renal disease; E78.5 Hyperlipidemia, unspecified; E78.00 Pure hypercholesterolemia, unspecified; M10.9 Gout, unspecified; E66.9 Obesity, unspecified; Z79.899 Other long term (current) drug therapy; Z79.891 Long term (current) use of opiate analgesic
CPT/HCPCS: 36415; 80053; 85025; 93005

== ENCOUNTER 2019-11-20 17:26 | Inpatient (IN) | payer OTHER, MEDICARE ==
[2019-11-20] MEDS ORDERED: cefTRIAXone\\ROCEPHIN 2 GM VIAL ONE (17:59)
[2019-11-20 18:03] LABS: #Basophils 0.1 thou/uL (0.0-0.2); #Eosinphils 0.2 thou/uL (0.0-0.7); #Monocytes 1.2 thou/uL (0.11-0.59); #Neutrophils 8.3 thou/uL (1.40-6.50); %Basophils 0.5 % (0.0-1.0); %Eosinophils 1.7 % (0.0-10.0); Hemoglobin 14.3 g/dL (14.0-18.0); Mean Corpuscular HGB CONC 33.7 g/dL (32.0-36.0); Mean Corpuscular Hemoglobin 32.2 pg (27.0-31.0); Mean Corpuscular Volume 95.6 fL (78.0-98.0); Mean Platelet Volume 7.3 fL (7.4-10.4); Platelet Count 287 thou/uL (130-400); RBC Distribution Width 13.1 % (11.5-14.5); Red Blood Cell (RBC) Count 4.44 mill/uL (4.70-6.10); White Blood Cell (WBC) Count 11.7 thou/uL (4.8-10.8)
--- NOTE | 2019-11-20 18:08 | RAD ---
CHEST ONE VIEW: History: Dyspnea Comparison: 10-17-18 FINDINGS: Heart size is mildly enlarged. No confluent airspace consolidation, pneumothorax or effusion. No defi nite pulmonary edema. No acute osseous abnormality. IMPRESSION: No acute intrathoracic abnormality. POS: HOME
[2019-11-20 18:25] LABS: ALT (SGPT) 30 U/L (8-55); AST (SGOT) 25 U/L (5-34); Alkaline Phosphatase 143 U/L (40-110); Anion Gap 28 mmol/L (10-20); BUN (Urea Nitrogen) 105 mg/dL (8.4-25.7); Bilirubin, Total 0.7 mg/dL (0.2-1.2); Calc. Creatinine Clearance 0 mL/min (70-130); Calcium 9.4 mg/dL (7.8-10.44); Carbon Dioxide 22 mmol/L (23-31); Chloride 88 mmol/L (98-107); Estimated GFR-MDRD 3; Globulin 3.1 g/dL (2.4-3.5); Glucose 87 mg/dL (80-115); Potassium 4.1 mmol/L (3.5-5.1); Protein, Total 7.1 g/dL (5.8-8.1); Sodium 134 mmol/L (136-145)
[2019-11-20 18:47] LABS: CKMB 4.1 ng/mL (0-6.6)
[2019-11-20 20:23] LABS: Bilirubin Negative (Negative); Blood, Urine Large (Negative); Glucose, Urine (Dipstick) Negative (Negative); Ketone, Urine Negative (Negative); Leukocyte Moderate (Negative); Nitrite Negative (Negative); Protein, Urine (Dipstick) > or equal to 300 mg/dL (Neg-Trace); Specific Gravity, Urine 1.025 (1.005-1.030); Urobilinogen 0.2 mg/dL (Less than 2); pH, Urine 6.5 (5.0-9.0)
[2019-11-20 20:24] LABS: Clarity Cloudy (Clear)
[2019-11-20] MEDS ORDERED: Vancomycin 1 GM/200 ML BAG ONE (20:27)
[2019-11-20 20:28] LABS: WBC/HPF Greater Than 50 HPF (0-3)
[2019-11-20 20:29] LABS: Bacteria/HPF 4+ HPF (None Seen)
[2019-11-20 21:12] LABS: Troponin I 0.029 ng/mL (< 0.028)
--- NOTE | 2019-11-20 21:13 | PDOC.HHP ---
Hospitalist HPI - History of Present Illness general malaise weakness History of Present Illness: Case of an 64y/o male with pmhx of hld, hypercholesterolemia, esrd on p/d. htn and ankylosing spondylitis who comes to hospital due to weakness and fatigues for a week. patient refers he was on his usual state of health until 2 weeks ago when he started with some cough, the cough lasted for a few days then he started with generalize weakness and fatigue for the last week. patient denies any fever chills nausea vomiting diarrhea dysuria, pt also denies any abdominal pain sob or chest pain Hospitalist ROS - Review of Systems All other systems reviewed; all pertinent +/- noted in HPI/Subj Hospitalist History - Past Surgical History Past Surgical History: reports: Total Hip Replacement - Family History Family History: reports: hypertension - Social History Smoking Status: Never smoker Alcohol: reports: None Drugs: reports: none - Exam General Appearance: NAD, awake alert Eye: PERRL, anicteric sclera ENT: normocephalic atraumatic, no oropharyngeal lesions Neck: supple, symmetric, no JVD Heart: RRR, no murmur, no gallops Respiratory: CTAB, no wheezes, no rales Gastrointestinal: soft, non-tender, non-distended Extremities: no cyanosis, no clubbing, no edema Skin: normal turgor, no lesions, no rashes Neurological: cranial nerve grossly intact, normal sensation to touch Musculoskeletal: normal tone, normal strength, no muscle wasting Psychiatric: normal affect, normal behavior, A&O x 3 Hospitalist Results - Labs Result Diagrams: 11/20/19 17:48 11/20/19 17:48 Lab results: WBC 11.7 thou/uL (4.8-10.8) H 11/20/19 17:48 Hgb 14.3 g/dL (14.0-18.0) 11/20/19 17:48 Hct 42.4 % (42.0-52.0) 11/20/19 17:48 MCV 95.6 fL (78.0-98.0) 11/20/19 17:48 Plt Count 287 thou/uL (130-400) 11/20/19 17:48 Neutrophils % 71.0 % (42.0-75.0) 11/20/19 17:48 Sodium 134 mmol/L (136-145) L 11/20/19 17:48 Potassium 4.1 mmol/L (3.5-5.1) 11/20/19 17:48 Chloride 88 mmol/L (98-107) L 11/20/19 17:48 Carbon Dioxide 22 mmol/L (23-31) L 11/20/19 17:48 BUN 105 mg/dL (8.4-25.7) H 11/20/19 17:48 Creatinine 17.48 mg/dL (0.7-1.3) H 11/20/19 17:48 Glucose 87 mg/dL (80-115) 11/20/19 17:48 Lactic Acid 1.6 mmol/L (0.5-2.2) 11/20/19 17:48 Calcium 9.4 mg/dL (7.8-10.44) 11/20/19 17:48 Total Bilirubin 0.7 mg/dL (0.2-1.2) 11/20/19 17:48 AST 25 U/L (5-34) 11/20/19 17:48 ALT 30 U/L (8-55) 11/20/19 17:48 Alkaline Phosphatase 143 U/L (40-110) H 11/20/19 17:48 CK-MB (CK-2) 4.1 ng/mL (0-6.6) 11/20/19 17:48 Troponin I 0.031 ng/mL (< 0.028) H 11/20/19 17:48 Serum Total Protein 7.1 g/dL (5.8-8.1) 11/20/19 17:48 Albumin 4.0 g/dL (3.4-4.8) 11/20/19 17:48 Urine Ketones Negative mg/dL (Negative) 11/20/19 20:10 Urine Blood Large (Negative) A 11/20/19 20:10 Urine Nitrite Negative (Negative) 11/20/19 20:10 Ur Leukocyte Esterase Moderate (Negative) H 11/20/19 20:10 Urine RBC 11-20 HPF (0-3) A 11/20/19 20:10 Urine WBC Greater Than 50 HPF (0-3) A 11/20/19 20:10 Ur Squamous Epith Cells 11-20 HPF (0-3) A 11/20/19 20:10 Urine Bacteria 4+ HPF (None Seen) A 11/20/19 20:10 Hospitalist H&P A/P - Problem (1) UTI (urinary tract infection) Status: Acute (2) HTN (hypertension) Code(s): I10 - ESSENTIAL (PRIMARY) HYPERTENSION Status: Acute Qualifiers: Hypertension type: essential hypertension Qualified Code(s): I10 - Essential (primary) hypertension (3) ESRD on peritoneal dialysis Code(s): N18.6 - END STAGE RENAL DISEASE; Z99.2 - DEPENDENCE ON RENAL DIALYSIS Status: Chronic (4) Gout Code(s): M10.9 - GOUT, UNSPECIFIED Status: Chronic Qualifiers: Gout site: unspecified site - Plan Plan: 64y/o male with the stated pmhx who presents with generalize weakness and fatigue uti - wbc at 11.7 - u/a consistent with utia - patient still passes urine but very little and not every day, this might be a normal finding - f/u blood and urine cultures - ivfs given covid 19 r/o - tested, pending results - isolation protocols gout - continue home meds esrd on p/d - continue w peritoneal dyalisis - interlacer consulted
[2019-11-20] MEDS ORDERED: Calcium Carbonate 500 MG ChewTAB PO PRN (21:15)
[2019-11-20] MEDS ORDERED: HYDROcodone/Acetaminophen 5/325 mg Tablet PO PRN (21:15)
[2019-11-20] MEDS ORDERED: Acetaminophen 650 MG Suppository PR PRN (21:15)
[2019-11-20] MEDS ORDERED: Acetaminophen 325 MG TAB PO PRN (21:15)
[2019-11-20 23:30] VITALS: BMI 31.9
[2019-11-21 00:25] LABS: Troponin I 0.032 ng/mL (< 0.028)
[2019-11-21 06:05] LABS: Band 2 % (5-11); Eosinophils 11 % (0-10); Hemoglobin 12.8 g/dL (14.0-18.0); Lymphocytes 14 % (21-51); MDiff Complete? YES; Mean Corpuscular HGB CONC 33.7 g/dL (32.0-36.0); Mean Corpuscular Hemoglobin 32.4 pg (27.0-31.0); Mean Platelet Volume 7.1 fL (7.4-10.4); Monocytes 8 % (0-10); Neutrophil 65 % (42-75); Platelet Count 235 thou/uL (130-400); Platelet Morphology Comment Appears Adequate; Red Blood Cell (RBC) Count 3.95 mill/uL (4.70-6.10); White Blood Cell (WBC) Count 9.3 thou/uL (4.8-10.8)
[2019-11-21 06:16] LABS: ALT (SGPT) 24 U/L (8-55); AST (SGOT) 27 U/L (5-34); Albumin 3.3 g/dL (3.4-4.8); Alkaline Phosphatase 118 U/L (40-110); Anion Gap 26 mmol/L (10-20); BUN (Urea Nitrogen) 99 mg/dL (8.4-25.7); Bilirubin, Total 0.5 mg/dL (0.2-1.2); CK (CPK) 478 U/L (30-200); Calc. Creatinine Clearance 6 mL/min (70-130); Calcium 9.1 mg/dL (7.8-10.44); Carbon Dioxide 17 mmol/L (23-31); Chloride 93 mmol/L (98-107); Estimated GFR-MDRD 3; Glucose 121 mg/dL (80-115); Potassium 3.4 mmol/L (3.5-5.1); Protein, Total 6.3 g/dL (5.8-8.1); Sodium 133 mmol/L (136-145)
[2019-11-21 06:34] LABS: Hep B Surf Ag Non-Reactive S/CO (NonReactive)
[2019-11-21] MEDS: Cinacalcet HCl 30 MG TAB PO SCH (08:13)
[2019-11-21] MEDS: Enoxaparin Sodium 30 MG/0.3 ML SYRINGE SC SCH (08:13)
[2019-11-21] MEDS: Calcitriol 0.25 MCG CAP PO SCH (08:13)
[2019-11-21] MEDS: Sevelamer Carbonate 800 MG TAB PO SCH ×3 (08:13→16:52)
[2019-11-21] MEDS: Amlodipine 5 MG TAB PO SCH ×2 (08:13→19:57)
[2019-11-21] MEDS: Allopurinol 100 MG TAB PO SCH (08:13)
[2019-11-21] MEDS: Carvedilol 25 MG TAB PO SCH ×2 (08:13→19:58)
[2019-11-21 11:39] LABS: Hemoglobin 12.9 g/dL (14.0-18.0)
--- NOTE | 2019-11-21 12:08 | PDOC.HOSPP ---
- Subjective Encounter Date: 11/21/19 Encounter Time: 09:10 Subjective: c/o passing large amount of blood mixed with his stool this morning no pain with defecation no prior bleeding per rectum no fever, has cough+ - Objective Vital Signs & Weight: Vital Signs (12 hours) Temp Pulse Resp BP Pulse Ox 11/21/19 11:09 97 11/21/19 08:13 87 11/21/19 08:00 98.1 F 88 16 138/74 97 11/21/19 03:00 97.9 F 87 17 142/72 H 96 Weight Weight 210 lb I&O: 11/20/19 11/21/19 11/22/19 06:59 06:59 06:59 Intake Total 240 Balance 240 Result Diagrams: 11/21/19 11:24 11/21/19 05:30 Hospitalist ROS - Medication Medications: Active Medications Generic Name Dose Route Start Last Admin Trade Name Paramq PRN Reason Stop Dose Admin Allopurinol 100 mg 11/21/19 09:00 11/21/19 08:13 Zyloprim PO 100 mg DAILY ROD Administration Amlodipine Besylate 5 mg 11/21/19 09:00 11/21/19 08:13 Norvasc PO 5 mg BID ROD Administration Calcitriol 0.25 mcg 11/21/19 09:00 11/21/19 08:13 Rocaltrol PO 0.25 mcg DAILY ROD Administration Carvedilol 25 mg 11/21/19 09:00 11/21/19 08:13 Coreg PO 25 mg BID ROD Administration Cinacalcet 60 mg 11/21/19 09:00 11/21/19 08:13 Sensipar PO 60 mg DAILY ROD Administration Enoxaparin Sodium 30 mg 11/21/19 09:00 11/21/19 08:13 Lovenox SC 30 mg 0900 ROD Administration Sevelamer Carbonate 2,400 mg 11/21/19 08:00 11/21/19 12:01 Renvela PO 2,400 mg TID-WM ROD Administration Sodium Chloride 10 ml 11/21/19 09:00 11/21/19 08:14 Flush - Normal Saline IVF 10 ml Q12HR ROD Administration - Exam General Appearance: NAD, awake alert Eye: PERRL, anicteric sclera ENT: no oropharyngeal lesions, moist mucosa Neck: supple, no JVD Heart: RRR, no murmur Respiratory: no wheezes, no rales Gastrointestinal: soft, non-tender, non-distended, normal bowel sounds Gastrointestinal - other findings: PD cath+ Extremities: no cyanosis, no edema Neurological: cranial nerve grossly intact, no focal deficits Psychiatric: normal affect, A&O x 3 Hosp A/P (1) Rectal bleed Code(s): K62.5 - HEMORRHAGE OF ANUS AND RECTUM Status: Acute (2) Dyspnea Code(s): R06.00 - DYSPNEA, UNSPECIFIED Status: Acute Qualifiers: Dyspnea type: dyspnea on exertion Qualified Code(s): R06.00 - Dyspnea, unspecified (3) HTN (hypertension) Code(s): I10 - ESSENTIAL (PRIMARY) HYPERTENSION Status: Chronic Qualifiers: Hypertension type: essential hypertension Qualified Code(s): I10 - Essential (primary) hypertension (4) Anemia due to chronic kidney disease Code(s): N18.9 - CHRONIC KIDNEY DISEASE, UNSPECIFIED; D63.1 - ANEMIA IN CHRONIC KIDNEY DISEASE Status: Chronic Qualifiers: Chronic kidney disease stage: on chronic dialysis Qualified Code(s): N18.6 - End stage renal disease; D63.1 - Anemia in chronic kidney disease; Z99.2 - Dependence on renal dialysis (5) ESRD on peritoneal dialysis Code(s): N18.6 - END STAGE RENAL DISEASE; Z99.2 - DEPENDENCE ON RENAL DIALYSIS Status: Chronic (6) Gout Code(s): M10.9 - GOUT, UNSPECIFIED Status: Chronic Qualifiers: Gout site: unspecified site - Plan passes very insignificant amount of urine per patient, no burning or freq with urination has cough with expectoration from 1 week, no fever, no exposure to covid per patient had large bm mixed with blood this am, serial h/h, d/w , npo await cultures, is on ceftriaxone to continue peritoneal dialysis bnp is normal continue norvasc, coreg, sevelamer. to ambulate as tolerated in room, covid 19 test results are pending
[2019-11-21 16:04] LABS: SARS-CoV-2 MS2 Positive; SARS-CoV-2 N Gene Negative; SARS-CoV-2 S Gene Negative; SARS-CoV-2 by NAA Not Detected (NotDetected); SARS-CoV-2 orf1ab Negative
[2019-11-21 17:05] LABS: Hemoglobin 13.7 g/dL (14.0-18.0)
[2019-11-21] MEDS: cefTRIAXone\\ROCEPHIN 2 GM in Sodium Chloride 0.9% 100 ML IVPB SCH (18:14)
--- NOTE | 2019-11-21 18:16 | CON ---
DATE OF CONSULTATION: REASON FOR CONSULTATION: End-stage renal disease for maintenance peritoneal dialysis. HISTORY OF PRESENT ILLNESS: This is a 64-year-old gentleman presented to the hospital for possible COVID rule out. The patient at this time denies any nausea, vomiting, or chest pain. PAST MEDICAL HISTORY: Significant for end-stage renal disease, hypertension, anemia, malaise, hip replacement, and dialysis catheter placement. SOCIOECONOMIC HISTORY: No alcohol or drug abuse. FAMILY HISTORY: Negative for ESRD. ALLERGIES: REVIEWED. MEDICATIONS: Home medications list reviewed. Hospital medications list reviewed. REVIEW OF SYSTEMS: Fifteen-point review of system was performed and negative except for positives noted above. HEENT: Eyes intact, no diplopia. Ears: No hearing loss or earache. Nose: No discharge or bleeding. CHEST: No cough or phlegm. ABDOMEN: No nausea or vomiting. GENITOURINARY: No hematuria. No Tiwari catheter. MUSCULOSKELETAL: No low back pain. No joint swelling or pain. NEUROLOGICAL: No syncope. No seizures. SKIN: No complaints of rash or itching. PSYCHIATRIC: No depression. CONSTITUTIONAL: No weight loss or loss of appetite. PHYSICAL EXAMINATION: GENERAL: The patient is awake and alert. VITAL SIGNS: Afebrile, pulse 75, breathing at 16, and blood pressure 138/74. HEENT: Head normocephalic and atraumatic. Eyes intact, no ulcers. Nose intact, no ulcers. Ears intact, no ulcers. NECK: Supple. No JVD. CHEST: Symmetrical and clear. CARDIOVASCULAR: Shows S1 and S2, no rub, no murmur. GASTROINTESTINAL: Abdomen is soft, bowel sounds positive. EXTREMITIES: Show no edema or ulcers. SKIN: Shows no rash or petechiae. MUSCULOSKELETAL: Shows no joint swelling or stiffness. GENITOURINARY: Shows no Tiwari or CVA tenderness. NEUROLOGIC: Motor intact. Cranial nerves intact. LABORATORY DATA: Reviewed. ASSESSMENT AND PLAN: 1. Stage 6 chronic kidney disease. Continue daily peritoneal dialysis. 2. Hypokalemia. Recommend high potassium diet. 3. Metabolic acidosis, stable. 4. Medications based on glomerular filtration rate are appropriate. Job ID: [id number]
[2019-11-21 22:59] LABS: Hemoglobin 13.5 g/dL (14.0-18.0)
[2019-11-22 06:13] LABS: #Eosinphils 0.8 thou/uL (0.0-0.7); #Lymphocytes 1.1 thou/uL (1.20-3.40); #Monocytes 1.3 thou/uL (0.11-0.59); %Basophils 0.4 % (0.0-1.0); %Eosinophils 6.8 % (0.0-10.0); %Lymphocytes 8.6 % (21.0-51.0); %Monocytes 10.7 % (0.0-10.0); %Neutrophils 73.5 % (42.0-75.0); Hemoglobin 12.3 g/dL (14.0-18.0); Mean Corpuscular HGB CONC 33.2 g/dL (32.0-36.0); Mean Corpuscular Volume 96.4 fL (78.0-98.0); Mean Platelet Volume 7.3 fL (7.4-10.4); Platelet Count 254 thou/uL (130-400); RBC Distribution Width 13.2 % (11.5-14.5); Red Blood Cell (RBC) Count 3.86 mill/uL (4.70-6.10); White Blood Cell (WBC) Count 12.3 thou/uL (4.8-10.8)
[2019-11-22 06:27] LABS: Anion Gap 25 mmol/L (10-20); BUN (Urea Nitrogen) 85 mg/dL (8.4-25.7); Calc. Creatinine Clearance 6 mL/min (70-130); Calcium 9.1 mg/dL (7.8-10.44); Carbon Dioxide 21 mmol/L (23-31); Chloride 94 mmol/L (98-107); Estimated GFR-MDRD 3; Glucose 102 mg/dL (80-115); Potassium 3.9 mmol/L (3.5-5.1); Sodium 136 mmol/L (136-145)
[2019-11-22] MEDS: Enoxaparin Sodium 30 MG/0.3 ML SYRINGE SC SCH (08:34)
[2019-11-22] MEDS: Cinacalcet HCl 30 MG TAB PO SCH (08:35)
[2019-11-22] MEDS: Sevelamer Carbonate 800 MG TAB PO SCH ×3 (08:35→17:46)
[2019-11-22] MEDS: Carvedilol 25 MG TAB PO SCH ×2 (08:35→20:29)
[2019-11-22] MEDS: Amlodipine 5 MG TAB PO SCH ×2 (08:35→20:29)
[2019-11-22] MEDS: Allopurinol 100 MG TAB PO SCH (08:35)
[2019-11-22] MEDS: Calcitriol 0.25 MCG CAP PO SCH (08:35)
--- NOTE | 2019-11-22 09:45 | PRG ---
DATE OF SERVICE: 11/22/2019 SUBJECTIVE: A 64-year-old gentleman, being seen for end-stage renal disease. The patient denies any nausea, vomiting, or chest pain. OBJECTIVE: GENERAL: The patient is awake and alert. VITAL SIGNS: Afebrile, pulse 75, breathing 16, blood pressure 166/63. HEENT: Head normocephalic and atraumatic. Eyes intact, no ulcers. Nose intact, no ulcers. Ears intact, no ulcers. Neck: Supple. No JVD. Chest: Symmetrical and clear. Cardiovascular: Shows S1 and S2, no rub, no murmur. Gastrointestinal: Abdomen is soft, bowel sounds positive. Extremities: Show no edema or ulcers. Skin: Shows no rash or petechiae. Musculoskeletal: Shows no joint swelling or stiffness. Genitourinary: Shows no Tiwari or CVA tenderness. Neurologic: Motor intact. Cranial nerves intact. LABORATORY DATA: Reviewed. ASSESSMENT AND PLAN: 1. Stage 6 chronic kidney disease. Continue peritoneal dialysis. 2. Hypertension, stable. 3. Anemia, stable. 4. Medication based on GFR are appropriate. Job ID: [id number]
[2019-11-22] MEDS ORDERED: PROPOFOL 200 MG/20 ML VIAL ONE (10:07)
[2019-11-22] MEDS ORDERED: Lidocaine 1% PF 5 ML VIAL ONE (10:07)
[2019-11-22] MEDS ORDERED: EPHEDRINE 25 MG/5 ML SYRINGE ONE (10:07)
--- NOTE | 2019-11-22 11:14 | CON ---
DATE OF CONSULTATION: 11/21/2019 REASON FOR CONSULTATION: Hematochezia. HISTORY OF PRESENT ILLNESS: Mr. Jesus Rodriguez is a 64-year-old male with history of end-stage renal disease and is on peritoneal dialysis. He does see Dr. Duron, with Nephrology. The patient had episode of coughing lasting for nearly 2 weeks. He had no fever. There is no history of sore throat. The cough was dry with small amount of mucus. The patient's cough is almost gone. He came to the ER because some generalized weakness and fatigue. He also has history of hematochezia over the last couple of days. The bleeding is painless. The bleeding occurred with bowel movements. The patient denies abdominal pain. No perianal discomfort or tenesmus. Most of the time he does have a BM regularly. However , at times he does strain. The patient does not strain usually. He had bleeding last night, but this morning he has had no bleeding. He has no abdominal pain . There are no similar episodes in the past.He had no family history of colon cancer. The patient had a colonoscopy I believe more than 10 years ago, but at the present time denies abdominal pain, nausea, vomiting. He had no relevant history. MEDICAL ILLNESSES: 1. Hypertension. 2. Osteoarthritis. 3. Chronic kidney disease. 4. Ankylosing spondylitis. 5. History of septic arthritis of the left knee in the past. 6. He has had bilateral knee replacement. 7. End-stage renal disease, on peritoneal dialysis. 8. Osteoarthritis. 9. Distal AV fistula for dialysis. ALLERGIES: NONE. SOCIAL HISTORY: He does not smoke or drink alcohol. FAMILY HISTORY: Noncontributory. MEDICATION LIST: Reviewed. REVIEW OF SYSTEMS: Ten-point system review: CONSTITUTIONAL: No history of weight loss. Has good exercise tolerance. HEAD: No chronic headache. No seizure disorder. EYES: No impaired vision. EARS: No hearing loss. THROAT: No sore throat. No dysphagia. NECK: No stiffness. LUNGS: No chronic coughing. no hemoptysis.. HEART: No chest pain. No orthopnea. GI: No abdominal pain He is on _ on dialysis. MUSCULOSKELETAL: History of back pain and arthralgias. NEUROPSYCHIATRY: unremarkable . PHYSICAL EXAMINATION: GENERAL: He appears comfortable. He is obese. VITAL SIGNS: Very stable. He is afebrile. Pulse is 88, blood pressure 138/ 77. HEENT: Conjunctivae are clear. NECK: Supple. no adenitis or thyromegaly noted.. CARDIOVASCULAR SYSTEM: Normal heart sounds. LUNGS: Clear to auscultation. ABDOMEN: Soft and nondistended. no organomegaly or masses_. EXTREMITIES: Reveal no edema. LABORATORY DATA: On admission on 11/20/2019, WBC is normal, polymorphs 85, lymphocytes 8, Hb is drifting down slowly, but is stable around 12.8 to 12.9. Chemistry panel, he has normal lytes, slightly low sodium 133, potassium 4, chloride 93, CO2 17, BUN 99, creatinine 17.83, glucose 121, AST 27, ALT 24, albumin 3.3, troponin 0.032. COVID-19 testing is pending. CLINICAL IMPRESSION: 1. A 64-year-old male with hematochezia, which is painless. He has no abdominal pain. No tenesmus. The bleeding appears to be actually mil. 2. Chronic kidney disease, on dialysis. 3. Ankylosing spondylitis. 4. Osteoarthritis. 5. Dialysis. RECOMMENDATION: Await COVID testing and if the test is negative will plan for a colonoscopy this admission. Job ID: [id number] [facility]
--- NOTE | 2019-11-22 11:21 | PDOC.HOSPP ---
- Subjective Encounter Date: 11/22/19 Encounter Time: 10:00 Subjective: sitting in chair, no bm today or bleeding no fever. has ambulated in room - Objective Vital Signs & Weight: Vital Signs (12 hours) Temp Pulse Resp BP BP Pulse Ox 11/22/19 08:35 75 11/22/19 08:00 96 11/22/19 07:56 98.7 F 75 20 106/63 96 11/22/19 05:00 98.5 F 76 18 109/66 97 11/22/19 04:16 98.5 F 76 18 109/66 97 11/22/19 01:00 97.8 F 72 18 127/71 100 Weight Weight 210 lb I&O: 11/21/19 11/22/19 11/23/19 06:59 06:59 06:59 Intake Total 480 Balance 480 Result Diagrams: 11/22/19 05:11 11/22/19 05:11 Hospitalist ROS - Medication Medications: Active Medications Generic Name Dose Route Start Last Admin Trade Name Paramq PRN Reason Stop Dose Admin Allopurinol 100 mg 11/21/19 09:00 11/22/19 08:35 Zyloprim PO 100 mg DAILY ROD Administration Amlodipine Besylate 5 mg 11/21/19 09:00 11/22/19 08:35 Norvasc PO 5 mg BID ROD Administration Calcitriol 0.25 mcg 11/21/19 09:00 11/22/19 08:35 Rocaltrol PO 0.25 mcg DAILY ROD Administration Carvedilol 25 mg 11/21/19 09:00 11/22/19 08:35 Coreg PO 25 mg BID ROD Administration Cinacalcet 60 mg 11/21/19 09:00 11/22/19 08:35 Sensipar PO 60 mg DAILY ROD Administration Enoxaparin Sodium 30 mg 11/21/19 09:00 11/22/19 08:34 Lovenox SC 30 mg 0900 ROD Administration Ceftriaxone Sodium 2 gm/ 100 mls @ 200 mls/hr 11/21/19 18:30 11/21/19 18:14 Sodium Chloride IVPB 100 mls Q24HR ROD Administration Sevelamer Carbonate 2,400 mg 11/21/19 08:00 11/22/19 08:35 Renvela PO 2,400 mg TID-WM ROD Administration Sodium Chloride 10 ml 11/21/19 09:00 11/22/19 08:36 Flush - Normal Saline IVF 10 ml Q12HR ROD Administration - Exam General Appearance: awake alert Eye: PERRL, anicteric sclera ENT: no oropharyngeal lesions, moist mucosa Neck: supple, no JVD Heart: RRR, no murmur Respiratory: no wheezes, no rales Gastrointestinal: soft, non-tender, non-distended, normal bowel sounds Gastrointestinal - other findings: pd cath+ Extremities: no cyanosis, no edema Neurological: cranial nerve grossly intact, no focal deficits Psychiatric: normal affect, A&O x 3 Hosp A/P (1) Rectal bleed Code(s): K62.5 - HEMORRHAGE OF ANUS AND RECTUM Status: Acute (2) Dyspnea Code(s): R06.00 - DYSPNEA, UNSPECIFIED Status: Acute Qualifiers: Dyspnea type: dyspnea on exertion Qualified Code(s): R06.00 - Dyspnea, unspecified (3) HTN (hypertension) Code(s): I10 - ESSENTIAL (PRIMARY) HYPERTENSION Status: Chronic Qualifiers: Hypertension type: essential hypertension Qualified Code(s): I10 - Essential (primary) hypertension (4) Anemia due to chronic kidney disease Code(s): N18.9 - CHRONIC KIDNEY DISEASE, UNSPECIFIED; D63.1 - ANEMIA IN CHRONIC KIDNEY DISEASE Status: Chronic Qualifiers: Chronic kidney disease stage: on chronic dialysis Qualified Code(s): N18.6 - End stage renal disease; D63.1 - Anemia in chronic kidney disease; Z99.2 - Dependence on renal dialysis (5) ESRD on peritoneal dialysis Code(s): N18.6 - END STAGE RENAL DISEASE; Z99.2 - DEPENDENCE ON RENAL DIALYSIS Status: Chronic (6) Gout Code(s): M10.9 - GOUT, UNSPECIFIED Status: Chronic Qualifiers: Gout site: unspecified site - Plan passes very insignificant amount of urine per patient, no burning or freq with urination has cough with expectoration from 1 week, no fever, no exposure to covid per patient, covid 19 pcr is -ve. had large bm mixed with blood 11/20, serial h/h has remained stable, is npo urine culture is contaminated, will switch to oral vantin daily to continue peritoneal dialysis bnp is normal continue norvasc, coreg, sevelamer. to ambulate as tolerated in room dc plan home if no procedures are planned by GI.
[2019-11-22] MEDS ORDERED: GoLYTELY 4,000 ml Bottle PO SCH (11:45)
[2019-11-22] MEDS: cefTRIAXone\\ROCEPHIN 2 GM in Sodium Chloride 0.9% 100 ML IVPB SCH (17:46)
[2019-11-22] MEDS ORDERED: Ondansetron PF 4 MG/2 ML Vial ONE (18:14)
[2019-11-22] MEDS ORDERED: Ondansetron HCl/PF 4 MG/2 ML Vial IVP PRN (18:16)
--- NOTE | 2019-11-22 19:01 | OP ---
DATE OF PROCEDURE: 11/22/2019 OPERATIVE PROCEDURE: Colonoscopy. PREOPERATIVE DIAGNOSIS: A 64-year-old male with hematochezia, undergoing colonoscopy. POSTOPERATIVE DIAGNOSIS: Normal colonoscopy except for large hemorrhoids. DESCRIPTION OF PROCEDURE: The patient was placed on his left lateral position and was given sedation by Anesthesia Department. A rectal exam was done before the scope was advanced into the rectum. There were no lesions felt on rectal exam. A Pentax video colonoscope was introduced into the rectum and advanced onto the cecum. The prep was very good. The mucosa appears normal throughout the colon with normal vascular pattern. The appendicular opening, ileocecal valve, and cecum well seen. No pathology seen. On withdrawal of scope from the cecum to ascending colon, hepatic flexure, no lesion seen. In the transverse colon, splenic flexure, descending colon, sigmoid colon, no lesion seen. Retroflexion of scope in the rectum showed large hemorrhoids. RECOMMENDATIONS: 1. Renal diet. 2. The patient can be discharged home tomorrow. Job ID: [id number]
[2019-11-23 07:09] VITALS: BP 130/67; TEMP 97.9
[2019-11-23] MEDS: Calcitriol 0.25 MCG CAP PO SCH (08:37)
[2019-11-23] MEDS: Cinacalcet HCl 30 MG TAB PO SCH (08:37)
[2019-11-23] MEDS: Sevelamer Carbonate 800 MG TAB PO SCH (08:37)
[2019-11-23] MEDS: Amlodipine 5 MG TAB PO SCH (08:37)
[2019-11-23] MEDS: Enoxaparin Sodium 30 MG/0.3 ML SYRINGE SC SCH (08:38)
[2019-11-23] MEDS: Allopurinol 100 MG TAB PO SCH (08:38)
[2019-11-23] MEDS: Carvedilol 25 MG TAB PO SCH (08:38)
[2019-11-23] MEDS ORDERED: Cipro 250 MG TAB PO SCH (09:00)
--- NOTE | 2019-11-23 11:51 | PRG ---
DATE OF SERVICE: 11/23/2019 SUBJECTIVE: A 64-year-old gentleman being seen for end-stage renal disease. The patient denies any nausea, vomiting, or chest pain. OBJECTIVE: General: The patient is awake and alert. Vital Signs: Afebrile, pulse 75, breathing at 16, blood pressure 130/67. HEENT: Head normocephalic and atraumatic. Eyes intact, no ulcers. Nose intact, no ulcers. Ears intact, no ulcers. Neck: Supple. No JVD. Chest: Symmetrical and clear. Cardiovascular: Shows S1 and S2, no rub, no murmur. Gastrointestinal: Abdomen is soft, bowel sounds positive. Extremities: Show no edema or ulcers. Skin: Shows no rash or petechiae. Musculoskeletal: Shows no joint swelling or stiffness. Genitourinary: Shows no Tiwari or CVA tenderness. Neurologic: Motor intact. Cranial nerves intact. LABORATORY DATA: Reviewed. ASSESSMENT AND PLAN: 1. Stage 6 chronic kidney disease. Continue peritoneal dialysis. 2. Hypertension, stable. 3. Anemia, stable. The patient will follow up with Dr. Duron. Job ID: [id number]
--- NOTE | 2019-11-23 14:31 | DIS ---
DATE OF ADMISSION: 11/20/2019 DATE OF DISCHARGE: 11/23/2019 DISCHARGE DISPOSITION: To home. PRIMARY DISCHARGE DIAGNOSES: GI bleed due to hemorrhoids; initial generalized weakness with dyspnea, resolved. SECONDARY DISCHARGE DIAGNOSES: End-stage renal disease on peritoneal dialysis, chronic anemia due to renal disease, hypertension, gout. PROCEDURES DONE DURING HOSPITALIZATION: The patient has had chest x-ray done which showed no acute intrathoracic abnormality. Colonoscopy done on 11/22/2019 was normal except for large hemorrhoids. Urine culture grew Citrobacter koseri sensitive to all antibiotics except nitrofurantoin. Blood cultures x2, no growth. H and H 12 and 37, platelet count 254, MCV is 96, white count of 12. Discharge BUN and creatinine are 85 and 16.5, serum bicarb 21. BNP 45. Albumin is 3.3. COVID-19 PCR was not detected on 11/20/2019. HBS antigen is nonreactive. DISCHARGE MEDICATIONS: 1. Ciprofloxacin 250 mg p.o. daily for another 4 days. 2. Allopurinol 100 mg p.o. daily. 3. Sevelamer 2400 mg p.o. 3 times daily. 4. Sensipar 60 mg p.o. daily. 5. Carvedilol 25 mg twice daily. 6. Calcitriol 0.25 mcg p.o. daily. 7. Norvasc 5 mg twice daily. ALLERGIES: ALLERGIC TO CODEINE. DISCHARGE PLAN: The patient to follow up with Dr. Kirt Quiros, his primary care physician in 1 week. He will follow up with Dr. Bautista in 2 to 3 weeks for a left hip pain with prior hip replacement and ongoing pain with difficulty ambulating. BRIEF COURSE DURING HOSPITALIZATION: The patient initially got admitted on the with complaints of generalized weakness, shortness of breath which has been ongoing for almost 2 weeks prior to arrival here. He initially started out with some dry cough. In view of this history, the patient has had COVID-19 PCR done which was negative. Blood cultures x2 showed no growth. The patient's generalized weakness and body aches are resolving as well. The patient likely has had some viral illness which is resolving. During the course of his stay, initial 24 hours the patient had a large bloody bowel movement which was mixed with stool. In view of this history, he has had serial H and H done and Dr. Rojo, his hand winder, was consulted. He has had colonoscopy done, which showed large hemorrhoids, but otherwise normal colonoscopy. His bleeding has completely resolved at the time of discharge. The patient initially was suspected to have urinary tract infection, likely colonization of Citrobacter koseri. This was sensitive to all antibiotics. The patient is an end-stage renal disease patient and passes very little amount of urine as such. He was asymptomatic, but in view of the cultures and initial presenting symptoms, the patient was on antibiotics here and has been advised to continue ciprofloxacin for another 4 days and to discontinue after that. Please see a [id number] documentation for the day of discharge. He has trouble ambulating due to chronic pain in his left hip and will follow up with Dr. Bautista in view of prior hip surgery and prior infections. He is otherwise hemodynamically stable and will be discharged home. Job ID: [id number]
--- NOTE | 2019-11-25 13:07 | EKG ---
Test Reason : Blood Pressure : / mmHG Vent. Rate : 101 BPM Atrial Rate : 101 BPM P-R Int : 154 ms QRS Dur : 098 ms QT Int : 376 ms P-R-T Axes : 033 017 044 degrees QTc Int : 487 ms Sinus tachycardia Otherwise normal ECG Confirmed by HALEY CHRISTIANSON ([id number]), metropolitan editor CECILIA HUI ([id number] on 11/25/2019 1:06:46 PM Referred By: Confirmed By:HALEY CHRISTIANSON
== END 2019-11-23 10:02 | disposition home or self-care (01) | DRG 393 ==
LOC: ERS 17:26 → T4-A 20:17 → OBSVTOIN 20:17
PROVIDERS: ADMIT Internal Medicine; ATTEND Internal Medicine
PROC: 3E1M39Z Irrigation of Peritoneal Cavity using Dialysate, Percutaneous Approach (ICD-10-PCS; 2019-11-21)
PROC: 0DJD8ZZ Inspection of Lower Intestinal Tract, Via Natural or Artificial Opening Endoscopic (ICD-10-PCS; principal; 2019-11-22)
PROC: 3E1M39Z Irrigation of Peritoneal Cavity using Dialysate, Percutaneous Approach (ICD-10-PCS; 2019-11-22)
DX: K64.9 Unspecified hemorrhoids (principal); N18.6 End stage renal disease; E87.2 Acidosis; I12.0 Hypertensive chronic kidney disease with stage 5 chronic kidney disease or end stage renal disease; Z20.828 Contact with and (suspected) exposure to other viral communicable diseases; M10.9 Gout, unspecified; B34.9 Viral infection, unspecified; D63.1 Anemia in chronic kidney disease; E78.5 Hyperlipidemia, unspecified; M45.9 Ankylosing spondylitis of unspecified sites in spine; Z96.649 Presence of unspecified artificial hip joint; E87.6 Hypokalemia; Z88.5 Allergy status to narcotic agent; Z99.2 Dependence on renal dialysis
CPT/HCPCS: 36415; 71045; 80048; 80053; 81003; 81015; 82550; 82553; 83605; 83880; 84484; 85007; 85025; 85027; 87040; 87077; 87086; 87186; 87340; 87635; 90945; 93005; 94760; 96372; G0257; G0378; J0696; J1650; J2405; J2704; J3370; J3490; U0003

== ENCOUNTER 2019-12-21 12:56 | Inpatient (IN) | payer OTHER, MEDICARE ==
[2019-12-21 13:47] LABS: #Eosinphils 0.2 thou/uL (0.0-0.7); #Monocytes 0.8 thou/uL (0.11-0.59); #Neutrophils 13.7 thou/uL (1.40-6.50); %Basophils 0.2 % (0.0-1.0); %Eosinophils 1.2 % (0.0-10.0); %Lymphocytes 6.4 % (21.0-51.0); %Monocytes 4.8 % (0.0-10.0); %Neutrophils 87.5 % (42.0-75.0); Hemoglobin 12.1 g/dL (14.0-18.0); Mean Corpuscular HGB CONC 34.8 g/dL (32.0-36.0); Mean Corpuscular Hemoglobin 33.6 pg (27.0-31.0); Mean Corpuscular Volume 96.5 fL (78.0-98.0); Mean Platelet Volume 6.3 fL (7.4-10.4); Platelet Count 249 thou/uL (130-400); RBC Distribution Width 14.6 % (11.5-14.5); Red Blood Cell (RBC) Count 3.61 mill/uL (4.70-6.10); White Blood Cell (WBC) Count 15.6 thou/uL (4.8-10.8)
--- NOTE | 2019-12-21 13:52 | CT ---
CT BRAIN WITHOUT CONTRAST: HISTORY: Syncope with fall Comparison 10/03/2018 FINDINGS: No evidence of acute infarct, hemorrhage, midline shift or abnormal extra-axial fluid collections is seen. The ventricular size is appropriate and the basilar cisterns are patent. The bony calvarium is intact. The visualized paranasal sinuses and mastoid air cells are well aerated. IMPRESSION: No CT evidence of acute intracranial process.
[2019-12-21 14:09] LABS: ALT (SGPT) 50 U/L (8-55); AST (SGOT) 29 U/L (5-34); Albumin 3.6 g/dL (3.4-4.8); Alkaline Phosphatase 146 U/L (40-110); Anion Gap 21 mmol/L (10-20); BUN (Urea Nitrogen) 85 mg/dL (8.4-25.7); Bilirubin, Total 0.7 mg/dL (0.2-1.2); CK (CPK) 229 U/L (30-200); Calc. Creatinine Clearance 0 mL/min (70-130); Calcium 8.3 mg/dL (7.8-10.44); Carbon Dioxide 21 mmol/L (23-31); Chloride 83 mmol/L (98-107); Estimated GFR-MDRD 4; Globulin 2.9 g/dL (2.4-3.5); Glucose 219 mg/dL (80-115); Lipase 43 U/L (8-78); Magnesium 1.8 mg/dL (1.6-2.6); Protein, Total 6.5 g/dL (5.8-8.1); Sodium 122 mmol/L (136-145)
[2019-12-21] MEDS ORDERED: Potassium Chloride 20 MEQ TAB ONE (14:33)
[2019-12-21] MEDS ORDERED: Potassium Chloride 20 MEQ/100 ML PREMIX BAG ONE (14:33)
[2019-12-21] MEDS ORDERED: Acetaminophen 325 MG TAB PO PRN (14:43)
[2019-12-21] MEDS ORDERED: Senokot S 8.6-50 MG TAB PO PRN (14:43)
[2019-12-21] MEDS ORDERED: MEROPENEM 1 GM/50 ML 1 GM in Premix Bag 1 BAG IVPB SCH (14:45)
[2019-12-21] MEDS ORDERED: NS 0.9% w/ 40 MEQ KCL 1,000 ML IV SCH (14:45)
[2019-12-21] MEDS ORDERED: Sevelamer Carbonate 800 MG TAB PO PRN (14:45)
[2019-12-21 15:33] LABS: Anion Gap 20 mmol/L (10-20); BUN (Urea Nitrogen) 81 mg/dL (8.4-25.7); Calc. Creatinine Clearance 0 mL/min (70-130); Carbon Dioxide 20 mmol/L (23-31); Chloride 86 mmol/L (98-107); Estimated GFR-MDRD 5; Glucose 163 mg/dL (80-115); Sodium 123 mmol/L (136-145)
[2019-12-21 15:38] LABS: Potassium 2.9 mmol/L (3.5-5.1)
[2019-12-21 19:22] VITALS: BMI 32.7
[2019-12-21 19:34] LABS: Anion Gap 18 mmol/L (10-20); BUN (Urea Nitrogen) 87 mg/dL (8.4-25.7); Calc. Creatinine Clearance 9 mL/min (70-130); Calcium 7.9 mg/dL (7.8-10.44); Carbon Dioxide 22 mmol/L (23-31); Chloride 88 mmol/L (98-107); Estimated GFR-MDRD 4; Glucose 108 mg/dL (80-115); Potassium 3.5 mmol/L (3.5-5.1); Sodium 124 mmol/L (136-145)
--- NOTE | 2019-12-21 19:52 | PDOC.EVN ---
Event Note - Event Note Event Note: Nursing called and stated that patient appeared fluid overloaded and had just gotten to the floor with IVF at 125 ml/hr. Also, pt needed peritoneal dialysis arranged for tonight. IVF decreased at this time and Dr. Miramontes called. He stated he will help arrange the dialysis for the patient for tonight.
[2019-12-21] MEDS: Sevelamer Carbonate 800 MG TAB PO SCH (19:53)
[2019-12-21] MEDS: NS 0.9% w/ 40 MEQ KCL 1,000 ML IV SCH (20:14)
[2019-12-21] MEDS: Piperacillin/Tazobactam 3.375 GM in Sodium Chloride 0.9% 100 ML IVPB SCH ×2 (20:14→23:59)
[2019-12-21] MEDS: Polyethylene Glycol 3350 17 GM Packet PO SCH (20:15)
[2019-12-21] MEDS: Senokot S 8.6-50 MG TAB PO SCH (20:15)
[2019-12-21] MEDS ORDERED: hydrOXYzine 25 MG TAB PO PRN (21:20)
--- NOTE | 2019-12-21 21:57 | HP ---
CHIEF COMPLAINT: Generalized weakness. HISTORY OF PRESENT ILLNESS: The patient is a 64-year-old male undergoing peritoneal dialysis, has a history also of internal hemorrhoids, who presents to the hospital with weakness times worsening for the past couple of weeks. The patient states that for the past couple of weeks, he has been just having low energy. No fevers or chills. Has been having a little bit of a dry cough. No sick contacts. The patient's was at the bedside, who states that since about 2 weeks his dialysis fluid was changed and since then, the patient has been asked to drink more fluids due to concerns for possible dehydration. The patient denies any chest pain or chest tightness. He just states that he just feels weak and tired all the time. Denies any abdominal pain, any diarrhea, any nausea, or vomiting. He has been eating well. He has been drinking fluids. The patient stated that today he was sitting in the bathroom, he strained, and at this time, he had a bowel movement with excessive amount of bleeding, which he has had before too and he had a syncopal episode while he was at home. The patient's who was at the bedside stated that there was a large amount of blood that was noted in the commode. The patient states that he had the similar episode just of not passing out, but just of bleeding last Wednesday. The patient does not take any stool softeners. PAST MEDICAL HISTORY: As of the followin. He has had hypertension; end-stage renal disease, on dialysis; hypercholesterolemia. 2. He also has internal hemorrhoids. 3. Severe gout. 4. Ankylosing spondylitis. 5. Rotator cuff repair and frozen shoulder. PAST SURGICAL HISTORY: He has had a right total hip replacement. He has a peritoneal dialysis catheter currently. AV fistula placement on the left hand. PERSONAL HISTORY: He denies any drug use, alcohol use, or smoking history. He is a full code. Lives with his . FAMILY HISTORY: Mother at the age of 84, she has had a history of hypertension. Father of natural causes at age of 86. ALLERGIES: HE IS ALLERGIC TO CODEINE. MEDICATIONS: He is on: 1. Norvasc 5 mg daily. 2. Coreg 25 mg twice a day. 3. Sensipar 60 mg daily. 4. Colchicine 0.6 as needed. 5. Hydralazine 25 mg twice a day. 6. Sevelamer 2400 mg t.i.d. 7. Ultram as needed. 8. Allopurinol 100 mg daily. REVIEW OF SYSTEMS: All negative except for the ones mentioned above in the HPI. PHYSICAL EXAMINATION: VITAL SIGNS: As of the following; temperature of 97.9, respirations 18, blood pressure 143/69, pulse of 84. GENERAL: He is awake, alert, and oriented x3. Does not appear in distress. CV: S1 and S2 present. No murmurs, rubs, or gallops. HEENT: The patient's oral mucosa appears very dry. His tongue is very dry. LUNGS: Clear to auscultation. No rhonchi or wheezes noted. ABDOMEN: Soft and nontender. His PD catheter site looks intact. No pain upon palpation. EXTREMITIES: He has mild 1+ lower extremity edema. NEUROLOGIC: No focal deficits noted. SKIN: He has a fistula on his left arm and he has the PD dialysis catheter, which looks intact. LABORATORY RESULTS: As of the following, his WBCs of 15.6, hemoglobin of 12.1, hematocrit of 34.9, his platelets are 249. Chemistry; sodium of 122, potassium of 3.0, BUN of 85, creatinine of 12.15, alkaline phosphatase of 146. He did have a chest x-ray, which did not show any acute abnormalities. EKG, no significant changes. He also had a CT brain, which was negative for any acute abnormalities. ASSESSMENT AND PLAN: The patient is a very pleasant 64-year-old male, who presents to the hospital with complaints of generalized weakness. 1. Generalized weakness. This could be secondary to electrolyte abnormalities. 2. Dehydration versus infectious etiology versus cardiac related. We will start the patient on IV hydration gentle. We will replace electrolytes. We will start some boost. Put him on broad-spectrum antibiotics. Chest x-ray does not show any acute infectious etiology. Urine, he does not produce any urine. No abdominal pain. His PD site looks intact. 3. Hyponatremia. We will check serum osmolality, urine osmolality, and serum sodium. We will also hydrate the patient. I believe this is secondary to dehydration. 4. Hypokalemia. We will replace the potassium and recheck it. 5. Dehydration. We will start the patient on some IV fluids. He felt better. His pressure was better. His also noted that he had transient hypotension a few days ago. We will also continue the hydration and we will continue to monitor this patient carefully. 6. End-stage renal disease, on dialysis. We will get Nephrology on board. 7. Bright blood per rectum. This is most likely secondary to internal hemorrhoids. I will start the patient on a fiber. I have advised him against straining and he understands that. 8. Deep venous thrombosis prophylaxis. We will put the patient on SCDs. Since he is bleeding, I will hold off on the anticoagulation. Job ID: [id number]
[2019-12-21 23:03] LABS: Anion Gap 20 mmol/L (10-20); BUN (Urea Nitrogen) 86 mg/dL (8.4-25.7); Calc. Creatinine Clearance 9 mL/min (70-130); Calcium 7.9 mg/dL (7.8-10.44); Carbon Dioxide 19 mmol/L (23-31); Chloride 90 mmol/L (98-107); Estimated GFR-MDRD 4; Glucose 112 mg/dL (80-115); Potassium 3.7 mmol/L (3.5-5.1); Sodium 125 mmol/L (136-145)
[2019-12-22 04:29] LABS: #Eosinphils 0.4 thou/uL (0.0-0.7); #Lymphocytes 1.1 thou/uL (1.20-3.40); #Monocytes 1.2 thou/uL (0.11-0.59); %Basophils 0.4 % (0.0-1.0); %Eosinophils 3.8 % (0.0-10.0); %Lymphocytes 9.1 % (21.0-51.0); %Monocytes 10.5 % (0.0-10.0); %Neutrophils 76.1 % (42.0-75.0); Hemoglobin 10.7 g/dL (14.0-18.0); Mean Corpuscular HGB CONC 34.5 g/dL (32.0-36.0); Mean Corpuscular Hemoglobin 33.7 pg (27.0-31.0); Mean Corpuscular Volume 97.7 fL (78.0-98.0); Mean Platelet Volume 6.4 fL (7.4-10.4); Platelet Count 224 thou/uL (130-400); RBC Distribution Width 14.6 % (11.5-14.5); Red Blood Cell (RBC) Count 3.17 mill/uL (4.70-6.10); White Blood Cell (WBC) Count 11.8 thou/uL (4.8-10.8)
[2019-12-22] MEDS: NS 0.9% w/ 40 MEQ KCL 1,000 ML IV SCH (04:51)
[2019-12-22] MEDS: Piperacillin/Tazobactam 3.375 GM in Sodium Chloride 0.9% 100 ML IVPB SCH ×3 (04:51→18:23)
[2019-12-22 04:53] LABS: Anion Gap 17 mmol/L (10-20); BUN (Urea Nitrogen) 83 mg/dL (8.4-25.7); Calc. Creatinine Clearance 9 mL/min (70-130); Calcium 7.9 mg/dL (7.8-10.44); Carbon Dioxide 20 mmol/L (23-31); Chloride 93 mmol/L (98-107); Estimated GFR-MDRD 5; Glucose 105 mg/dL (80-115); Potassium 3.4 mmol/L (3.5-5.1); Sodium 127 mmol/L (136-145)
[2019-12-22] MEDS ORDERED: Folic Acid/Vit B Comp W-C PO SCH (09:00)
[2019-12-22] MEDS: Allopurinol 100 MG TAB PO SCH (09:28)
[2019-12-22] MEDS: Sevelamer Carbonate 800 MG TAB PO SCH ×3 (09:28→18:23)
[2019-12-22] MEDS: Cinacalcet HCl 30 MG TAB PO SCH (09:29)
[2019-12-22] MEDS: Senokot S 8.6-50 MG TAB PO SCH ×2 (09:29→21:19)
[2019-12-22] MEDS: Calcitriol 0.25 MCG CAP PO SCH (09:29)
[2019-12-22] MEDS: Folic Acid/Vit B Comp W-C PO SCH (09:30)
[2019-12-22] MEDS: Polyethylene Glycol 3350 17 GM Packet PO SCH ×2 (09:30→21:19)
--- NOTE | 2019-12-22 10:52 | PRG ---
DATE OF SERVICE: SUBJECTIVE: A 64-year-old gentleman being seen for end-stage renal disease. The patient denied nausea, vomiting or chest pain. PHYSICAL EXAMINATION: General: The patient is awake and alert. Vital Signs: Afebrile, pulse 75, breathing 16, blood pressure 113/56. HEENT: Head normocephalic and atraumatic. Eyes intact, no ulcers. Nose intact, no ulcers. Ears intact, no ulcers. Neck: Supple. No JVD. Chest: Symmetrical and clear. Cardiovascular: Shows S1 and S2, no rub, no murmur. Gastrointestinal: Abdomen is soft, bowel sounds positive. Extremities: Show no edema or ulcers. Skin: Shows no rash or petechiae. Musculoskeletal: Shows no joint swelling or stiffness. Genitourinary: Shows no Tiwari or CVA tenderness. Neurologic: Motor intact. Cranial nerves intact. LABORATORY DATA: Reviewed. ASSESSMENT AND PLAN: Stage 6 chronic kidney disease, continue peritoneal dialysis. Hyponatremia, recommend fluid restriction. Hypokalemia, recommend high potassium diet. Job ID: [id number]
[2019-12-22 12:04] LABS: SARS-CoV-2 MS2 Positive; SARS-CoV-2 N Gene Negative; SARS-CoV-2 S Gene Negative; SARS-CoV-2 by NAA Not Detected (NotDetected); SARS-CoV-2 orf1ab Negative
--- NOTE | 2019-12-22 16:25 | PDOC.HOSPP ---
- Subjective Encounter Date: 12/22/19 Encounter Time: 10:30 Subjective: pt up in bed states he feels much better today. - Objective Vital Signs & Weight: Vital Signs (12 hours) Temp Pulse Pulse Pulse Resp BP BP 12/22/19 12:43 98.4 F 83 17 12/22/19 11:00 82 80 115/56 L 107/52 L 12/22/19 07:50 12/22/19 07:42 96.8 F L 80 18 BP Pulse Ox 12/22/19 12:43 124/58 L 97 12/22/19 11:00 12/22/19 07:50 113/56 L 12/22/19 07:42 96/46 L 100 Weight Weight 215 lb 2.738 oz Result Diagrams: 12/22/19 03:52 12/22/19 03:52 Hospitalist ROS - Review of Systems Cardiovascular: denies: chest pain, palpitations, orthopnea, paroxysmal noc. dyspnea, edema, light headedness, other Gastrointestinal: denies: nausea, vomiting, abdominal pain, diarrhea, constipation, melena, hematochezia, other Genitourinary: denies: dysuria, frequency, incontinence, hematuria, retention, other - Medication Medications: Active Medications Generic Name Dose Route Start Last Admin Trade Name Freq PRN Reason Stop Dose Admin Allopurinol 100 mg 12/22/19 09:00 12/22/19 09:28 Allopurinol 100 Mg Tab PO 100 mg DAILY ROD Administration Calcitriol 0.25 mcg 12/22/19 09:00 12/22/19 09:29 Calcitriol 0.25 Mcg Cap PO 0.25 mcg DAILY ROD Administration Cinacalcet 60 mg 12/22/19 09:00 12/22/19 09:29 Cinacalcet Hcl 30 Mg Tab PO 60 mg DAILY ROD Administration Piperacillin Sod/Tazobactam 100 mls @ 200 mls/hr 12/21/19 18:00 12/22/19 12:39 Sod 3.375 gm/ Sodium Chloride IVPB 100 mls Q6HR ROD Administration Polyethylene Glycol 17 gm 12/21/19 21:00 12/22/19 09:30 Polyethylene Glycol 3350 17 Gm Packet PO 17 gm BID ROD Administration Senna/Docusate Sodium 1 tab 12/21/19 21:00 12/22/19 09:29 Senokot S 8.6-50 Mg Tab PO 1 tab BID ROD Administration Sevelamer Carbonate 2,400 mg 12/21/19 17:00 12/22/19 12:39 Sevelamer Carbonate 800 Mg Tab PO 2,400 mg TID-WM ROD Administration Vitamin B Complex/Vit C/Folic Acid 1 tab 12/22/19 09:00 12/22/19 09:30 Folic Acid/Vit B Comp W-C PO 1 tab DAILY ROD Administration - Exam Heart: negative: RRR, no murmur, no gallops, no rubs, normal peripheral pulses, irregular, diminshed peripheral pulses, murmur present, II/IV, III/IV Respiratory: negative: CTAB, no wheezes, no rales, no ronchi, normal chest expansion, no tachypnea, normal percussion, rales, rhonchi, tachypneic, wheezes Gastrointestinal: negative: soft, non-tender, non-distended, normal bowel sounds, no palpable masses, no hepatomegaly, no splenomegaly, no bruit, no guarding, no rigidity, tender to palpation, distended, diminished bowl sounds, voluntary guarding Extremities: 1+ LE edema Hosp A/P (1) Hyponatremia Code(s): E87.1 - HYPO-OSMOLALITY AND HYPONATREMIA Status: Acute (2) Hypokalemia Code(s): E87.6 - HYPOKALEMIA Status: Acute (3) Generalized weakness Code(s): R53.1 - WEAKNESS Status: Acute (4) ESRD on peritoneal dialysis Code(s): N18.6 - END STAGE RENAL DISEASE; Z99.2 - DEPENDENCE ON RENAL DIALYSIS Status: Chronic (5) HTN (hypertension) Code(s): I10 - ESSENTIAL (PRIMARY) HYPERTENSION Status: Chronic Qualifiers: - Plan pt's hyponatremia has improved. will turn off fluids. pt undergoing PD dialysis. will replace K. will continue abx if blood cx negative will discontinue. bp stable.
[2019-12-22] MEDS ORDERED: Colchicine 0.6 MG TAB PO SCH (16:30)
--- NOTE | 2019-12-22 16:31 | CON ---
DATE OF CONSULTATION: 12/21/2019 REASON FOR CONSULTATION: End-stage renal disease for maintenance peritoneal dialysis. HISTORY OF PRESENT ILLNESS: Tomeka is a very pleasant 64-year-old gentleman, who was admitted to the hospital for generalized weakness. The patient does peritoneal dialysis every night. The patient denied nausea, vomiting, or chest pain. PAST MEDICAL HISTORY: Significant for; 1. Hypertension. 2. End-stage renal disease. 3. Hyperlipidemia. 4. Hemorrhoids. 5. Ankylosing spondylitis. 6. Rotator cuff surgery. 7. Tunneled dialysis catheter. 8. AV fistula. 9. PD catheter. SOCIOECONOMIC HISTORY: No alcohol or drug abuse. ALLERGIES: REVIEWED. HOME MEDICATIONS: List reviewed. HOSPITAL MEDICATIONS: List reviewed. FAMILY HISTORY: Negative for ESRD. PHYSICAL EXAMINATION: GENERAL: The patient is awake and alert. VITAL SIGNS: Afebrile, pulse 75, breathing at 16, blood pressure 128/67. HEENT: Head normocephalic and atraumatic. Eyes intact, no ulcers. Nose intact, no ulcers. Ears intact, no ulcers. NECK: Supple. No JVD. CHEST: Symmetrical and clear. CARDIOVASCULAR: Shows S1 and S2, no rub, no murmur. GASTROINTESTINAL: Abdomen is soft, bowel sounds positive. EXTREMITIES: Show no edema or ulcers. SKIN: Shows no rash or petechiae. MUSCULOSKELETAL: Shows no joint swelling or stiffness. GENITOURINARY: Shows no Tiwari or CVA tenderness. NEUROLOGIC: Motor intact. Cranial nerves intact. LABORATORY DATA: Reviewed. ASSESSMENT AND PLAN: 1. Stage 6 chronic kidney disease. Continue peritoneal dialysis. 2. Hypokalemia, potassium replaced. 3. Anemia, stable. 4. Hyponatremia due to renal failure. 5. Medication based on GFR appropriate. Job ID: [id number]
[2019-12-23] MEDS: Piperacillin/Tazobactam 3.375 GM in Sodium Chloride 0.9% 100 ML IVPB SCH ×2 (00:38→05:28)
[2019-12-23 03:55] LABS: #Basophils 0.1 thou/uL (0.0-0.2); #Eosinphils 0.6 thou/uL (0.0-0.7); #Lymphocytes 1.1 thou/uL (1.20-3.40); %Basophils 0.5 % (0.0-1.0); %Lymphocytes 9.9 % (21.0-51.0); %Monocytes 9.2 % (0.0-10.0); %Neutrophils 74.5 % (42.0-75.0); Mean Corpuscular HGB CONC 34.1 g/dL (32.0-36.0); Mean Corpuscular Hemoglobin 33.8 pg (27.0-31.0); Mean Corpuscular Volume 99.2 fL (78.0-98.0); Mean Platelet Volume 6.7 fL (7.4-10.4); Platelet Count 201 thou/uL (130-400); RBC Distribution Width 15.1 % (11.5-14.5); Red Blood Cell (RBC) Count 3.25 mill/uL (4.70-6.10); White Blood Cell (WBC) Count 10.7 thou/uL (4.8-10.8)
[2019-12-23 04:19] LABS: Anion Gap 18 mmol/L (10-20); BUN (Urea Nitrogen) 77 mg/dL (8.4-25.7); Calc. Creatinine Clearance 8 mL/min (70-130); Calcium 8.1 mg/dL (7.8-10.44); Carbon Dioxide 21 mmol/L (23-31); Chloride 96 mmol/L (98-107); Estimated GFR-MDRD 4; Glucose 114 mg/dL (80-115); Potassium 3.4 mmol/L (3.5-5.1); Sodium 132 mmol/L (136-145)
[2019-12-23] MEDS ORDERED: Potassium Chloride 20 MEQ TAB PO SCH (07:45)
[2019-12-23] MEDS: Sevelamer Carbonate 800 MG TAB PO SCH ×2 (09:06→13:13)
[2019-12-23] MEDS: Allopurinol 100 MG TAB PO SCH (09:07)
[2019-12-23] MEDS: Folic Acid/Vit B Comp W-C PO SCH (09:08)
[2019-12-23] MEDS: Calcitriol 0.25 MCG CAP PO SCH (09:08)
[2019-12-23] MEDS: Cinacalcet HCl 30 MG TAB PO SCH (09:08)
[2019-12-23] MEDS: Senokot S 8.6-50 MG TAB PO SCH (09:08)
[2019-12-23] MEDS: Polyethylene Glycol 3350 17 GM Packet PO SCH (09:09)
[2019-12-23 11:51] VITALS: BP 109/53; TEMP 98.3
[2019-12-23] MEDS: Non-Formulary Item 1 EACH (Ferric Citrate [Auryxia] 210 MG Tablet) PO SCH (13:13)
--- NOTE | 2019-12-24 01:55 | DIS ---
DATE OF ADMISSION: 12/21/2019 DATE OF DISCHARGE: 12/23/2019 DISCHARGE DIAGNOSES: 1. Hyponatremia. 2. Hypokalemia. 3. Dehydration. 4. Generalized weakness. 5. End-stage renal disease, on PD dialysis. HOSPITAL COURSE: The patient is 64-year-old male, who initially presented to the hospital with complaints of generalized weakness. He was found to have significant electrolyte abnormalities. The has stated that he had recently for the past couple of weeks had changed his dialysis for the PD dialysis. The patient was found to have a sodium level of 122. His electrolyte abnormalities were consistent with dehydration. He was given IV hydration and his sodium improved significantly. His potassium also improved, and he was given potassium supplement. Nephrology was consulted. He underwent PD dialysis, and I did speak with Nephrology in regard to this concern. The patient has been eating and drinking just fine. He will be discharged home today. Initially, he was also put on IV antibiotics for possible infectious etiology, however, his cultures were negative. HOME MEDICATIONS: 1. MiraLAX 17 g b.i.d. 2. Senokot 2 tabs as needed. 3. Allopurinol 100 mg daily. 4. Calcitriol daily. 5. Cipro 250 daily. 6. Folic acid daily. 7. Hydroxyzine as needed. 8. Colchicine 0.6 every 7 days. 9. Prednisone 5 mg daily. 10. Ferric citrate 630 mg p.o. t.i.d. with meals. I actually went over the medication list with the patient. Patient states that he has been taking prednisone this was prescribed to him by his scraper burrer for gout. I have recommended him to see if he can taper off this. Also, patient takes chronic antibiotics for his hip infection that he had and that is what the Infectious Disease had recommended to him. Also, I have told the patient to discontinue the meloxicam and to take Tylenol as needed. The patient while coming to the hospital also had some bright blood per rectum. The patient has internal hemorrhoids and has been straining. I have educated him against straining, and to keep his stools soft with fiber. The patient had a bowel movement here. He had no bleeding. His H and H have been stable. At this time, I will not do any further GI workup. He had a GI workup earlier this month, and it indicated that he had a large internal hemorrhoid. I have really emphasized the need of patient taking his MiraLAX on a daily basis, and if he gets diarrhea, he needs to back off it. PHYSICAL EXAMINATION: VITAL SIGNS: On discharge; temperature 98.3, 85, 20, 97% on room air, 106/55. GENERAL: He is awake, alert, and oriented x3, does not appear in distress. CVS: S1, S2 present. No murmurs or gallops. ABDOMEN: Soft, nontender. Bowel sounds are present x2. Patient also had an echocardiogram, which appears stable. He will be discharged home. Job ID: [id number]
== END 2019-12-23 13:12 | disposition home or self-care (01) | DRG 640 ==
LOC: ERS 12:56 → 2NO 15:02
PROVIDERS: ADMIT Internal Medicine; ATTEND Internal Medicine
PROC: 5A1D70Z Performance of Urinary Filtration, Intermittent, Less than 6 Hours Per Day (ICD-10-PCS; principal; 2019-12-21)
DX: E87.1 Hypo-osmolality and hyponatremia (principal); N18.6 End stage renal disease; I12.0 Hypertensive chronic kidney disease with stage 5 chronic kidney disease or end stage renal disease; K92.1 Melena; E87.6 Hypokalemia; E87.2 Acidosis; E86.0 Dehydration; Z20.828 Contact with and (suspected) exposure to other viral communicable diseases; M10.9 Gout, unspecified; Z96.643 Presence of artificial hip joint, bilateral; E78.00 Pure hypercholesterolemia, unspecified; K64.8 Other hemorrhoids; E78.5 Hyperlipidemia, unspecified; E66.9 Obesity, unspecified; Z99.2 Dependence on renal dialysis; Z79.899 Other long term (current) drug therapy; Z88.5 Allergy status to narcotic agent; Z68.30 Body mass index [BMI] 30.0-30.9, adult
CPT/HCPCS: 36415; 70450; 80048; 80053; 82274; 82550; 83690; 83735; 83880; 83930; 84484; 85025; 87040; 87635; 90945; 93005; 93306; 96361; 96365; 96367; G0257; J2185; J2543; J3480; J3490; U0003

== ENCOUNTER 2020-01-01 19:31 | Inpatient (IN) | payer OTHER, MEDICARE ==
[2020-01-01 21:28] LABS: #Basophils 0.1 thou/uL (0.0-0.2); #Eosinphils 0.6 thou/uL (0.0-0.7); #Neutrophils 4.8 thou/uL (1.40-6.50); %Basophils 0.7 % (0.0-1.0); %Eosinophils 7.6 % (0.0-10.0); %Lymphocytes 13.3 % (21.0-51.0); %Monocytes 13.7 % (0.0-10.0); %Neutrophils 64.6 % (42.0-75.0); Hemoglobin 11.3 g/dL (14.0-18.0); Mean Corpuscular HGB CONC 34.4 g/dL (32.0-36.0); Mean Corpuscular Hemoglobin 33.3 pg (27.0-31.0); Mean Corpuscular Volume 96.7 fL (78.0-98.0); Mean Platelet Volume 6.6 fL (7.4-10.4); Platelet Count 236 thou/uL (130-400); Red Blood Cell (RBC) Count 3.39 mill/uL (4.70-6.10); White Blood Cell (WBC) Count 7.4 thou/uL (4.8-10.8)
[2020-01-01 21:49] LABS: ALT (SGPT) 35 U/L (8-55); AST (SGOT) 32 U/L (5-34); Albumin 3.8 g/dL (3.4-4.8); Alkaline Phosphatase 151 U/L (40-110); Anion Gap 19 mmol/L (10-20); BUN (Urea Nitrogen) 73 mg/dL (8.4-25.7); Bilirubin, Total 0.6 mg/dL (0.2-1.2); Calc. Creatinine Clearance 0 mL/min (70-130); Calcium 9.1 mg/dL (7.8-10.44); Carbon Dioxide 23 mmol/L (23-31); Chloride 82 mmol/L (98-107); Estimated GFR-MDRD 4; Globulin 3.4 g/dL (2.4-3.5); Glucose 115 mg/dL (80-115); Potassium 3.4 mmol/L (3.5-5.1); Protein, Total 7.2 g/dL (5.8-8.1); Sodium 121 mmol/L (136-145)
[2020-01-01] MEDS ORDERED: Potassium Chloride 40 MEQ in Sodium Chloride 0.9% 250 ML 250 ML IVPB SCH (23:00)
[2020-01-01] MEDS ORDERED: Fludrocortisone Acetate 0.1 MG TAB PO SCH (23:45)
[2020-01-02 00:12] LABS: Anion Gap 18 mmol/L (10-20); BUN (Urea Nitrogen) 75 mg/dL (8.4-25.7); Calc. Creatinine Clearance 0 mL/min (70-130); Calcium 8.8 mg/dL (7.8-10.44); Carbon Dioxide 22 mmol/L (23-31); Chloride 83 mmol/L (98-107); Estimated GFR-MDRD 4; Glucose 103 mg/dL (80-115); Potassium 3.3 mmol/L (3.5-5.1); Sodium 120 mmol/L (136-145)
--- NOTE | 2020-01-02 00:44 | CON ---
DATE OF CONSULTATION: REASON FOR CONSULTATION: End-stage renal disease for maintenance peritoneal dialysis. HISTORY OF PRESENT ILLNESS: This is a 64-year-old gentleman, presented to the hospital with weakness and was noted to have a sodium of 121. The patient states that he has been drinking more than 70 to 80 ounces per day. The patient was also noted to have hypotension at home blood pressure in the 70s and presented to the emergency room. The patient is on chronic steroid therapy that he has just started a few days ago. PAST MEDICAL HISTORY: Significant for hypertension, end-stage kidney disease, hyperlipidemia, hemorrhoids, ankylosing spondylitis, rotator cuff surgery, tunneled dialysis catheter, AV fistula, PD catheter, and history of chronic steroid use. SOCIOECONOMIC HISTORY: No alcohol or drug abuse. FAMILY HISTORY: Negative for ESRD. ALLERGIES: REVIEWED. MEDICATIONS: Home medications list reviewed. Hospital medications list reviewed. REVIEW OF SYSTEMS: A 15-point review of system was performed negative except for positives noted above. HEENT: Eyes intact, no diplopia. Ears: No hearing loss or earache. Nose: No discharge or bleeding. Chest: No cough or phlegm. Abdomen: No nausea or vomiting. Genitourinary: No hematuria. No Tiwari catheter. Musculoskeletal: No low back pain. No joint swelling or pain. Neurological: No syncope. No seizures. Skin: No complaints of rash or itching. Psychiatric: No depression. Constitutional: No weight loss or loss of appetite. PHYSICAL EXAMINATION: General: The patient is awake and alert. Vital Signs: Afebrile, pulse 80, breathing at 16, blood pressure 123/75. HEENT: Head normocephalic and atraumatic. Eyes intact, no ulcers. Nose intact, no ulcers. Ears intact, no ulcers. Neck: Supple. No JVD. Chest: Symmetrical and clear. Cardiovascular: Shows S1 and S2, no rub, no murmur. Gastrointestinal: Abdomen is soft, bowel sounds positive. Extremities: Show no edema or ulcers. Skin: Shows no rash or petechiae. Musculoskeletal: Shows no joint swelling or stiffness. Genitourinary: Shows no Tiwari or CVA tenderness. Neurologic: Motor intact. Cranial nerves intact. LABORATORY DATA: Labs show sodium 121 and potassium is 3.4. ASSESSMENT AND PLAN: 1. End-stage renal disease. We will plan peritoneal dialysis with 1.5% fluid, minimize ultrafiltration. 2. Hyponatremia, most likely because of volume overload and/or adrenal insufficiency. Would recommend starting Florinef 0.1 mg daily. One dose should be given now. 3. Anemia, stable. 4. Hypokalemia, recommend high potassium diet. No urgent indication for hypotonic saline. The patient is asymptomatic as far as hyponatremia is concerned. Job ID: [id number]
[2020-01-02] MEDS ORDERED: Sodium Chloride 0.9% 1,000 ML IV SCH (02:00)
--- NOTE | 2020-01-02 05:43 | PDOC.HHP ---
Hospitalist HPI - History of Present Illness Generalized weakness History of Present Illness: Patient is a 64 year old male with PMH ESRD on peritoneal dialysis who presents to ED for weakness and dizziness. He reports BP fell to 70/40s at home, however in ED it has recovered to 110-120s/60s. Patient has PD cath and does PD nightly at home, he did not complete session last night. His group reservations coordinator is Dr Duron. He was admitted 2 weeks ago for hypokalemia. He reports some shortness of breath, and has difficulty walking around his house. Denies chest pain, palpitations, syncope. He reports some edema, but this may be due to missed PD session. He reports a cough as well. In ED, Na noted at 121. nephrology consulted, Dr Miramontes saw patient and plans to start fludrocortisone. patient admitted for inpatient close monitoring and severe hyponatremia. Hospitalist ROS - Review of Systems Constitutional: reports: weakness, malaise. denies: fever, chills, sweats, other Eyes: denies: pain, vision change, conjunctivae inflammation, eyelid inflammation, redness, other ENT: denies: ear pain, ear discharge, nose pain, nose discharge, nose congestion, mouth pain, mouth swelling, throat pain, throat swelling, other Respiratory: reports: cough, shortness of breath. denies: dry, hemoptysis, SOB with excertion, pleuritic pain, sputum, wheezing, other Cardiovascular: denies: chest pain, palpitations, orthopnea, paroxysmal noc. dyspnea, edema, light headedness, other Gastrointestinal: denies: nausea, vomiting, abdominal pain, diarrhea, constipation, melena, hematochezia, other Genitourinary: denies: dysuria, frequency, incontinence, hematuria, retention, other Musculoskeletal: denies: neck pain, shoulder pain, arm pain, back pain, hand pain, leg pain, foot pain, other Skin: denies: rash, lesions, gali, bruising, other Neurological: reports: other (dizziness). denies: weakness, numbness, incoordination, change in speech, confusion, seizures All other systems reviewed; all pertinent +/- noted in HPI/Subj - Medication Medications: Active Medications Generic Name Dose Route Start Last Admin Trade Name Freq PRN Reason Stop Dose Admin Sodium Chloride 1,000 mls @ 50 mls/hr 01/02/20 02:00 01/02/20 03:13 Normal Saline 0.9% IV 01/02/20 14:00 1,000 mls .Q20H ROD Administration allopurinol WedJan 01, 2020 21:26 JAYSHREE Jenkins Elizabeth TABLET : Strength - 100 mg : ORAL Patient Dose: 100 mg Oral once a day. colchicine oral WedJan 01, 2020 21:26 JAYSHREE Jenkins Elizabeth TABLET : Strength - 0.6 mg : ORAL Patient Dose: 0.6 mg Oral once a week. calcitriol oral WedJan 01, 2020 21:26 JAYSHREE Jenkins Elizabeth CAPSULE : Strength - 0.25 mcg : ORAL Patient Dose: 0.25 mcg Oral every other day. cinacalcet WedJan 01, 2020 21:26 JAYSHREE Jenkins Elizabeth tablet : Strength - 60 mg : ORAL Patient Dose: 1 tab(s) Oral once a day. cephALEXin WedJan 01, 2020 21:26 JAYSHREE Jenkins Elizabeth capsule : Strength - 250 mg : ORAL Patient Dose: 1 cap(s) Oral 2 times a day. Dialyvite 800-Ultra D WedJan 01, 2020 21:26 JAYSHREE Jenkins Elizabeth tablet : Strength - 0.8 mg-2,000 unit : ORAL Patient Dose: 1 tab(s) Oral once a day. hydrOXYzine HCl oral WedJan 01, 2020 21:26 JAYSHREE Jenkins Elizabeth tablet : Strength - 25 mg : ORAL Patient Dose: 1 tab(s) Oral 3 times a day. polyethylene glycol WedJan 01, 2020 21:26 JAYSHREE Jenkins Elizabeth powder : MISCELLANEOUS Patient Dose: Unknown. docusate sodium WedJan 01, 2020 21:27 JAYSHREE Jenkins Elizabeth capsule : Strength - 100 mg : ORAL Patient Dose: 100 mg Oral once a day. Hospitalist History - Past Medical History Other Medical History: hyperlipidemia, gout, obesity, ESRD on peritoneal dialysis, hypertension, ankylosing spondylitis - Past Surgical History Past Surgical History: reports: Total Hip Replacement Other Surgical History: Surgical history of dialysis shunt, to the left upper extremity, Date of surgery: 06/2016, Surgical history of orthopedic surgery, Left knee, Notes: torn cartilage ; bilateral total hip replacement in . Surgery for peritoneal dialysis catheter, L SHOULDER SX. - Family History Family History: reports: no pertinent history - Social History Alcohol: reports: None Drugs: reports: none - Exam General Appearance: NAD, awake alert Eye: PERRL, anicteric sclera ENT: normocephalic atraumatic, no oropharyngeal lesions, moist mucosa Neck: supple, symmetric, no JVD, no thyromegaly, no lymphadenopathy, no carotid bruit Heart: RRR, no murmur, no gallops, no rubs, normal peripheral pulses Respiratory: CTAB, no wheezes, no rales, no ronchi, normal chest expansion, no tachypnea, normal percussion Gastrointestinal: soft, non-tender, non-distended, normal bowel sounds, no palpable masses, no hepatomegaly, no splenomegaly, no bruit Gastrointestinal - other findings: PD cath in place, no pus/erythema/edema Extremities: no cyanosis, no clubbing, no edema Skin: normal turgor, no lesions, no rashes Neurological: cranial nerve grossly intact, normal sensation to touch, no weakness, no focal deficits, no new deficit Musculoskeletal: normal tone, normal strength, no muscle wasting Psychiatric: normal affect, normal behavior, A&O x 3 Hospitalist Results - Labs Result Diagrams: 01/01/20 21:15 01/01/20 23:45 Lab results: WBC 7.4 thou/uL (4.8-10.8) 01/01/20 21:15 Hgb 11.3 g/dL (14.0-18.0) L 01/01/20 21:15 Hct 32.8 % (42.0-52.0) L 01/01/20 21:15 MCV 96.7 fL (78.0-98.0) 01/01/20 21:15 Plt Count 236 thou/uL (130-400) 01/01/20 21:15 Neutrophils % 64.6 % (42.0-75.0) 01/01/20 21:15 Sodium 120 mmol/L (136-145) L 01/01/20 23:45 Potassium 3.3 mmol/L (3.5-5.1) L 01/01/20 23:45 Chloride 83 mmol/L (98-107) L 01/01/20 23:45 Carbon Dioxide 22 mmol/L (23-31) L 01/01/20 23:45 BUN 75 mg/dL (8.4-25.7) H 01/01/20 23:45 Creatinine 11.67 mg/dL (0.7-1.3) H 01/01/20 23:45 Glucose 103 mg/dL (80-115) 01/01/20 23:45 Calcium 8.8 mg/dL (7.8-10.44) 01/01/20 23:45 Total Bilirubin 0.6 mg/dL (0.2-1.2) 01/01/20 21:15 AST 32 U/L (5-34) 01/01/20 21:15 ALT 35 U/L (8-55) 01/01/20 21:15 Alkaline Phosphatase 151 U/L (40-110) H 01/01/20 21:15 B-Natriuretic Peptide 21.0 pg/mL (0-100) 01/01/20 21:15 Serum Total Protein 7.2 g/dL (5.8-8.1) 01/01/20 21:15 Albumin 3.8 g/dL (3.4-4.8) 01/01/20 21:15 Additional comment: All labs, imaging reports, ED documents, EKGs reviewed VITAL SIGNS TuJan 02, 2020 00:00 JAYSHREE Jenkins Elizabeth BP: 124/69 MAP: 87 Pulse: 85 Resp: 24 Temp: 98.5 (Oral) Pain: 0 O2 sat: 100 on (Room Air) Time: 01/02/2020 00:00. - EKG Interpretation EK bpm NSR, NH 158, QTc 505. no stemi/avb Hospitalist H&P A/P - Plan Plan: Patient is a 64 year old male with PMH ESRD on peritoneal dialysis who presents to ED for weakness and dizziness. # hyponatremia # weakness, dizziness, shortness of breath, hypotension - suspect secondary to hyponatremia # ESRD on PD # hypokalemia nephrology consulted in ED, Dr Miramontes saw patient and plans to start fludrocortisone. patient admitted for inpatient close monitoring and severe hyponatremia. - trend sodium - fludrocortisone started by nephrology - resume home meds once med rec complete - PT/OT - PD per nephrology DVT/GI ppx full code
[2020-01-02] MEDS ORDERED: hydrALAZINE 20 MG/ML VIAL SLOW IVP PRN (06:49)
[2020-01-02] MEDS ORDERED: Ondansetron PF 4 MG/2 ML Vial IVP PRN (06:49)
[2020-01-02] MEDS ORDERED: Acetaminophen 325 MG TAB PO PRN (06:49)
[2020-01-02] MEDS ORDERED: Labetalol HCl 100 MG/20 ML VIAL SLOW IVP PRN (06:49)
[2020-01-02] MEDS ORDERED: Promethazine HCl 12.5 MG in Sodium Chloride 0.9% 50 ML IVPB PRN (06:49)
[2020-01-02] MEDS ORDERED: cloNIDine 0.1 MG TAB PO PRN (06:49)
[2020-01-02] MEDS ORDERED: Guaifenesin DM 100-10/5 ML UDCUP PO PRN (06:49)
[2020-01-02] MEDS ORDERED: hydrOXYzine 25 MG TAB PO PRN (07:05)
[2020-01-02 07:11] LABS: #Eosinphils 0.8 thou/uL (0.0-0.7); #Neutrophils 4.1 thou/uL (1.40-6.50); %Basophils 0.7 % (0.0-1.0); %Eosinophils 11.1 % (0.0-10.0); %Lymphocytes 14.9 % (21.0-51.0); %Monocytes 14.2 % (0.0-10.0); %Neutrophils 59.1 % (42.0-75.0); Hemoglobin 11.1 g/dL (14.0-18.0); Mean Corpuscular HGB CONC 34.4 g/dL (32.0-36.0); Mean Corpuscular Hemoglobin 33.5 pg (27.0-31.0); Mean Corpuscular Volume 97.4 fL (78.0-98.0); Mean Platelet Volume 6.5 fL (7.4-10.4); Platelet Count 232 thou/uL (130-400); RBC Distribution Width 13.9 % (11.5-14.5); Red Blood Cell (RBC) Count 3.31 mill/uL (4.70-6.10); White Blood Cell (WBC) Count 6.9 thou/uL (4.8-10.8)
[2020-01-02 07:32] LABS: ALT (SGPT) 28 U/L (8-55); AST (SGOT) 26 U/L (5-34); Albumin 3.4 g/dL (3.4-4.8); Alkaline Phosphatase 124 U/L (40-110); Anion Gap 16 mmol/L (10-20); BUN (Urea Nitrogen) 70 mg/dL (8.4-25.7); Bilirubin, Direct 0.3 mg/dL (0.1-0.3); Bilirubin, Total 0.8 mg/dL (0.2-1.2); Calc. Creatinine Clearance 9 mL/min (70-130); Calcium 8.9 mg/dL (7.8-10.44); Carbon Dioxide 24 mmol/L (23-31); Chloride 86 mmol/L (98-107); Estimated GFR-MDRD 4; Glucose 118 mg/dL (80-115); Phosphorus 4.9 mg/dL (2.3-4.7); Protein, Total 6.4 g/dL (5.8-8.1); Sodium 123 mmol/L (136-145)
[2020-01-02] MEDS: Cinacalcet HCl 30 MG TAB PO SCH (10:29)
[2020-01-02] MEDS: Calcitriol 0.25 MCG CAP PO SCH (10:29)
[2020-01-02] MEDS: predniSONE 5 MG TAB PO SCH (10:29)
[2020-01-02] MEDS: Allopurinol 100 MG TAB PO SCH (10:29)
[2020-01-02] MEDS: Polyethylene Glycol 3350 17 GM Packet PO SCH (10:30)
[2020-01-02] MEDS: Heparin 5,000 UNITS/ML VIAL SC SCH ×2 (10:30→20:47)
[2020-01-02] MEDS ORDERED: Fludrocortisone Acetate 0.1 MG TAB PO SCH (12:00)
[2020-01-02 13:04] LABS: HBSAg Index 0.26 S/CO (0-0.99); Hep B Core Total Ab Non-Reactive (NonReactive); Hep B Core Total Index 0.08 S/CO (0-0.79); Hep B Surf Ag Non-Reactive S/CO (NonReactive); Hep C IgG Ab Non-Reactive (NonReactive); Hep C Index 0.06 S/CO (0-0.79)
[2020-01-02 14:08] LABS: HBSAB Concentration 10.33 mIU/mL
[2020-01-02 16:29] LABS: SARS-CoV-2 MS2 Positive; SARS-CoV-2 N Gene Negative; SARS-CoV-2 S Gene Negative; SARS-CoV-2 by NAA Not Detected (NotDetected); SARS-CoV-2 orf1ab Negative
--- NOTE | 2020-01-02 18:41 | PDOC.EVN ---
Event Note - Event Note Event Note: Admitted after midnight for ESRD needing HD, PD catheter with planned removal and continuation of HD. Gen surgery/Nephrology for recommendations and mgmt. Hyponatremia/Hypokalemia monitoring likely due to volume overload.
--- NOTE | 2020-01-02 19:47 | PRG ---
DATE OF SERVICE: 01/02/2020 SUBJECTIVE: A 64-year-old gentleman being seen for end-stage renal disease. The patient denied nausea, vomiting, or chest pain. PHYSICAL EXAMINATION: GENERAL: The patient is awake and alert. VITAL SIGNS: Afebrile, pulse 84, breathing at 16, blood pressure 114/55. HEENT: Head normocephalic and atraumatic. Eyes intact, no ulcers. Nose intact, no ulcers. Ears intact, no ulcers. Neck: Supple. No JVD. Chest: Symmetrical and clear. Cardiovascular: Shows S1 and S2, no rub, no murmur. Gastrointestinal: Abdomen is soft, bowel sounds positive. Extremities: Show no edema or ulcers. Skin: Shows no rash or petechiae. Musculoskeletal: Shows no joint swelling or stiffness. Genitourinary: Shows no Tiwari or CVA tenderness. Neurologic: Motor intact. Cranial nerves intact. General: Physical exam. LABORATORY DATA: Reviewed. ASSESSMENT AND PLAN: 1. Stage 6 chronic kidney disease, stable. 2. Hypertension, stable. 3. Anemia, stable. 4. Medication based on GFR appropriate. 5. The patient will change from peritoneal dialysis. 6. Hypokalemia, we will replace potassium with hemodialysis. Job ID: [id number]
--- NOTE | 2020-01-02 21:46 | CON ---
DATE OF CONSULTATION: HISTORY OF PRESENT ILLNESS: Jesus Rodriguez is a 64-year-old male patient with inadequate clearance on his PD catheter. I have been asked by Dr. Miramontes to see him regarding removal of his PD catheter. I saw him in June 2016 and placed a PD catheter and repaired umbilical hernia with mesh and completed a left arm fistula antecubital vein to the proximal radial artery outflow cephalic and basilic vein. The patient on 10/17/2018 had a hemodialysis catheter placed. The patient had a right IJ Mauricio catheter placed for a hip implant infection. This was subsequently removed. I saw him on 10/19/2018, had revision of left arm fistula with ligation of basilic outflow to facilitate maturation. At that time, he is having problems with his PD catheter, not providing adequate dialysis. The patient has been admitted this hospitalization due to inadequate PD that had been successfully accessed in the left upper arm cephalic vein fistula. Plan is to remove his PD catheter tomorrow. ALLERGIES: CODEINE. SOCIAL HISTORY: Tobacco, none. Alcohol, rarely. MEDICATIONS: 1. Prednisone. 2. Folic acid. 3. . 4. Hydroxyzine. 5. MiraLAX. 6. Sensipar. 7. Calcitriol. 8. Colchicine. 9. Zyloprim. PAST SURGICAL HISTORY: Dialysis access as above, hip replacements, knee surgery, and shoulder surgery. PAST MEDICAL HISTORY: Diabetes, end-stage renal disease, obesity, gout, hyperlipidemia, anemia, peritoneal dialysis status now transition to hemodialysis, ankylosing spondylitis, and hypertension. REVIEW OF SYSTEMS: Noncontributory. PHYSICAL EXAMINATION: VITAL SIGNS: 5 feet 7 inches, 211 pounds, and 33 BMI. LUNGS: Clear to auscultation. CARDIAC: Regular rate and rhythm without murmur or gallop. ABDOMEN: Soft. PD catheter left lower quadrant exiting, good fistula left upper arm. EXTREMITIES: Unremarkable. ASSESSMENT AND PLAN: 1. Inadequate PD. Plan removal of PD, IV sedation and local anesthesia tomorrow. He understands risks, benefits, and consents. 2. Hemodialysis status transition to hemodialysis left arm fistula. Job ID: [id number]
[2020-01-03 04:33] LABS: #Eosinphils 0.6 thou/uL (0.0-0.7); #Lymphocytes 0.9 thou/uL (1.20-3.40); #Monocytes 0.8 thou/uL (0.11-0.59); #Neutrophils 3.5 thou/uL (1.40-6.50); %Basophils 0.5 % (0.0-1.0); %Eosinophils 10.9 % (0.0-10.0); %Lymphocytes 14.6 % (21.0-51.0); %Monocytes 14.1 % (0.0-10.0); Hemoglobin 9.9 g/dL (14.0-18.0); Mean Corpuscular HGB CONC 33.5 g/dL (32.0-36.0); Mean Corpuscular Hemoglobin 33.1 pg (27.0-31.0); Mean Corpuscular Volume 98.8 fL (78.0-98.0); Mean Platelet Volume 6.5 fL (7.4-10.4); Platelet Count 231 thou/uL (130-400); Red Blood Cell (RBC) Count 2.99 mill/uL (4.70-6.10); White Blood Cell (WBC) Count 5.8 thou/uL (4.8-10.8)
[2020-01-03 04:49] VITALS: BMI 33.2
[2020-01-03 05:36] LABS: ALT (SGPT) 27 U/L (8-55); AST (SGOT) 24 U/L (5-34); Albumin 3.1 g/dL (3.4-4.8); Alkaline Phosphatase 109 U/L (40-110); Anion Gap 16 mmol/L (10-20); BUN (Urea Nitrogen) 45 mg/dL (8.4-25.7); Bilirubin, Direct 0.2 mg/dL (0.1-0.3); Bilirubin, Total 0.7 mg/dL (0.2-1.2); Calc. Creatinine Clearance 11 mL/min (70-130); Calcium 8.8 mg/dL (7.8-10.44); Carbon Dioxide 24 mmol/L (23-31); Chloride 96 mmol/L (98-107); Estimated GFR-MDRD 5; Glucose 90 mg/dL (80-115); Phosphorus 4.5 mg/dL (2.3-4.7); Potassium 3.9 mmol/L (3.5-5.1); Protein, Total 5.7 g/dL (5.8-8.1); Sodium 132 mmol/L (136-145)
--- NOTE | 2020-01-03 07:26 | PDOC.HOSPP ---
- Subjective Encounter Date: 01/03/20 Encounter Time: 12:30 Subjective: Patient just back from cath placement. Feels foggy and groggy from meds for procedure. No other complaints. - Objective Vital Signs & Weight: Vital Signs (12 hours) Temp Pulse Resp BP Pulse Ox 01/03/20 07:12 98.5 F 95 18 88/49 L 99 01/03/20 04:00 98.2 F 95 16 109/56 L 97 01/02/20 23:44 96 01/02/20 23:30 98 F 97 19 111/53 L 96 01/02/20 20:00 99 Weight Weight 212 lb I&O: 01/02/20 01/03/20 01/04/20 06:59 06:59 06:59 Intake Total 1230 Output Total 0 Balance 1230 Result Diagrams: 01/03/20 04:20 01/03/20 04:20 Hospitalist ROS - Review of Systems Constitutional: denies: fever, chills Respiratory: denies: cough, shortness of breath Cardiovascular: denies: chest pain, palpitations Gastrointestinal: denies: nausea, vomiting, abdominal pain - Medication Medications: Active Medications Generic Name Dose Route Start Last Admin Trade Name Freq PRN Reason Stop Dose Admin Allopurinol 100 mg 01/02/20 09:00 01/02/20 10:29 Allopurinol 100 Mg Tab PO 100 mg DAILY ROD Administration Calcitriol 0.25 mcg 01/02/20 09:00 01/02/20 10:29 Calcitriol 0.25 Mcg Cap PO 0.25 mcg Q2DAYS ROD Administration Cinacalcet 60 mg 01/02/20 09:00 01/02/20 10:29 Cinacalcet Hcl 30 Mg Tab PO 60 mg DAILY ROD Administration Heparin Sodium (Porcine) 5,000 units 01/02/20 09:00 01/02/20 20:47 Heparin 5,000 Units/Ml Vial SC 5,000 units BID ROD Administration Pantoprazole Sodium 40 mg 01/02/20 09:00 01/02/20 10:29 Pantoprazole 40 Mg Tab PO 40 mg DAILY ROD Administration Polyethylene Glycol 17 gm 01/02/20 09:00 01/02/20 10:30 Polyethylene Glycol 3350 17 Gm Packet PO 17 gm DAILY ROD Administration Prednisone 5 mg 01/02/20 09:00 10/06/20 10:29 Prednisone 5 Mg Tab PO Not Given DAILY ROD Sodium Chloride 10 ml 01/02/20 09:00 01/02/20 20:47 Flush - Normal Saline 10 Ml Syringe IVF 10 ml Q12HR ROD Administration - Exam General Appearance: NAD General - other findings: sleepy but arousable ENT: moist mucosa Heart: RRR, no murmur, no gallops, no rubs Respiratory: CTAB, no wheezes, no rales, no ronchi Gastrointestinal: soft, non-tender, non-distended, normal bowel sounds Psychiatric: normal affect, normal behavior, lethargic Hosp A/P (1) ESRD on peritoneal dialysis Code(s): N18.6 - END STAGE RENAL DISEASE; Z99.2 - DEPENDENCE ON RENAL DIALYSIS Status: Chronic (2) Hyponatremia Code(s): E87.1 - HYPO-OSMOLALITY AND HYPONATREMIA Status: Resolved (3) Hypokalemia Code(s): E87.6 - HYPOKALEMIA Status: Resolved (4) Volume overload Code(s): E87.70 - FLUID OVERLOAD, UNSPECIFIED Status: Acute (5) Generalized weakness Code(s): R53.1 - WEAKNESS Status: Acute - Plan Patient with failure to adequately diurese on peritoneal dialysis. Dr. Otoole removed PD cath and placed HD cath. Plan to transition to hemodialysis. Dr. Miramontes following. Hyponatremia resolved on fludrocortisone Home when ok with Dr. Miramontes and outpatient HD set up. DVT proph: heparin sc GI proph: protonix
[2020-01-03] MEDS: Heparin 5,000 UNITS/ML VIAL SC SCH ×2 (07:39→20:58)
[2020-01-03] MEDS ORDERED: PROPOFOL 200 MG/20 ML VIAL ONE (09:05)
[2020-01-03] MEDS ORDERED: Bupivacaine/Epinephrine 0.25% 30 ML VIAL ONE (10:47)
[2020-01-03] MEDS ORDERED: Lidocaine 2% PF 5 ML VIAL ONE (10:47)
[2020-01-03] MEDS ORDERED: Ketamine 50 MG/ML (10ML VIAL) ONE (10:51)
[2020-01-03] MEDS ORDERED: Propofol 500 MG/50 ML VIAL ONE (10:51)
[2020-01-03] MEDS ORDERED: Fentanyl 100 MCG/2 ML VIAL ONE (10:53)
--- NOTE | 2020-01-03 11:35 | PRG ---
DATE OF SERVICE: 01/03/2020 SUBJECTIVE: A 64-year-old gentleman, being seen for end-stage renal disease. The patient denied any nausea, vomiting, or chest pain. OBJECTIVE: GENERAL: The patient is awake and alert. VITAL SIGNS: Afebrile, pulse 75, breathing at 16, and blood pressure was 109/56. HEENT: Head normocephalic and atraumatic. Eyes intact, no ulcers. Nose intact, no ulcers. Ears intact, no ulcers. NECK: Supple. No JVD. CHEST: Symmetrical and clear. CARDIOVASCULAR: Shows S1 and S2, no rub, no murmur. GASTROINTESTINAL: Abdomen is soft, bowel sounds positive. EXTREMITIES: Show no edema or ulcers. SKIN: Shows no rash or petechiae. MUSCULOSKELETAL: Shows no joint swelling or stiffness. GENITOURINARY: Shows no Tiwari or CVA tenderness. NEUROLOGIC: Motor intact. Cranial nerves intact. LABORATORY DATA: Reviewed. ASSESSMENT AND PLAN: 1. Stage 6 chronic kidney disease, stable. 2. Hypertension, stable. 3. Anemia, stable. 4. Medication based on GFR appropriate. Job ID: [id number]
[2020-01-03] MEDS: Polyethylene Glycol 3350 17 GM Packet PO SCH (15:46)
[2020-01-03] MEDS: Allopurinol 100 MG TAB PO SCH (15:46)
[2020-01-03] MEDS: Cinacalcet HCl 30 MG TAB PO SCH (15:47)
[2020-01-03] MEDS: Fludrocortisone Acetate 0.1 MG TAB PO SCH (15:48)
[2020-01-03] MEDS: predniSONE 5 MG TAB PO SCH (15:49)
[2020-01-03] MEDS: HYDROcodone/Acetaminophen 5/325 mg Tablet PO PRN ×2 (15:54→23:19)
--- NOTE | 2020-01-03 17:24 | OP ---
DATE OF PROCEDURE: 01/03/2020 PREOPERATIVE DIAGNOSES: End-stage renal disease, inadequate peritoneal dialysis clearance, functioning left arm arteriovenous fistula. POSTOPERATIVE DIAGNOSES: End-stage renal disease, inadequate peritoneal dialysis clearance, functioning left arm arteriovenous fistula. PROCEDURE PERFORMED: Removal of double cuffed pigtail peritoneal dialysis catheter. ANESTHESIA: Intravenous sedation and local 0.25% Marcaine with epinephrine 30 mL mixed with 2% Xylocaine 5 mL. DESCRIPTION OF PROCEDURE: The patient was taken to the operating room, where under intravenous sedation, the abdomen was clipped of hair, prepared with ChloraPrep and draped in routine fashion. Catheter and cuff were removed with blunt dissection. Gauze dressing applied. MediPort dressing applied. Good hemostasis was noted. The patient tolerated the procedure well. Job ID: [id number]
[2020-01-04 06:32] LABS: #Basophils 0.1 thou/uL (0.0-0.2); #Eosinphils 0.6 thou/uL (0.0-0.7); #Lymphocytes 1.3 thou/uL (1.20-3.40); #Monocytes 1.2 thou/uL (0.11-0.59); #Neutrophils 5.8 thou/uL (1.40-6.50); %Basophils 0.6 % (0.0-1.0); %Eosinophils 6.9 % (0.0-10.0); %Lymphocytes 14.1 % (21.0-51.0); %Monocytes 13.4 % (0.0-10.0); Hemoglobin 10.4 g/dL (14.0-18.0); Mean Corpuscular HGB CONC 33.7 g/dL (32.0-36.0); Mean Corpuscular Hemoglobin 34.1 pg (27.0-31.0); Mean Platelet Volume 6.8 fL (7.4-10.4); Platelet Count 228 thou/uL (130-400); RBC Distribution Width 14.3 % (11.5-14.5); Red Blood Cell (RBC) Count 3.04 mill/uL (4.70-6.10)
[2020-01-04 07:34] LABS: Anion Gap 18 mmol/L (10-20); BUN (Urea Nitrogen) 32 mg/dL (8.4-25.7); Calc. Creatinine Clearance 11 mL/min (70-130); Calcium 8.6 mg/dL (7.8-10.44); Carbon Dioxide 24 mmol/L (23-31); Chloride 94 mmol/L (98-107); Estimated GFR-MDRD 6; Glucose 102 mg/dL (80-115); Magnesium 1.9 mg/dL (1.6-2.6); Phosphorus 4.1 mg/dL (2.3-4.7); Sodium 132 mmol/L (136-145)
[2020-01-04] MEDS: Heparin 5,000 UNITS/ML VIAL SC SCH (08:20)
[2020-01-04] MEDS: Fludrocortisone Acetate 0.1 MG TAB PO SCH (08:21)
[2020-01-04] MEDS: Cinacalcet HCl 30 MG TAB PO SCH (08:21)
[2020-01-04] MEDS: Allopurinol 100 MG TAB PO SCH (08:21)
[2020-01-04] MEDS: Polyethylene Glycol 3350 17 GM Packet PO SCH (08:21)
[2020-01-04] MEDS: Calcitriol 0.25 MCG CAP PO SCH (08:21)
[2020-01-04] MEDS: HYDROcodone/Acetaminophen 5/325 mg Tablet PO PRN (13:40)
[2020-01-04 15:07] VITALS: BP 103/58; TEMP 98.1
--- NOTE | 2020-01-04 17:57 | PRG ---
DATE OF SERVICE: SUBJECTIVE: A 64-year-old gentleman being seen for end-stage renal disease. The patient denies any nausea, vomiting, or chest pain. PHYSICAL EXAMINATION: General: The patient is awake and alert. Vital Signs: Afebrile, pulse 75, breathing 16, blood pressure 103/58. HEENT: Head normocephalic and atraumatic. Eyes intact, no ulcers. Nose intact, no ulcers. Ears intact, no ulcers. Neck: Supple. No JVD. Chest: Symmetrical and clear. Cardiovascular: Shows S1 and S2, no rub, no murmur. Gastrointestinal: Abdomen is soft, bowel sounds positive. Extremities: Show no edema or ulcers. Skin: Shows no rash or petechiae. Musculoskeletal: Shows no joint swelling or stiffness. Genitourinary: Shows no Tiwari or CVA tenderness. Neurologic: Motor intact. Cranial nerves intact. LABORATORY DATA: Labs reviewed. ASSESSMENT AND PLAN: 1. Stage 6 chronic kidney disease, plan dialysis. 2. Hypertension, stable. 3. Anemia, stable. 4. Medication based on GFR appropriate. The patient will continue to follow as an outpatient. Job ID: [id number]
--- NOTE | 2020-01-05 00:55 | DIS ---
DATE OF ADMISSION: 01/01/2020 DATE OF DISCHARGE: 01/04/2020 PRIMARY CARE PROVIDER: Victoria Estes PA-C. DISCHARGE DIAGNOSES: 1. End-stage renal disease. 2. Inadequate peritoneal dialysis. 3. Hemodialysis status transition to hemodialysis with left arm fistula. CONSULTATIONS DURING THIS HOSPITALIZATION: Nephrology, Dr. Miramontes and General Surgery, Dr. Otoole. CONDITION OF THE PATIENT ON THE DAY OF DISCHARGE: Stable. I assessed Mr. Rodriguez on the day of discharge. He denies any chest pain or shortness of breath. Vital signs are stable. S1 and S2 are heard, regular. Lungs are clear to auscultation bilaterally. HOSPITAL COURSE: Mr. Rodriguez is a pleasant 64-year-old gentleman, who was admitted to [facility] on January 01, 2020, for end-stage renal disease. He was on peritoneal dialysis, but the dialysis was not adequate. He was seen by General Surgery Service. On January 02, he underwent removal of double cuffed pigtail peritoneal dialysis catheter. He has been started on hemodialysis. Arrangements are being made for outpatient dialysis chair on Wednesday, Wednesday, and Wednesday at 3:30 p.m. Many thanks for allowing me to participate in your patient's care. Please feel free to contact me with any questions or concerns. DISCHARGE DESTINATION: Home. TIME SPENT: Total amount of time spent coordinating this discharge: 25 minutes. POST ACUTE CARE FOLLOWUP: With primary care provider in 3 days. DIET: Heart-healthy and renal. DISCHARGE MEDICATIONS: No change was made to his pre-admission home medications. Job ID: [id number] MTDD
--- NOTE | 2020-01-12 05:47 | PQF ---
CLINICAL DOCUMENTATION CLARIFICATION FORM: Dear : Jimenez Arias Date / Time: 01/12/2020 0277 Please exercise your independent, professional judgment in responding to the clarification form. Clinical indicators are provided on the bottom of this form for your review Please check appropriate box(es): [ x ] Inadequate peritoneal dialysis is a complication of Peritoneal dialysis [ ] Inadequate peritoneal dialysis is not a complication of Peritoneal dialysis [ ] Other diagnosis [ ] Unable to determine Physician Signature: Date/Time: For continuity of documentation, please document condition throughout progress notes and discharge summary. Thank You. To be completed by CDI/Coding staff for physician review: Present Clinical Indicators - Signs / Symptoms / Labs Results and Location in Medical Record [X] BUN 73; 75creatinine 11.69; 11.67, GFR 4; 4 Laboratory 12/31 [X] BUN 70, Creatinine 11.78, GFR 4 Laboratory 01/01 [X] BP 117/55, Pulse 83, Resp 18, Temp 98.3 Vital signs 01/01 [X] He reports some edema, but this may be due to missed PD session H&P p1 01/01 Dr Holcomb [X] Hyponatremia/Hypokale monitoring likely due to volume overload Event note Dr Canela 01/01 [X] Inadequate peritoneal dialysis Operative report Dr Otoole 01/02 [X] Functioning left arm AV fistula Operative report Dr Otoole 01/02 Present Risk Factors Results and Location in Medical Record [X] 64 year-old Male H&P p1 01/01 Dr Holcomb [X] ESRD on Peritoneal dialysis H&P p1 01/01 Dr Holcomb [X] Obesity H&P p3 01/01 Dr Holcomb [X] HTN H&P p3 01/01 Dr Holcomb [X] Hyponatremia H&P p6 01/01 Dr Holcomb [X] Hypokalemie H&P p6 01/01 Dr Holcomb Present Treatments Results and Location in Medical Record [X] Series of Creatinine and BUN Laboratory 12/31 [X] Calculator Operator consult Consult Dr Miramontes 12/31 [X] Peritoneal dialysis Order Dr Miramontes 01/01 [X] Hemodialysis Order Dr Miramontes 01/01 [X] Removal of Peritoneal dialysis catheter Operative report Dr Otoole 01/02 CDS/Geotechnical Field Technician Signature: Melody Fantajacobo Bhatt Phone #: [phone] Date/Time: 01/12/2020 0547 This is a permanent part of the Medical Record [facility]
--- NOTE | 2020-01-13 14:05 | EKG ---
Test Reason : Blood Pressure : / mmHG Vent. Rate : 084 BPM Atrial Rate : 084 BPM P-R Int : 158 ms QRS Dur : 096 ms QT Int : 428 ms P-R-T Axes : 022 012 047 degrees QTc Int : 505 ms Normal sinus rhythm Prolonged QT Abnormal ECG Confirmed by JEFFERY MASON ([id number]), script editor CECILIA HUI ([id number]) on 01/13/2020 2:04:55 PM Referred By: ADELINE BUENO Confirmed By:JEFFERY Rodriguez
== END 2020-01-04 16:50 | disposition home or self-care (01) | DRG 919 ==
LOC: ERS 19:31 → ERHOLD 23:08 → 2SW 01-02 01:34
PROVIDERS: ADMIT Internal Medicine; ATTEND Internal Medicine
PROC: 5A1D70Z Performance of Urinary Filtration, Intermittent, Less than 6 Hours Per Day (ICD-10-PCS; principal; 2020-01-02)
PROC: 3E1M39Z Irrigation of Peritoneal Cavity using Dialysate, Percutaneous Approach (ICD-10-PCS; 2020-01-02)
PROC: 0WPGX3Z Removal of Infusion Device from Peritoneal Cavity, External Approach (ICD-10-PCS; 2020-01-03)
DX: T85.898A Other specified complication of other internal prosthetic devices, implants and grafts, initial encounter (principal); N18.6 End stage renal disease; I12.0 Hypertensive chronic kidney disease with stage 5 chronic kidney disease or end stage renal disease; E87.1 Hypo-osmolality and hyponatremia; E87.6 Hypokalemia; E87.70 Fluid overload, unspecified; Z20.828 Contact with and (suspected) exposure to other viral communicable diseases; E78.00 Pure hypercholesterolemia, unspecified; E78.5 Hyperlipidemia, unspecified; M10.9 Gout, unspecified; Z96.643 Presence of artificial hip joint, bilateral; E66.9 Obesity, unspecified; D63.1 Anemia in chronic kidney disease; M45.9 Ankylosing spondylitis of unspecified sites in spine; Y84.1 Kidney dialysis as the cause of abnormal reaction of the patient, or of later complication, without mention of misadventure at the time of the procedure; Z99.2 Dependence on renal dialysis; Z68.33 Body mass index [BMI] 33.0-33.9, adult; Z79.899 Other long term (current) drug therapy; Z79.52 Long term (current) use of systemic steroids
CPT/HCPCS: 36415; 80048; 80053; 80076; 82533; 83735; 83880; 84100; 84443; 85025; 86704; 86706; 86803; 87040; 87340; 87635; 90935; 90945; 93005; 96365; G0257; J0690; J1644; J2001; J2704; J3010; J3480; J7050; U0003